=== PATIENT | female | born 1985 | race Caucasian/White ===

== ENCOUNTER → 2020-08-23 11:36 | Outpatient (BNVA) | payer OTHER, SELFPAY | PROVIDERS: PCP Internal Medicine; Visit Provider Surgery | DX: Z01.89 Encounter for other specified special examinations (principal) | CPT/HCPCS: 99212 ==

== ENCOUNTER → 2020-09-05 12:38 | Outpatient (BNVA) | payer OTHER, SELFPAY | PROVIDERS: PCP Internal Medicine; Referring Provider Internal Medicine; Visit Provider Physician Assistant | DX: E66.9 Obesity, unspecified (principal); Z68.27 Body mass index [BMI] 27.0-27.9, adult; K90.49 Malabsorption due to intolerance, not elsewhere classified; Z98.84 Bariatric surgery status; Z71.3 Dietary counseling and surveillance | CPT/HCPCS: 99214 ==

== ENCOUNTER 2020-09-13 08:09 | Outpatient (REF) | payer OTHER, SELFPAY ==
[2020-09-13 13:29] LABS: MANUAL DIFF FLAG NO
[2020-09-13 13:35] LABS: Basophils Percent Auto 0.5 % (0-2); Eosinophils Absolute Auto 0.1 X10*3/uL (0.0-0.4); Eosinophils Percent Auto 1.1 % (0-4); Hematocrit 39.4 % (37-47); Hemoglobin 12.7 g/dl (12.0-16.0); Imm Gran Abs Auto 0.01 X10*3/uL (0.00-0.03); Imm Gran Pct Auto 0.2 % (0.0-0.4); Lymphocytes Absolute Auto 3.1 X10*3/uL (1.2-4.9); Lymphocytes Percent Auto 49.6 % (20-40); Mean Corpuscular HGB Conc 32.2 g/dl (31.0-35.0); Mean Corpuscular Hemoglobin 28.6 pg (27.0-33.0); Mean Corpuscular Volume 88.7 fL (80-98); Mean Platelet Volume 10.3 fL (9.4-12.3); Monocytes Absolute Auto 0.3 X10*3/uL (0.1-1.2); Monocytes Percent Auto 5.5 % (2-11); Neutrophils Absolute Auto 2.7 X10*3/uL (2.0-8.3); Neutrophils Percent Auto 43.1 % (45-73); Platelet Count 303 X10*3/uL (160-400); Red Blood Count 4.44 X10*6/uL (4.20-5.50); Red Cell Distribution Width 13.6 % (11.0-16.0); White Blood Count 6.2 X10*3/uL (4.8-10.8)
[2020-09-13 14:16] LABS: Alanine Aminotransferase 9 U/L (0-31); Albumin Level 4.2 g/dL (3.5-5.0); Alkaline Phosphatase 83 U/L (39-117); Anion Gap 11 (12-20); Aspartate Amino Transferase 16 U/L (5-31); Bilirubin Total 0.4 mg/dL (0.0-1.0); Blood Urea Nitrogen 9 mg/dL (9-16); C Reactive Protein 0.21 mg/dL (< or = 0.50); Calcium 9.4 mg/dL (8.4-10.2); Carbon Dioxide 29 mmol/L (22-29); Chloride 106 mmol/L (96-108); Cholesterol 154 mg/dL; Estimated Glomerular Filt Rate > 60; Glucose Fasting 77 mg/dL (60-99); HDL Cholesterol 75 mg/dL; Iron 46 mcg/dL (30-160); LDL Cholesterol Calculated 70 mg/dl; Percent Iron Saturation 16 % (15-50); Potassium 4.5 mmol/l (3.3-5.1); Sodium 141 mmol/L (135-145); Total Iron Binding Capacity 290 mcg/dL (228-428); Total Protein 7.2 g/dL (6.5-8.0); Triglycerides 46 mg/dL; Unsaturated Iron Binding 244 ug/dL
[2020-09-13 14:29] LABS: Estimated Average Glucose 91 mg/dL; Hemoglobin A1c % 4.8 %
[2020-09-13 14:31] LABS: Folate 14.5 ng/mL (> or = 4.0); Vitamin B12 621 pg/mL (200-900)
[2020-09-13 14:33] LABS: Ferritin 32 ng/mL (10-122); TSH reflex Free T4 0.52 mIU/mL (0.32-4.0); Vitamin D 25-OH Total 32.8 ng/mL (>30)
[2020-09-14 19:27] LABS: Calcium (PTHI) 9.7 mg/dL (8.6-10.2); PTHI 51 pg/mL (14-64)
[2020-09-15 13:32] LABS: Insulin Level Total 3.6 uIU/mL
[2020-09-17 13:07] LABS: Vitamin B1 14 nmol/L (8-30)
[2020-09-17 17:46] LABS: Zinc 108 mcg/dL (60-130)
[2020-09-19 13:42] LABS: Vitamin A 32 mcg/dL (38-98)
== END 2020-09-13 08:10 | disposition home or self-care (01) ==
LOC: CF 08:09
PROVIDERS: Absent Provider Physician Assistant; PCP Internal Medicine; Visit Provider Dietitian, Registered
DX: E66.9 Obesity, unspecified (principal); K90.49 Malabsorption due to intolerance, not elsewhere classified
CPT/HCPCS: 36415; 80053; 80061; 82306; 82607; 82728; 82746; 83036; 83525; 83540; 83970; 84425; 84443; 84590; 84630; 85025; 86140

== ENCOUNTER → 2020-10-03 15:33 | Outpatient (BNVA) | payer OTHER, SELFPAY | PROVIDERS: PCP Internal Medicine; Visit Provider Nurse Practitioner Family | DX: Z76.89 Persons encountering health services in other specified circumstances (principal) ==

== ENCOUNTER → 2020-10-31 14:16 | Outpatient (BNVA) | payer OTHER, SELFPAY | PROVIDERS: PCP Internal Medicine; Visit Provider Physician Assistant | DX: Z76.89 Persons encountering health services in other specified circumstances (principal) ==

== ENCOUNTER → 2020-11-28 08:24 | Outpatient (BNVA) | payer OTHER, SELFPAY | PROVIDERS: PCP Internal Medicine; Visit Provider Physician Assistant | DX: Z76.89 Persons encountering health services in other specified circumstances (principal) ==

== ENCOUNTER 2020-12-05 16:06 | Outpatient (REF) | payer OTHER, SELFPAY ==
[2020-12-05 16:39] LABS: MANUAL DIFF FLAG NO
[2020-12-05 16:41] LABS: Basophils Percent Auto 0.3 % (0-2); Eosinophils Absolute Auto 0.1 X10*3/uL (0.0-0.4); Eosinophils Percent Auto 1.5 % (0-4); Hemoglobin 11.5 g/dl (12.0-16.0); Imm Gran Abs Auto 0.01 X10*3/uL (0.00-0.03); Imm Gran Pct Auto 0.2 % (0.0-0.4); Lymphocytes Absolute Auto 3.1 X10*3/uL (1.2-4.9); Lymphocytes Percent Auto 47.2 % (20-40); Mean Corpuscular HGB Conc 32.9 g/dl (31.0-35.0); Mean Corpuscular Volume 88.2 fL (80-98); Mean Platelet Volume 10.1 fL (9.4-12.3); Monocytes Absolute Auto 0.4 X10*3/uL (0.1-1.2); Monocytes Percent Auto 5.5 % (2-11); Neutrophils Percent Auto 45.3 % (45-73); Platelet Count 271 X10*3/uL (160-400); Red Blood Count 3.97 X10*6/uL (4.20-5.50); Red Cell Distribution Width 13.4 % (11.0-16.0); White Blood Count 6.6 X10*3/uL (4.8-10.8)
[2020-12-05 16:58] LABS: Estimated Average Glucose 91 mg/dL; Hemoglobin A1c % 4.8 %
[2020-12-05 17:17] LABS: Alanine Aminotransferase 11 U/L (0-31); Albumin Level 4.2 g/dL (3.5-5.0); Alkaline Phosphatase 77 U/L (39-117); Anion Gap 10 (12-20); Aspartate Amino Transferase 15 U/L (5-31); Bilirubin Total 0.2 mg/dL (0.0-1.0); Blood Urea Nitrogen 11 mg/dL (9-16); C Reactive Protein 0.21 mg/dL (< or = 0.50); Carbon Dioxide 29 mmol/L (22-29); Chloride 106 mmol/L (96-108); Cholesterol 173 mg/dL; Estimated Glomerular Filt Rate > 60; Glucose Fasting 78 mg/dL (60-99); HDL Cholesterol 72 mg/dL; Iron 43 mcg/dL (30-160); LDL Cholesterol Calculated 87 mg/dl; Percent Iron Saturation 13 % (15-50); Potassium 3.7 mmol/l (3.3-5.1); Sodium 141 mmol/L (135-145); Total Iron Binding Capacity 331 mcg/dL (228-428); Triglycerides 74 mg/dL; Unsaturated Iron Binding 288 ug/dL
[2020-12-05 17:40] LABS: Ferritin 34 ng/mL (10-122); TSH reflex Free T4 1.61 mIU/mL (0.32-4.0); Vitamin D 25-OH Total 25.5 ng/mL (>30)
[2020-12-05 17:53] LABS: Folate 13.1 ng/mL (> or = 4.0); Vitamin B12 521 pg/mL (200-900)
[2020-12-06 17:33] LABS: Insulin Level Total 2.6 uIU/mL
[2020-12-07 10:42] LABS: Calcium (PTHI) 9.3 mg/dL (8.6-10.2); PTHI 54 pg/mL (14-64)
[2020-12-08 00:53] LABS: Zinc 122 mcg/dL (60-130)
[2020-12-08 18:33] LABS: Vitamin B1 11 nmol/L (8-30)
[2020-12-10 03:13] LABS: Vitamin A 42 mcg/dL (38-98)
== END 2020-12-05 16:07 | disposition home or self-care (01) ==
LOC: HO.LAB 16:06
PROVIDERS: PCP Internal Medicine; Visit Provider Physician Assistant
DX: E66.01 Morbid (severe) obesity due to excess calories (principal); Z90.3 Acquired absence of stomach [part of]; K90.49 Malabsorption due to intolerance, not elsewhere classified; Z68.29 Body mass index [BMI] 29.0-29.9, adult
CPT/HCPCS: 36415; 80053; 80061; 82306; 82607; 82728; 82746; 83036; 83519; 83525; 83540; 83970; 84425; 84443; 84590; 84630; 85025; 86140

== ENCOUNTER → 2021-01-24 08:24 | Outpatient (BNVA) | payer OTHER, SELFPAY | PROVIDERS: PCP Internal Medicine; Visit Provider Dietitian, Registered ==

== ENCOUNTER 2021-06-07 22:51 | Emergency (ER) | payer OTHER, SELFPAY ==
[2021-06-07 22:52] VITALS: BP 110/62; PULSE 81; RESP 16; TEMP 36.9; O2SAT 98; BMI 28.7
--- NOTE | 2021-06-07 23:33 | ED.EXTPRO ---
HPI - Extremity Problem General Chief complaint: Extremity Injury, Upper Stated complaint: shoulder inj Time Seen by Provider: 06/07/21 23:12 Source: patient Mode of arrival: ambulatory Limitations: no limitations History of Present Illness HPI Narrative: 35 y/o female with history of gastric sleeve s/p 120 lbs weight loss, history of right shoulder injury 05/2020 who presents with acute on chronic right posterior shoulder pain. She has been working out and lifting weights to lose more weight. She states the last few days her shoulder has been more sore. She has full ROM. She reports pain with rowing motions. No specific injury. No popping or snapping sensation, no swelling or bruising. No weakness, numbness or tingling. She reports her shoulder pain worsens from time to time and gets better on its own. She has never seen an Orthopedist. MD Complaint: joint paint Onset (ago): day(s) Pain Consistency: intermittent Location: right and upper extremity Severity scale (1-10): 6 Quality: aching Radiation: none Relieving factors: rest Exacerbating factors: range of motion and palpation Associated symptoms: denies other symptoms Related Data Previous Rx's Medication Instructions Recorded cholecalciferol (vitamin D3) 50 50 mcg PO DAILY #30 cap 12/16/20 mcg (2,000 unit) capsule iron,carbonyl 65 mg-vitamin C 125 1 tab PO DAILY #30 tab 12/16/20 mg tablet,delayed release vitamin A 10,000 unit capsule 10,000 unit PO DAILY #30 cap 12/16/20 acetaminophen [Tylenol Arthritis 650 mg PO Q8H PRN #30 tab 06/07/21 Pain] cyclobenzaprine 10 mg PO TID PRN #8 tab 06/07/21 lidocaine [Lidoderm] 1 patch TOPICAL DAILY #15 ea 06/07/21 Allergies Allergy/AdvReac Type Severity Reaction Status Date / Time oseltamivir [From TAMIFLU] Allergy Unknown DROWSINESS/NAUSEA, Verified 06/07/21 22:58 rash, psychosis Review of Systems Review of Systems: Constitutional: No Fever, No Chills Gastrointestinal: No Nausea, No Vomiting Musculoskeletal: + joint pain, No Myalgias Skin: No Skin Lesions, No rash Neuro: No Weakness, No Numbness Heme/Lymph: No Bruising PMFSH Past Medical History Attestation statement: The following information was validated with the patient. Medical History Anemia Back pain GERD (gastroesophageal reflux disease) Intestinal malabsorption following gastrectomy Malabsorption due to intolerance, not elsewhere classified Morbid obesity Overweight (BMI 25.0-29.9) Surgical History History of colonoscopy Hx of cholecystectomy S/P laparoscopic sleeve gastrectomy Family History Family History Father No problems noted. Mother Hypertension Sister No problems noted. Sister Hypoglycemia Brother No problems noted. Brother No problems noted. Son No problems noted. Son No problems noted. Social History Social History Advance Directives: No Advance Directives Information Provided: No Physical Exam Vital Signs: Vital Signs: Last Vital Signs Temp 98.5 F 06/07/21 22:52 Pulse 81 06/07/21 22:52 Resp 16 06/07/21 22:52 BP 110/62 06/07/21 22:52 Pulse Ox 98 06/07/21 22:52 Body Mass Index 28.7 Appearance: Alert. Oriented X3. No acute distress. HEENT: normal inspection CVS: Normal heart rate and rhythm. Pulses normal. Respiratory: No respiratory distress. Skin: Skin warm and dry. Normal skin color. Normal skin turgor. No rashes. Extremities: normal inspection of right shoulder, tenderness posteriorly along superior ridge of scapula, normal ROM, slight discomfort with abduction. NV intact distally. normal palpation of anterior shoulder and lateral shoulder, nontender AC joint. no clavicular tenderness Neuro: Oriented X 3. No motor deficit. No sensory deficit. Course Course Course Narrative: 35 y/o female presenting with acute on chronic right shoulder pain, s/p injury 1 year ago. Records reviewed, XRs were negative at the time. She never followed up with Ortho for insurance reasons. Her exam is benign with only some mild suprascapular tenderness. Possible tendonitis with exacerbation of old untreated injury. Will give IM toradol, lidoderm patch and refer to Ortho for further workup and management. Patient agrees with plan. Discharge Plan Discharge Clinical Impression: Right shoulder pain Qualifiers: Chronicity: chronic Qualified Code(s): M25.511 - Pain in right shoulder Patient Disposition: Home, Self-Care Instructions: Shoulder Pain (ED) Additional Instructions: Recommend rest, icing several times per day. Recommend against any weight lifting for 1 week. You should follow up with Orthopedics for further evaluation. Prescriptions: New cyclobenzaprine 10 mg tablet 10 mg PO TID PRN (Reason: muscle spasm) Qty: 8 RF: 0 acetaminophen [Tylenol Arthritis Pain] 650 mg tablet extended release 650 mg PO Q8H PRN (Reason: pain) Qty: 30 RF: 0 lidocaine [Lidoderm] 5 % adhesive patch,medicated 1 patch topical DAILY Qty: 15 RF: 0 No Action vitamin A 10,000 unit capsule 10,000 unit PO DAILY Qty: 30 RF: 0 cholecalciferol (vitamin D3) 50 mcg (2,000 unit) capsule 50 mcg PO DAILY Qty: 30 RF: 5 Vitron-C 65 mg iron- 125 mg tablet,delayed release (DR/EC) 1 tab PO DAILY Qty: 30 RF: 5 Referrals: Gage Cota MD [Physician] - 2 days (acute on chronic right shoulder pain s/p injury 1 year ago, ongoing pain. never had ortho eval)
[2021-06-07] MEDS: Lidocaine 4 % Patch ADH..PATCH 1 PATCH TRANSDERMA (23:56)
[2021-06-08] MEDS: Ketorolac Tromethamine 15 MG/ML VIAL 30 MG IM (00:02)
[2021-06-08 00:08] VITALS: BP 118/72; PULSE 77; RESP 16; TEMP 36.7; O2SAT 99
== END 2021-06-08 00:09 | disposition home or self-care (01) ==
PROVIDERS: Emergency Provider Emergency Medicine; PCP Internal Medicine
DX: M25.511 Pain in right shoulder (principal); Z98.84 Bariatric surgery status
CPT/HCPCS: 96372; 99283; 99284; J1885

== ENCOUNTER 2021-06-14 07:52 | Outpatient (REF) | payer OTHER, SELFPAY ==
--- NOTE | ~2021-06-14 | XR_ITS ---
EXAMINATION: XR SHOULDER, RIGHT CLINICAL INFORMATION: Right shoulder pain COMPARISON: June 06, 2020 TECHNIQUE: 3 views of the right shoulder. FINDINGS: The bones and soft tissues are normal. No fracture. Glenohumeral and acromioclavicular alignment is anatomic with normal joint space. No abnormal soft tissue calcifications. There is some spurring of the distal right clavicle. XR/XR shoulder RT min 2V IMPRESSION: No significant abnormality of the right shoulder identified.
== END 2021-06-14 07:53 | disposition home or self-care (01) ==
LOC: HO.HOSX 07:52
PROVIDERS: Visit Provider Orthopaedic Surgery
DX: M25.511 Pain in right shoulder (principal); S46.811A Strain of other muscles, fascia and tendons at shoulder and upper arm level, right arm, initial encounter
CPT/HCPCS: 73030; 99202

== ENCOUNTER 2021-12-07 16:12 | Outpatient (REF) | payer OTHER, SELFPAY ==
[2021-12-07 16:32] LABS: MANUAL DIFF FLAG NO
[2021-12-07 16:55] LABS: Basophils Percent Auto 0.4 % (0-2); Eosinophils Absolute Auto 0.1 X10*3/uL (0.0-0.4); Eosinophils Percent Auto 1.8 % (0-4); Hemoglobin 13.2 g/dl (12.0-16.0); Imm Gran Abs Auto 0.01 X10*3/uL (0.00-0.03); Imm Gran Pct Auto 0.2 % (0.0-0.4); Lymphocytes Absolute Auto 2.8 X10*3/uL (1.2-4.9); Lymphocytes Percent Auto 49.6 % (20-40); Mean Corpuscular Hemoglobin 29.3 pg (27.0-33.0); Mean Corpuscular Volume 88.9 fL (80.0-98.0); Mean Platelet Volume 9.8 fL (9.4-12.3); Monocytes Absolute Auto 0.3 X10*3/uL (0.1-1.2); Monocytes Percent Auto 5.3 % (2-11); Neutrophils Absolute Auto 2.4 x10*3/uL (2.0-8.3); Neutrophils Percent Auto 42.7 % (45-73); Platelet Count 268 X10*3/uL (160-400); Red Cell Distribution Width 12.9 % (11.0-16.0); White Blood Count 5.6 X10*3/uL (4.8-10.8)
[2021-12-07 17:17] LABS: Alanine Aminotransferase 20 U/L (0-31); Albumin Level 4.2 g/dL (3.5-5.0); Alkaline Phosphatase 67 U/L (39-117); Anion Gap 10 (12-20); Aspartate Amino Transferase 19 U/L (5-31); Bilirubin Total 0.5 mg/dL (0.0-1.0); Blood Urea Nitrogen 7 mg/dL (9-16); Calcium 9.6 mg/dL (8.4-10.2); Carbon Dioxide 29 mmol/L (22-29); Chloride 106 mmol/L (96-108); Cholesterol 190 mg/dL; Estimated Glomerular Filt Rate > 60; Glucose Fasting 79 mg/dL (60-99); HDL Cholesterol 78 mg/dL; LDL Cholesterol Calculated 96 mg/dl; Potassium 4.3 mmol/L (3.3-5.1); Sodium 141 mmol/L (135-145); Total Protein 7.4 g/dL (6.5-8.0); Triglycerides 82 mg/dL
[2021-12-07 17:37] LABS: Thyroid Stimulating Hormone 0.85 uIU/mL (0.32-4.0)
[2021-12-07 17:51] LABS: Folate 8.3 ng/mL (> or = 4.0); Vitamin B12 370 pg/mL (200-900)
[2021-12-11 16:17] LABS: Vitamin D 25-OH, D2 <4 ng/mL; Vitamin D 25-OH, D3 20 ng/mL; Vitamin D 25-OH, Total 20 ng/mL (30-100)
[2021-12-13 10:02] LABS: Vitamin A 46 mcg/dL (38-98)
== END 2021-12-07 16:13 | disposition home or self-care (01) ==
LOC: HO.LAB 16:12
PROVIDERS: PCP Internal Medicine; Visit Provider Internal Medicine
DX: Z00.00 Encounter for general adult medical examination without abnormal findings (principal); D64.9 Anemia, unspecified; K90.49 Malabsorption due to intolerance, not elsewhere classified; E78.5 Hyperlipidemia, unspecified; E55.9 Vitamin D deficiency, unspecified; E66.3 Overweight
CPT/HCPCS: 36415; 80053; 80061; 82306; 82607; 82746; 84443; 84590; 85025

== ENCOUNTER 2021-12-13 13:53 | Outpatient (REF) | payer OTHER, SELFPAY ==
--- NOTE | ~2021-12-13 | MM_ITS ---
EXAMINATION: MM DIAGNOSTIC DIGITAL BREAST TOMOSYNTHESIS, LEFT US DIAGNOSTIC ULTRASOUND BREAST, LEFT CLINICAL INFORMATION: 36-year-old with waxing and waning palpable fullness and pain lower outer left breast. No symptoms today. No known family history breast cancer. The lifetime risk of breast cancer based on the Tyrer-Cuzick Model is 8%. COMPARISON: Mammography: Outside mammography 09/15/2021 ([facility]). TECHNIQUE: Digital breast tomosynthesis is performed in both the craniocaudal and mediolateral oblique views along with computer-aided detection (CAD). Synthesized 2D images are generated from the tomosynthesis. Ultrasound left breast is targeted to the lower outer quadrant. Grayscale imaging and color Doppler are performed without and with harmonics. FINDINGS: There are scattered areas of fibroglandular density (ACR BI-RADS breast composition Category b). Breast tissue composition borders on heterogeneously dense. Parenchymal pattern is similar to outside exam. There is no interval mass or architectural abnormality. There is a dermal lesion again noted posterior inferior left breast at the inframammary fold corresponding to a mole on clinical exam. There are no abnormal calcifications. The axilla and skin contours are unremarkable. There is no skin thickening or coarsening of the Gera's ligaments. Ultrasound demonstrates no cystic or solid mass or architectural abnormality. There is no skin thickening or edema tracking in soft tissue planes. No hyperemia on real-time color Doppler. Results and management options are discussed with the patient at time of visit. MM/MM diagnostic mammo unilat LT IMPRESSION: No mammographic evidence of malignancy or inflammatory changes. Unremarkable targeted left breast ultrasound. ASSESSMENT LEFT BREAST: BI-RADS 1: Negative COMMENT - There is a recent BI-RADS 3 assessment for right breast ([facility]). RECOMMENDATION: 1. Patient should be managed based on the clinical impression. If clinically indicated, further evaluation may be considered with surgical consult. Decision to proceed with biopsy should be based on clinical grounds and degree of clinical concern. 2. Recent outside mammography from [facility] 09/15/2021 notes probable benign grouped calcifications right breast for which six-month follow-up mammography is recommended. This patient's information was entered into a reminder system with a target due date for their next mammogram.
== END 2021-12-13 13:54 | disposition home or self-care (01) ==
LOC: HO.MAMMO 13:53
PROVIDERS: Visit Provider Internal Medicine
DX: N63.25 Unspecified lump in the left breast, overlapping quadrants (principal)
CPT/HCPCS: 76642; 77065

== ENCOUNTER 2022-01-20 18:52 | Emergency (ER) | payer OTHER, SELFPAY ==
--- NOTE | ~2022-01-20 | XR_ITS ---
EXAMINATION: XR ANKLE, LEFT CLINICAL INFORMATION: Injury with ankle pain COMPARISON: None TECHNIQUE: AP, lateral, and mortise views of the left ankle. FINDINGS: The bones and soft tissues are normal. No fracture. Alignment is anatomic. Joint spaces are maintained. No joint effusion. XR/XR ankle LT 2V IMPRESSION: Normal left ankle.
[2022-01-20 19:09] VITALS: BP 129/67; PULSE 80; RESP 16; TEMP 37.1; O2SAT 97; BMI 29.2
--- NOTE | 2022-01-20 19:40 | ED.LOWEXIN ---
HPI - Extremity Injury (Lower) General Chief Complaint: Extremity Injury, Lower Stated Complaint: foot pain Time Seen by Provider: 01/20/22 19:21 Source: patient Mode of arrival: ambulatory Limitations: no limitations History of Present Illness HPI Narrative: 36-year-old female here with reports of left ankle pain. Patient tells me she has had some discomfort over the left ankle for the last few days. Today she was stepping down off of a ladder when she felt worsening pain in her left posterior ankle. Patient denies any pain in her foot or her calf. She denies any associated numbness, tingling, weakness of the extremity. Related Data Previous Rx's Medication Instructions Recorded cholecalciferol (vitamin D3) 25 25 mcg PO DAILY 90 Days #90 cap 12/11/21 mcg (1,000 unit) capsule Allergies Allergy/AdvReac Type Severity Reaction Status Date / Time oseltamivir [From TAMIFLU] Allergy Intermediate DROWSINESS/NAUSEA, Verified 11/29/21 08:05 rash, psychosis Review of Systems Review of Systems: Yes all other systems are reviewed and are negative Constitutional: Constitutional: Reports no additional constitutional complaints, Denies body ache(s), Denies chills, Denies fever(s), Denies headache(s) and Denies weakness Eyes: Eyes: Reports no additional eye complaints and Denies change in vision ENT: Reports system reviewed and no additional complaints, except as documented, Denies dizziness, Denies headache(s), Denies nasal congestion, Denies nasal discharge and Denies neck pain Cardiovascular: Cardiovascular: Reports no additional cardiovascular complaints, Denies chest pain, Denies leg edema and Denies dyspnea Respiratory: Respiratory: Reports no additional respiratory complaints, Denies cough and Denies dyspnea Gastrointestinal: Gastrointestinal: Reports no additional gastrointestinal complaints, Denies abdominal pain, Denies diarrhea, Denies nausea and Denies vomiting Genitourinary: Genitourinary: Reports no additional female genitourinary complaints and Denies urinary incontinence Musculoskeletal: Musculoskeletal: Reports no additional musculoskeletal complaints, Denies back pain, Reports arthralgias, Denies joint swelling, Denies neck pain, Denies numbness and Denies tingling Integumentary/Breasts: Skin/Breast: Reports system reviewed and no additional complaints, except as docu and Denies rash Neurologic: Reports system reviewed and no additional complaints, except as documented, Denies Abnormal speech present, Denies dizziness, Denies headache(s), Denies numbness, Denies tingling and Denies weakness PMFSH Past Medical History Attestation statement: The following information was validated with the patient. Source: old records reviewed and nursing notes reviewed Medical History Anemia Back pain Breast lump on left side at 3 o'clock position GERD (gastroesophageal reflux disease) Hypovitaminosis D Intestinal malabsorption following gastrectomy Malabsorption due to intolerance, not elsewhere classified Morbid obesity Overweight (BMI 25.0-29.9) Physical exam Surgical History History of colonoscopy Hx of cholecystectomy S/P laparoscopic sleeve gastrectomy Family History Family History Father No problems noted. Mother Hypertension Sister No problems noted. Sister Hypoglycemia Brother No problems noted. Brother No problems noted. Son No problems noted. Son No problems noted. Social History Social History Housing: House Alcohol intake: never Patient Tobacco Use Status: Former Tobacco user Tobacco use type: Cigarette e-Cigarette/Vaping Use: Never Used Second Hand Smoke Exposure: No Advance Directives: No Advance Directives Information Provided: No Patient : No service: No Current occupational status: employed Current occupational exposures/hazards: No Physical Exam Vital Signs: Vital Signs: Last Vital Signs Temp 98.7 F 01/20/22 19:09 Pulse 80 01/20/22 19:09 Resp 16 01/20/22 19:09 BP 129/67 01/20/22 19:09 Pulse Ox 97 01/20/22 19:09 BMI result Body Mass Index 29.2 Const: General: cooperative, healthy appearing, comfortable and no acute distress Orientation/consciousness: patient oriented x3 Limitations: no limitations HENMT: Head: Yes normal to inspection Ears: hearing grossly normal bilaterally General nose exam: Normal external nose present Face and sinus: Yes normal facial exam Mouth: Normal oral and palatal mucosa present Throat: Yes posterior oropharynx normal Eyes: General: appearance normal, both eyes and all related structures Pupils: Equal, round and reactive pupils present Neck: Neck: Yes normal visual inspection Chest: Chest palpation & inspection: normal inspection of the chest Resp: Effort & Inspection: normal respiratory effort Auscultation: clear to auscultation bilaterally Cardio: Rate: regular rate Rhythm: regular rhythm Peripheral pulses: Peripheral pulses 2+ throughout GI: Inspection: Yes normal to inspection Palpation (GI): Soft to palpation and nontender Auscultation: normal bowel sounds Back/Spine/Pelvis: Thoracic/Lumbar Spine: thoracic and lumbar spine normal to inspection Skin: General skin exam: no rashes or lesions noted Neuro: General: patient oriented x3, no focal motor deficits and normal sensation to monofilament Cranial nerves: Yes Equal, round and reactive pupils present Cognition (Neuro): normal cognition Speech: No Abnormal speech present Gait exam (Neuro): Normal gait present Motor exam (neuro): 5/5 motor strength present throughout Extrem: Other: There is tenderness over the left posterior ankle and lateral ankle with slight swelling. There is full range of motion. Negative Vides test. No calf swelling or pain on exam. General: Yes normal to inspection Course Course Course Narrative: 36-year-old female here with reports of left ankle pain for the last few days and tagged denies by stepping off a ladder just prior to arrival. Will check x-rays 2100-x-ray shows no bony abnormality. Likely ankle sprain. Less likely Achilles tear with negative Vides sign and no tenderness on palpation over the posterior Achilles tendon or calf. Patient placed in air splint and crutches for home. Reviewed rice. Reviewed worrisome signs and symptoms of when to return to the emergency department. Comfortable discharge home. MDM - Extremity Injury (Lower) MDM Narrative Medical decision making narrative: sprain, strain, Medical Records Attestation: I reviewed the patient's medical records. Lab Data Attestation: I reviewed the patient's lab results. Imaging Data ankle x-ray: Attestation: I personally reviewed and interpreted this imaging study as follows: Radiologist's impression: [address] [address] XRay Report Signed Patient: Yulia Singer MR#: [id number] : 1985 Acct:[id number] Age/Sex: 36 / F ADM Date: 01/20/22 Loc: HO.ED Attending Dr: Ordering Physician: Narcisa Marshall NP Date of Service: 01/20/22 Procedure(s): XR ankle LT 2V Accession Number(s): [id number] cc: Narcisa Marshall NP~ EXAMINATION: XR ANKLE, LEFT CLINICAL INFORMATION: Injury with ankle pain? COMPARISON: None? TECHNIQUE: AP, lateral, and mortise views of the left ankle. FINDINGS: The bones and soft tissues are normal. No fracture. Alignment is anatomic. Joint spaces are maintained. No joint effusion.? XR/XR ankle LT 2V IMPRESSION: Normal left ankle. Procedures Procedure Narrative Procedure Narrative: Air splint, crutches Discharge Plan Discharge Clinical Impression: Ankle sprain and strain Patient Disposition: Home, Self-Care Instructions: Ankle Sprain (DC) Additional Instructions: Ice, rest, elevation Use the crutches with nonweightbearing for several days until your able to experience no pain with weight-bearing Alternate Motrin and Tylenol as needed Prescriptions: No Action cholecalciferol (vitamin D3) 25 mcg (1,000 unit) capsule 25 mcg PO DAILY 90 Days Qty: 90 2RF Referrals: Cydney Juárez MD [Primary Care Provider] - 5 days (For persistent symptoms)
== END 2022-01-20 21:19 | disposition home or self-care (01) ==
PROVIDERS: Emergency Provider Emergency Medicine Emergency Medical Services; PCP Internal Medicine
DX: S93.402A Sprain of unspecified ligament of left ankle, initial encounter (principal); S96.912A Strain of unspecified muscle and tendon at ankle and foot level, left foot, initial encounter; X50.1XXA Overexertion from prolonged static or awkward postures, initial encounter; Y93.89 Activity, other specified; Y92.019 Unspecified place in single-family (private) house as the place of occurrence of the external cause; Y99.9 Unspecified external cause status
CPT/HCPCS: 73600; 99283

== ENCOUNTER 2022-03-06 14:40 | Outpatient (REF) | payer OTHER, SELFPAY ==
[2022-03-06 17:14] LABS: Vitamin D 25-OH Total 23.5 ng/mL (>30)
[2022-03-06 17:29] LABS: Folate 14.4 ng/mL (> or = 4.0); Vitamin B12 366 pg/mL (200-900)
[2022-03-07 14:11] LABS: Calcium (PTHI) 9.5 mg/dL (8.6-10.2); PTHI 51 pg/mL (16-77)
[2022-03-09 07:01] LABS: Zinc 92 mcg/dL (60-130)
[2022-03-11 00:51] LABS: Vitamin A 34 mcg/dL (38-98)
[2022-03-13 11:51] LABS: Vitamin B1 13 nmol/L (8-30)
== END 2022-03-06 14:41 | disposition home or self-care (01) ==
LOC: HO.LAB 14:40
PROVIDERS: PCP Internal Medicine; Referring Provider Internal Medicine; Visit Provider Physician Assistant
DX: E66.3 Overweight (principal); L98.7 Excessive and redundant skin and subcutaneous tissue; Z98.84 Bariatric surgery status
CPT/HCPCS: 36415; 82306; 82607; 82746; 83970; 84425; 84443; 84590; 84630; 99212

== ENCOUNTER → 2022-04-17 15:00 | Outpatient (BNVA) | payer OTHER, SELFPAY | PROVIDERS: PCP Internal Medicine; Visit Provider Physician Assistant | DX: Z13.89 Encounter for screening for other disorder (principal) ==

== ENCOUNTER 2022-05-15 14:30 | Outpatient (REF) | payer OTHER, SELFPAY ==
--- NOTE | ~2022-05-15 | MM_ITS ---
EXAMINATION: MM DIAGNOSTIC DIGITAL BREAST TOMOSYNTHESIS, RIGHT CLINICAL INFORMATION: 36-year-old for follow-up of right breast calcifications initially noted on outside mammography 09/15/2021. The lifetime risk of breast cancer based on the Tyrer-Cuzick Model is 11%. COMPARISON: Outside bilateral mammography 09/15/2021 ([facility]). Left mammography and left breast ultrasound 12/13/2021 ([facility]). TECHNIQUE: Digital breast tomosynthesis is performed in both the craniocaudal and mediolateral oblique views along with computer-aided detection (CAD). Synthesized 2D images are generated from the tomosynthesis. Additional magnification views right breast are obtained in the CC x2 and ML x2 projections. FINDINGS: The breasts are heterogeneously dense, which may obscure small masses (ACR BI-RADS breast composition Category c). The parenchymal pattern is similar to prior study. There is no interval mass or architectural abnormality. Again, there is dermal lesion overlying the posterior inferior breast, marked with dermal marker. There are grouped benign coarse calcifications posterior 6:00 position. Calcifications for follow-up mid lower inner breast and central lower breast are similar in number and distribution to the outside mammography. The calcifications are rounded and vary in size. Milk of calcium described on outside study is not a predominate finding, only a small minority of the foci. There are no regional calcifications on the contralateral left. Results are discussed with the patient at time of visit. Management options for the calcifications are discussed with the patient including stereotactic sampling as well as continued surveillance. Patient prefers tissue sampling. Results and recommendation called to certified medical coder (Mckenna) for Dr. Samy Foster on 05/15/2022. MM/MM tomosynthesis diagnostic RT IMPRESSION: Although the calcifications for follow-up right breast are unchanged in number, the calcifications vary in size and there are a few show layering milk of calcium. ASSESSMENT: BI-RADS 4: Suspicious (subcategory 4A: Low suspicion for malignancy) RECOMMENDATION: Stereotactic sampling calcifications right breast mid lower inner quadrant. This patient's information was entered into a reminder system with a target due date for their next mammogram.
== END 2022-05-15 14:31 | disposition home or self-care (01) ==
LOC: HO.MAMMO 14:30
PROVIDERS: Visit Provider Internal Medicine
DX: R92.1 Mammographic calcification found on diagnostic imaging of breast (principal)
CPT/HCPCS: 77061; 77065

== ENCOUNTER → 2022-05-18 08:31 | Outpatient (BNVA) | payer OTHER, SELFPAY | PROVIDERS: PCP Internal Medicine; Referring Provider Internal Medicine; Visit Provider Surgery | DX: R92.0 Mammographic microcalcification found on diagnostic imaging of breast (principal) | CPT/HCPCS: 99202 ==

== ENCOUNTER 2022-05-22 08:07 | Outpatient (REF) | payer OTHER, SELFPAY ==
--- NOTE | ~2022-05-22 | MM_ITS ---
EXAMINATION: STEREOTACTIC TOMOSYNTHESIS-GUIDED VACUUM-ASSISTED BREAST BIOPSY, RIGHT SPECIMEN RADIOGRAPH, RIGHT POST PROCEDURE DIGITAL MAMMOGRAM, RIGHT CLINICAL INFORMATION: Regional asymmetric right calcifications for tissue sampling. Age 36. TC score 11%. COMPARISON: 05/15/2022; outside mammography 09/15/2021 ([facility]). TECHNIQUE/PROCEDURE: Informed consent was obtained from the patient after discussion of the benefits, risks, and alternatives to biopsy today. Patient appeared to understand. Gave opportunity for questions. Patient signed consent form. BIOPSY TABLE: Jim[employer] Affirm Prone Biopsy System. LESION: Regional calcifications mid lower inner right breast. LOCAL ANESTHESIA: 4 mL 1% lidocaine; 10 mL 1% lidocaine with epinephrine. DERMATOTOMY: Single skin vidhya dermatotomy performed. NEEDLE: Asokaiva 9-gauge vacuum assisted core biopsy device. APPROACH: Caudal cranial. TARGETING: Combination of digital breast tomosynthesis and stereotactic digital mammography used for targeting. CORES: 6. CLIP: ICU MetrixurMark T-shaped marker. SPECIMEN RADIOGRAPH: Specimen radiograph is taken in separate room using digital mammography. The index calcifications are in the excised cores. There are at least 15 calcifications in the cores. POST PROCEDURE UNILATERAL DIGITAL MAMMOGRAM: The post biopsy mammogram is performed in separate room using separate digital mammography equipment from the biopsy procedure. CC and LM views are obtained. The breasts are heterogeneously dense, which may obscure small masses (breast composition category: c). The clip marker is in position. No gross hematoma. The patient tolerated the procedure well. No immediate complications. Home instructions reviewed with the patient. Final pathology results are pending. MM/MM stereotactic biopsy RT IMPRESSION: 1. Digital tomosynthesis-guided core biopsy right breast with clip placement. 2. Specimen radiograph taken and post procedure mammogram. There is satisfactory positioning of the biopsy clip. 3. Final pathology results pending. An addendum report will be issued.
[2022-05-22] MEDS: Lidocaine HCl 1 % 20 ML VIAL 9 ML SUBCUT (09:36)
[2022-05-22] MEDS: Sodium Bicarbonate 8.4% 50 MEQ/50 ML VIAL SUBCUT (09:38)
== END 2022-05-22 08:08 | disposition home or self-care (01) ==
LOC: HO.MAMMO 08:07
PROVIDERS: Visit Provider Surgery
DX: R92.1 Mammographic calcification found on diagnostic imaging of breast (principal)
CPT/HCPCS: 19081; 88305; A4648

== ENCOUNTER → 2022-05-25 09:07 | Outpatient (BNVA) | payer OTHER, SELFPAY | PROVIDERS: PCP Internal Medicine; Referring Provider Internal Medicine; Visit Provider Surgery | DX: R92.8 Other abnormal and inconclusive findings on diagnostic imaging of breast (principal); Z98.890 Other specified postprocedural states | CPT/HCPCS: 99212 ==

== ENCOUNTER 2022-06-01 07:23 | Outpatient (REF) | payer OTHER, SELFPAY ==
--- NOTE | ~2022-06-01 | XR_ITS ---
EXAMINATION: XR SHOULDER, RIGHT CLINICAL INFORMATION: Right shoulder pain COMPARISON: 06/06/2021 TECHNIQUE: Three views of the right shoulder. FINDINGS: Minimal acromioclavicular osteoarthritis with small subchondral cyst of the distal clavicle. Dorsal spurring of the distal clavicle, unchanged. Glenohumeral joint appears normal. XR/XR shoulder RT min 2V IMPRESSION: Minimal acromioclavicular osteoarthritis.
== END 2022-06-01 07:24 | disposition home or self-care (01) ==
LOC: HO.HOSX 07:23
PROVIDERS: Visit Provider Physician Assistant
DX: E66.3 Overweight (principal); M75.101 Unspecified rotator cuff tear or rupture of right shoulder, not specified as traumatic; E65 Localized adiposity; L98.7 Excessive and redundant skin and subcutaneous tissue; Z98.84 Bariatric surgery status; Z71.3 Dietary counseling and surveillance
CPT/HCPCS: 73030; 99202; 99212; J1040

== ENCOUNTER 2022-07-12 20:38 | Emergency (ER) | payer OTHER, SELFPAY ==
--- NOTE | 2022-07-12 | ECG_ITS ---
Test Reason : dizziness Blood Pressure : / mmHG Vent. Rate : 075 BPM Atrial Rate : 075 BPM P-R Int : 162 ms QRS Dur : 084 ms QT Int : 384 ms P-R-T Axes : 019 038 026 degrees QTc Int : 428 ms Normal sinus rhythm Normal ECG When compared with ECG of 03-SEP-2019 11:08, No significant change was found Referred By: Generic ED Physician Electronically Signed By:KELLI BURNS
[2022-07-12 20:47] VITALS: BP 104/78; PULSE 92; RESP 13; TEMP 37.1; O2SAT 99; BMI 30.2
[2022-07-12 21:07] LABS: MANUAL DIFF FLAG NO
[2022-07-12 21:08] LABS: Basophils Percent Auto 0.4 % (0-2); Eosinophils Absolute Auto 0.3 X10*3/uL (0.0-0.4); Eosinophils Percent Auto 3.6 % (0-4); Hematocrit 37.1 % (37.0-47.0); Hemoglobin 12.3 g/dl (12.0-16.0); Imm Gran Abs Auto 0.02 X10*3/uL (0.00-0.03); Imm Gran Pct Auto 0.3 % (0.0-0.4); Lymphocytes Absolute Auto 3.5 X10*3/uL (1.2-4.9); Lymphocytes Percent Auto 45.3 % (20-40); Mean Corpuscular HGB Conc 33.2 g/dl (31.0-35.0); Mean Corpuscular Hemoglobin 29.9 pg (27.0-33.0); Mean Corpuscular Volume 90.3 fL (80.0-98.0); Mean Platelet Volume 9.4 fL (9.4-12.3); Monocytes Absolute Auto 0.5 X10*3/uL (0.1-1.2); Monocytes Percent Auto 6.5 % (2-11); Neutrophils Absolute Auto 3.4 x10*3/uL (2.0-8.3); Neutrophils Percent Auto 43.9 % (45-73); Platelet Count 268 X10*3/uL (160-400); Red Blood Count 4.11 X10*6/uL (4.20-5.50); Red Cell Distribution Width 13.4 % (11.0-16.0); White Blood Count 7.7 X10*3/uL (4.8-10.8)
[2022-07-12 21:26] LABS: Alanine Aminotransferase 14 U/L (0-31); Alkaline Phosphatase 71 U/L (39-117); Anion Gap 13 (12-20); Aspartate Amino Transferase 17 U/L (5-31); Bilirubin Total 0.3 mg/dL (0.0-1.0); Blood Urea Nitrogen 9 mg/dL (9-16); Calcium 8.7 mg/dL (8.4-10.2); Carbon Dioxide 27 mmol/L (22-29); Chloride 105 mmol/L (96-108); Creatinine Clr Calc Pharmacy 93.1; Estimated Glomerular Filt Rate > 60; Glucose Random 102 mg/dL (60-115); Potassium 3.4 mmol/L (3.3-5.1); Sodium 142 mmol/L (135-145); Total Protein 6.8 g/dL (6.5-8.0)
[2022-07-12 21:30] LABS: Troponin-I High Sensitivity < 3.5 ng/L (<3.5-17.0)
--- NOTE | 2022-07-12 23:56 | ED.DIZZY ---
HPI - Dizziness General Chief Complaint: Dizziness Stated Complaint: dizziness reddness Time Seen by Provider: 07/12/22 23:55 Source: patient Mode of arrival: ambulatory Limitations: no limitations History of Present Illness HPI Narrative: 37 yo female came in for evaluation of dizziness. patient was at work bending down felt dizzy when she stood up and changed her position that was improved after drinking water, then happened again with changing position , patient otherwise declined headache, no blurry vision, no nausea vomiting, weak no numbness. When patient feel dizzy veins on her temporal area pop up. no recent sickness, no fever, chills. Similar symptoms have been once in the past, currently patient has no symptoms. Related Data Home Medications Medication Instructions Recorded Confirmed diclofenac sodium 75 mg 75 mg PO BID 03/06/22 05/25/22 tablet,delayed release melatonin 10 mg tablet 10 mg PO BEDTIME PRN 03/06/22 05/25/22 multivitamin 1 tab PO DAILY 03/06/22 05/25/22 Previous Rx's Medication Instructions Recorded cholecalciferol (vitamin D3) 50 50 mcg PO DAILY #30 caps 03/08/22 mcg (2,000 unit) capsule vitamin A palmitate 10,000 unit 10,000 unit PO DAILY 2 weeks #14 03/12/22 tablet tabs calcium citrate 315 mg-vitamin D3 1 tab PO BID #60 tabs 03/14/22 5 mcg (200 unit) tablet (Calcium Citrate + D) clotrimazole 1 % topical ointment 1 appl topical BID #56.7 grams 04/17/22 Allergies Allergy/AdvReac Type Severity Reaction Status Date / Time oseltamivir [From TAMIFLU] Allergy Intermediate DROWSINESS/NAUSEA, Verified 06/01/22 15:34 rash, psychosis Review of Systems Review of Systems: All other systems are reviewed and are negative Constitutional: Reports as per HPI and Reports no additional constitutional complaints Eyes: Reports as per HPI and Reports no additional eye complaints Reports system reviewed and no additional complaints, except as documented Cardiovascular: Reports as per HPI and Reports no additional cardiovascular complaints Respiratory: Reports as per HPI and Reports no additional respiratory complaints Gastrointestinal: Reports as per HPI and Reports no additional gastrointestinal complaints Genitourinary: Reports no additional female genitourinary complaints Musculoskeletal: Reports no additional musculoskeletal complaints Skin/Breast: Reports system reviewed and no additional complaints, except as docu Psychiatric: Reports no additional psychiatric complaints Endocrine: Reports no additional endocrine complaints Hematologic/Lymphatic: Reports no additional hematologic/lymphatic complaints Allergic/Immunologic: Reports no additional allergic/immunologic complaints Reports system reviewed and no additional complaints, except as documented and Reports Abnormal speech present COUNT INCLUDES THE [facility] Past Medical History Medical History Anemia Back pain Breast lump on left side at 3 o'clock position GERD (gastroesophageal reflux disease) Hypovitaminosis D Intestinal malabsorption following gastrectomy Malabsorption due to intolerance, not elsewhere classified Morbid obesity Overweight (BMI 25.0-29.9) Physical exam Surgical History History of colonoscopy History of surgical procedure on mouth Hx of cholecystectomy S/P laparoscopic sleeve gastrectomy Family History Family History Father No problems noted. Mother Hypertension Sister No problems noted. Sister Hypoglycemia Brother No problems noted. Brother No problems noted. Son No problems noted. Son No problems noted. Paternal Aunt Breast cancer Colon cancer Paternal Grandfather No problems noted. Social History Social History Housing: House Alcohol intake: never Patient Tobacco Use Status: Former Tobacco user Tobacco use type: Cigarette e-Cigarette/Vaping Use: Never Used Second Hand Smoke Exposure: No Advance Directives: No Advance Directives Information Provided: No service: No Current occupational status: employed Current occupational exposures/hazards: No Cognitive needs: No Hearing needs: No Physical Exam Vital Signs: Vital Signs: Last Vital Signs Temp 98.3 F 07/13/22 00:08 Pulse 52 07/13/22 00:08 Resp 16 07/13/22 00:08 BP 111/62 07/13/22 00:08 Pulse Ox 98 07/13/22 00:08 O2 Del Method 07/13/22 00:08 BMI result Body Mass Index 30.2 vital signs have been reviewed as appeared to be correct. Blood pressure normal. Heart rate normal. Respiration rate normal. Temperature normal. Oxygen saturation normal. Appearance: Alert. Oriented X3. No acute distress. Head: Normal external exam. Normocephalic. Atraumatic. No Cotton signs noted. No raccoon eyes noted Eyes: PERRLA. EOMI. Conjunctiva and sclera normal. Eyelids normal. ENT: TM's Normal. Pharynx normal. Uvula midline. Moist mucous membranes. No trismus noted. No drooling noted. No muffled voice noted. Neck: Normal inspection. Neck supple. FROM. No adenopathy. Thyroid Normal. No meningeal signs. No neck mass noted. CVS: Normal heart rate and rhythm. Heart sound normal. No murmurs noted. Pulses normal throughout. Respiratory: No respiratory distress. Painless inspiration. Breath sounds normal. No wheezes/rales/rhonchi noted. Chest nontender. No accessory muscle usage noted or decreased air movement noted. Abdomen: Soft and nontender. Bowel sounds normal in all 4 quadrants. No distention noted. No organomegaly noted. No visible injury noted. Back: No CVA tenderness. Full range of motion noted. Skin: Skin warm and dry. Normal skin color. Normal skin turgor. No rashes/lesions/lacerations noted. Extremities: No lower extremity edema. Extremities exhibit normal range of motion. Extremities nontender. Neuro: Oriented X 3. Cranial nerve exam: II-XII are grossly intact No motor deficit. No sensory deficit. Reflexes normal. No [id number] dysmetria, able to ambulate unsteady gait. NIH Stroke Scale Level of Consciousness: Alert Level of Consciousness Questions: Answers both questions correctly Level of Consciousness Commands: Performs both tasks correctly Best Gaze: Normal Visual: No visual loss Facial Palsy: Normal Motor Arm (Right): No drift Motor Arm (Left): No drift Motor Leg (Right): No drift Motor Leg (Left): No drift Limb Ataxia: Absent Sensory: Normal Best Language: No aphasia Dysarthia: Normal Extinction and Inattention: No abnormality Score: 0 Course Course Course Narrative: 37-year-old female status post sleeve gastrectomy, had positional dizziness and vertigo, patient's symptoms improved with p.o. hydration. Patient feels better. unremarkable labs and vital signs. [facility] - Dizziness Medical Records Attestation: I reviewed the patient's medical records. Lab Data Attestation: I reviewed the patient's lab results. Result diagrams: 07/12/22 21:02 07/12/22 21:02 Labs: Lab Results 08/25/22 08/25/22 08/25/22 Range/Units 21:02 21:02 21:02 WBC 7.7 (4.8-10.8) X10*3/uL RBC 4.11 L (4.20-5.50) X10*6/uL Hgb 12.3 (12.0-16.0) g/dl Hct 37.1 (37.0-47.0) % MCV 90.3 (80.0-98.0) fL MCH 29.9 (27.0-33.0) pg MCHC 33.2 (31.0-35.0) g/dl RDW 13.4 (11.0-16.0) % Plt Count 268 (160-400) X10*3/uL MPV 9.4 (9.4-12.3) fL Immature Gran % (Auto) 0.3 (0.0-0.4) % Neut % (Auto) 43.9 L (45-73) % Lymph % (Auto) 45.3 H (20-40) % [place] % (Auto) 6.5 (2-11) % Eos % (Auto) 3.6 (0-4) % Baso % (Auto) 0.4 (0-2) % Lymph # (Auto) 3.5 (1.2-4.9) X10*3/uL [place] # (Auto) 0.5 (0.1-1.2) X10*3/uL Eos # (Auto) 0.3 (0.0-0.4) X10*3/uL Baso # (Auto) 0.0 (0.0-0.2) X10*3/uL Abs Immat Gran (auto) 0.02 (0.00-0.03) X10*3/uL Absolute Neuts (auto) 3.4 (2.0-8.3) x10*3/uL Absolute Nucleated RBC 0.000 (0.0-0.012) X10*3/uL Nucleated RBC % (auto) 0.0 (0.0-0.2) /100WBC Sodium 142 (135-145) mmol/L Potassium 3.4 D (3.3-5.1) mmol/L Chloride 105 (96-108) mmol/L Carbon Dioxide 27 (22-29) mmol/L Anion Gap 13 (12-20) BUN 9 (9-16) mg/dL Creatinine 0.71 (0.5-1.4) mg/dL Estim Creat Clear Calc 93.1 Estimated GFR > 60 Random Glucose 102 (60-115) mg/dL Calcium 8.7 D (8.4-10.2) mg/dL Total Bilirubin 0.3 (0.0-1.0) mg/dL AST 17 (5-31) U/L ALT 14 (0-31) U/L Alkaline Phosphatase 71 (39-117) U/L Troponin I High Sens < 3.5 (<3.5-17.0) ng/L Total Protein 6.8 (6.5-8.0) g/dL Albumin 4.0 (3.5-5.0) g/dL Urine Color Urine Appearance Urine pH (5.0-8.0) Ur Specific [place] (1.005-1.025) Urine Protein (Neg-Trace) mg/dL Urine Glucose (UA) (Negative) mg/dL Urine Ketones (Negative) mg/dL Urine Blood (Negative) Urine Nitrite (Negative) Ur Leukocyte Esterase (Negative) Urine Test (NEGATIVE) Urine Opiates Screen (Not Detect) Urine Fentanyl Screen (Not Detect) Ur Barbiturates Screen (Not Detect) Ur Phencyclidine Scrn (Not Detect) Ur Amphetamines Screen (Not Detect) U Benzodiazepines Scrn (Not Detect) Urine Cocaine Screen (Not Detect) U Marijuana (THC) Screen (Not Detect) 07/13/22 07/13/22 07/13/22 Range/Units 00:03 00:03 00:03 WBC (4.8-10.8) X10*3/uL RBC (4.20-5.50) X10*6/uL Hgb (12.0-16.0) g/dl Hct (37.0-47.0) % MCV (80.0-98.0) fL MCH (27.0-33.0) pg MCHC (31.0-35.0) g/dl RDW (11.0-16.0) % Plt Count (160-400) X10*3/uL MPV (9.4-12.3) fL Immature Gran % (Auto) (0.0-0.4) % Neut % (Auto) (45-73) % Lymph % (Auto) (20-40) % [place] % (Auto) (2-11) % Eos % (Auto) (0-4) % Baso % (Auto) (0-2) % Lymph # (Auto) (1.2-4.9) X10*3/uL [place] # (Auto) (0.1-1.2) X10*3/uL Eos # (Auto) (0.0-0.4) X10*3/uL Baso # (Auto) (0.0-0.2) X10*3/uL Abs Immat Gran (auto) (0.00-0.03) X10*3/uL Absolute Neuts (auto) (2.0-8.3) x10*3/uL Absolute Nucleated RBC (0.0-0.012) X10*3/uL Nucleated RBC % (auto) (0.0-0.2) /100WBC Sodium (135-145) mmol/L Potassium (3.3-5.1) mmol/L Chloride (96-108) mmol/L Carbon Dioxide (22-29) mmol/L Anion Gap (12-20) BUN (9-16) mg/dL Creatinine (0.5-1.4) mg/dL Estim Creat Clear Calc Estimated GFR Random Glucose (60-115) mg/dL Calcium (8.4-10.2) mg/dL Total Bilirubin (0.0-1.0) mg/dL AST (5-31) U/L ALT (0-31) U/L Alkaline Phosphatase (39-117) U/L Troponin I High Sens (<3.5-17.0) ng/L Total Protein (6.5-8.0) g/dL Albumin (3.5-5.0) g/dL Urine Color Yellow Urine Appearance Clear Urine pH 5.5 (5.0-8.0) Ur Specific [place] 1.025 (1.005-1.025) Urine Protein Negative (Neg-Trace) mg/dL Urine Glucose (UA) Negative (Negative) mg/dL Urine Ketones Trace (Negative) mg/dL Urine Blood Negative (Negative) Urine Nitrite Negative (Negative) Ur Leukocyte Esterase Negative (Negative) Urine Test NEGATIVE (NEGATIVE) Urine Opiates Screen Not Detected (Not Detect) Urine Fentanyl Screen Not Detected (Not Detect) Ur Barbiturates Screen Not Detected (Not Detect) Ur Phencyclidine Scrn Not Detected (Not Detect) Ur Amphetamines Screen Not Detected (Not Detect) U Benzodiazepines Scrn Not Detected (Not Detect) Urine Cocaine Screen Not Detected (Not Detect) U Marijuana (THC) Screen Not Detected (Not Detect) Discharge Plan Discharge Clinical Impression: Dizziness Patient Disposition: Home, Self-Care Instructions: Dizziness (ED) Prescriptions: No Action cholecalciferol (vitamin D3) 50 mcg (2,000 unit) capsule 50 mcg PO DAILY Qty: 30 11RF vitamin A palmitate 10,000 unit tablet 10,000 unit PO DAILY 14 Days Qty: 14 0RF calcium citrate-vitamin D3 [Calcium Citrate + D] 315 mg-5 mcg (200 unit) tablet 1 tab PO BID Qty: 60 11RF multivitamin Tablet 1 tab PO DAILY melatonin 10 mg tablet 10 mg PO BEDTIME PRN diclofenac sodium 75 mg tablet,delayed release (DR/EC) 75 mg PO BID clotrimazole 1 % ointment 1 appl topical BID Qty: 56.7 3RF Referrals: Cydney Juárez MD [Primary Care Provider] -
[2022-07-13 00:08] VITALS: BP 111/62; PULSE 52; RESP 16; TEMP 36.8; O2SAT 98
[2022-07-13 00:15] LABS: Appearance Urine Clear; Color Urine Yellow; Glucose Urine UA Negative (Negative); Leukocyte Esterase Urine Negative (Negative); Nitrite Urine Negative (Negative); PH 5.5 (5.0-8.0); Specific Gravity - Urine 1.025 (1.005-1.025); Urine Blood Negative (Negative); Urine Ketones Trace mg/dL (Negative); Urine Protein Negative (Neg-Trace)
[2022-07-13 00:16] LABS: UPreg QC Valid YES; Urine Pregnancy NEGATIVE (NEGATIVE)
[2022-07-13 00:37] LABS: Amphetamine Screen Urine Not Detected (Not Detect); Barbiturates, Urine Not Detected (Not Detect); Benzodiazepines Screen Urine Not Detected (Not Detect); Cannabinoid Screen Urine Not Detected (Not Detect); Cocaine Screen Urine Not Detected (Not Detect); Fentanyl, urine Not Detected (Not Detect); Opiate Screen Urine Not Detected (Not Detect); Phencyclidine Screen Urine Not Detected (Not Detect)
[2022-07-13] MEDS: Ibuprofen 400 MG TABLET PO (01:08)
== END 2022-07-13 01:10 | disposition home or self-care (01) ==
PROVIDERS: Emergency Provider Emergency Medicine; PCP Internal Medicine
DX: R42 Dizziness and giddiness (principal); Z98.84 Bariatric surgery status; Z87.891 Personal history of nicotine dependence; Z79.899 Other long term (current) drug therapy
CPT/HCPCS: 36415; 80053; 80307; 81003; 81025; 84484; 85025; 93005; 99283; 99285

== ENCOUNTER → 2022-11-16 10:39 | Outpatient (BNVA) | payer OTHER, SELFPAY | PROVIDERS: PCP Internal Medicine; Visit Provider Physician Assistant Surgical | DX: E66.3 Overweight (principal); L98.7 Excessive and redundant skin and subcutaneous tissue; Z98.84 Bariatric surgery status; Z68.29 Body mass index [BMI] 29.0-29.9, adult | CPT/HCPCS: 99212 ==

== ENCOUNTER 2022-11-20 10:55 | Outpatient (REF) | payer OTHER, SELFPAY ==
--- NOTE | ~2022-11-20 | MM_ITS ---
EXAMINATION: MM DIAGNOSTIC DIGITAL BREAST TOMOSYNTHESIS, RIGHT CLINICAL INFORMATION: Benign right stereotactic biopsy for calcifications 05/22/2022 (breast parenchyma with dense stromal fibrosis, mild usual ductal hyperplasia and cystic apocrine metaplasia associated with birefringent crystals of calcium oxalate; negative for atypia or malignancy). Follow-up to 6 continue surveillance remaining calcifications not sampled. The lifetime risk of breast cancer based on the Tyrer-Cuzick Model is 11%. COMPARISON: Mammography: 05/22/2022, 05/15/2022, outside mammography 09/15/2021 ([facility]). TECHNIQUE: Digital breast tomosynthesis is performed in both the craniocaudal and mediolateral oblique views along with computer-aided detection (CAD). Synthesized 2D images are generated from the tomosynthesis. Magnification right CC and magnification right LM views are obtained. FINDINGS: The breasts are heterogeneously dense, which may obscure small masses (ACR BI-RADS breast composition Category c). Parenchymal pattern is similar to prior studies and there is no significant mass or architectural abnormality. Dermal lesion overlies the central inframammary fold. The axilla is unremarkable. Calcifications for follow-up are similar to prior diagnostic exams. There is biopsy clip marker corresponding to the recent benign stereotactic biopsy. Right breast calcifications will be reassessed again at time of annual bilateral mammography, due in 6 months. Results are provided to the patient at time of visit by the technologist. MM/MM tomosynthesis diagnostic RT IMPRESSION: -No mammographic evidence of malignancy. -Remaining right breast calcifications for follow-up are stable. ASSESSMENT: BI-RADS 3: Probably Benign RECOMMENDATION: Diagnostic mammography at time of annual bilateral exam, due in 6 months. This patient's information was entered into a reminder system with a target due date for their next mammogram.
== END 2022-11-20 10:56 | disposition home or self-care (01) ==
LOC: HO.MAMMO 10:55
PROVIDERS: Visit Provider Surgery
DX: R92.8 Other abnormal and inconclusive findings on diagnostic imaging of breast (principal)
CPT/HCPCS: 77061; 77065

== ENCOUNTER 2022-12-31 14:10 | Outpatient (REF) | payer OTHER, SELFPAY ==
[2022-12-31 15:06] LABS: Influenza A PCR NEGATIVE (Negative); Influenza B PCR NEGATIVE (Negative); Resp Syncy Virus RNA Qual PCR NEGATIVE (Negative); SARS COV2 PCR INHOUSE NEGATIVE (Negative)
== END 2022-12-31 14:11 | disposition home or self-care (01) ==
LOC: HO.LNP 14:10
PROVIDERS: Visit Provider Physician Assistant
DX: Z20.822 Contact with and (suspected) exposure to COVID-19 (principal); B34.9 Viral infection, unspecified
CPT/HCPCS: 0241U

== ENCOUNTER 2023-02-07 10:56 | Outpatient (REF) | payer OTHER, SELFPAY ==
[2023-02-07 11:07] LABS: MANUAL DIFF FLAG NO
[2023-02-07 12:24] LABS: Basophils Percent Auto 0.2 % (0-2); Eosinophils Absolute Auto 0.1 X10*3/uL (0.0-0.4); Eosinophils Percent Auto 1.4 % (0-4); Hematocrit 37.5 % (37.0-47.0); Hemoglobin 12.5 g/dl (12.0-16.0); Imm Gran Abs Auto 0.01 X10*3/uL (0.00-0.03); Imm Gran Pct Auto 0.2 % (0.0-0.4); Lymphocytes Percent Auto 31.7 % (20-40); Mean Corpuscular HGB Conc 33.3 g/dl (31.0-35.0); Mean Corpuscular Hemoglobin 30.6 pg (27.0-33.0); Mean Corpuscular Volume 91.7 fL (80.0-98.0); Mean Platelet Volume 10.5 fL (9.4-12.3); Monocytes Absolute Auto 0.5 X10*3/uL (0.1-1.2); Monocytes Percent Auto 7.2 % (2-11); Neutrophils Absolute Auto 3.8 x10*3/uL (2.0-8.3); Neutrophils Percent Auto 59.3 % (45-73); Platelet Count 254 X10*3/uL (160-400); Red Blood Count 4.09 X10*6/uL (4.20-5.50); White Blood Count 6.4 X10*3/uL (4.8-10.8)
[2023-02-07 13:15] LABS: Alanine Aminotransferase 15 U/L (0-31); Albumin Level 4.1 g/dL (3.5-5.0); Alkaline Phosphatase 56 U/L (39-117); Anion Gap 11 (12-20); Aspartate Amino Transferase 18 U/L (5-31); Bilirubin Total 0.6 mg/dL (0.0-1.0); Blood Urea Nitrogen 11 mg/dL (9-16); Calcium 8.9 mg/dL (8.4-10.2); Carbon Dioxide 26 mmol/L (22-29); Chloride 109 mmol/L (96-108); Cholesterol 166 mg/dL; Estimated Glomerular Filt Rate > 60; Glucose Fasting 70 mg/dL (60-99); HDL Cholesterol 82 mg/dL; LDL Cholesterol Calculated 76 mg/dl; Potassium 4.3 mmol/L (3.3-5.1); Sodium 142 mmol/L (135-145); Total Protein 6.5 g/dL (6.5-8.0); Triglycerides 40 mg/dL
[2023-02-07 13:31] LABS: Folate 17.2 ng/mL (> or = 4.0); TSH reflex Free T4 0.58 uIU/mL (0.32-4.0); Vitamin B12 662 pg/mL (200-900); Vitamin D 25-OH Total 23.4 ng/mL (>30)
== END 2023-02-07 10:57 | disposition home or self-care (01) ==
LOC: HO.LAB 10:56
PROVIDERS: PCP Internal Medicine; Visit Provider Nurse Practitioner Family
DX: Z00.00 Encounter for general adult medical examination without abnormal findings (principal)
CPT/HCPCS: 36415; 80053; 80061; 82306; 82607; 82746; 84443; 85025

== ENCOUNTER → 2023-04-02 14:24 | Outpatient (BNVA) | payer OTHER, SELFPAY | PROVIDERS: PCP Internal Medicine; Referring Provider Internal Medicine; Visit Provider Physician Assistant Surgical | DX: E66.9 Obesity, unspecified (principal); L98.7 Excessive and redundant skin and subcutaneous tissue; Z98.84 Bariatric surgery status; Z68.30 Body mass index [BMI] 30.0-30.9, adult | CPT/HCPCS: 99212 ==

== ENCOUNTER 2023-04-03 16:29 | Outpatient (REF) | payer OTHER, SELFPAY ==
[2023-04-03 16:45] LABS: MANUAL DIFF FLAG NO
[2023-04-03 17:21] LABS: Basophils Percent Auto 0.3 % (0-2); Eosinophils Absolute Auto 0.3 X10*3/uL (0.0-0.4); Eosinophils Percent Auto 5.2 % (0-4); Hematocrit 41.8 % (37.0-47.0); Hemoglobin 13.9 g/dl (12.0-16.0); Imm Gran Abs Auto 0.01 X10*3/uL (0.00-0.03); Imm Gran Pct Auto 0.2 % (0.0-0.4); Lymphocytes Absolute Auto 2.4 X10*3/uL (1.2-4.9); Lymphocytes Percent Auto 41.5 % (20-40); Mean Corpuscular HGB Conc 33.3 g/dl (31.0-35.0); Mean Corpuscular Hemoglobin 29.4 pg (27.0-33.0); Mean Corpuscular Volume 88.6 fL (80.0-98.0); Mean Platelet Volume 9.9 fL (9.4-12.3); Monocytes Absolute Auto 0.4 X10*3/uL (0.1-1.2); Monocytes Percent Auto 6.7 % (2-11); Neutrophils Absolute Auto 2.7 x10*3/uL (2.0-8.3); Neutrophils Percent Auto 46.1 % (45-73); Platelet Count 311 X10*3/uL (160-400); Red Blood Count 4.72 X10*6/uL (4.20-5.50); Red Cell Distribution Width 13.1 % (11.0-16.0); White Blood Count 5.8 X10*3/uL (4.8-10.8)
[2023-04-03 17:29] LABS: Estimated Average Glucose 91 mg/dL; Hemoglobin A1c % 4.8 %
[2023-04-03 18:01] LABS: Alanine Aminotransferase 11 U/L (0-31); Albumin Level 4.5 g/dL (3.5-5.0); Alkaline Phosphatase 64 U/L (39-117); Anion Gap 10 (12-20); Aspartate Amino Transferase 16 U/L (5-31); Bilirubin Total 0.6 mg/dL (0.0-1.0); Blood Urea Nitrogen 7 mg/dL (9-16); C Reactive Protein 0.13 mg/dL (< or = 0.50); Calcium 9.7 mg/dL (8.4-10.2); Carbon Dioxide 29 mmol/L (22-29); Chloride 108 mmol/L (96-108); Cholesterol 190 mg/dL; Estimated Glomerular Filt Rate > 60; Glucose Random 78 mg/dL (60-115); HDL Cholesterol 92 mg/dL; Iron 109 mcg/dL (30-160); LDL Cholesterol Calculated 90 mg/dl; Percent Iron Saturation 43 % (15-50); Potassium 4.6 mmol/L (3.3-5.1); Sodium 142 mmol/L (135-145); Total Iron Binding Capacity 251 mcg/dL (228-428); Total Protein 7.3 g/dL (6.5-8.0); Triglycerides 42 mg/dL; Unsaturated Iron Binding 142 ug/dL
[2023-04-03 18:31] LABS: Ferritin 80 ng/mL (10-122); Insulin 4 uU/mL (2-29); TSH reflex Free T4 0.55 uIU/mL (0.32-4.0); Vitamin B12 959 pg/mL (200-900); Vitamin D 25-OH Total 39.9 ng/mL (>30)
[2023-04-05 16:33] LABS: Calcium (PTHI) 9.8 mg/dL (8.6-10.2); PTHI 48 pg/mL (16-77)
[2023-04-09 06:28] LABS: Zinc 132 mcg/dL (60-130)
[2023-04-10 14:59] LABS: Vitamin B1 12 nmol/L (8-30)
[2023-04-11 16:59] LABS: Vitamin A 35 mcg/dL (38-98)
== END 2023-04-03 16:30 | disposition home or self-care (01) ==
LOC: HO.LAB 16:29
PROVIDERS: PCP Internal Medicine; Visit Provider Physician Assistant Surgical
DX: Z98.84 Bariatric surgery status (principal)
CPT/HCPCS: 36415; 80053; 80061; 82306; 82607; 82728; 82746; 83036; 83525; 83540; 83970; 84425; 84443; 84590; 84630; 85025; 86140

== ENCOUNTER → 2023-07-17 11:00 | Outpatient (BNV) | payer OTHER, SELFPAY | PROVIDERS: PCP Internal Medicine; Visit Provider Radiology Diagnostic Radiology | DX: R92.8 Other abnormal and inconclusive findings on diagnostic imaging of breast (principal); N63.25 Unspecified lump in the left breast, overlapping quadrants | CPT/HCPCS: 76642; 77062; 77066 ==

== ENCOUNTER 2023-07-17 11:19 | Outpatient (REF) | payer OTHER, SELFPAY ==
--- NOTE | ~2023-07-17 | US_ITS ---
EXAMINATION: MM DIAGNOSTIC DIGITAL BREAST TOMOSYNTHESIS, BILATERAL US BREAST LIMITED, LEFT MAMMOGRAPHY: CLINICAL INFORMATION: 38-year-old female for 6 month follow-up right breast calcifications after benign stereotactic biopsy 1 year prior, to establish one-year stability. Patient also due for bilateral screening. COMPARISON: Mammography: 11/20/2022, 05/22/2022, 05/15/2022, 12/13/2021, 09/15/2021, stereotactic biopsy right breast 05/22/2022. TECHNIQUE: Digital breast tomosynthesis is performed in both the craniocaudal and mediolateral oblique views along with computer-aided detection (CAD). Synthesized 2D images are generated from the tomosynthesis. In addition, 2-D right magnification CC and ML views were performed, as well as 3-D left CC spot compression view, as well as 3-D cc spot compression views left breast rolled medial and rolled lateral. FINDINGS: The breasts are heterogeneously dense, which may obscure small masses (ACR BI-RADS breast composition Category c). There is a post benign biopsy clip in the right breast lower inner quadrant, anterior one third, from prior benign biopsy. There are scattered surrounding loosely grouped calcifications, which are predominantly punctate and round, unchanged in size, shape, and morphology when compared with 1 year prior. These are benign. No further follow-up recommended. Within the 1:00 to 12:00 axis of the left breast, posterior one third, behind the parenchymal cone, there is a focal asymmetry which persists after spot compression CC view, as well as rolled medial and rolled lateral CC spot compression views. This has no ultrasonographic correlate as detailed below. This is indeterminate, although has interspersed internal fat and is probably benign, possibly relating to a focus of fat necrosis. Six-month follow-up left mammography recommended to include standard and 3-D spot compression views. There are inferior skin lesions involving both breasts. ULTRASOUND: CLINICAL INFORMATION: Evaluate left breast focal asymmetry approximately 1:00 to 12:00 axis right breast posterior one third. COMPARISON: None TECHNIQUE: Targeted sonographic evaluation left breast was performed using a high frequency linear transducer. Selected archived documentation. FINDINGS: LEFT BREAST: There is a mixture of fatty and fibroglandular tissue. No suspicious mass is seen. There is no pathologic acoustic shadowing. There is no sonographic correlate to the focal asymmetry seen in the posterior left breast approximately 1-12 o'clock axis. US/US breast LT limited mamm only IMPRESSION: 1. Stable benign calcifications right breast status post stereotactic biopsy 11/22/2021. No further follow-up required. 2. Left breast focal asymmetric density 1:00 to 12:00 axis, posterior one third, without sonographic correlate, most likely an island of normal breast tissue. Six-month interval follow-up left mammography recommended as above to ensure stability. OVERALL ASSESSMENT: Mammography: BI-RADS 3 - Probably benign finding(s) - 6 month follow-up suggested Ultrasound: BI-RADS 3 - Probably benign finding(s) - 6 month follow-up suggested RECOMMENDATION: 6 Month F/U Results were provided to the patient at time of visit by the technologist. This patient's information was entered into a reminder system with a target due date for their next mammogram.
== END 2023-07-17 11:20 | disposition home or self-care (01) ==
LOC: HO.MAMMO 11:19
PROVIDERS: PCP Internal Medicine; Visit Provider Internal Medicine
DX: R92.1 Mammographic calcification found on diagnostic imaging of breast (principal)
CPT/HCPCS: 76642; 77062; 77066

== ENCOUNTER 2024-01-27 18:36 | Inpatient (IN) | payer MEDICAID, OTHER, SELFPAY ==
[2024-01-27 18:51] VITALS: BP 140/100; PULSE 110; O2SAT 98
[2024-01-27 18:54] VITALS: BP 123/84; PULSE 110; RESP 16; TEMP 37.6; O2SAT 98
[2024-01-27 19:21] VITALS: BP 133/93; PULSE 112; RESP 16; TEMP 36.8; O2SAT 98
--- NOTE | 2024-01-27 20:04 | ED.GENADULT ---
HPI - General Adult General Chief complaint: Psychiatric Symptoms Stated complaint: insomia Time Seen by Provider: 01/27/24 19:48 History of Present Illness HPI narrative: The patient is a 38-year-old female was brought to the hospital by ambulance. The ambulance had been called by her . He had called the ambulance because of bizarre behavior. According to the patient's the patient was hospitalized 1 year ago in the [facility] system for similar behavior. Apparently at that time the patient had been working he had an [employer] center and had behaving bizarrely including taking offer close in public. Has been says that the patient was hospitalized psychiatrically at [facility] in [place] for about a week and was discharged with prescriptions for medications. The patient's says the patient never took the medications and never followed up psychiatrically. Nevertheless the patient was apparently doing quite well until 2 or 3 days ago. 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 However over the last few days the patient has been exhibiting bizarre behavior which an included locking herself in a bathroom and throwing her dentures in the trash and simply speaking bizarrely. She has a apparently not slept for at least 2 or 3 days according to the . The patient says that she has not slept in a week. The patient denies any suicidality or homicidality. She denies any fever, sweats, chills. The patient herself has no complaints. The patient denies using any street drugs. The patient's does not think she has been using any street drugs. Related Data Home Medications Medication Instructions Recorded Confirmed multivitamin 1 tab PO DAILY 03/06/22 04/02/23 Previous Rx's Medication Instructions Recorded cholecalciferol (vitamin D3) 25 25 mcg PO DAILY #90 tabs 02/08/23 mcg (1,000 unit) tablet fluticasone propionate 50 1 spray intranasal DAILY 30 days 03/13/23 mcg/actuation nasal #100 mL spray,suspension (Flonase Allergy Relief) cetirizine 10 mg tablet (Zyrtec) 10 mg PO DAILY #30 tabs 04/05/23 vitamin A palmitate 3,000 mcg 10,000 unit PO DAILY #90 caps 04/24/23 (10,000 unit) capsule Allergies Allergy/AdvReac Type Severity Reaction Status Date / Time oseltamivir [From TAMIFLU] Allergy Intermediate DROWSINESS/NAUSEA, Verified 04/02/23 14:42 rash, psychosis Review of Systems Review of Systems: Yes all other systems are reviewed and are negative [facility] Past Medical History Medical History Anemia Back pain Breast lump on left side at 3 o'clock position GERD (gastroesophageal reflux disease) Hypovitaminosis D Intestinal malabsorption following gastrectomy Malabsorption due to intolerance, not elsewhere classified Morbid obesity Overweight (BMI 25.0-29.9) Physical exam Surgical History History of colonoscopy History of surgical procedure on mouth Hx of cholecystectomy S/P laparoscopic sleeve gastrectomy Family History Family History Father No problems noted. Mother Hypertension Sister No problems noted. Sister Hypoglycemia Brother No problems noted. Brother No problems noted. Son No problems noted. Son No problems noted. Paternal Aunt Breast cancer Colon cancer Paternal Grandfather No problems noted. Social History Social History Housing: House Alcohol intake: never Patient Tobacco Use Status: Former Tobacco user Tobacco use type: Cigarette e-Cigarette/Vaping Use: Never Used Second Hand Smoke Exposure: No Advance Directives: No Advance Directives Information Provided: No service: No Current occupational status: employed Current occupational exposures/hazards: No Cognitive needs: No Hearing needs: No Physical Exam ED Vital Signs: Vital Signs - 24 hr 01/27/24 18:54 01/27/24 19:21 Temperature 99.6 F 98.3 F Pulse Rate 110 H 112 H Respiratory Rate 16 16 Blood Pressure 123/84 133/93 H Pulse Oximetry 98 98 Oxygen Delivery Method Room Air Room Air BMI result Body Mass Index 30.0 Const Other: The patient was awake and alert. She seemed to be moving around her room in a strange manner but she did not seem in any distress and she was fairly cooperative. HENMT Other: Symmetrical, mucous membranes moist Eyes Other: Pupils are round equal, conjunctivae are clear, extraocular movements intact Neck Other: No JVD, the neck is supple Resp Effort & Inspection: normal respiratory effort Auscultation: clear to auscultation bilaterally Cardio Other: The patient is mildly tachycardic. She has a regular rate and rhythm with no murmur. Rate: regular rate Rhythm: regular rhythm GI Other: Abdomen is soft and nontender Skin Other: Skin is dry and unremarkable Neuro Other: The patient is awake and alert and cooperative. She seemed to move around the room in a whimsical manner. However her cranial nerves are intact, she moves her extremities symmetrically with normal strength. She has intact coordination. She has a steady gait. No focal neurological deficits Extrem Other: No peripheral edema, no calf swelling or tenderness Psych Other: The patient has a very abstracted affect and was moving around the room in a whimsical manner. Apparently she had been disrobing herself inappropriate with the nurses prior to my evaluation Medications Administered Discontinued Medications Generic Name Dose Route Start Last Admin Trade Name Freq PRN Reason Stop Dose Admin Lorazepam 2 mg 01/27/24 20:10 01/27/24 20:24 Lorazepam 1 Mg Tablet PO 01/27/24 20:11 2 mg ONCE ONE Administration Medical Decision Making Medical Decision Making [facility] Narrative: The patient is a 38-year-old woman who comes to the emergency room by ambulance after called the ambulance because of bizarre behavior. 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 Apparently the patient was behaving strangely at work as well as at home. She has been having no sleep for at least 2 or 3 days. According to her her behavior over the last couple of days similar to behavior that occurred a year ago when she was hospitalized psychiatrically at [facility] in [place]. The 's description of her behavior certainly suggests a manic type episode. The patient has not been on any psychiatric medications recently. This seems to be a recurrence of a psychiatric crisis similar to an event a year ago managed at [facility]. I think the patient will need to be psychiatrically hospitalized. I do not have a high suspicion for any acute medical process. The patient is medically clear for evaluation by the care team. The patient will be placed in physician observation as I believe she clearly requires inpatient psychiatric hospitalization. Lab Data 01/27/24 20:02 01/27/24 20:02 Labs: Lab Results 01/27/24 Range/Units 20:02 WBC 7.5 (4.8-10.8) X10*3/uL RBC 4.55 (4.20-5.50) X10*6/uL Hgb 13.9 (12.0-16.0) g/dl Hct 38.9 (37.0-47.0) % MCV 85.5 (80.0-98.0) fL MCH 30.5 (27.0-33.0) pg MCHC 35.7 H (31.0-35.0) g/dl RDW 12.9 (11.0-16.0) % Plt Count 247 (160-400) X10*3/uL MPV 9.5 (9.4-12.3) fL Immature Gran % (Auto) 0.3 (0.0-0.4) % Neut % (Auto) 61.7 (45-73) % Lymph % (Auto) 30.3 (20-40) % [place] % (Auto) 7.2 (2-11) % Eos % (Auto) 0.4 (0-4) % Baso % (Auto) 0.1 (0-2) % Lymph # (Auto) 2.3 (1.2-4.9) X10*3/uL [place] # (Auto) 0.5 (0.1-1.2) X10*3/uL Eos # (Auto) 0.0 (0.0-0.4) X10*3/uL Baso # (Auto) 0.0 (0.0-0.2) X10*3/uL Abs Immat Gran (auto) 0.02 (0.00-0.03) X10*3/uL Absolute Neuts (auto) 4.7 (2.0-8.3) x10*3/uL Absolute Nucleated RBC 0.000 (0.0-0.012) X10*3/uL Nucleated RBC % (auto) 0.0 (0.0-0.2) /100WBC Sodium 140 (135-145) mmol/L Potassium 3.1 L (3.3-5.1) mmol/L Chloride 106 (96-108) mmol/L Carbon Dioxide 25 (22-29) mmol/L Anion Gap 12 (12-20) BUN 6 L (9-16) mg/dL Creatinine 0.80 (0.5-1.4) mg/dL Estim Creat Clear Calc 91.7 Estimated GFR > 60 Random Glucose 88 (60-115) mg/dL Calcium 9.8 (8.4-10.2) mg/dL Total Bilirubin 0.6 (0.0-1.0) mg/dL AST 21 (5-31) U/L ALT 15 (0-31) U/L Alkaline Phosphatase 58 (39-117) U/L Total Protein 7.9 (6.5-8.0) g/dL Albumin 4.4 (3.5-5.0) g/dL TSH 1.44 (0.32-4.0) uIU/mL Urine Color Yellow Urine Appearance Clear Urine pH 5.5 (5.0-9.0) Ur Specific [place] <= 1.005 (1.005-1.025) Urine Protein Negative (Neg-Trace) mg/dL Urine Glucose (UA) Negative (Negative) mg/dL Urine Ketones Trace (Negative) mg/dL Urine Blood Negative (Negative) Urine Nitrite Negative (Negative) Ur Leukocyte Esterase Small (1+) H (Negative) Urine RBC 0-2 (0-2) /HPF Urine WBC 11-20 H (0-5) /HPF Ur Squamous Epith Cells 0-2 (0-2) /HPF Urine Bacteria None Seen (None Seen) Hyaline Casts 0-2 (0-2) /LPF Salicylates < 5.0 L (15-30) mg/dL Urine Opiates Screen Not Detected (Not Detect) Urine Fentanyl Screen Not Detected (Not Detect) Acetaminophen < 3 (<30) mcg/mL Ur Barbiturates Screen Not Detected (Not Detect) Ur Phencyclidine Scrn Not Detected (Not Detect) Ur Amphetamines Screen Not Detected (Not Detect) U Benzodiazepines Scrn Not Detected (Not Detect) Urine Cocaine Screen Not Detected (Not Detect) U Marijuana (THC) Screen Not Detected (Not Detect) Discharge Plan Discharge Clinical Impression: Psychosis Patient Disposition: Still a Patient Prescriptions: No Action cholecalciferol (vitamin D3) 25 mcg (1,000 unit) tablet 25 mcg PO DAILY Qty: 90 0RF cetirizine [Zyrtec] 10 mg tablet 10 mg PO DAILY Qty: 30 0RF vitamin A palmitate 3,000 mcg (10,000 unit) capsule 10,000 unit PO DAILY Qty: 90 3RF fluticasone propionate [Flonase Allergy Relief] 50 mcg/actuation spray,suspension 1 spray intranasal DAILY 30 Days Qty: 100 0RF Rx Instructions: administer into each nostril multivitamin Tablet 1 tab PO DAILY Interventions: Eagle-Suicide Risk Severity Scale Last Done: 01/27/24 20:17
--- NOTE | 2024-01-27 20:04 | PC.NURSE ---
patient brought back from waiting room presents with bizarre bx, disrobing stand on toilet apprently one year ago sim presentation. chd bedsearch.
[2024-01-27 20:08] LABS: MANUAL DIFF FLAG NO
[2024-01-27 20:10] LABS: Basophils Percent Auto 0.1 % (0-2); Eosinophils Percent Auto 0.4 % (0-4); Hematocrit 38.9 % (37.0-47.0); Hemoglobin 13.9 g/dl (12.0-16.0); Imm Gran Abs Auto 0.02 X10*3/uL (0.00-0.03); Imm Gran Pct Auto 0.3 % (0.0-0.4); Lymphocytes Absolute Auto 2.3 X10*3/uL (1.2-4.9); Lymphocytes Percent Auto 30.3 % (20-40); Mean Corpuscular HGB Conc 35.7 g/dl (31.0-35.0); Mean Corpuscular Hemoglobin 30.5 pg (27.0-33.0); Mean Corpuscular Volume 85.5 fL (80.0-98.0); Mean Platelet Volume 9.5 fL (9.4-12.3); Monocytes Absolute Auto 0.5 X10*3/uL (0.1-1.2); Monocytes Percent Auto 7.2 % (2-11); Neutrophils Absolute Auto 4.7 x10*3/uL (2.0-8.3); Neutrophils Percent Auto 61.7 % (45-73); Platelet Count 247 X10*3/uL (160-400); Red Blood Count 4.55 X10*6/uL (4.20-5.50); Red Cell Distribution Width 12.9 % (11.0-16.0); White Blood Count 7.5 X10*3/uL (4.8-10.8)
[2024-01-27 20:15] LABS: Appearance Urine Clear; Color Urine Yellow; Glucose Urine UA Negative (Negative); Leukocyte Esterase Urine Small (1+) (Negative); Nitrite Urine Negative (Negative); PH 5.5 (5.0-9.0); Specific Gravity - Urine <= 1.005 (1.005-1.025); UMIC TRIGGER UACC YES; Urine Blood Negative (Negative); Urine Ketones Trace mg/dL (Negative); Urine Protein Negative (Neg-Trace)
[2024-01-27 20:20] LABS: Bacteria Urine None Seen (None Seen); Hyaline Casts Urine 0-2 /LPF (0-2); RBC Urine 0-2 /HPF (0-2); Squamous Epithelial Cell Urine 0-2 /HPF (0-2); UACC Culture Trigger YES
[2024-01-27 20:22] LABS: Amphetamine Screen Urine Not Detected (Not Detect); Barbiturates, Urine Not Detected (Not Detect); Benzodiazepines Screen Urine Not Detected (Not Detect); Cannabinoid Screen Urine Not Detected (Not Detect); Cocaine Screen Urine Not Detected (Not Detect); Fentanyl, urine Not Detected (Not Detect); Opiate Screen Urine Not Detected (Not Detect); Phencyclidine Screen Urine Not Detected (Not Detect)
[2024-01-27 20:23] LABS: Acetaminophen LAB < 3 mcg/mL (<30); Salicylate < 5.0 mg/dL (15-30)
[2024-01-27] MEDS: LORazepam 1 MG TABLET 2 MG PO (20:24)
[2024-01-27 20:30] LABS: Alanine Aminotransferase 15 U/L (0-31); Albumin Level 4.4 g/dL (3.5-5.0); Alkaline Phosphatase 58 U/L (39-117); Anion Gap 12 (12-20); Aspartate Amino Transferase 21 U/L (5-31); Bilirubin Total 0.6 mg/dL (0.0-1.0); Blood Urea Nitrogen 6 mg/dL (9-16); Calcium 9.8 mg/dL (8.4-10.2); Carbon Dioxide 25 mmol/L (22-29); Chloride 106 mmol/L (96-108); Creatinine Clr Calc Pharmacy 91.7; Estimated Glomerular Filt Rate > 60; Glucose Random 88 mg/dL (60-115); Potassium 3.1 mmol/L (3.3-5.1); Sodium 140 mmol/L (135-145); Total Protein 7.9 g/dL (6.5-8.0)
[2024-01-27 20:48] LABS: Thyroid Stimulating Hormone 1.44 uIU/mL (0.32-4.0)
[2024-01-28] MEDS: hydrOXYzine HCL 50 MG TABLET PO (02:51)
--- NOTE | 2024-01-28 06:04 | PC.NURSE ---
potential paitent voided in cmty area a small amount in a chair. patient had been disrobing ealry in admit and squatting unusually on furniture, toilet etc.
[2024-01-28 08:37] LABS: COVID-19 Test Negative (Negative); IDNOW Serial# 152EDE1D
[2024-01-28] MEDS: Potassium Chloride ER 20 MEQ TAB.ER.PRT PO ×2 (11:14→23:02)
[2024-01-28 12:06] VITALS: BP 104/71; PULSE 100; TEMP 36.4; O2SAT 99
[2024-01-28 14:15] VITALS: BP 106/65; PULSE 81; RESP 18; TEMP 36.6; O2SAT 100; BMI 29.2
--- NOTE | 2024-01-28 15:53 | PC.ADMIT ---
Yulia was admitted to M3 on a CV from [facility] ED pod at 13:50 on 01/28/24 for the treatment of jennifer. Sharps check was completed by staff. She is alert and oriented x4. She was assessed by [facility] after her family expressed concern about her bizarre behavior and possible jennifer. Per crisis, admission She was cooperative with admission process. She denies suicidal and homicidal thoughts and intent. She denies auditory and visual hallucinations. She did not state any specific goals for treatment. She denies ETOH and substance use and utox was negative, BAL was not completed. She reports decreased appetite and states sleep has been up and down . She denies any medical problems. She was placed on 15 minute checks for safety.
[2024-01-28 20:00] VITALS: BP 119/65; PULSE 91; RESP 16; TEMP 36.3; O2SAT 100
[2024-01-28] MEDS: traZODone HCL 50 MG TABLET PO (23:07)
[2024-01-29 08:42] VITALS: BP 109/66; PULSE 80; RESP 18; TEMP 36.2; O2SAT 99
[2024-01-29] MEDS: Potassium Chloride ER 20 MEQ TAB.ER.PRT PO ×2 (09:10→20:49)
--- NOTE | 2024-01-29 09:19 | HO.PSYADMNOT ---
HPI Date of Service: 01/29/24 Chief Complaint: jennifer Sources of Information: patient interviewed, chart reviewed and crisis/core team assessment reviewed HPI Subjective Notes: Armstrong Warning and Conditional Voluntary Narrative: Patient is a 38 year old female with hx of Bipolar d/o and PTSD who was brought into [facility] ER d/t lack of sleep for the past 3 days d/t increased jennifer symptoms. Per crisis report, pt presented to [facility] secondary to her family concerned pt may be on the verge of manic episode. Pt reported not sleeping for the past 3 days. She has been newly disorganized in her thought process. Pt's reported that the last time pt experienced a manic episode, pt was agitated, physically aggressive and endorsed vague SI. Pt's reports she has experienced sporadic manic episodes when she is stressed; he did not that pt has been working long hours lately. During admission assessment, pt presents calm and cooperative, organized. Pt soft spoken and observed coloring throughout assessment. Pt stated, I feel okay. My called crisis and told them I wasn't sleeping so they brought me to the hospital. I feel like I have a lot of energy. I don't know why I'm not tired. I only sleep 2 hours a day . pt denies SI/HI/VH/AH. She denies any substance use; UTOX negative. Pt reports she not having any outpatient psychiatric providers or taking psychiatric medications. Pt is a poor historian and can not recall her last hospitalizations or hx of psychiatric medications. Pt reported she is open to taking a mood stabilizer or anything to help me sleep ;risks/benefits reviewed. pt signed 3 day notice and stated, I feel fine. I really don't think I need to be here . 3 day up on Saturday. Past Psychiatric History: IPLOC: Wing 2022 [facility] 2021 pt does not past medication trials. currently does not have outpatient psychiatric providers. Medical Evaluation Reviewed: Yes [facility] Medical History Anemia Back pain Breast lump on left side at 3 o'clock position GERD (gastroesophageal reflux disease) Hypovitaminosis D Intestinal malabsorption following gastrectomy Malabsorption due to intolerance, not elsewhere classified Morbid obesity Overweight (BMI 25.0-29.9) Physical exam Surgical History History of colonoscopy History of surgical procedure on mouth Hx of cholecystectomy S/P laparoscopic sleeve gastrectomy Family History: unknown Social History: lives with and 20 y/o son. 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 Substance History: denies Trauma History: yes Diagnostics Vital Signs (24Hr): Vital Signs - 24 hr 01/28/24 12:06 01/28/24 14:15 01/28/24 20:00 Temperature 97.6 F 97.8 F 97.4 F Pulse Rate 100 81 91 Respiratory Rate 18 16 Blood Pressure 104/71 106/65 119/65 Pulse Oximetry 99 100 100 Oxygen Delivery Method Room Air Room Air Room Air 01/29/24 08:42 Temperature 97.2 F Pulse Rate 80 Respiratory Rate 18 Blood Pressure 109/66 Pulse Oximetry 99 Oxygen Delivery Method Room Air BMI result Body Mass Index 29.2 Labs 01/27/24 20:02 01/27/24 20:02 Labs: Laboratory Results - last 48 hr 01/27/24 01/28/24 20:02 08:11 WBC 7.5 RBC 4.55 Hgb 13.9 Hct 38.9 MCV 85.5 MCH 30.5 MCHC 35.7 H RDW 12.9 Plt Count 247 MPV 9.5 Immature Gran % (Auto) 0.3 Neut % (Auto) 61.7 Lymph % (Auto) 30.3 [place] % (Auto) 7.2 Eos % (Auto) 0.4 Baso % (Auto) 0.1 Lymph # (Auto) 2.3 [place] # (Auto) 0.5 Eos # (Auto) 0.0 Baso # (Auto) 0.0 Abs Immat Gran (auto) 0.02 Absolute Neuts (auto) 4.7 Absolute Nucleated RBC 0.000 Nucleated RBC % (auto) 0.0 Sodium 140 Potassium 3.1 L Chloride 106 Carbon Dioxide 25 Anion Gap 12 BUN 6 L Creatinine 0.80 Estim Creat Clear Calc 91.7 Estimated GFR > 60 Random Glucose 88 Calcium 9.8 Total Bilirubin 0.6 AST 21 ALT 15 Alkaline Phosphatase 58 Total Protein 7.9 Albumin 4.4 TSH 1.44 Urine Color Yellow Urine Appearance Clear Urine pH 5.5 Ur Specific [place] <= 1.005 Urine Protein Negative Urine Glucose (UA) Negative Urine Ketones Trace Urine Blood Negative Urine Nitrite Negative Ur Leukocyte Esterase Small (1+) H Urine RBC 0-2 Urine WBC 11-20 H Ur Squamous Epith Cells 0-2 Urine Bacteria None Seen Hyaline Casts 0-2 Salicylates < 5.0 L Urine Opiates Screen Not Detected Urine Fentanyl Screen Not Detected Acetaminophen < 3 Ur Barbiturates Screen Not Detected Ur Phencyclidine Scrn Not Detected Ur Amphetamines Screen Not Detected U Benzodiazepines Scrn Not Detected Urine Cocaine Screen Not Detected U Marijuana (THC) Screen Not Detected COVID-19 (JOSE) Negative COVID-19 Clin Com See Note Meds/Allergies Meds Home Medications Medication Instructions Recorded Confirmed Type No Known Home Meds 01/28/24 01/28/24 History Allergies Allergies Allergy/AdvReac Type Severity Reaction Status Date / Time oseltamivir [From TAMIFLU] Allergy Intermediate DROWSINESS/NAUSEA, Verified 04/02/23 14:42 rash, psychosis Mental Status Exam Mental Status Exam Narrative: Pt is alert and oriented; behavior is cooperative, friendly and calm; dressed in casual attire; mood is described as good ; eye contact appropriate; Speech is normal rate, volume and prosody and not pressured; thought process is organized; Thought content is on discharge; otherwise pertinent to relevant topics and without any delusional content, paranoid ideations or grandiosity; denies SI/HI/VH/AH. Assessment & Plan Assessment & Plan (1) Bipolar 1 disorder: Status: Acute Code(s): F31.9 - Bipolar disorder, unspecified (2) PTSD (post-traumatic stress disorder): Status: Acute Code(s): F43.10 - Post-traumatic stress disorder, unspecified Plan Patient is a 38 year old female with hx of Bipolar d/o and PTSD who was brought into [facility] ER d/t lack of sleep for the past 3 days d/t increased jennifer symptoms. Plan: CV pt signed 3 day 15 minute safety checks obtain collateral referral to outpatient therapist and prescriber discharge planning Start: [place] 150mg PO BID Seroquel 50mg PO bedtime Patient educated on: diagnosis, medication risk/benefits and therapeutic strategies Informed Consent: understands Reason for continued inpatient stay Substantial Risk for: med/psych decompensation Statement Statement: I have reviewed the history and physical and performed a pertinent examination on my patient. No changes have occurred unless specified. If the History and Physical was not performed prior to admission, the Hospitalist's service will be consulted for completing the admission physical. Time Spent With Patient Time: Total time managing care of this patient today _60___ minutes.
--- NOTE | 2024-01-29 09:51 | MHC.CLN ---
NUTRITION CONSULT FOR REPORTED DECREASED APPETITE. REVIEW OF EMR SHOWS PATIENT WITH GASTRIC SLEEVE PROCEDURE 09/04/20. LOWEST WEIGHT POST SURGERY 65.317 KG 11/28/20. SHOWS WEIGHT GAIN TREND X 3 YEARS, +14%, 20#. IF POOR PO, RECOMMEND ENSURE MAX PROTEIN BID. PROVIDES 300 KCALS, 60 G PROTEIN.
[2024-01-29 12:13] LABS: Cholesterol 157 mg/dL (<200); HDL Cholesterol 76 mg/dL (>40); LDL Cholesterol Calculated 71 mg/dL (<100); Triglycerides 54 mg/dL (<150)
[2024-01-29 12:28] LABS: Free T4 (Free Thyroxine) 1.13 ng/dL (0.71-1.85)
[2024-01-29] MEDS: Lithium Carbonate 300 MG TABLET 150 MG PO ×2 (12:51→20:49)
[2024-01-29 14:58] LABS: Estimated Average Glucose 91 mg/dL; Hemoglobin A1c % 4.8 % (<6.0)
[2024-01-29 15:09] LABS: Folate 14.2 ng/mL (> or = 4.0); Vitamin B12 1038 pg/mL (200-900)
[2024-01-29 20:05] VITALS: BP 118/62; PULSE 89; RESP 16; TEMP 36.4; O2SAT 96
[2024-01-29] MEDS: traZODone HCL 50 MG TABLET PO (20:49)
[2024-01-29] MEDS: QUEtiapine Fumarate 50 MG TABLET PO (20:50)
[2024-01-30 07:25] VITALS: BP 88/53; PULSE 74; RESP 14; TEMP 36.4; O2SAT 97
[2024-01-30 08:53] VITALS: BP 104/69; PULSE 97; RESP 18; O2SAT 97
[2024-01-30] MEDS: Lithium Carbonate 300 MG TABLET 150 MG PO ×2 (08:57→21:56)
[2024-01-30] MEDS: Potassium Chloride ER 20 MEQ TAB.ER.PRT PO ×2 (08:58→21:56)
--- NOTE | 2024-01-30 09:11 | P.PNPSI_ITS ---
Subjective Subjective Date of Service: 01/30/24 Reason For Visit: jennifer Subjective Notes: 3 Day Interim History: Reviewed with Dr. Rowley. Patient reports feeling good today; pt stated, I didn't have any side effects from the medications. I usually don't like taking medications but I'm willing to take them to not come back to the hospital . Pt reports she slept well last night. Medication Compliance: Yes Side effects from medications: No Attending Groups: Yes Review of Systems Constitutional: Reports as per HPI Eyes: Reports as per HPI Reports as per HPI Cardiovascular: Reports as per HPI Respiratory: Reports as per HPI Gastrointestinal: Reports as per HPI Musculoskeletal: Reports as per HPI Skin/Breast: Reports as per HPI Reports as per HPI Psychiatric: Reports as per HPI Endocrine: Reports as per HPI Hematologic/Lymphatic: Reports as per HPI Allergic/Immunologic: Reports as per HPI Mental Status Exam Mental Status Exam Narrative: Pt is alert and oriented; behavior is cooperative, friendly and calm; dressed in casual attire; mood is described as good ; eye contact appropriate; Speech is normal rate, volume and prosody and not pressured; thought process is organized; Thought content is on discharge; otherwise pertinent to relevant topics and without any delusional content, paranoid ideations or grandiosity; denies SI/HI/VH/AH. Diagnostics Vital Signs (24Hr): Vital Signs - 24 hr 01/29/24 20:05 01/30/24 07:25 01/30/24 08:53 Temperature 97.6 F 97.6 F Pulse Rate 89 74 97 Respiratory Rate 16 14 18 Blood Pressure 118/62 88/53 L 104/69 Pulse Oximetry 96 97 97 Oxygen Delivery Method Room Air Room Air Room Air BMI result Body Mass Index 29.2 Labs 01/27/24 20:02 01/27/24 20:02 Labs: Laboratory Results - last 48 hr 01/29/24 11:43 Estimat Average Glucose 91 Hemoglobin A1c % 4.8 Triglycerides 54 Cholesterol 157 LDL Cholesterol, Calc 71 HDL Cholesterol 76 Vitamin B12 1038 H Folate 14.2 Free T4 1.13 Medications Medications Current Medications Acetaminophen (Acetaminophen 325 Mg Tablet) 650 mg PO Q6H PRN PRN Reason: Headache/Pain Mild Scale (1-3) Al Hydroxide/Mg Hydroxide (Magnesium Hydrox/Alum Hydrox 30 Ml Oral.Susp) 30 ml PO Q6H PRN PRN Reason: Heartburn/Nausea Hydroxyzine HCl (Hydroxyzine Hcl 25 Mg Tablet) 25 mg PO Q6H PRN PRN Reason: Anxiety Guthrie Carbonate (Guthrie Carbonate 300 Mg Tablet) 150 mg PO BID [facility] Last Admin: 01/30/24 08:57 Dose: 150 mg Magnesium Hydroxide (Milk Of Magnesia 30 Ml Oral.Susp) 30 ml PO DAILY PRN PRN Reason: Constipation Nicotine Polacrilex (Nicotine Polacrilex 2 Mg Gum) 4 mg BUCCAL Q2H PRN PRN Reason: Nicotine Cravings Potassium Chloride (Potassium Chloride Er 20 Meq Tab.Er.Prt) 20 meq PO BID [facility] Last Admin: 01/30/24 08:58 Dose: 20 meq Quetiapine Fumarate (Quetiapine Fumarate 50 Mg Tablet) 50 mg PO BEDTIME [facility] Last Admin: 01/29/24 20:50 Dose: 50 mg Trazodone HCl (Trazodone Hcl 50 Mg Tablet) 50 mg PO BEDTIME MRX1 PRN PRN Reason: Insomnia Last Admin: 01/29/24 20:49 Dose: 50 mg Allergies Allergies Allergy/AdvReac Type Severity Reaction Status Date / Time oseltamivir [From TAMIFLU] Allergy Intermediate DROWSINESS/NAUSEA, Verified 04/02/23 14:42 rash, psychosis Assessment & Plan Assessment & Plan (1) Bipolar 1 disorder: Status: Acute Code(s): F31.9 - Bipolar disorder, unspecified (2) PTSD (post-traumatic stress disorder): Status: Acute Code(s): F43.10 - Post-traumatic stress disorder, unspecified Plan Patient is a 38 year old female with hx of Bipolar d/o and PTSD who was brought into [facility] [place] d/t lack of sleep for the past 3 days d/t increased jennifer symptoms. Plan: CV pt signed 3 day 15 minute safety checks obtain collateral referral to outpatient therapist and prescriber discharge planning Start: Guthrie 150mg PO BID Seroquel 50mg PO bedtime 01/29: Patient reports feeling good today; pt stated, I didn't have any side effects from the medications. I usually don't like taking medications but I'm willing to take them to not come back to the hospital . Pt reports she slept well last night. Continue current tx plan. Patient educated on: diagnosis, medication risk/benefits and therapeutic strategies Informed Consent: understands Reason for continued inpatient stay Substantial Risk for: med/psych decompensation Time Spent With Patient Time: Total time managing care of this patient today _20___ minutes.
[2024-01-30 12:53] VITALS: BMI 29.6
[2024-01-30 19:40] VITALS: BP 107/67; PULSE 82; RESP 18; TEMP 36.7; O2SAT 100
[2024-01-30] MEDS: traZODone HCL 50 MG TABLET PO (21:57)
[2024-01-30] MEDS: QUEtiapine Fumarate 50 MG TABLET PO (21:57)
[2024-01-31 07:53] VITALS: BP 109/62; PULSE 76; RESP 18; TEMP 36.3; O2SAT 98
[2024-01-31] MEDS: Lithium Carbonate 300 MG TABLET 150 MG PO (08:21)
[2024-01-31] MEDS: Potassium Chloride ER 20 MEQ TAB.ER.PRT PO ×2 (08:21→21:19)
--- NOTE | 2024-01-31 09:19 | P.PNPSI_ITS ---
Subjective Subjective Date of Service: 01/31/24 Reason For Visit: jennifer Subjective Notes: 3 Day Interim History: Reviewed with Dr. Rowley. active on unit, social with peers. Patient reports feeling good today; pt stated, I'm just waiting to go. I don't know if I'll keep taking the medication when I leave. I don't like taking meds . Pt reports sleeping at night. denies SI/HI/VH/AH. Medication Compliance: Yes Side effects from medications: No Attending Groups: Yes Review of Systems Constitutional: Reports as per HPI Eyes: Reports as per HPI Reports as per HPI Cardiovascular: Reports as per HPI Respiratory: Reports as per HPI Gastrointestinal: Reports as per HPI Musculoskeletal: Reports as per HPI Skin/Breast: Reports as per HPI Reports as per HPI Psychiatric: Reports as per HPI Endocrine: Reports as per HPI Hematologic/Lymphatic: Reports as per HPI Allergic/Immunologic: Reports as per HPI Mental Status Exam Mental Status Exam Narrative: Pt is alert and oriented; behavior is cooperative, friendly and calm; dressed in casual attire; mood is described as good ; eye contact appropriate; Speech is normal rate, volume and prosody and not pressured; thought process is organized; Thought content is on discharge; otherwise pertinent to relevant topics and without any delusional content, paranoid ideations or grandiosity; denies SI/HI/VH/AH. Diagnostics Vital Signs (24Hr): Vital Signs - 24 hr 01/30/24 19:40 01/31/24 07:53 Temperature 98.1 F 97.3 F Pulse Rate 82 76 Respiratory Rate 18 18 Blood Pressure 107/67 109/62 Pulse Oximetry 100 98 Oxygen Delivery Method Room Air Room Air BMI result Body Mass Index 29.6 Labs 01/27/24 20:02 01/27/24 20:02 Labs: Laboratory Results - last 48 hr 01/29/24 11:43 Estimat Average Glucose 91 Hemoglobin A1c % 4.8 Triglycerides 54 Cholesterol 157 LDL Cholesterol, Calc 71 HDL Cholesterol 76 Vitamin B12 1038 H Folate 14.2 Free T4 1.13 Medications Medications Current Medications Acetaminophen (Acetaminophen 325 Mg Tablet) 650 mg PO Q6H PRN PRN Reason: Headache/Pain Mild Scale (1-3) Al Hydroxide/Mg Hydroxide (Magnesium Hydrox/Alum Hydrox 30 Ml Oral.Susp) 30 ml PO Q6H PRN PRN Reason: Heartburn/Nausea Hydroxyzine HCl (Hydroxyzine Hcl 25 Mg Tablet) 25 mg PO Q6H PRN PRN Reason: Anxiety [place] Carbonate ([place] Carbonate 300 Mg Tablet) 150 mg PO BID [facility] Last Admin: 01/31/24 08:21 Dose: 150 mg Magnesium Hydroxide (Milk Of Magnesia 30 Ml Oral.Susp) 30 ml PO DAILY PRN PRN Reason: Constipation Nicotine Polacrilex (Nicotine Polacrilex 2 Mg Gum) 4 mg BUCCAL Q2H PRN PRN Reason: Nicotine Cravings Potassium Chloride (Potassium Chloride Er 20 Meq Tab.Er.Prt) 20 meq PO BID [facility] Last Admin: 01/31/24 08:21 Dose: 20 meq Quetiapine Fumarate (Quetiapine Fumarate 50 Mg Tablet) 50 mg PO BEDTIME [facility] Last Admin: 01/30/24 21:57 Dose: 50 mg Trazodone HCl (Trazodone Hcl 50 Mg Tablet) 50 mg PO BEDTIME MRX1 PRN PRN Reason: Insomnia Last Admin: 01/30/24 21:57 Dose: 50 mg Allergies Allergies Allergy/AdvReac Type Severity Reaction Status Date / Time oseltamivir [From TAMIFLU] Allergy Intermediate DROWSINESS/NAUSEA, Verified 04/02/23 14:42 rash, psychosis Assessment & Plan Assessment & Plan (1) Bipolar 1 disorder: Status: Acute Code(s): F31.9 - Bipolar disorder, unspecified (2) PTSD (post-traumatic stress disorder): Status: Acute Code(s): F43.10 - Post-traumatic stress disorder, unspecified Plan Patient is a 38 year old female with hx of Bipolar d/o and PTSD who [place] [facility] [place]/t lack of sleep for the past 3 days d/t increased jennifer symptoms. Plan: CV pt signed 3 day 15 minute safety checks obtain collateral referral to outpatient therapist and prescriber discharge planning Start: [place] 150mg PO BID Seroquel 50mg PO bedtime 01/29: Patient reports feeling good today; pt stated, I didn't have any side effects from the medications. I usually don't like taking medications but I'm willing to take them to not come back to the hospital . Pt reports she slept well last night. Continue current tx plan. 01/30: active on unit, social with peers. Patient reports feeling good today; pt stated, I'm just waiting to go. I don't know if I'll keep taking the medication when I leave. I don't like taking meds . Pt reports sleeping at night. denies SI/HI/VH/AH. labs to be drawn today. Patient educated on: diagnosis, medication risk/benefits and therapeutic strategies Informed Consent: understands Reason for continued inpatient stay Substantial Risk for: med/psych decompensation Time Spent With Patient Time: Total time managing care of this patient today _20___ minutes.
[2024-01-31 09:54] LABS: COVID-19 Test Negative (Negative); IDNOW Serial# 9DB6401D
[2024-01-31 15:42] LABS: MANUAL DIFF FLAG NO
[2024-01-31 15:46] LABS: Basophils Percent Auto 0.3 % (0-2); Eosinophils Absolute Auto 0.2 X10*3/uL (0.0-0.4); Eosinophils Percent Auto 2.7 % (0-4); Hematocrit 39.9 % (37.0-47.0); Hemoglobin 13.8 g/dl (12.0-16.0); Imm Gran Abs Auto 0.01 X10*3/uL (0.00-0.03); Imm Gran Pct Auto 0.1 % (0.0-0.4); Lymphocytes Absolute Auto 2.4 X10*3/uL (1.2-4.9); Lymphocytes Percent Auto 34.1 % (20-40); Mean Corpuscular HGB Conc 34.6 g/dl (31.0-35.0); Mean Corpuscular Hemoglobin 30.5 pg (27.0-33.0); Mean Corpuscular Volume 88.3 fL (80.0-98.0); Monocytes Absolute Auto 0.9 X10*3/uL (0.1-1.2); Neutrophils Absolute Auto 3.6 x10*3/uL (2.0-8.3); Neutrophils Percent Auto 50.8 % (45-73); Platelet Count 266 X10*3/uL (160-400); Red Blood Count 4.52 X10*6/uL (4.20-5.50); Red Cell Distribution Width 13.3 % (11.0-16.0); White Blood Count 7.1 X10*3/uL (4.8-10.8)
[2024-01-31 15:50] LABS: Lithium 0.13 mmol/L (0.60-1.20)
[2024-01-31 16:02] LABS: Anion Gap 12 (12-20); Blood Urea Nitrogen 10 mg/dL (9-16); Calcium 9.9 mg/dL (8.4-10.2); Carbon Dioxide 26 mmol/L (22-29); Chloride 109 mmol/L (96-108); Creatinine Clr Calc Pharmacy 94.7; Estimated Glomerular Filt Rate > 60; Glucose Random 86 mg/dL (60-115); Sodium 143 mmol/L (135-145)
[2024-01-31 16:18] LABS: TSH reflex Free T4 0.28 uIU/mL (0.32-4.0)
[2024-01-31 17:04] LABS: Free T4 (Free Thyroxine) 1.11 ng/dL (0.71-1.85)
[2024-01-31 19:50] VITALS: BP 114/81; PULSE 82; RESP 16; TEMP 36.7; O2SAT 98
[2024-01-31] MEDS: traZODone HCL 50 MG TABLET PO (21:19)
[2024-01-31] MEDS: QUEtiapine Fumarate 50 MG TABLET PO (21:19)
[2024-02-01 06:00] VITALS: BP 122/57; PULSE 86; RESP 16; TEMP 36.3; O2SAT 99
[2024-02-01] MEDS: Potassium Chloride ER 20 MEQ TAB.ER.PRT PO (08:33)
--- NOTE | 2024-02-01 11:49 | HO.PSYCHPN ---
Subjective Subjective Date of Service: 02/01/24 Reason For Visit: jennifer Subjective Notes: Conditional Voluntary Interim History: Pt reports sleeping better. She reports family were concern about her waking up early as she was setting up her alarm to pray. She reports this is new for her as she did not pray as much. She reports she continues to pray at times. She reports she does not note a change in her behavior but does report that family were concern about her. She also reports she feels like exercising here on unit. Pt reports hearing voice of God which she describes hearing strong, bossy voice. She reports people are interfering with God's plan. She reports she does not think she needs medications and most likely may not continue taking them. Education provided re: her dx of Bipolar Disorder. Mental Status Exam Mental Status Exam Narrative: Appearance: wearing casual clothing, fair hygiene, in NAD Behavior: cooperative Psychomotor: no agitation or retardation noted Speech: clear, hyperverbal, not pressured TP: some flight of ideas TC: religiously preoccupied Mood: okay Affect: congruent SI: denies HI: none VH/AH: hears voice of God Delusions: religiously preoccupied Insight/judgment: poor x 2 Memory/cog: alert, oriented x 3. Diagnostics Vital Signs (24Hr): Vital Signs - 24 hr 01/31/24 19:50 02/01/24 06:00 Temperature 98.0 F 97.4 F Pulse Rate 82 86 Respiratory Rate 16 16 Blood Pressure 114/81 122/57 L Pulse Oximetry 98 99 Oxygen Delivery Method Room Air Room Air BMI result Body Mass Index 29.6 Labs 01/31/24 15:27 01/31/24 15:27 Labs: Laboratory Results - last 48 hr 01/31/24 01/31/24 08:58 15:27 WBC 7.1 RBC 4.52 Hgb 13.8 Hct 39.9 MCV 88.3 MCH 30.5 MCHC 34.6 RDW 13.3 Plt Count 266 MPV 10.0 Immature Gran % (Auto) 0.1 Neut % (Auto) 50.8 Lymph % (Auto) 34.1 [place] % (Auto) 12.0 H Eos % (Auto) 2.7 Baso % (Auto) 0.3 Lymph # (Auto) 2.4 [place] # (Auto) 0.9 Eos # (Auto) 0.2 Baso # (Auto) 0.0 Abs Immat Gran (auto) 0.01 Absolute Neuts (auto) 3.6 Absolute Nucleated RBC 0.000 Nucleated RBC % (auto) 0.0 Sodium 143 Potassium 4.0 D Chloride 109 H Carbon Dioxide 26 Anion Gap 12 BUN 10 Creatinine 0.77 Estim Creat Clear Calc 94.7 Estimated GFR > 60 Random Glucose 86 Calcium 9.9 TSH 0.28 L Free T4 1.11 [place] 0.13 L COVID-19 (JOSE) Negative COVID-19 Clin Com See Note Medications Medications Current Medications Acetaminophen (Acetaminophen 325 Mg Tablet) 650 mg PO Q6H PRN PRN Reason: Headache/Pain Mild Scale (1-3) Al Hydroxide/Mg Hydroxide (Magnesium Hydrox/Alum Hydrox 30 Ml Oral.Susp) 30 ml PO Q6H PRN PRN Reason: Heartburn/Nausea Hydroxyzine HCl (Hydroxyzine Hcl 25 Mg Tablet) 25 mg PO Q6H PRN PRN Reason: Anxiety Magnesium Hydroxide (Milk Of Magnesia 30 Ml Oral.Susp) 30 ml PO DAILY PRN PRN Reason: Constipation Nicotine Polacrilex (Nicotine Polacrilex 2 Mg Gum) 4 mg BUCCAL Q2H PRN PRN Reason: Nicotine Cravings Potassium Chloride (Potassium Chloride Er 20 Meq Tab.Er.Prt) 20 meq PO BID [facility] Last Admin: 02/01/24 08:33 Dose: 20 meq Quetiapine Fumarate (Quetiapine Fumarate 50 Mg Tablet) 50 mg PO BEDTIME [facility] Last Admin: 01/31/24 21:19 Dose: 50 mg Trazodone HCl (Trazodone Hcl 50 Mg Tablet) 50 mg PO BEDTIME MRX1 PRN PRN Reason: Insomnia Last Admin: 01/31/24 21:19 Dose: 50 mg Allergies Allergies Allergy/AdvReac Type Severity Reaction Status Date / Time oseltamivir [From TAMIFLU] Allergy Intermediate DROWSINESS/NAUSEA, Verified 04/02/23 14:42 rash, psychosis Assessment & Plan Assessment & Plan (1) Bipolar 1 disorder: Status: Acute Code(s): F31.9 - Bipolar disorder, unspecified (2) PTSD (post-traumatic stress disorder): Status: Acute Code(s): F43.10 - Post-traumatic stress disorder, unspecified Plan Patient is a 38 year old female with hx of Bipolar d/o and PTSD who was [place] [facility] [place]t lack of sleep for the past 3 days d/t increased jennifer symptoms. Plan: 01/31 increase lithium 300mg po BID. d/c potassium, increase seroquel 100mg po qhs. Reason for continued inpatient stay Substantial Risk for: inability to function Time Spent With Patient Time: Total time managing care of this patient today ____ minutes.
--- NOTE | 2024-02-01 17:36 | PC.NURSE ---
Pt reported a burning sensation on the back of her neck. Pt has small rash on back of neck, refused medications offered but accepted ice in a cloth.
[2024-02-01 18:00] VITALS: BP 120/81; PULSE 82; RESP 16; TEMP 36.8; O2SAT 99
[2024-02-01] MEDS: Magnesium Hydrox/Alum Hydrox 30 ML ORAL.SUSP PO (19:15)
[2024-02-01] MEDS: Lithium Carbonate 300 MG CAPSULE PO (21:18)
[2024-02-01] MEDS: QUEtiapine Fumarate 100 MG TABLET PO (21:18)
[2024-02-02 09:48] VITALS: BP 120/76; PULSE 98; RESP 18; TEMP 36.1; O2SAT 98
[2024-02-02] MEDS: Lithium Carbonate 300 MG CAPSULE PO ×2 (09:51→20:42)
[2024-02-02 19:50] VITALS: BP 126/83; PULSE 99; RESP 18; TEMP 36.4; O2SAT 98
--- NOTE | 2024-02-02 20:08 | HO.PSYCHPN ---
Subjective Subjective Date of Service: 02/02/24 Reason For Visit: jennifer Subjective Notes: Conditional Voluntary Interim History: Pt reports sleeping better. Pt observed talking to herself in her room. She continues to present religiously preoccupied. No behavioral concerns. Pt reports hearing voice of God which she describes hearing strong, bossy voice. She reports people are interfering with God's plan. She reports she does not think she needs medications and most likely may not continue taking them. Education provided re: her dx of Bipolar Disorder. Review of Systems Review of Systems Yes all other systems are reviewed and are negative Constitutional: Reports as per HPI Eyes: Reports as per HPI Reports as per HPI Cardiovascular: Reports as per HPI Respiratory: Reports as per HPI Gastrointestinal: Reports as per HPI Musculoskeletal: Reports as per HPI Skin/Breast: Reports as per HPI Reports as per HPI Psychiatric: Reports as per HPI Endocrine: Reports as per HPI Hematologic/Lymphatic: Reports as per HPI Allergic/Immunologic: Reports as per HPI Mental Status Exam Mental Status Exam Narrative: Appearance: wearing casual clothing, fair hygiene, in NAD Behavior: cooperative Psychomotor: no agitation or retardation noted Speech: clear, hyperverbal, not pressured TP: some flight of ideas TC: religiously preoccupied Mood: okay Affect: congruent SI: denies HI: none VH/AH: hears voice of God Delusions: religiously preoccupied Insight/judgment: poor x 2 Memory/cog: alert, oriented x 3. Diagnostics Vital Signs (24Hr): Vital Signs - 24 hr 02/02/24 09:48 02/02/24 19:50 Temperature 97.0 F 97.6 F Pulse Rate 98 99 Respiratory Rate 18 18 Blood Pressure 120/76 126/83 Pulse Oximetry 98 98 Oxygen Delivery Method Room Air Room Air BMI result Body Mass Index 29.6 Labs 01/31/24 15:27 01/31/24 15:27 Medications Medications Current Medications Acetaminophen (Acetaminophen 325 Mg Tablet) 650 mg PO Q6H PRN PRN Reason: Headache/Pain Mild Scale (1-3) Al Hydroxide/Mg Hydroxide (Magnesium Hydrox/Alum Hydrox 30 Ml Oral.Susp) 30 ml PO Q6H PRN PRN Reason: Heartburn/Nausea Last Admin: 02/01/24 19:15 Dose: 30 ml Hydroxyzine HCl (Hydroxyzine Hcl 25 Mg Tablet) 25 mg PO Q6H PRN PRN Reason: Anxiety [place] Carbonate ([place] Carbonate 300 Mg Capsule) 300 mg PO BID [facility] Last Admin: 02/02/24 09:51 Dose: 300 mg Magnesium Hydroxide (Milk Of Magnesia 30 Ml Oral.Susp) 30 ml PO DAILY PRN PRN Reason: Constipation Nicotine Polacrilex (Nicotine Polacrilex 2 Mg Gum) 4 mg BUCCAL Q2H PRN PRN Reason: Nicotine Cravings Quetiapine Fumarate (Quetiapine Fumarate 100 Mg Tablet) 100 mg PO BEDTIME [facility] Last Admin: 02/01/24 21:18 Dose: 100 mg Trazodone HCl (Trazodone Hcl 50 Mg Tablet) 50 mg PO BEDTIME MRX1 PRN PRN Reason: Insomnia Last Admin: 01/31/24 21:19 Dose: 50 mg Allergies Allergies Allergy/AdvReac Type Severity Reaction Status Date / Time oseltamivir [From TAMIFLU] Allergy Intermediate DROWSINESS/NAUSEA, Verified 04/02/23 14:42 rash, psychosis Assessment & Plan Assessment & Plan (1) Bipolar 1 disorder: Status: Acute Code(s): F31.9 - Bipolar disorder, unspecified (2) PTSD (post-traumatic stress disorder): Status: Acute Code(s): F43.10 - Post-traumatic stress disorder, unspecified Plan Patient is a 38 year old female with hx of Bipolar d/o and PTSD who was brought into [facility] [place] [place] d/t lack of sleep for the past 3 days d/t increased jennifer symptoms. Plan: 01/31 increase lithium 300mg po BID. d/c potassium, increase seroquel 100mg po qhs. 02/01 continue tx. recheck potassium Reason for continued inpatient stay Substantial Risk for: inability to function Time Spent With Patient Time: Total time managing care of this patient today ____ minutes.
[2024-02-02] MEDS: QUEtiapine Fumarate 100 MG TABLET PO (20:42)
[2024-02-02] MEDS: traZODone HCL 50 MG TABLET PO (20:42)
[2024-02-03 07:10] VITALS: BP 104/67; PULSE 94; RESP 16; TEMP 36.2; O2SAT 99
[2024-02-03] MEDS: Lithium Carbonate 300 MG CAPSULE PO (08:09)
[2024-02-03 09:00] LABS: Potassium 3.9 mmol/L (3.3-5.1)
--- NOTE | 2024-02-03 10:33 | P.DS_ITS ---
DS: Providers Provider Date of Service: 02/03/24 Date of admission: 01/28/24 11:57 Date of discharge: 02/03/24 Primary care physician: Unknown Physician Admitting clinician: Laurel Page Attending physician on admission: Tyrell Rowley Attending physician on discharge: Tyrell Rowley Discharging clinician: Laurel Page DS: Diagnosis Discharge Diagnosis (1) Bipolar 1 disorder: Status: Acute (2) PTSD (post-traumatic stress disorder): Status: Acute DS: Medications Discharge Medications Home Medications: Previous Rx's Medication Instructions Recorded lithium carbonate 300 mg capsule 300 mg PO BID 30 days #60 caps 02/03/24 quetiapine 100 mg tablet 100 mg PO BEDTIME 30 days #30 tabs 02/03/24 Mental Status Exam Mental Status Exam Narrative: Pt is alert and oriented; behavior is cooperative and calm; dressed in casual attire; mood is described as good ; eye contact appropriate; Speech is normal rate, volume and prosody and not pressured; thought process is organized; Thought content is on discharge; denies SI/HI/VH/AH. Data Data Completed and Pending Completed studies during hospitalization [Text1]: 01/27/24 01/28/24 01/29/24 20:02 08:11 11:43 WBC 7.5 RBC 4.55 Hgb 13.9 Hct 38.9 MCV 85.5 MCH 30.5 MCHC 35.7 H RDW 12.9 Plt Count 247 MPV 9.5 Immature Gran % (Auto) 0.3 Neut % (Auto) 61.7 Lymph % (Auto) 30.3 [place] % (Auto) 7.2 Eos % (Auto) 0.4 Baso % (Auto) 0.1 Lymph # (Auto) 2.3 [place] # (Auto) 0.5 Eos # (Auto) 0.0 Baso # (Auto) 0.0 Abs Immat Gran (auto) 0.02 Absolute Neuts (auto) 4.7 Absolute Nucleated RBC 0.000 Nucleated RBC % (auto) 0.0 Sodium 140 Potassium 3.1 L Chloride 106 Carbon Dioxide 25 Anion Gap 12 BUN 6 L Creatinine 0.80 Estim Creat Clear Calc 91.7 Estimated GFR > 60 Random Glucose 88 Estimat Average Glucose 91 Hemoglobin A1c % 4.8 Calcium 9.8 Total Bilirubin 0.6 AST 21 ALT 15 Alkaline Phosphatase 58 Total Protein 7.9 Albumin 4.4 Triglycerides 54 Cholesterol 157 LDL Cholesterol, Calc 71 HDL Cholesterol 76 Vitamin B12 1038 H Folate 14.2 TSH 1.44 Free T4 1.13 Urine Color Yellow Urine Appearance Clear Urine pH 5.5 Ur Specific [place] <= 1.005 Urine Protein Negative Urine Glucose (UA) Negative Urine Ketones Trace Urine Blood Negative Urine Nitrite Negative Ur Leukocyte Esterase Small (1+) H Urine RBC 0-2 Urine WBC 11-20 H Ur Squamous Epith Cells 0-2 Urine Bacteria None Seen Hyaline Casts 0-2 Salicylates < 5.0 L Urine Opiates Screen Not Detected Urine Fentanyl Screen Not Detected Acetaminophen < 3 Ur Barbiturates Screen Not Detected Ur Phencyclidine Scrn Not Detected Ur Amphetamines Screen Not Detected U Benzodiazepines Scrn Not Detected [place] Urine Cocaine Screen Not Detected U Marijuana (THC) Screen Not Detected COVID-19 (JOSE) Negative COVID-19 Clin Com See Note 01/31/24 01/31/24 02/03/24 08:58 15:27 08:21 WBC 7.1 RBC 4.52 Hgb 13.8 Hct 39.9 MCV 88.3 MCH 30.5 MCHC 34.6 RDW 13.3 Plt Count 266 MPV 10.0 Immature Gran % (Auto) 0.1 Neut % (Auto) 50.8 Lymph % (Auto) 34.1 [place] % (Auto) 12.0 H Eos % (Auto) 2.7 Baso % (Auto) 0.3 Lymph # (Auto) 2.4 [place] # (Auto) 0.9 Eos # (Auto) 0.2 Baso # (Auto) 0.0 Abs Immat Gran (auto) 0.01 Absolute Neuts (auto) 3.6 Absolute Nucleated RBC 0.000 Nucleated RBC % (auto) 0.0 Sodium 143 Potassium 4.0 D 3.9 Chloride 109 H Carbon Dioxide 26 Anion Gap 12 BUN 10 Creatinine 0.77 Estim Creat Clear Calc 94.7 Estimated GFR > 60 Random Glucose 86 Estimat Average Glucose Hemoglobin A1c % Calcium 9.9 Total Bilirubin AST ALT Alkaline Phosphatase Total Protein Albumin Triglycerides Cholesterol LDL Cholesterol, Calc HDL Cholesterol Vitamin B12 Folate TSH 0.28 L Free T4 1.11 Urine Color Urine Appearance Urine pH Ur Specific [place] Urine Protein Urine Glucose (UA) Urine Ketones Urine Blood Urine Nitrite Ur Leukocyte Esterase Urine RBC Urine WBC Ur Squamous Epith Cells Urine Bacteria Hyaline Casts Salicylates Urine Opiates Screen Urine Fentanyl Screen Acetaminophen Ur Barbiturates Screen Ur Phencyclidine Scrn Ur Amphetamines Screen U Benzodiazepines Scrn [place] 0.13 L Urine Cocaine Screen U Marijuana (THC) Screen COVID-19 (JOSE) Negative COVID-19 Clin Com See Note 01/27/24 20:20 Urine clean catch Urine Culture - Final Lactobacillus species DS: Summary Hospital Course Hospital Course: Patient is a 38 year old female with hx of Bipolar d/o and PTSD who was brought into [facility] [place] d/t lack of sleep for the past 3 days d/t increased jennifer symptoms. Per crisis report, pt presented to [facility] secondary to her family concerned pt may be on the verge of manic episode. Pt reported not sleeping for the past 3 days. She has been newly disorganized in her thought process. Pt's reported that the last time pt experienced a manic episode, pt was agitated, physically aggressive and endorsed vague SI. Pt's reports she has experienced sporadic manic episodes when she is stressed; he did not that pt has been working long hours lately. During admission assessment, pt presents calm and cooperative, organized. Pt soft spoken and observed coloring throughout assessment. Pt stated, I feel okay. My called crisis and told them I wasn't sleeping so they brought me to the hospital. I feel like I have a lot of energy. I don't know why I'm not tired. I only sleep 2 hours a day . pt denies SI/HI/VH/AH. She denies any substance use; UTOX negative. Pt reports she not having any outpatient psych iatric providers or taking psychiatric medications. Pt is a poor historian and can not recall her last hospitalizations or hx of psychiatric medications. Pt reported she is open to taking a mood stabilizer or anything to help me sleep ;risks/benefits reviewed. pt signed 3 day notice and stated, I feel fine. I really don't think I need to be here . 3 day up on Saturday. During hospital course, CV pt signed 3 day 15 minute safety checks obtain collateral referral to outpatient therapist and prescriber discharge planning Start: [place] 150mg PO BID Seroquel 50mg PO bedtime Patient reports feeling good today; pt stated, I didn't have any side effects from the medications. I usually don't like taking medications but I'm willing to take them to not come back to the hospital . Pt reports she slept well last night. Continue current tx plan. active on unit, social with peers. Patient reports feeling good today; pt stated, I'm just waiting to go. I don't know if I'll keep taking the medication when I leave. I don't like taking meds . Pt reports sleeping at night. denies SI/HI/VH/AH. labs to be drawn today. increase lithium 300mg po BID. d/c potassium, increase seroquel 100mg po qhs. 3 day is up today; pt states she does not want to stay on the unit and would like to be discharged. Pt reports feeling good today; pt stated, I'm not depressed. I'm feeling good. I'm sleeping. I just want to go home. I'll take the medications at home . When asked about hearing God's voice and defecating in the shower. pt stated, I went to the bathroom in the shower because there is no toilet in there. At home, I just get out, go to the bathroom then go back into the shower . Pt reports she never told anyone that I hear God's voice . pt denies SI/HI/VH/AH. Pt reports she will follow up with outpatient providers. Pt educated regarding importance of medication compliance; ambulatory labs entered for pt to return on 02/06/24 to check lithium level, BUN, creatinine and electrolytes. Pt aware; RN to educate pt's who is picking pt up. Time spent discussing smoking cessation with patient: 3 to 10 minutes Status at Discharge Cognitive/behavioral status at discharge: Patient was interviewed prior to discharge and found to be fully oriented and without any SI or HI. Patient has insight and demonstrates good judgment in terms of wanting to pursue treatment. Patient has a safety plan that includes presenting to the closest ER or calling 911 if feeling unsafe. Functional status at discharge: independent ambulation Overall status at discharge: patient is back to baseline Time Spent with Patient Time attestation: Total time managing care of this patient today _30___ minutes. Time spent: Less than 30 minutes Discharge Plan Discharge Anticipated Discharge Date/Time: 02/03/24 10:45 Patient Disposition: Home, Self-Care Discharge Diagnosis: Bipolar d/o, PTSD Referrals: Therapy & Psychiatry [Other] - 1 Week (*Please present to the clinic listed above as a walk in on Tuesdays or from 10am to 12pm in order to obtain outpatient mental health treatment* ) [facility] [Provider Group] - 1 Week (No PCP, [facility] has been assigned as PCP. Please contact them for appointment or go to walk in hours Saturday through Saturday 830am - 4pm) Discharge Medications: New quetiapine 100 mg Tablet 100 mg PO BEDTIME 30 Days Qty: 30 0RF lithium carbonate 300 mg Capsule 300 mg PO BID 30 Days Qty: 60 0RF Discharge Orders: Discharge Order (Routine); Ordered 02/03/24 Ordered By: Laurel Page Diet: Regular diet Activity on Discharge: As tolerated Stand Alone Forms: Patient Portal Discharge page, Community Support Other Ambulatory Orders: Blood Urea Nitrogen (Routine) Timeframe: [id number] Facility: [facility] - Location: Laboratory Ordered By: Laurel Page Creatinine (Routine) Timeframe: [id number] Facility: [facility] - Location: Laboratory Ordered By: Laurel Page [place] (Routine) Timeframe: [id number] Facility: [facility] - Location: Laboratory Ordered By: Laurel Page Electrolytes (Routine) Timeframe: [id number] Facility: [facility] - Location: Laboratory Ordered By: Laurel Page Care Plan Goals: Maintain mood and safe behaviors Take medications as prescribed Practice coping skills Continue with outpatient providers and reach out to them as needed Health Concerns: Mood stability and behaviors Monitor lithium level Plan of Treatment: Follow up with your PCP, psychiatric provider and other outpatient providers regarding above concerns Take medications as prescribed Assessment: Patient was interviewed prior to discharge and found to be fully oriented and without any SI or HI. Patient has insight and demonstrates good judgment in terms of wanting to pursue treatment. Patient has a safety plan that includes presenting to the closest ER or calling 911 if feeling unsafe. Discharge Date/Time: 02/03/24 11:10
== END 2024-02-03 11:10 | disposition home or self-care (01) | DRG 753 ==
LOC: HO.ED 01-28 07:59 → HO.PADLT16 01-28 13:10
PROVIDERS: Emergency Medicine; Social Worker; Admitting Provider Psychiatry & Neurology Psychiatry; Emergency Provider Emergency Medicine Emergency Medical Services; Responsible Provider Registered Nurse; Visit Provider Psychiatry & Neurology Psychiatry
DX: F31.9 Bipolar disorder, unspecified (principal); F43.10 Post-traumatic stress disorder, unspecified; Z20.822 Contact with and (suspected) exposure to COVID-19; Z87.891 Personal history of nicotine dependence; Z98.84 Bariatric surgery status; Z79.899 Other long term (current) drug therapy
CPT/HCPCS: 36415; 80048; 80053; 80061; 80143; 80178; 80179; 80307; 81001; 82607; 82746; 83036; 84132; 84439; 84443; 85025; 87086; 87635; 99285

== ENCOUNTER → 2024-01-28 11:57 | Outpatient (BNV) | payer MEDICAID, OTHER, SELFPAY | PROVIDERS: Admitting Provider Psychiatry & Neurology Psychiatry; Emergency Provider Emergency Medicine Emergency Medical Services; Responsible Provider Registered Nurse; Visit Provider Registered Nurse | DX: F31.13 Bipolar disorder, current episode manic without psychotic features, severe (principal); F43.11 Post-traumatic stress disorder, acute | CPT/HCPCS: 99231; 99232; 99233 ==

== ENCOUNTER 2024-02-05 13:31 | Outpatient (REF) | payer OTHER, SELFPAY ==
[2024-02-05 14:38] LABS: Lithium 0.44 mmol/L (0.60-1.20)
[2024-02-05 14:40] LABS: Anion Gap 10 (12-20); Blood Urea Nitrogen 12 mg/dL (9-16); Carbon Dioxide 28 mmol/L (22-29); Chloride 108 mmol/L (96-108); Estimated Glomerular Filt Rate > 60; Potassium 3.8 mmol/L (3.3-5.1); Sodium 142 mmol/L (135-145)
== END 2024-02-05 13:32 | disposition home or self-care (01) ==
LOC: HO.LAB 13:31
PROVIDERS: PCP Internal Medicine; Visit Provider Registered Nurse
DX: F31.9 Bipolar disorder, unspecified (principal); Z79.899 Other long term (current) drug therapy
CPT/HCPCS: 36415; 80051; 80178; 82565; 84520

== ENCOUNTER 2024-02-11 16:29 | Outpatient (AMB) | payer OTHER, SELFPAY ==
[2024-02-11 16:53] VITALS: BP 110/72; BMI 31.6
--- NOTE | 2024-02-11 16:53 | MHC.PC.OV ---
Vital Signs 02/11/24 16:53 Height 5 ft 1 in Weight 167 lb BMI 31.6 BP 110/72 Blood Pressure Location Lt brachial Position Sitting Intake Visit Reasons: Annual exam Intake Note: Patient here for an annual physical exam Casual Shoe Inspector Required: No Accompanied by: Spouse Allergies oseltamivir [From TAMIFLU] Allergy (Intermediate, Verified 02/11/24 17:12) DROWSINESS/NAUSEA, rash, psychosis Medication List - Last Reconciled 02/11/24 by Cydney Foster MD lithium carbonate 300 mg PO BID 30 days quetiapine 100 mg PO BEDTIME 30 days Tobacco use date assessed: 02/11/24 Dental Screening Dental Screen Date: 02/11/24 Did you have a dental visit in the last 12 months?: Yes Did you have a dental problem in the last 6 months where you did not have access to dental care?: No Was dental information given to patient?: Patient has dentist HPI HPI Comments History of Present Illness Details This is a 38-year-old female with bipolar disorder that comes accompanied by for her physical exam. She recently had psychosis and was hospitalized and started on lithium. She was discharged 02/03/2024. Mammogram of today. Denies any chest pain or shortness of breath. FORMERLY [facility], [facility] Medical History (Updated 02/11/24 @ 17:30 by Cydney Foster MD) Hypovitaminosis D Breast lump on left side at 3 o'clock position Physical exam Overweight (BMI 25.0-29.9) Intestinal malabsorption following gastrectomy Malabsorption due to intolerance, not elsewhere classified Anemia Back pain GERD (gastroesophageal reflux disease) Morbid obesity Surgical History History of surgical procedure on mouth History of colonoscopy Hx of cholecystectomy S/P laparoscopic sleeve gastrectomy Family History Father No problems noted. Mother Hypertension Sister No problems noted. Sister Hypoglycemia Brother No problems noted. Brother No problems noted. Son No problems noted. Son No problems noted. Paternal Aunt Breast cancer Colon cancer Paternal Grandfather No problems noted. Social History Household Members: Spouse and Children Household Members Other:: , youngest son, 2 dogs Housing: Apartment Do you presently have visiting nurse or other home services: No Alcohol intake: never Patient Tobacco Use Status: Former Tobacco user Tobacco use type: Cigarette e-Cigarette/Vaping Use: Never Used Second Hand Smoke Exposure: No service: No Current occupational status: employed Current occupational exposures/hazards: No Sexual orientation: Straight/Heterosexual Cognitive needs: No Hearing needs: No Vision needs: No Female Reproductive History Menstrual Age of Menarche: 7 Questionnaire PHQ-9 Over the last 2 weeks, how often have you been bothered by any of the following problems? 1. Little interest or pleasure in doing things: not at all 2. Feeling down, depressed, or hopeless: not at all 3. Trouble falling or staying asleep, or sleeping too much: not at all 4. Feeling tired or having little energy: not at all 5. Poor appetite or overeating: not at all 6. Feeling bad about yourself - or that you are a failure or have let yourself or your family down: not at all 7. Trouble concentrating on things, such as reading the newspaper or watching television: not at all 8. Moving or speaking so slowly that other people could have noticed. Or the opposite - being so fidgety or restless that you have been moving around a lot more than usual: not at all 9. Thoughts that you would be better off or of hurting yourself in some way: not at all Total score: 0 Depression Screening Interpretation: Negative Depression Screening Done: Yes 46239 - PHQ-9 Billing: Yes Source: Developed by Drs. Rogelio Villatoro, Cassidy Serrano, Guido Doss and colleagues, with an educational bob from [employer]. Thrive Questionnaire Date Thrive assessed: 01/29/24 I am a: Patient What is your living situation today?: I have a steady place to live Within the past 12 months, did the food you bought not last and you didn't have the money to get more?: Never true Within the past 12 months, did you worry whether your food would run out before you got money to buy more?: Never true Do you have trouble paying for medicines?: No Do you have trouble getting transportation to medical appointments?: No Do you have trouble paying your heating and electricity bill?: No Do you have trouble taking care of your child, family member or friend?: No Do you have trouble with day-to-day activities such as bathing, preparing meals, shopping, managing finances, etc.?: No Are you currently unemployed and looking for a job?: No Are you interested in more education?: No Please select the resources that you would like help with: None Currently or been in a relationship where the following occur: no concerns reported THRIVE Score: 0 AUDIT C Alcohol Use Questionnaire (AUDIT-C) 1. How often do you have a drink containing alcohol?: Never Total Score: 0 Score Reviewed/Action Taken: No LUIZ-7 AMB Questionnaire LUIZ-7 Date LUIZ - 7 assessed: 02/11/24 Feeling nervous, anxious, or on edge: 0 = Not at all Not being able to stop or control worryin = Not at all Worrying too much about different things: 0 = Not at all Trouble relaxin = Not at all Being so restless that it is hard to sit still: 0 = Not at all Becoming easily annoyed or irritable: 0 = Not at all Feeling afraid as if something awful might happen: 0 = Not at all Total LUIZ-7 score (0-4 normal; 5-9 mild; 10-14 moderate; 15-21 severe): 0 Source: Developed by Drs. Rogelio Villatoro, Cassidy Serrano, Guido Doss and colleagues, with an educational bob from [employer]. LUIZ-7 Assessment Billing LUIZ-7 Assessment Tool: LUIZ-7 Assessment 21382 Review of Systems Const All systems reviewed & are unremarkable except as noted in HPI and below Eyes Reports no additional complaints, Denies change in vision and Denies other visual disturbances Card Denies chest pain at rest, Denies chest pain with activity, Denies edema, Denies irregular heart rhythm, Denies claudication, Denies dyspnea, Denies dyspnea on exertion, Denies orthopnea, Denies paroxysmal nocturnal dyspnea and Denies slow heart rate Resp Denies cough, Denies dyspnea and Denies dyspnea on exertion Physical exam (Primary Care) Vital Signs: Last Vital Signs BP 110/72 02/11/24 16:53 BMI result Body Mass Index 31.6 Tobacco/Smoking Status: Tobacco use Status Tobacco use date assessed 02/11/24 02/11/24 17:04 Patient Tobacco Use Status Former Tobacco user 02/11/24 16:53 Tobacco use type Cigarette 02/11/24 16:53 e-Cigarette/Vaping Use Never Used 02/11/24 16:53 PHQ-9: PHQ-9 Score PHQ-9: Total score 0 02/11/24 17:18 Depression Screening Interpretation: Negative Thrive Assessment: Date of Thrive Assessment Date Thrive assessed 01/29/24 02/11/24 16:53 Currently or been in a relationship where the following occur: no concerns reported Const Orientation/consciousness: patient oriented x3 HENMT Head: Yes normal to inspection, Yes normocephalic and Yes atraumatic Ears: external ears normal Eyes General: appearance normal, both eyes and all related structures Eyelids: Yes eyelids normal Conjunctivae: conjunctivae normal Neck Neck: Yes normal visual inspection and Yes supple Resp Effort & Inspection: normal respiratory effort Auscultation: clear to auscultation bilaterally Cardio Jugular venous distension: no JVD Rate: regular rate Rhythm: regular rhythm Heart sounds: S1 normal heart sound present and S2 normal heart sound present GI Inspection: Yes normal to inspection Palpation (GI): Soft to palpation and nontender Auscultation: normal bowel sounds Skin General skin exam: no rashes or lesions noted Neuro General: patient oriented x3 and no focal motor deficits Extrem General: Yes full ROM Psych Appearance: grossly normal Assessment and Plan Assessment & Plan (1) Physical exam: Code(s): Z00.00 - Encounter for general adult medical examination without abnormal findings Plan: Repeat in a year. (2) Bipolar 1 disorder: Code(s): F31.9 - Bipolar disorder, unspecified Plan: Start lithium. Orders: Orders Thyroid Stimulating Hormone 2 Months R79.89 - Other specified abnormal findings of blood chemistry [place] 2 Months F31.9 - Bipolar disorder, unspecified Coding Level of Care Code Est Pt Prev Care 40-64y(25790) Diagnoses Physical exam Z00.00 Bipolar 1 disorder F31.9 Additional Codes LUIZ-7 Assessment Billing - LUIZ-7 Assessment Tool: LUIZ-7 Assessment 22844 ([id number]) Time Spent (min) 32
== END 2024-02-11 17:55 | disposition home or self-care (01) ==
PROVIDERS: Visit Provider Internal Medicine
DX: Z00.00 Encounter for general adult medical examination without abnormal findings (principal); F31.9 Bipolar disorder, unspecified
CPT/HCPCS: 99396

== ENCOUNTER 2024-02-12 10:57 | Outpatient (REF) | payer OTHER, SELFPAY ==
--- NOTE | ~2024-02-12 | US_ITS ---
EXAMINATION: MM DIAGNOSTIC DIGITAL BREAST TOMOSYNTHESIS, LEFT US BREAST LIMITED, LEFT MAMMOGRAPHY: CLINICAL INFORMATION: 38-year-old female for 6 month follow-up left breast focal asymmetry, approximately 1:00, posterior one third. COMPARISON: Mammography: 07/17/2023, 11/20/2022, 12/15/2021, 12/13/2021, 09/15/2021. TECHNIQUE: Digital left breast tomosynthesis is performed in the following views: Full-field 3-D digital left CC, MLO, and MLO views, as well as 3-D spot compression left CC and MLO views. This was followed by targeted left breast ultrasound. FINDINGS: The breasts are heterogeneously dense, which may obscure small masses (ACR BI-RADS breast composition Category c). Within the 12:00 axis of the left breast, posterior one third, behind the parenchymal cone, there is a similar focal asymmetry which persists on spot compression views and noncompression views, and has a similar appearance to previously. This is again indeterminate although may represent a focus of fat necrosis. Six-month interval follow-up left breast diagnostic mammogram recommended, when the patient is due for bilateral screening. No new suspicious findings in the left breast. ULTRASOUND: CLINICAL INFORMATION: Evaluate focal asymmetry, 12:00 axis left breast, posterior one third. Previous ultrasound no correlate. COMPARISON: 07/17/2023 TECHNIQUE: Targeted sonographic evaluation was performed using a high frequency linear transducer. Attention was given to the 10:00 to 2:00 axis of the left breast. Selected archived documentation. FINDINGS: LEFT BREAST: There is dense fibroglandular tissue present. Within the 12:00 axis, there is a hyperechoic focus with a shape white similar to the abnormality seen on mammography, and may represent the sonographic manifestation of the focal asymmetry. This may represent fat necrosis or an unusual island of dense tissue. It has a benign appearance on ultrasound. No additional abnormality identified. US/US breast LT limited mamm only IMPRESSION: No findings suspicious for malignancy in the left breast. Examination unchanged. No interval change in the focal asymmetry 12:00 axis posterior one third, for which six-month interval targeted right diagnostic mammography is recommended to ensure stability when the patient is due for bilateral screening. Possible correlate on ultrasound as discussed above, which appears benign. OVERALL ASSESSMENT: Mammography: BI-RADS 3 - Probably benign finding(s) - 6 month follow-up suggested Ultrasound: BI-RADS 3 - Probably benign finding(s) - 6 month follow-up suggested RECOMMENDATION: 6 Month F/U This patient's information was entered into a reminder system with a target due date for their next mammogram.
== END 2024-02-12 10:58 | disposition home or self-care (01) ==
LOC: HO.MAMMO 10:57
PROVIDERS: PCP Internal Medicine; Visit Provider Internal Medicine
DX: R92.2 Inconclusive mammogram (principal)
CPT/HCPCS: 76642; 77061; 77065

== ENCOUNTER → 2024-02-12 11:30 | Outpatient (BNV) | payer OTHER, SELFPAY | PROVIDERS: PCP Internal Medicine; Visit Provider Radiology Diagnostic Radiology | DX: R92.322 Mammographic fibroglandular density, left breast (principal); R92.2 Inconclusive mammogram | CPT/HCPCS: 76642; 77061; 77065 ==

== ENCOUNTER 2024-06-13 07:56 | Inpatient (IN) | payer MEDICAID, SELFPAY ==
[2024-06-13 08:01] VITALS: BP 120/80; BP 122/71; PULSE 67; PULSE 78; RESP 18; TEMP 36.7; O2SAT 97; O2SAT 98; BMI 31.4
--- NOTE | 2024-06-13 08:28 | PC.NURSE ---
Pt BIBA from home for being non compliant with her meds, ?pt takes lithium. Pt lives at home with and youngest son. Family called PD because pt is known to be aggressive/violent. Upon arrival pt unsure as to why EMS was called, pt states she only takes vitamins at home and did not take them today. Pt walking around room, taking bracelet/gown off. Tech to bedside for safety of pt, pt changes into POD clothes, belongings locked up in [facility] port closet. Labs to be obtained, awaiting CARE team evaluation at this time. Denies cp/n/v/d/sob, call sharpe within reach.
[2024-06-13 08:37] LABS: MANUAL DIFF FLAG NO
[2024-06-13 08:38] LABS: Basophils Percent Auto 0.3 % (0-2); Eosinophils Absolute Auto 0.5 X10*3/uL (0.0-0.4); Eosinophils Percent Auto 7.8 % (0-4); Imm Gran Abs Auto 0.01 X10*3/uL (0.00-0.03); Imm Gran Pct Auto 0.2 % (0.0-0.4); Lymphocytes Absolute Auto 1.7 X10*3/uL (1.2-4.9); Lymphocytes Percent Auto 28.5 % (20-40); Mean Corpuscular Hemoglobin 30.6 pg (27.0-33.0); Mean Corpuscular Volume 87.5 fL (80.0-98.0); Mean Platelet Volume 9.7 fL (9.4-12.3); Monocytes Absolute Auto 0.5 X10*3/uL (0.1-1.2); Monocytes Percent Auto 8.7 % (2-11); Neutrophils Absolute Auto 3.2 x10*3/uL (2.0-8.3); Neutrophils Percent Auto 54.5 % (45-73); Platelet Count 252 X10*3/uL (160-400); Red Blood Count 4.57 X10*6/uL (4.20-5.50); Red Cell Distribution Width 13.3 % (11.0-16.0); White Blood Count 5.9 X10*3/uL (4.8-10.8)
[2024-06-13 08:55] LABS: Acetaminophen LAB < 3 mcg/mL (<30); Salicylate < 5.0 mg/dL (15-30)
--- NOTE | 2024-06-13 09:10 | ED.PSYCH ---
HPI - Psych General Chief Complaint: Behavioral Concerns Stated Complaint: non med compliant Time Seen by Provider: 06/13/24 08:07 Source: patient, EMS and old records reviewed Mode of arrival: EMS Limitations: other (not really forthcoming) History of Present Illness ED Provider: ESTIVEN GREER Narrative: 38 yo female with PMH of bipolar here with c/o not taking medications family called 911 as she has hx of being violent she comes in and says everything is fine and she is okay she doesn't need medications. She has removed clothes in full view of others, she is going in and out of the bathroom pacing. She denies SI/HI but really not much other history. complaint: other Onset (ago): day(s) Duration: getting worse History of same: Yes Relieving factors: none Exacerbating factors: other Context: not taking psychiatric medications Associated psychiatric symptoms: none Associated symptoms: other (restlessness) Treatments prior to arrival: none Related Data Previous Rx's ?Medication ?Instructions ?Recorded lithium carbonate 300 mg capsule 300 mg PO BID 30 days #60 caps 02/03/24 quetiapine 100 mg tablet 100 mg PO BEDTIME 30 days #30 tabs 02/03/24 Allergies Allergy/AdvReac Type Severity Reaction Status Date / Time oseltamivir [From TAMIFLU] Allergy Intermediate DROWSINESS/NAUSEA, Verified 06/13/24 08:03 rash, psychosis Review of Systems Review of Systems: ROS unable to be obtained due to patient not forthcoming [facility] Past Medical History Attestation statement: The following information was validated with the patient. Source: old records reviewed Medical History Psychosis Hypovitaminosis D Breast lump on left side at 3 o'clock position Physical exam Overweight (BMI 25.0-29.9) Intestinal malabsorption following gastrectomy Malabsorption due to intolerance, not elsewhere classified Anemia Back pain GERD (gastroesophageal reflux disease) Morbid obesity Surgical History History of surgical procedure on mouth History of colonoscopy Hx of cholecystectomy S/P laparoscopic sleeve gastrectomy Family History Family History Father No problems noted. Mother Hypertension Sister No problems noted. Sister Hypoglycemia Brother No problems noted. Brother No problems noted. Son No problems noted. Son No problems noted. Paternal Aunt Breast cancer Colon cancer Paternal Grandfather No problems noted. Social History Social History Household Members: Spouse and Children Household Members Other:: , youngest son, 2 dogs Housing: Apartment Do you presently have visiting nurse or other home services: No Alcohol intake: never Patient Tobacco Use Status: Former Tobacco user Tobacco use type: Cigarette e-Cigarette/Vaping Use: Never Used Second Hand Smoke Exposure: No Advance Directives: No Advance Directives Information Provided: Yes Do you have a plan to hurt others: No Plan service: No Current occupational status: employed Current occupational exposures/hazards: No Sexual orientation: Straight/Heterosexual Cognitive needs: No Hearing needs: No Vision needs: No Physical Exam Vital Signs: Vital Signs: Last Vital Signs Temp 98.0 F 06/13/24 08:01 Pulse 78 06/13/24 08:01 Resp 18 06/13/24 08:01 BP 122/71 06/13/24 08:01 Pulse Ox 98 06/13/24 08:01 O2 Del Method Room Air 06/13/24 08:01 BMI result Body Mass Index 31.4 Appearance: Alert. Oriented X3. No acute distress. I am fine, removing clothes, states she doesn't need medications. going in and out of bathroom, pacing Eyes: Pupils equal, round and reactive to light. ENT: Pharynx normal. Neck: Normal inspection. Neck supple. CVS: Normal heart rate and rhythm. Pulses normal. Respiratory: No respiratory distress. Breath sounds normal. Abdomen: Soft and nontender. Skin: Skin warm and dry. Normal skin color. Normal skin turgor. Extremities: No lower extremity edema. No calf ttp Neuro: Oriented X 3. No motor deficit. No sensory deficit. CN2-12 intact Course Course Course Narrative: cannot redirect, removing clothes, won't leave bathroom rubbing lotion everywhere refusing oral medications, escalating at this time IM medications ordered, will not redirect by me or RNs 910am Medical Decision Making Medical Decision Making MDM Narrative: 38 yo female with PMH of bipolar disorder here with c/o not taking medications she is acting erratic removing clothes she states she is fine at this time will offer oral medications, labs, CARE team consult Differential Diagnosis Differential Diagnoses: The differential diagnosis associated with the presentation includes non compliance, bipolar Admission/Observation Consideration of admission/observation: Escalation of care including admission/observation considered physician observation started at 9am pending CARE team consult Consult Healthcare Provider Management of the patient was discussed with: Behavioral Health Provider Lab Data [facility] Lab Attestation statement: I reviewed the patient's lab results. 06/13/24 08:31 06/13/24 08:31 Labs: Lab Results 06/13/24 Range/Units 08:31 WBC 5.9 (4.8-10.8) X10*3/uL RBC 4.57 (4.20-5.50) X10*6/uL Hgb 14.0 (12.0-16.0) g/dl Hct 40.0 (37.0-47.0) % MCV 87.5 (80.0-98.0) fL MCH 30.6 (27.0-33.0) pg MCHC 35.0 (31.0-35.0) g/dl RDW 13.3 (11.0-16.0) % Plt Count 252 (160-400) X10*3/uL MPV 9.7 (9.4-12.3) fL Immature Gran % (Auto) 0.2 (0.0-0.4) % Neut % (Auto) 54.5 (45-73) % Lymph % (Auto) 28.5 (20-40) % [place] % (Auto) 8.7 (2-11) % Eos % (Auto) 7.8 H (0-4) % Baso % (Auto) 0.3 (0-2) % Lymph # (Auto) 1.7 (1.2-4.9) X10*3/uL [place] # (Auto) 0.5 (0.1-1.2) X10*3/uL Eos # (Auto) 0.5 H (0.0-0.4) X10*3/uL Baso # (Auto) 0.0 (0.0-0.2) X10*3/uL Abs Immat Gran (auto) 0.01 (0.00-0.03) X10*3/uL Absolute Neuts (auto) 3.2 (2.0-8.3) x10*3/uL Absolute Nucleated RBC 0.000 (0.0-0.012) X10*3/uL Nucleated RBC % (auto) 0.0 (0.0-0.2) /100WBC Salicylates < 5.0 L (15-30) mg/dL Acetaminophen < 3 (<30) mcg/mL Independent Historian Clinical information obtained from an independent historian. History obtained from or confirmed by: EMS External Record Review External record reviewed: Inpatient record Discharge Plan Discharge Clinical Impression: Bipolar 1 disorder Patient Disposition: Still a Patient Prescriptions: No Action quetiapine 100 mg Tablet 100 mg PO BEDTIME 30 Days Qty: 30 0RF lithium carbonate 300 mg Capsule 300 mg PO BID 30 Days Qty: 60 0RF Print Language: Ug[place]an
[2024-06-13] MEDS: OLANZapine 10 MG VIAL IM (09:15)
[2024-06-13] MEDS: LORazepam 2 MG/ML VIAL IM (09:15)
[2024-06-13 09:18] LABS: Alanine Aminotransferase 13 U/L (0-31); Albumin Level 4.6 g/dL (3.5-5.0); Alkaline Phosphatase 63 U/L (39-117); Anion Gap 14 (12-20); Aspartate Amino Transferase 17 U/L (5-31); Bilirubin Direct 0.2 mg/dL (0.0-0.5); Bilirubin Total 0.5 mg/dL (0.0-1.0); Blood Urea Nitrogen 10 mg/dL (9-16); Calcium 10.2 mg/dL (8.4-10.2); Carbon Dioxide 26 mmol/L (22-29); Chloride 109 mmol/L (96-108); Creatinine Clr Calc Pharmacy 81.8; Estimated Glomerular Filt Rate > 60; Ethanol < 10 mg/dL; Glucose Random 94 mg/dL (60-115); Magnesium 2.1 mg/dL (1.6-2.6); Potassium 4.6 mmol/L (3.3-5.1); Sodium 144 mmol/L (135-145); Total Protein 7.8 g/dL (6.5-8.0)
[2024-06-13 09:21] LABS: Lithium < 0.10 mmol/L (0.60-1.20)
[2024-06-13 09:25] LABS: TSH reflex Free T4 0.91 uIU/mL (0.32-4.0)
--- NOTE | 2024-06-13 10:01 | PC.NURSE ---
Late entry: Yulia was brought over to the pod by GODFREY Alberto. Patient was wearing regular hospital robe. This RN brought patient to bathroom to ticket dispenser changer into pod-appropriate gown. patient attempting to enter other patient's rooms and attempted to enter a bathroom that was occupied. this RN needed to physically guide patient to the open bathroom. Patient appears to be preoccupied, does not appear to follow directions appropriately. This RN attempted to have patient put pants on, pt got pants jail on and proceeded to attempt to rip the pants. patient verbally re-directed to put different pair of pants on. Patient turned around, stepped into shower, grabbed bottle of baby soap and proceeded to dump soap in floor and laird and rub herself in it. This RN inquired if patient needed a shower to which she replied no she didn't. However, patient then began jumping up and down in the soap puddle. This RN attempted to have patient stop but patient continued. Patient then got up on the chair in the bathroom and started jumping up and down. patient unable to maintain her own safety. Re-direction attempted but unsuccessful. Due to risk for patient to accidentally harm herself and inability to follow commands, this RN contacted Dr. Case who verbally ordered 2mg Ativan IM and 10mg Zyprexa IM. Patient required multiple redirections to get to 5, security ultimately assisted patient to the room and chair. Patient willingly took IM injections without issue from this RN and MARIAA Lujan. Patient got into bed, disrobed, and laid under the blankets. patient appears to be in no apparent distress at this time, falling asleep and occasionally waking up. Patient refusing vital signs at this time. Respirations are even and unlabored
[2024-06-13 10:35] LABS: HCG Quantitative < 2 mIU/mL
[2024-06-13 11:18] VITALS: RESP 16
[2024-06-13 15:42] VITALS: RESP 14
--- NOTE | 2024-06-13 17:37 | PC.NURSE ---
Patient awake at this time, ambulating around BH pod with steady gait, offering no complaints. eating lunch. Appears to be able to follow directions much better than this am. Still appears confused regarding location and situation
[2024-06-13 17:45] LABS: Appearance Urine Clear; Color Urine Dark Yellow; Glucose Urine UA Negative (Negative); Leukocyte Esterase Urine Negative (Negative); Nitrite Urine Negative (Negative); Specific Gravity - Urine >= 1.030 (1.005-1.025); Urine Blood Negative (Negative); Urine Ketones 15 mg/dL (Negative); Urine Protein Trace mg/dL (Neg-Trace)
[2024-06-13 17:54] LABS: Amphetamine Screen Urine Not Detected (Not Detect); Barbiturates, Urine Not Detected (Not Detect); Benzodiazepines Screen Urine Not Detected (Not Detect); Buprenorphine Scr Not Detected (Not Detect); Cannabinoid Screen Urine Not Detected (Not Detect); Cocaine Screen Urine Not Detected (Not Detect); Fentanyl, urine Not Detected (Not Detect); Methadone Screen, Urine Not Detected (Not Detect); Opiate Screen Urine Not Detected (Not Detect); Oxycodone Screen Urine Not Detected (Not Detect); Phencyclidine Screen Urine Not Detected (Not Detect)
[2024-06-13 19:44] VITALS: BP 105/59; PULSE 68; RESP 16; TEMP 36.9; O2SAT 100
[2024-06-13] MEDS: LORazepam 1 MG TABLET 2 MG PO (20:17)
[2024-06-13] MEDS: Lithium Carbonate 300 MG CAPSULE PO (20:17)
[2024-06-13] MEDS: QUEtiapine Fumarate 100 MG TABLET PO (20:17)
--- NOTE | 2024-06-14 06:17 | PC.NURSE ---
Patient slept through the night, no distress observed/reported, patient was assessed by care team, disposition is pending at this time, patient will be reevaluated, meds resumed/patient compliant, no behavior and safety concerns, will continue to monitor.
[2024-06-14 06:42] VITALS: BP 101/57; PULSE 76; RESP 15; TEMP 36.9; O2SAT 96
--- NOTE | 2024-06-14 09:21 | PC.NURSE ---
Patient is calm and cooperative this am, offering no complaints to this RN, showering at this time. Continue plan of care for CARE team follow up
[2024-06-14] MEDS: Lithium Carbonate 300 MG CAPSULE PO (09:23)
[2024-06-14 18:50] VITALS: BP 135/71; PULSE 81; RESP 16; TEMP 36.6; O2SAT 100
--- NOTE | 2024-06-14 20:34 | PC.NURSE ---
pt stating she wants to leave, this nurse attempted to give patient her evening meds and patient refused. will notify provider.
--- NOTE | 2024-06-14 21:00 | PC.NURSE ---
pt wanting to go home requesting to speak to provider, pt refused pm medications.
--- NOTE | 2024-06-14 21:25 | PC.NURSE ---
this rn assumed care of pt, pt in common area using patient phone, no acute distress noted, respirations even and unlabored.
[2024-06-15 00:19] VITALS: BP 100/72; PULSE 77; TEMP 36.4; O2SAT 98
--- NOTE | 2024-06-15 05:38 | PC.NURSE ---
pt in common area at this time using pt phone, no acute distress noted.
--- NOTE | 2024-06-15 06:10 | PC.NURSE ---
pt in shower at this time, no acute distress noted.
--- NOTE | 2024-06-15 06:50 | PC.NURSE ---
Assumed car of patient at 0645. Patient is observed resting in the common area. No distress observed and breathing is even and unlabored.
[2024-06-15 15:32] VITALS: BP 106/72; PULSE 76; RESP 20; TEMP 36.8; O2SAT 96
--- NOTE | 2024-06-15 17:56 | PC.ADMIT ---
Yulia was admitted to [facility] at 1532 from?[facility] [place] [place] CV for treatment of Bi-polar- med noncompliance. The precipitant of admission includes increased aggression w/ family in home- BIBA after family called 911. Pt. upset about admission- was told by CARE team, in this RN's presence, that they would have been comfortable to discharge pt. home, but had already set her up for admission upstairs and could no longer change that. She is alert, oriented to person, place and time. She is understandably upset, but cooperative with admission process. Patient reports her mood is Angry, but not with you guys(floor staff) . Affect is anxious & guarded. She denies hallucinations. Thought process is organized and ability to focus is adequate. Appetite and sleep are adequate per pt. Patient reports no use of illicit substances or ETOH or abuse of prescribed medications.Tox screen is negative. She denies any other PMH. Denies other physical complaint. Denies ideation, plan or intent to harm self or others. Patient is placed on 15 minute checks for safety.?
[2024-06-15 20:00] VITALS: BP 136/72; PULSE 71; RESP 16; TEMP 36.3; O2SAT 97
[2024-06-16] MEDS: Acetaminophen 325 MG TABLET 650 MG PO (00:08)
[2024-06-16 08:00] VITALS: BP 114/77; PULSE 75; RESP 16; TEMP 36.1; O2SAT 98
[2024-06-16 09:12] LABS: Cholesterol 161 mg/dL (<200); HDL Cholesterol 83 mg/dL (>40); LDL Cholesterol Calculated 68 mg/dL (<100); Triglycerides 53 mg/dL (<150)
[2024-06-16 09:14] LABS: Estimated Average Glucose 94 mg/dL; Hemoglobin A1c % 4.9 % (<6.0)
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
[2024-06-16 20:00] VITALS: BP 115/79; PULSE 77; RESP 16; TEMP 36.6; O2SAT 97
[2024-06-16] MEDS: Lidocaine 4 % Patch ADH..PATCH 1 PATCH TRANSDERMA (22:53)
[2024-06-17 08:00] VITALS: BP 106/75; PULSE 70; RESP 16; TEMP 36.4; O2SAT 99
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
[2024-06-17] MEDS: Lidocaine 4 % Patch ADH..PATCH 1 PATCH TRANSDERMA (09:24)
--- NOTE | 2024-06-17 14:02 | PC.NURSE ---
Pt retracted 3 day notice on 06/17.
[2024-06-17 20:00] VITALS: BP 119/72; PULSE 78; RESP 18; TEMP 36.6; O2SAT 99
[2024-06-17] MEDS: lamoTRIgine 25 MG TABLET PO (21:24)
--- NOTE | 2024-06-17 22:51 | PC.NURSE ---
Pt submitted a Three Day Notice on Saturday06/17/2024 up on Saturday06/22/2024.
[2024-06-18 07:49] VITALS: BP 126/77; PULSE 60; RESP 16; TEMP 36.6; O2SAT 100
[2024-06-18 08:00] VITALS: BP 126/77; PULSE 60; RESP 16; TEMP 36.6; O2SAT 100
[2024-06-18 11:44] VITALS: BMI 31.0
[2024-06-18 20:00] VITALS: BP 111/72; PULSE 73; TEMP 36.7
[2024-06-18] MEDS: lamoTRIgine 25 MG TABLET PO (21:03)
[2024-06-18] MEDS: Lidocaine 4 % Patch ADH..PATCH 1 PATCH TRANSDERMA (21:10)
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
== END 2024-06-19 10:10 | disposition home or self-care (01) | DRG 753 ==
LOC: HO.ED 06-15 08:18 → HO.PM5 06-15 13:51
PROVIDERS: Admitting Provider Psychiatry & Neurology Psychiatry; Emergency Provider Emergency Medicine; Visit Provider Psychiatry & Neurology Psychiatry
DX: F31.9 Bipolar disorder, unspecified (principal); F43.10 Post-traumatic stress disorder, unspecified; Z91.148 Patient's other noncompliance with medication regimen for other reason; Z87.891 Personal history of nicotine dependence; Z79.899 Other long term (current) drug therapy
CPT/HCPCS: 36415; 80048; 80061; 80076; 80143; 80178; 80179; 80307; 81003; 83036; 83735; 84443; 84702; 85025; 99285; J2060; J2359; S9485

== ENCOUNTER → 2024-06-15 12:36 | Outpatient (BNV) | payer MEDICAID, OTHER, SELFPAY | PROVIDERS: Admitting Provider Psychiatry & Neurology Psychiatry; Emergency Provider Emergency Medicine; Visit Provider Psychiatry & Neurology Psychiatry | DX: F31.13 Bipolar disorder, current episode manic without psychotic features, severe (principal); F43.11 Post-traumatic stress disorder, acute | CPT/HCPCS: 90792; 99232; 99239 ==

== ENCOUNTER 2024-06-25 17:11 | Outpatient (AMB) | payer OTHER, SELFPAY ==
[2024-06-25 17:13] VITALS: BP 110/80; BMI 31.6
--- NOTE | 2024-06-25 17:13 | A.OFFPC_ITS ---
Vital Signs 06/25/24 17:13 Height 5 ft 1 in Weight 167 lb BMI 31.6 BP 110/80 Blood Pressure Location Lt brachial Position Sitting Intake Visit Reasons: discharge follow up Print Room Worker Required: No Accompanied by: Self / Same As Patient Allergies oseltamivir [From TAMIFLU] Allergy (Intermediate, Verified 06/25/24 17:30) DROWSINESS/NAUSEA, rash, psychosis lithium Adverse Reaction (Intermediate, Verified 06/25/24 17:36) weight gain Medication List - Last Reconciled 06/25/24 by Cydney oFster MD lamotrigine take one tab daily for 12 days; then take 1 tab BID for 14 days; the n vegetable picker script for 100mg lamotrigine (Lamictal) 100 mg PO DAILY 30 days quetiapine 100 mg PO BEDTIME PRN 30 days Tobacco use date assessed: 02/11/24 Dental Screening Dental Screen Date: 02/11/24 HPI HPI Comments History of Present Illness Details This is a 39 year old female with bipolar disorder that was recently discharge from psychiatry. Doing well. She is compliant with her medications. She denies any jennifer. [facility] Medical History Psychosis Hypovitaminosis D Breast lump on left side at 3 o'clock position Physical exam Overweight (BMI 25.0-29.9) Intestinal malabsorption following gastrectomy Malabsorption due to intolerance, not elsewhere classified Anemia Back pain GERD (gastroesophageal reflux disease) Morbid obesity Surgical History (Updated 06/27/24 @ 00:00 by Background Daemon) History of surgical procedure on mouth History of colonoscopy Hx of cholecystectomy S/P laparoscopic sleeve gastrectomy Family History Father No problems noted. Mother Hypertension Sister No problems noted. Sister Hypoglycemia Brother No problems noted. Brother No problems noted. Son No problems noted. Son No problems noted. Paternal Aunt Breast cancer Colon cancer Paternal Grandfather No problems noted. Social History Household Members: Spouse and Family Household Members Other:: , youngest son, 2 dogs Housing: House Do you presently have visiting nurse or other home services: No Unable to assess alcohol history related to: Refusing to respond Alcohol intake: never Patient Tobacco Use Status: Former Tobacco user Tobacco use type: Cigarette e-Cigarette/Vaping Use: Never Used Second Hand Smoke Exposure: No service: No Current occupational status: employed Current occupational exposures/hazards: No Sexual orientation: Straight/Heterosexual Cognitive needs: No Hearing needs: No Vision needs: No Female Reproductive History Menstrual Age of Menarche: 7 Questionnaire Thrive Questionnaire Date Thrive assessed: 01/29/24 LUIZ-7 AMB Questionnaire LUIZ-7 Date LUIZ - 7 assessed: 02/11/24 Source: Developed by Drs. Rogelio Villatoro, Cassidy Serrano, Guido Doss and colleagues, with an educational bob from [employer]. Review of Systems Const All systems reviewed & are unremarkable except as noted in HPI and below Card Denies chest pain at rest, Denies chest pain with activity, Denies edema, Denies irregular heart rhythm, Denies claudication, Denies dyspnea, Denies dyspnea on exertion, Denies orthopnea, Denies paroxysmal nocturnal dyspnea and Denies slow heart rate Resp Denies cough, Denies dyspnea and Denies dyspnea on exertion GI Denies abdominal pain, Denies change in bowel habits, Denies excessive flatus, Denies nausea and Denies vomiting Denies urinary incontinence, Denies urinary hesitancy and Denies urinary urgency Musc Denies abnormal gait, Denies atrophy, Denies deformity and Denies limited range of motion Skin/Breast Denies bleeding lesions, Denies changing lesions and Denies rash Neuro Denies abnormal gait, Denies behavioral changes and Denies lack of coordination Psych Denies behavioral changes Physical exam (Primary Care) Vital Signs: Last Vital Signs BP 110/80 06/25/24 17:13 BMI result Body Mass Index 31.6 Tobacco/Smoking Status: Tobacco use Status Tobacco use date assessed 02/11/24 06/25/24 17:18 Patient Tobacco Use Status Former Tobacco user 06/25/24 17:18 Tobacco use type Cigarette 06/25/24 17:18 e-Cigarette/Vaping Use Never Used 06/25/24 17:18 Thrive Assessment: Date of Thrive Assessment Date Thrive assessed 01/29/24 06/25/24 17:18 Resp Effort & Inspection: normal respiratory effort Auscultation: clear to auscultation bilaterally Cardio Jugular venous distension: no JVD Rate: regular rate Rhythm: regular rhythm Heart sounds: S1 normal heart sound present and S2 normal heart sound present Extrem General: Yes full ROM Assessment and Plan Assessment & Plan (1) Bipolar 1 disorder: Code(s): F31.9 - Bipolar disorder, unspecified Plan: Continue Lamictal. Coding Level of Care Code Est Pt Level 3 (31952) Complex EM visit Add On G2211 Diagnoses Bipolar 1 disorder F31.9 Time Spent (min) 19
== END 2024-06-25 17:38 | disposition home or self-care (01) ==
LOC: HO.HMGH 17:11
PROVIDERS: PCP Internal Medicine; Visit Provider Internal Medicine
DX: F31.9 Bipolar disorder, unspecified (principal)
CPT/HCPCS: 99213; G2211

== ENCOUNTER 2024-06-30 12:59 | Outpatient (AMB) | payer OTHER, SELFPAY ==
--- NOTE | 2024-06-30 13:12 | A.OFFPSYCH_ITS ---
Intake Intake Visit Reasons: bridge appt Special Agent In Charge Required: No Allergies oseltamivir [From TAMIFLU] Allergy (Intermediate, Verified 06/25/24 17:30) DROWSINESS/NAUSEA, rash, psychosis lithium Adverse Reaction (Intermediate, Verified 06/25/24 17:36) weight gain Medication List - Last Reconciled 06/30/24 by Serena Cesar APRN lamotrigine take one tab daily for 12 days; then take 1 tab BID for 14 days; then cigar packer and picker script for 100mg lamotrigine (Lamictal) 100 mg PO DAILY 30 days quetiapine 100 mg PO BEDTIME PRN 30 days HPI- Psychiatric Chief Complaint: bridge appt HPI Narrative: pt is 39 yo mother discharged from after being inpatient due to mood changes which she describes as being triggered by a memory of trauma she suffered as a teen; she says she had a memory and went into a state of quiet, being mute, and being in slow motion which worried her family. she says for example she showered for 3 hours and did not realize 3 hours had passed. She does not think she has Bipolar disorder as she hd read up on it and did not identify with the symptoms; she says she had meningitis as a child and possibly had Amebic meniigitis that usually people dont survive; she syas her fther is working on getting her medical records from [facility] and will send to her soon. she is functioning well at home; she has only taken the seroquel once at home and it made her very tired. she is taking the lamictal every day but thinks it may have caused weight gain; she syas she does not like pills and its hard fro her to take but she is taking every day. No SI or Hi. She is friendly and chatty and high energy but she says she has always beenlike this. she is not grandiose or impulsive; Past Psychiatric History: IPLOC: Honor M3; diagnosed with Bipolar; started on seroquel and lithium Otherwise, no prior hx of medication trials. 1 depressive episode 19 years ago ; no episodes since [place] 2022 [facility] 2021 currently does not have outpatient psychiatric prescriber. Was in therapy before lost insurance Subjective Subjective Subjective Medication Compliance: Yes Side effects from medications: No Review of Systems Medical Review of Systems: unchanged Mental Status Exam Mental Status Exam Patient Appearance: Well Grooomed and Appropriate Patient Orientation: Person, Place, Time and Situation Level of Consciousness: Awake and Appropriate Patient Behavior: Appropriate and Talkative Mood Description: Happy and Anxious Affect Description: Happy and Anxious Patient Cognition Impaired: No Ability to Follow Directions: Good Speech Pattern: Clear Memory Description: Intact Hallucinations: None Delusions: Not Present Thought Process: Intact Thought Content: positive for Intact Judgement: Fair Assessment and Plan Assessment & Plan (1) PTSD (post-traumatic stress disorder): Status: Acute Code(s): F43.10 - Post-traumatic stress disorder, unspecified (2) Bipolar 1 disorder: Status: Acute Code(s): F31.9 - Bipolar disorder, unspecified Plan continue lamictal 100mg daily continue seroquel 100mg take 1/2 to 1 at bedtime to sleep as needed return in 3 weeks Counseling and coordination of Care Medication management counseling: Effectiveness, Side effects, Dosing range, Duration, Drug interaction and Adherence Diagnosis and Prognosis Counseling: Accuracy of diagnosis, Prognosis over time, Impact of diagnosis on life functions, Impact of family relationship, Problematic behaviors secondary to diagnosis and Adequacy of current intervent ions Details: I spent 45 minutes reviewing the record, seeing the patient and documenting in the medical record. Counseling provided to the patient/caregiver as outlined below. Addressed patient/caregiver concerns regarding current medication regime including effective adherence. Addressed patient/caregiver concerns regarding diagnosis and prognosis including accuracy of diagnosis, prognosis over time, impact of diagnosis. Addressed patient/caregiver concerns regarding impact of recent stressors. [facility] Medical History Psychosis Hypovitaminosis D Breast lump on left side at 3 o'clock position Physical exam Overweight (BMI 25.0-29.9) Intestinal malabsorption following gastrectomy Malabsorption due to intolerance, not elsewhere classified Anemia Back pain GERD (gastroesophageal reflux disease) Morbid obesity Surgical History History of surgical procedure on mouth History of colonoscopy Hx of cholecystectomy S/P laparoscopic sleeve gastrectomy Family History Father No problems noted. Mother Hypertension Sister No problems noted. Sister Hypoglycemia Brother No problems noted. Brother No problems noted. Son No problems noted. Son No problems noted. Paternal Aunt Breast cancer Colon cancer Paternal Grandfather No problems noted. Social History Household Members: Spouse and Family Household Members Other:: , youngest son, 2 dogs Housing: House Do you presently have visiting nurse or other home services: No Unable to assess alcohol history related to: Refusing to respond Alcohol intake: never Patient Tobacco Use Status: Former Tobacco user Tobacco use type: Cigarette e-Cigarette/Vaping Use: Never Used Second Hand Smoke Exposure: No service: No Current occupational status: employed Current occupational exposures/hazards: No Sexual orientation: Straight/Heterosexual Cognitive needs: No Hearing needs: No Vision needs: No Social History: lives with and 20 y/o son. 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 Substance History: none Trauma History: yes, multiple childhood/adolescent traumatic events Coding Level of Care Code Est Pt Level 5 (62547) Diagnoses PTSD (post-traumatic stress disorder) F43.10 Bipolar 1 disorder F31.9
== END 2024-06-30 13:58 | disposition home or self-care (01) ==
LOC: HO.HOP 12:59
PROVIDERS: PCP Internal Medicine; Visit Provider Clinical Nurse Specialist Psychiatric/Mental Health
DX: F31.74 Bipolar disorder, in full remission, most recent episode manic (principal); F43.11 Post-traumatic stress disorder, acute
CPT/HCPCS: 99215

== ENCOUNTER → 2024-06-30 12:59 | Outpatient (BNVA) | payer OTHER, SELFPAY | PROVIDERS: PCP Internal Medicine; Visit Provider Clinical Nurse Specialist Psychiatric/Mental Health | DX: F43.10 Post-traumatic stress disorder, unspecified (principal); F31.9 Bipolar disorder, unspecified | CPT/HCPCS: 99212 ==

== ENCOUNTER 2024-07-21 12:00 | Outpatient (AMB) | payer OTHER, SELFPAY ==
--- NOTE | 2024-07-21 12:15 | MHC.OFFVISPS ---
Intake Intake Visit Reasons: f/u bridge patient Supervisor Refractory Products Required: No Allergies oseltamivir [From TAMIFLU] Allergy (Intermediate, Verified 06/25/24 17:30) DROWSINESS/NAUSEA, rash, psychosis lithium Adverse Reaction (Intermediate, Verified 06/25/24 17:36) weight gain Medication List - Last Reconciled 07/21/24 by Serena Cesar APRN lamotrigine (Lamictal) 150 mg PO DAILY quetiapine 100 mg PO BEDTIME PRN 30 days HPI- Psychiatric Chief Complaint: f/u bridge patient HPI Narrative: pt mood stable; taking lamictal daily at bedtime because can't remember to take in am. she wonder if its giving her GI uppset but ahse has also changed her diet recently; she is not taking the seroqule; she reports waking 2 times a night but goes back to sleep quickly; she tells me her told her she talks too much but she did not display pressured speech in office to day. No SI no Hi. pt says she has no outpatient therapist; she says she went to [facility] but they could not help her. she was without insurance for a short period but has it now Past Psychiatric History: IPLOC: Nicky M3; diagnosed with Bipolar; started on seroquel and lithium Otherwise, no prior hx of medication trials. 1 depressive episode 19 years ago ; no episodes since [place] 2022 [facility] 2021 currently does not have outpatient psychiatric prescriber. Was in therapy before lost insurance Subjective Subjective Subjective Medication Compliance: Yes Side effects from medications: No Review of Systems Medical Review of Systems: unchanged Mental Status Exam Mental Status Exam Patient Appearance: Appropriate Level of Consciousness: Appropriate Patient Behavior: Appropriate Mood Description: Anxious Affect Description: Anxious Patient Cognition Impaired: No Ability to Follow Directions: Fair Speech Pattern: Excessive and Pressured (slight) Hallucinations: None Delusions: Not Present Thought Process: Distracted Thought Content: positive for Flight of Ideas and positive for Loose Associations Judgement: Fair Assessment and Plan Assessment & Plan (1) PTSD (post-traumatic stress disorder): Status: Acute Code(s): F43.10 - Post-traumatic stress disorder, unspecified (2) Bipolar 1 disorder: Status: Acute Code(s): F31.9 - Bipolar disorder, unspecified Plan increase lamictal on 08/17 Medications: New lamotrigine (Lamictal) start August 17 2024 150 mg PO DAILY 30 tabs 1RF Discontinued lamotrigine Discontinued Reason: Doctor's Order take one tab daily for 12 days; then take 1 tab BID for 14 days; then machine operator picker script for 100mg 40 tabs 0RF lamotrigine (Lamictal) start 07/16/24 Discontinued Reason: Doctor's Order 100 mg PO DAILY 30 days 30 tabs 0RF Counseling and coordination of Care Pt. Self Management counseling: Behavior activation, Cognitive restructuring and General coping skills Medication management counseling: Effectiveness, Side effects, Dosing range, Duration, Drug interaction and Adherence Diagnosis and Prognosis Counseling: Accuracy of diagnosis, Prognosis over time, Impact of diagnosis on life functions, Impact of family relationship, Problematic behaviors secondary to diagnosis and Adequacy of current interventions Details: I spent 30 minutes reviewing the record, seeing the patient and documenting in the medical record. Counseling provided to the patient/caregiver as outlined below. Addressed patient/caregiver concerns regarding current medication regime including effective adherence. Addressed patient/caregiver concerns regarding diagnosis and prognosis including accuracy of diagnosis, prognosis over time, impact of diagnosis. Addressed patient/caregiver concerns regarding impact of recent stressors. [facility] Medical History Psychosis Hypovitaminosis D Breast lump on left side at 3 o'clock position Physical exam Overweight (BMI 25.0-29.9) Intestinal malabsorption following gastrectomy Malabsorption due to intolerance, not elsewhere classified Anemia Back pain GERD (gastroesophageal reflux disease) Morbid obesity Surgical History History of surgical procedure on mouth History of colonoscopy Hx of cholecystectomy S/P laparoscopic sleeve gastrectomy Family History Father No problems noted. Mother Hypertension Sister No problems noted. Sister Hypoglycemia Brother No problems noted. Brother No problems noted. Son No problems noted. Son No problems noted. Paternal Aunt Breast cancer Colon cancer Paternal Grandfather No problems noted. Social History Household Members: Spouse and Family Household Members Other:: , youngest son, 2 dogs Housing: House Do you presently have visiting nurse or other home services: No Unable to assess alcohol history related to: Refusing to respond Alcohol intake: never Patient Tobacco Use Status: Former Tobacco user Tobacco use type: Cigarette e-Cigarette/Vaping Use: Never Used Second Hand Smoke Exposure: No service: No Current occupational status: employed Current occupational exposures/hazards: No Sexual orientation: Straight/Heterosexual Cognitive needs: No Hearing needs: No Vision needs: No Social History: lives with and 20 y/o son. 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 Substance History: none Trauma History: yes, multiple childhood/adolescent traumatic events Coding Level of Care Code Est Pt Level 4 (16050) Diagnoses PTSD (post-traumatic stress disorder) F43.10 Bipolar 1 disorder F31.9
== END 2024-07-21 12:43 | disposition home or self-care (01) ==
LOC: HO.HOP 12:00
PROVIDERS: PCP Internal Medicine; Visit Provider Clinical Nurse Specialist Psychiatric/Mental Health
DX: F43.10 Post-traumatic stress disorder, unspecified (principal); F31.9 Bipolar disorder, unspecified
CPT/HCPCS: 99214

== ENCOUNTER → 2024-07-21 12:00 | Outpatient (BNVA) | payer OTHER, SELFPAY | PROVIDERS: PCP Internal Medicine; Visit Provider Clinical Nurse Specialist Psychiatric/Mental Health | DX: F43.10 Post-traumatic stress disorder, unspecified (principal); F31.9 Bipolar disorder, unspecified | CPT/HCPCS: 99212 ==

== ENCOUNTER 2024-08-06 10:44 | Outpatient (AMB) | payer OTHER, SELFPAY ==
--- NOTE | 2024-08-06 11:10 | A.OFFPC_ITS ---
Vital Signs 08/06/24 11:11 Height 5 ft 1 in Weight 170 lb BMI 32.1 BP 118/76 Blood Pressure Location Lt brachial Position Sitting Intake Visit Reasons: side effect to medication Claims Investigator Required: No Accompanied by: Self / Same As Patient Allergies oseltamivir [From TAMIFLU] Allergy (Intermediate, Verified 08/06/24 11:30) DROWSINESS/NAUSEA, rash, psychosis lithium Adverse Reaction (Intermediate, Verified 08/06/24 11:30) weight gain Medication List - Last Reconciled 08/06/24 by Cydney Foster MD lamotrigine (Lamictal) 150 mg PO DAILY quetiapine 100 mg PO BEDTIME PRN 30 days Tobacco use date assessed: 02/11/24 Dental Screening Dental Screen Date: 08/06/24 Did you have a dental visit in the last 12 months?: No Did you have a dental problem in the last 6 months where you did not have access to dental care?: No Was dental information given to patient?: Patient has dentist HPI HPI Comments History of Present Illness Details This is a 39-year-old female with bipolar disorder that complains of persistent headaches that are pressure like in quality diffuse throughout the head that has been happening more frequently. This happened in her last manic episode which she required hospitalization. She is not compliant with Lamictal or Seroquel. I will refer her to psych outpatient services. [facility] Medical History (Updated 08/06/24 @ 11:33 by Cydney Foster MD) Psychosis Hypovitaminosis D Breast lump on left side at 3 o'clock position Physical exam Overweight (BMI 25.0-29.9) Intestinal malabsorption following gastrectomy Malabsorption due to intolerance, not elsewhere classified Anemia Back pain GERD (gastroesophageal reflux disease) Morbid obesity Surgical History History of surgical procedure on mouth History of colonoscopy Hx of cholecystectomy S/P laparoscopic sleeve gastrectomy Family History Father No problems noted. Mother Hypertension Sister No problems noted. Sister Hypoglycemia Brother No problems noted. Brother No problems noted. Son No problems noted. Son No problems noted. Paternal Aunt Breast cancer Colon cancer Paternal Grandfather No problems noted. Social History Household Members: Spouse and Family Household Members Other:: , youngest son, 2 dogs Housing: House Do you presently have visiting nurse or other home services: No Unable to assess alcohol history related to: Refusing to respond Alcohol intake: never Patient Tobacco Use Status: Former Tobacco user Tobacco use type: Cigarette e-Cigarette/Vaping Use: Never Used Second Hand Smoke Exposure: No service: No Current occupational status: employed Current occupational exposures/hazards: No Sexual orientation: Straight/Heterosexual Cognitive needs: No Hearing needs: No Vision needs: No Female Reproductive History Menstrual Age of Menarche: 7 Questionnaire Thrive Questionnaire Date Thrive assessed: 01/29/24 Are you currently unemployed and looking for a job?: No LUIZ-7 AMB Questionnaire LUIZ-7 Date LUIZ - 7 assessed: 02/11/24 Source: Developed by Drs. Rogelio Villatoro, Cassidy Serrano, Guido Doss and colleagues, with an educational bob from [email or web address]. Review of Systems Const All systems reviewed & are unremarkable except as noted in HPI and below Reports headache(s) ENT Reports headache(s) Card Denies chest pain at rest, Denies chest pain with activity, Denies edema, Denies irregular heart rhythm, Denies claudication, Denies dyspnea, Denies dyspnea on exertion, Denies orthopnea, Denies paroxysmal nocturnal dyspnea and Denies slow heart rate Resp Denies cough, Denies dyspnea and Denies dyspnea on exertion GI Denies abdominal pain, Denies change in bowel habits, Denies excessive flatus, Denies nausea and Denies vomiting Denies urinary incontinence, Denies urinary hesitancy and Denies urinary urgency Musc Denies abnormal gait, Denies atrophy, Denies deformity and Denies limited range of motion Skin/Breast Denies bleeding lesions, Denies changing lesions and Denies rash Neuro Denies abnormal gait, Reports headache(s) and Denies lack of coordination Physical exam (Primary Care) Vital Signs: Last Vital Signs BP 118/76 08/06/24 11:11 BMI result Body Mass Index 32.1 BMI Assessment/Plan discussion: High BMI High, discussed plan: lifestyle, weight reduction, dietary and physical activity Tobacco/Smoking Status: Tobacco use Status Tobacco use date assessed 02/11/24 08/06/24 11:14 Patient Tobacco Use Status Former Tobacco user 08/06/24 11:14 Tobacco use type Cigarette 08/06/24 11:14 e-Cigarette/Vaping Use Never Used 08/06/24 11:14 Thrive Assessment: Date of Thrive Assessment Date Thrive assessed 01/29/24 08/06/24 11:14 Cardio Jugular venous distension: no JVD Rate: regular rate Rhythm: regular rhythm Heart sounds: S1 normal heart sound present and S2 normal heart sound present Extrem General: Yes full ROM Assessment and Plan Assessment & Plan (1) Persistent headaches: Code(s): R51.9 - Headache, unspecified Plan: Start sumatriptan as needed. MRI of the brain ordered. (2) Bipolar 1 disorder: Code(s): F31.9 - Bipolar disorder, unspecified Plan: Be compliant with Lamictal and Seroquel. Referred to psych outpatient services. Orders: Orders MR head/brain wo con Today R51.9 - Headache, unspecified Referrals Psychiatry Outpatient Consultation Service F31.9 - Bipolar disorder, unspecified Medications: New sumatriptan succinate do not exceed 8 doses per 24 hrs 25 mg PO Q2-4H 30 days PRN 9 tabs 0RF migraine headache Coding Level of Care Code Est Pt Level 3 (92156) Complex EM visit Add On G2211 Diagnoses Persistent headaches R51.9 Bipolar 1 disorder F31.9 Time Spent (min) 19
[2024-08-06 11:11] VITALS: BP 118/76; BMI 32.1
== END 2024-08-06 11:37 | disposition home or self-care (01) ==
PROVIDERS: PCP Internal Medicine; Visit Provider Internal Medicine
DX: R51.9 Headache, unspecified (principal); F31.9 Bipolar disorder, unspecified

== ENCOUNTER → 2024-08-06 10:44 | Outpatient (BNVA) | payer OTHER, SELFPAY | PROVIDERS: PCP Internal Medicine; Visit Provider Internal Medicine | DX: R51.9 Headache, unspecified (principal); F31.9 Bipolar disorder, unspecified | CPT/HCPCS: 99212 ==

== ENCOUNTER 2024-08-20 09:29 | Outpatient (REF) | payer OTHER, SELFPAY ==
--- NOTE | ~2024-08-20 | MM_ITS ---
EXAMINATION: MM DIAGNOSTIC DIGITAL BREAST TOMOSYNTHESIS, left diagnostic right annual screening. CLINICAL INFORMATION: Follow-up focal asymmetry in the left breast and area of probable island of normal breast tissue on ultrasound in the left breast. COMPARISON: Mammography: Comparison is made with relevant prior examinations. TECHNIQUE: Digital breast tomosynthesis is performed in both the craniocaudal and mediolateral oblique views along with computer-aided detection (CAD). Synthesized 2D images are generated from the tomosynthesis. FINDINGS: There are scattered areas of fibroglandular density (ACR BI-RADS breast composition Category b). The previously seen asymmetry in the superior left breast posterior depth on MLO view is not significantly changed from prior dating back for 1 year. There are no abnormal calcifications, or other abnormalities. Targeted color Doppler ultrasound in the left breast scanning at 11:00 2 cm from nipple demonstrates an incidental new probable adjacent minimally complicated cysts measuring 7 x 8 x 4 mm. There is no internal vascular flow. There is a thin intervening septation without vascular flow. MM/MM tomosynthesis diagnostic BI IMPRESSION: 1. Asymmetry in the superior left breast on MLO view without definite sonographic correlate stable for one year. Recommend a follow-up diagnostic left breast mammogram in one year to telemetry to the stability with the patient will be due for bilateral annual mammography. 2. New incidental probable adjacent minimally complicated cyst at 11:00 in the left breast on ultrasound. Recommend 6 month follow-up ultrasound for further evaluation of stability. 3. Patient describes bilateral large read growing moles which itch below both breasts. Recommend clinical consultation with either dermatology or breast surgical consultation for further evaluation and management. ASSESSMENT: BI-RADS BI-RADS 3 - Probably benign finding(s) - 6 month follow-up suggested RECOMMENDATION: 6 Month F/U Results were provided to the patient at time of visit by the technologist. This patient's information was entered into a reminder system with a target due date for their next mammogram. Electronically signed by: Angela Hewitt DO 08/20/2024 11:43 AM EDT
== END 2024-08-20 09:30 | disposition home or self-care (01) ==
LOC: HO.MAMMO 09:29
PROVIDERS: PCP Internal Medicine; Visit Provider Internal Medicine
DX: R92.2 Inconclusive mammogram (principal)
CPT/HCPCS: 76642; 77062; 77066

== ENCOUNTER → 2024-08-20 11:00 | Outpatient (BNV) | payer OTHER, SELFPAY | PROVIDERS: PCP Internal Medicine; Visit Provider Internal Medicine | DX: R92.8 Other abnormal and inconclusive findings on diagnostic imaging of breast (principal) | CPT/HCPCS: 76642; 77062; 77066 ==

== ENCOUNTER 2024-08-24 12:05 | Outpatient (AMB) | payer OTHER, SELFPAY ==
--- NOTE | 2024-08-24 12:38 | MHC.OFFVISPS ---
Intake Intake Visit Reasons: f/u consultation Allergies oseltamivir [From TAMIFLU] Allergy (Intermediate, Verified 08/06/24 11:30) DROWSINESS/NAUSEA, rash, psychosis lithium Adverse Reaction (Intermediate, Verified 08/06/24 11:30) weight gain Medication List - Last Reconciled 08/24/24 by Serena Cesar APRN lamotrigine (Lamictal) 150 mg PO DAILY quetiapine 100 mg PO BEDTIME PRN 30 days sumatriptan succinate 25 mg PO Q2-4H PRN 30 days HPI- Psychiatric Chief Complaint: f/u consultation HPI Narrative: Pt report smoodsubdued; she feels tired; she sleeps usually only 5 hours due to long work day and then Denominational. sheis medication comliant; she takes the lamictal 150mg every day without side effects; no rash; she takes the seroqule a few times a week so she can sleep longer. Her PHQ9= 3 and her GAD7 = 0. she says she has not heard from [facility]. she is not sure she wants therapy at this point because she is feeling better and is very busy with work. she feels she has enough support from family and Denominational. She denies manic symptoms, no grandiosity, no pressured speech. no racing thoughts . No SI or Hi. Past Psychiatric History: IPLOC: [place] M3; diagnosed with Bipolar; started on seroquel and lithium Otherwise, no prior hx of medication trials. 1 depressive episode 19 years ago ; no episodes since [place] 2022 [facility] 2021 currently does not have outpatient psychiatric prescriber. Was in therapy before lost insurance Subjective Subjective Subjective Medication Compliance: Yes Side effects from medications: No Review of Systems Medical Review of Systems: unchanged Mental Status Exam Mental Status Exam Patient Appearance: Well Grooomed Patient Orientation: Person, Place, Time and Situation Level of Consciousness: Awake and Appropriate Patient Behavior: Appropriate Mood Description: Calm Affect Description: Calm Patient Cognition Impaired: No Ability to Follow Directions: Good Speech Pattern: Clear Memory Description: Intact Hallucinations: None Delusions: Not Present Thought Process: Intact and Goal Oriented Thought Content: positive for Intact and positive for Goal Oriented Judgement: Good Assessment and Plan Assessment & Plan (1) Bipolar 1 disorder: Status: Acute Code(s): F31.9 - Bipolar disorder, unspecified (2) PTSD (post-traumatic stress disorder): Status: Acute Code(s): F43.10 - Post-traumatic stress disorder, unspecified Plan continue lamictal 150mg daily continue seroquel 100 mg at bedtime prn sleep Medications: Refilled lamotrigine (Lamictal) start August 17 2024 150 mg PO DAILY 90 tabs 1RF quetiapine 100 mg PO BEDTIME PRN 30 tabs 2RF insomnia 30 days Counseling and coordination of Care Pt. Self Management counseling: Maintenance-social rhythm, Mod caffeine/ETOH intake, Sleep hygiene and Behavior activation Medication management counseling: Effectiveness, Side effects, Dosing range, Duration, Drug interaction and Adherence Diagnosis and Prognosis Counseling: Accuracy of diagnosis, Prognosis over time, Impact of diagnosis on life functions, Impact of family relationship, Problematic behaviors secondary to diagnosis and Adequacy of current interventions Details: I spent 30 minutes reviewing the record, seeing the patient and documenting in the medical record. Counseling provided to the patient/caregiver as outlined below. Addressed patient/caregiver concerns regarding current medication regime including effective adherence. Addressed patient/caregiver concerns regarding diagnosis and prognosis including accuracy of diagnosis, prognosis over time, impact of diagnosis. Addressed patient/caregiver concerns regarding impact of recent stressors. [facility] Medical History Psychosis Hypovitaminosis D Breast lump on left side at 3 o'clock position Physical exam Overweight (BMI 25.0-29.9) Intestinal malabsorption following gastrectomy Malabsorption due to intolerance, not elsewhere classified Anemia Back pain GERD (gastroesophageal reflux disease) Morbid obesity Surgical History History of surgical procedure on mouth History of colonoscopy Hx of cholecystectomy S/P laparoscopic sleeve gastrectomy Family History Father No problems noted. Mother Hypertension Sister No problems noted. Sister Hypoglycemia Brother No problems noted. Brother No problems noted. Son No problems noted. Son No problems noted. Paternal Aunt Breast cancer Colon cancer Paternal Grandfather No problems noted. Social History Household Members: Spouse and Family Household Members Other:: , youngest son, 2 dogs Housing: House Do you presently have visiting nurse or other home services: No Unable to assess alcohol history related to: Refusing to respond Alcohol intake: never Patient Tobacco Use Status: Former Tobacco user Tobacco use type: Cigarette e-Cigarette/Vaping Use: Never Used Second Hand Smoke Exposure: No service: No Current occupational status: employed Current occupational exposures/hazards: No Sexual orientation: Straight/Heterosexual Cognitive needs: No Hearing needs: No Vision needs: No Social History: lives with and 20 y/o son. 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 Substance History: none Trauma History: yes, multiple childhood/adolescent traumatic events Coding Level of Care Code Est Pt Level 4 (62735) Diagnoses Bipolar 1 disorder F31.9 PTSD (post-traumatic stress disorder) F43.10
== END 2024-08-24 13:08 | disposition home or self-care (01) ==
LOC: HO.HOP 12:05
PROVIDERS: PCP Internal Medicine; Visit Provider Clinical Nurse Specialist Psychiatric/Mental Health
DX: F31.9 Bipolar disorder, unspecified (principal); F43.10 Post-traumatic stress disorder, unspecified
CPT/HCPCS: 99214

== ENCOUNTER → 2024-08-24 12:05 | Outpatient (BNVA) | payer OTHER, SELFPAY | PROVIDERS: PCP Internal Medicine; Visit Provider Clinical Nurse Specialist Psychiatric/Mental Health | DX: F31.9 Bipolar disorder, unspecified (principal); F43.10 Post-traumatic stress disorder, unspecified | CPT/HCPCS: 99212 ==

== ENCOUNTER → 2024-08-25 19:40 | Outpatient (BNV) | payer OTHER, SELFPAY | PROVIDERS: PCP Internal Medicine; Visit Provider Radiology Diagnostic Radiology | DX: R51.9 Headache, unspecified (principal) | CPT/HCPCS: 70551 ==

== ENCOUNTER 2024-08-25 19:41 | Outpatient (REF) | payer OTHER, SELFPAY ==
--- NOTE | ~2024-08-25 | MR_ITS ---
EXAMINATION: MR BRAIN WITHOUT CONTRAST CLINICAL INFORMATION: Headaches, unspecified. Right-sided pressure radiating to right side of face and down neck since 2017, getting worse. No history of injury. COMPARISON: None available. TECHNIQUE: MRI of the brain was obtained using routine sequences without contrast. Examination was performed on a 1.5 Bree Siemens unit. FINDINGS: There is no diffusion restriction. There is no intracranial hemorrhage, acute infarction, mass effect, or edema. Ventricles, sulci, and cisterns are normal in size and configuration for patient age. No shift of midline. No abnormal hemosiderin deposition is identified. There are a few rare punctate and minimally confluent foci of white matter T2 hyperintensity in the periventricular, subcortical, and hemispheric deep white matter, nonspecific, but most likely sequela of minimal small vessel ischemia. Midline structures appear normally formed. Partial empty sella. Posterior fossa structures appear normal. Cerebellar tonsils are appropriately located. Major flow voids are preserved within the skull base. The globes and orbital contents demonstrate no abnormalities. Moderate circumferential mucosal thickening associated small volume fluid and probably secretions in the right maxillary sinus. Remainder of the paranasal sinuses are normal in signal. Nasal septum is midline without spur. The mastoids and tympanic cavities are normally aerated. Extracranial soft tissues demonstrate no abnormalities. No suspicious bone marrow changes are evident. Atlantoaxial joint is normal. MR/MR head/brain wo con IMPRESSION: 1. No intracranial hemorrhage, acute infarction, mass effect, or edema. 2. Right maxillary sinus disease. Electronically signed by: Yuan Damon MD 10/01/2024 12:51 PM [facility]
== END 2024-08-25 19:42 | disposition home or self-care (01) ==
LOC: HO.MRI 19:41
PROVIDERS: PCP Internal Medicine; Visit Provider Internal Medicine
DX: R51.9 Headache, unspecified (principal)
CPT/HCPCS: 70551

== ENCOUNTER 2024-09-11 13:26 | Outpatient (AMB) | payer OTHER, SELFPAY ==
--- NOTE | 2024-09-11 13:51 | AM.OFFWIN_ITS ---
Intake Vital Signs 09/11/24 13:53 Height 5 ft 1 in Weight 173 lb BMI 32.7 BP 122/86 Blood Pressure Location Rt brachial Position Sitting Pulse 75 Pulse Source Pulse Oximeter Pulse Oximetry (%) 98 Oxygen Delivery Method Room Air Intake Visit Reasons: EP Neck/shoulder pain Intake Note: Patient here for right shoulder and neck pain, she states she is unable to turn head which all started yesterday. Patient Tobacco Use Status: Former Tobacco user Allergies oseltamivir [From TAMIFLU] Allergy (Intermediate, Verified 09/11/24 13:55) DROWSINESS/NAUSEA, rash, psychosis lithium Adverse Reaction (Intermediate, Verified 09/11/24 13:55) weight gain Do you need a note to return to daycare/school/sports/work: No HPI HPI Comments History of Present Illness Details Patient is a 39-year-old female complaining of neck pain since 03:00 today. She denies any use of new pillows or matches, she denies any different movements are new exercises. She has not taken any medication to try to make herself feel better. She denies any fevers. She states if she puts her chin to her chest and actually feels better. Moving her head to the left makes it worse. [facility] Medical History Psychosis Hypovitaminosis D Breast lump on left side at 3 o'clock position Physical exam Overweight (BMI 25.0-29.9) Intestinal malabsorption following gastrectomy Malabsorption due to intolerance, not elsewhere classified Anemia Back pain GERD (gastroesophageal reflux disease) Morbid obesity Surgical History History of surgical procedure on mouth History of colonoscopy Hx of cholecystectomy S/P laparoscopic sleeve gastrectomy Family History Father No problems noted. Mother Hypertension Sister No problems noted. Sister Hypoglycemia Brother No problems noted. Brother No problems noted. Son No problems noted. Son No problems noted. Paternal Aunt Breast cancer Colon cancer Paternal Grandfather No problems noted. Social History Household Members: Spouse and Family Household Members Other:: , youngest son, 2 dogs Housing: House Do you presently have visiting nurse or other home services: No Unable to assess alcohol history related to: Refusing to respond Alcohol intake: never Patient Tobacco Use Status: Former Tobacco user Tobacco use type: Cigarette e-Cigarette/Vaping Use: Never Used Second Hand Smoke Exposure: No service: No Current occupational status: employed Current occupational exposures/hazards: No Sexual orientation: Straight/Heterosexual Cognitive needs: No Hearing needs: No Vision needs: No Female Reproductive History Menstrual Age of Menarche: 7 Review of Systems Const All systems reviewed & are unremarkable except as noted in HPI and below Physical Exam Vital Signs: Last Vital Signs Pulse 75 09/11/24 13:53 BP 122/86 09/11/24 13:53 Pulse Ox 98 09/11/24 13:53 Oxygen Delivery Method Room Air 09/11/24 13:53 BMI result Body Mass Index 32.7 Const General: cooperative, healthy appearing, comfortable, no acute distress and well developed Orientation/consciousness: patient oriented x3 Limitations: no limitations HEENT Head: Yes normal to inspection Ears: hearing grossly normal bilaterally General nose exam: Normal external nose present Face and sinus: Yes normal facial exam Eyes General: appearance normal, both eyes and all related structures Neck Neck: Yes normal visual inspection and Yes full ROM Resp Effort & Inspection: normal respiratory effort and able to speak in complete sentences Back/Spine/Pelvis Cervical Spine: cervical muscular tenderness (right side), pain with cervical ROM (turning left), cervical spasm (right sided) and No Cervical spine tenderness Thoracic/Lumbar Spine: thoracic and lumbar spine normal to inspection, No thoracic spinal tenderness and No lumbar spinal tenderness Skin General skin exam: no rashes or lesions noted Neuro General: patient oriented x3 Extrem General: Yes normal to inspection Assessment & Plan Assessment & Plan (1) Neck pain on right side: Code(s): M54.2 - Cervicalgia Plan: Recommended she use Aleve ATC for the next 4-5 days and a muscle relaxer around the clock for the next 24 hours and then just use it at nighttime. Counseled patient on not drinking alcohol or driving a motor vehicle while she is taking the cyclobenzaprine. Also recommended [id number] supplemental medications such as Salonpas patches and Voltaren gel or Biofreeze. Plan see above Medications: New cyclobenzaprine 5 mg PO Q8H PRN 15 tabs 0RF Muscle Spasm Coding Level of Care Code Est Pt Level 3 (23350) Diagnoses Neck pain on right side M54.2
[2024-09-11 13:53] VITALS: BP 122/86; PULSE 75; O2SAT 98; BMI 32.7
== END 2024-09-11 14:18 | disposition home or self-care (01) ==
PROVIDERS: PCP Internal Medicine; Visit Provider Physician Assistant
DX: M54.2 Cervicalgia (principal)

== ENCOUNTER → 2024-09-11 13:26 | Outpatient (BNVA) | payer OTHER, SELFPAY | PROVIDERS: PCP Internal Medicine; Visit Provider Physician Assistant | DX: M54.2 Cervicalgia (principal) | CPT/HCPCS: 99212 ==

== ENCOUNTER 2024-09-19 12:55 | Emergency (ER) | payer OTHER, SELFPAY ==
[2024-09-19 12:58] VITALS: BP 144/70; PULSE 70; O2SAT 98
[2024-09-19 13:05] VITALS: BP 112/86; PULSE 73; RESP 16; TEMP 37.4; O2SAT 94; BMI 31.0
--- NOTE | 2024-09-19 13:29 | ECG_ITS ---
Test Reason : AMS Blood Pressure : / mmHG Vent. Rate : 069 BPM Atrial Rate : 069 BPM P-R Int : 120 ms QRS Dur : 080 ms QT Int : 412 ms P-R-T Axes : 046 031 036 degrees QTc Int : 441 ms Normal sinus rhythm Normal ECG When compared with ECG of 12-JUL-2022 20:55, No significant change was found Referred By: Ghislaine Calderon Electronically Signed By:AVELINO KIM
--- NOTE | 2024-09-19 14:12 | PC.NURSE ---
Patient alert and oriented denies pain or discomfort. Upon arrival dressed in leggings with tights over leggings. offers no complaints , states her said she was acting weird. Reports was here i the past o the 5th floor. Anle to provide exact dates of all previous hospital stays. Restless in bed pulling off hospital bracelet. Makes poor eye contact. Denies SI/HI. Patient with hyperfixaion on her purse, her creit cards, and cleaning her personal belongings. Very difficult to change into hospital attire. Goig through every credit card, insisting that staff cut up cards. Cleaning out wallet and re-organizing objects i wallet compulsively. Calm and cooperative but remains hyperfixated on objects in wallet
[2024-09-19 15:16] LABS: MANUAL DIFF FLAG NO
[2024-09-19 15:19] LABS: Basophils Percent Auto 0.3 % (0-2); Eosinophils Absolute Auto 0.1 X10*3/uL (0.0-0.4); Eosinophils Percent Auto 1.1 % (0-4); Hematocrit 38.3 % (37.0-47.0); Hemoglobin 13.5 g/dl (12.0-16.0); Imm Gran Abs Auto 0.01 X10*3/uL (0.00-0.03); Imm Gran Pct Auto 0.2 % (0.0-0.4); Lymphocytes Absolute Auto 1.8 X10*3/uL (1.2-4.9); Lymphocytes Percent Auto 29.2 % (20-40); Mean Corpuscular HGB Conc 35.2 g/dl (31.0-35.0); Mean Corpuscular Hemoglobin 30.8 pg (27.0-33.0); Mean Corpuscular Volume 87.4 fL (80.0-98.0); Mean Platelet Volume 9.1 fL (9.4-12.3); Monocytes Absolute Auto 0.4 X10*3/uL (0.1-1.2); Monocytes Percent Auto 6.9 % (2-11); Neutrophils Absolute Auto 3.9 x10*3/uL (2.0-8.3); Neutrophils Percent Auto 62.3 % (45-73); Platelet Count 242 X10*3/uL (160-400); Red Blood Count 4.38 X10*6/uL (4.20-5.50); Red Cell Distribution Width 12.5 % (11.0-16.0); White Blood Count 6.2 X10*3/uL (4.8-10.8)
[2024-09-19 15:42] LABS: Ethanol < 10 mg/dL
[2024-09-19 15:45] LABS: Alanine Aminotransferase 13 U/L (0-31); Albumin Level 4.4 g/dL (3.5-5.0); Alkaline Phosphatase 63 U/L (39-117); Anion Gap 15 (12-20); Aspartate Amino Transferase 22 U/L (5-31); Bilirubin Direct 0.1 mg/dL (0.0-0.5); Bilirubin Total 0.5 mg/dL (0.0-1.0); Blood Urea Nitrogen 7 mg/dL (9-16); Carbon Dioxide 22 mmol/L (22-29); Chloride 108 mmol/L (96-108); Creatinine Clr Calc Pharmacy 94.7; Estimated Glomerular Filt Rate > 60; Glucose Random 78 mg/dL (60-115); Lipase 38 U/L (8-78); Magnesium 2.1 mg/dL (1.6-2.6); Potassium 3.5 mmol/L (3.3-5.1); Sodium 141 mmol/L (135-145); Total Protein 7.3 g/dL (6.5-8.0)
[2024-09-19 15:55] LABS: HCG Quantitative < 2 mIU/mL
[2024-09-19 16:04] LABS: Influenza A PCR NEGATIVE (Negative); Influenza B PCR NEGATIVE (Negative); Resp Syncy Virus RNA Qual PCR NEGATIVE (Negative); SARS COV2 PCR INHOUSE NEGATIVE (Negative)
--- NOTE | 2024-09-19 16:30 | ED_ITS ---
HPI - Psych General Chief Complaint: Psychiatric Symptoms Stated Complaint: STS ALTERED FOR DAYS,HALLUCINATIONSS Time Seen by Provider: 09/19/24 16:15 Source: patient Limitations: no limitations History of Present Illness ED Provider: Dora Rojas PA-C HPI Narrative: 39-year-old female with bipolar and PTSD, presents given need for care consult. Her apparently called EMS to the home because she was exhibiting ?odd behavior, the last time she did this she needed inpatient admission?. Patient states she willingly went with EMS so that her we will be happy?. She denies SI or HI. She denies that she was having erratic behavior. Related Data Previous Rx's ?Medication ?Instructions ?Recorded quetiapine 100 mg tablet 100 mg PO BEDTIME PRN insomnia 30 08/24/24 days #30 tabs lamotrigine 150 mg tablet 150 mg PO DAILY #90 tabs 09/03/24 (Lamictal) Allergies Allergy/AdvReac Type Severity Reaction Status Date / Time oseltamivir [From TAMIFLU] Allergy Intermediate DROWSINESS/NAUSEA, Verified 09/19/24 13:13 rash, psychosis lithium AdvReac Intermediate weight gain Verified 09/19/24 13:13 Review of Systems 2 Review of Systems: Yes all other systems are reviewed and are negative Constitutional: Constitutional: Denies fatigue and Denies fever(s) Cardiovascular: Cardiovascular: Denies chest pain and Denies dyspnea Respiratory: Respiratory: Denies cough and Denies dyspnea Gastrointestinal: Gastrointestinal: Denies nausea and Denies vomiting Neurologic: Denies behavioral changes Psychiatric: Psychiatric: Denies anxiety, Denies behavioral changes, Denies depression, Denies homicidal ideation and Denies suicidal ideation Endocrine: Endocrine: Denies fatigue PMFSH Past Medical History Attestation statement: The following information was validated with the patient. Medical History Psychosis Hypovitaminosis D Breast lump on left side at 3 o'clock position Physical exam Overweight (BMI 25.0-29.9) Intestinal malabsorption following gastrectomy Malabsorption due to intolerance, not elsewhere classified Anemia Back pain GERD (gastroesophageal reflux disease) Morbid obesity Surgical History History of surgical procedure on mouth History of colonoscopy Hx of cholecystectomy S/P laparoscopic sleeve gastrectomy Family History Family History Father No problems noted. Mother Hypertension Sister No problems noted. Sister Hypoglycemia Brother No problems noted. Brother No problems noted. Son No problems noted. Son No problems noted. Paternal Aunt Breast cancer Colon cancer Paternal Grandfather No problems noted. Social History Social History Household Members: Spouse and Family Household Members Other:: , youngest son, 2 dogs Housing: House Do you presently have visiting nurse or other home services: No Unable to assess alcohol history related to: Refusing to respond Alcohol intake: former Patient Tobacco Use Status: Former Tobacco user Tobacco use type: Cigarette Smoked in Last 30 Days: No e-Cigarette/Vaping Use: Never Used Second Hand Smoke Exposure: No Use of substances other than those prescribed or required for medical reasons: No Advance Directives: No Do you have a plan to hurt others: No Plan service: No Current occupational status: employed Current occupational exposures/hazards: No Sexual orientation: Straight/Heterosexual Cognitive needs: No Hearing needs: No Vision needs: No Physical Exam 2 Vital Signs: Vital Signs: Last Vital Signs Temp 98.5 F 09/19/24 21:30 Pulse 77 09/19/24 21:30 Resp 15 09/19/24 21:30 BP 113/59 L 09/19/24 21:30 Pulse Ox 98 09/19/24 21:30 O2 Del Method Room Air 09/19/24 21:22 BMI result Body Mass Index 31.0 Const: Other: Alert, well in appearance Orientation/consciousness: patient oriented x3 Resp: Other: Nonlabored respirations Cardio: Other: Normal peripheral perfusion Skin: Other: Warm dry no rash Neuro: General: patient oriented x3, no focal motor deficits and CN's II-XI intact bilaterally Psych: Other: Calm and cooperative, Medical Decision Making Medical Decision Making MDM Narrative: 39-year-old female with bipolar and PTSD, presents given need for care consult. Her apparently called EMS to the home because she was exhibiting ?odd behavior, the last time she did this she needed inpatient admission?. Patient states she willingly went with EMS so that her we will be happy?. She denies SI or HI. She denies that she was having erratic behavior. Problem: Psychiatric illness History: Per patient I have considered the following differential diagnoses: Decompensated psychiatric illness, SI, HI, drug/alcohol intoxication Plan: The patient is not manic, her behavior is appropriate here in the emergency department. I spoke with our care team, they are unable to reach the . I find this to be quite odd. He made a statement verbalizing concerned that he felt the patient's behaviors at home were inappropriate and that she required crisis evaluation. Furthermore, I think care team also tried to reach out to 1 of her sons, the son's comment was ?I am not getting involved in this you need to talk to my father?. Screening labs were already obtained a completed from triage. I am discharging the patient. The care team developed a safety plan, they are also providing with the additional outpatient resources for her if she chooses to implement therapy. Right now she sees a psychiatrist on a regular basis who prescribes her medications. Labs: No leukocytosis, not anemic electrolyte abnormality, ethanol negative, not Lab Data 09/19/24 15:11 09/19/24 15:11 Labs: Lab Results 09/19/24 Range/Units 15:11 WBC 6.2 (4.8-10.8) X10*3/uL RBC 4.38 (4.20-5.50) X10*6/uL Hgb 13.5 (12.0-16.0) g/dl Hct 38.3 (37.0-47.0) % MCV 87.4 (80.0-98.0) fL MCH 30.8 (27.0-33.0) pg MCHC 35.2 H (31.0-35.0) g/dl RDW 12.5 (11.0-16.0) % Plt Count 242 (160-400) X10*3/uL MPV 9.1 L (9.4-12.3) fL Immature Gran % (Auto) 0.2 (0.0-0.4) % Neut % (Auto) 62.3 (45-73) % Lymph % (Auto) 29.2 (20-40) % [place] % (Auto) 6.9 (2-11) % Eos % (Auto) 1.1 (0-4) % Baso % (Auto) 0.3 (0-2) % Lymph # (Auto) 1.8 (1.2-4.9) X10*3/uL [place] # (Auto) 0.4 (0.1-1.2) X10*3/uL Eos # (Auto) 0.1 (0.0-0.4) X10*3/uL Baso # (Auto) 0.0 (0.0-0.2) X10*3/uL Abs Immat Gran (auto) 0.01 (0.00-0.03) X10*3/uL Absolute Neuts (auto) 3.9 (2.0-8.3) x10*3/uL Absolute Nucleated RBC 0.000 (0.0-0.012) X10*3/uL Nucleated RBC % (auto) 0.0 (0.0-0.2) /100WBC Sodium 141 (135-145) mmol/L Potassium 3.5 D (3.3-5.1) mmol/L Chloride 108 (96-108) mmol/L Carbon Dioxide 22 (22-29) mmol/L Anion Gap 15 (12-20) BUN 7 L (9-16) mg/dL Creatinine 0.78 (0.5-1.4) mg/dL Estim Creat Clear Calc 94.7 Estimated GFR > 60 Random Glucose 78 (60-115) mg/dL Calcium 9.0 D (8.4-10.2) mg/dL Magnesium 2.1 (1.6-2.6) mg/dL Total Bilirubin 0.5 (0.0-1.0) mg/dL Direct Bilirubin 0.1 (0.0-0.5) mg/dL AST 22 (5-31) U/L ALT 13 (0-31) U/L Alkaline Phosphatase 63 (39-117) U/L Total Protein 7.3 (6.5-8.0) g/dL Albumin 4.4 (3.5-5.0) g/dL Lipase 38 (8-78) U/L Beta HCG, Quant < 2 mIU/mL Ethyl Alcohol < 10 mg/dL Influenza Type A (PCR) NEGATIVE (Negative) Influenza Type B (PCR) NEGATIVE (Negative) RSV RNA Qual (PCR) NEGATIVE (Negative) SARS-CoV-2 RNA (RT-PCR) NEGATIVE (Negative) Discharge Plan Discharge Clinical Impression: Bipolar 1 disorder Patient Disposition: Home, Self-Care Instructions: Bipolar Disorder (ED) Additional Instructions: You were seen by our care team, a safety plan was set in place. You were given outpatient resources for CHD if you so choose to seek therapy. Continue to follow up with your psychiatrist and take your prescribed medications. Prescriptions: No Action lamotrigine [Lamictal] 150 mg tablet 150 mg PO DAILY Qty: 90 2RF quetiapine 100 mg tablet 100 mg PO BEDTIME PRN (Reason: insomnia) 30 Days Qty: 30 2RF Interventions: [place]-Suicide Risk Severity Scale Last Done: 09/19/24 14:17 ED Discharge Assessment Last Done: 09/19/24 21:30 Discharge Date/Time: 09/19/24 21:26 Print Language: Trin[place]
--- NOTE | 2024-09-19 17:01 | PC.NURSE ---
Report given to NATALIA POD RN
--- NOTE | 2024-09-19 17:10 | PC.NURSE ---
Assumed care of patient at 1700, patient appears to be in no apparent distress at this time, offers no complaints to this RN, requesting food/drink. Continue plan of care for CARE team vj
[2024-09-19 17:44] VITALS: RESP 16
[2024-09-19 21:22] VITALS: BP 113/59; PULSE 77; RESP 15; TEMP 36.9; O2SAT 98
[2024-09-19 21:30] VITALS: BP 113/59; PULSE 77; RESP 15; TEMP 36.9; O2SAT 98
== END 2024-09-19 21:26 | disposition home or self-care (01) ==
PROVIDERS: Physician Assistant Medical; Emergency Provider Emergency Medicine; PCP Internal Medicine
DX: F31.9 Bipolar disorder, unspecified (principal); F43.10 Post-traumatic stress disorder, unspecified; Z03.818 Encounter for observation for suspected exposure to other biological agents ruled out; Z87.891 Personal history of nicotine dependence
CPT/HCPCS: 0241U; 36415; 80048; 80076; 80307; 83690; 83735; 84702; 85025; 93005; 99285; S9485

== ENCOUNTER → 2024-09-19 13:29 | Outpatient (BNV) | payer OTHER, SELFPAY | PROVIDERS: Emergency Provider Emergency Medicine; PCP Internal Medicine; Visit Provider Internal Medicine | DX: R41.82 Altered mental status, unspecified (principal) | CPT/HCPCS: 93010 ==

== ENCOUNTER 2024-10-05 13:06 | Outpatient (AMB) | payer OTHER, SELFPAY ==
--- NOTE | 2024-10-05 13:14 | A.OFFPSYCH_ITS ---
Intake Intake Visit Reasons: f/u consultation Pharmacy Sales Assistant Required: No Allergies oseltamivir [From TAMIFLU] Allergy (Intermediate, Verified 09/19/24 13:13) DROWSINESS/NAUSEA, rash, psychosis lithium Adverse Reaction (Intermediate, Verified 09/19/24 13:13) weight gain Medication List - Last Reconciled 10/05/24 by Serena Cesar APRN lamotrigine (Lamictal) 150 mg PO DAILY quetiapine 100 mg PO BEDTIME PRN 30 days HPI- Psychiatric Chief Complaint: f/u consultation HPI Narrative: pt reports recent episode of jennifer and anxiety; she describes increase activity, driving excessively fast, not sleeping, cleaning excessively, throwing things out at her house- things she recently bought and needs; tying string and other cloth into knots over and over again at home for hours. she is tearful when she tells me about this. she also describes probable OCD tendencies where things have to be in order and she notices small errors or changes in her environment and she feels compelled to fix them. This causes other people to be upset with her and she thinks can also trigger a manic episode when she knows that someone is being dishonest with her. Her called 911 and she was een in ED 09/19 for evaluation of jennifer. She was assessed to be not manic. and released from ED. She says dayna and family are upset with her and dont know how to help her; she works 5-6 days a week long sdays and also goes to [employer] till 9pm at least 4 days a week. Past Psychiatric History: IPLOC: [place] M3; diagnosed with Bipolar; started on seroquel and lithium Otherwise, no prior hx of medication trials. 1 depressive episode 19 years ago ; no episodes since [place] 2022 [facility] 2021 currently does not have outpatient psychiatric prescriber. Was in therapy before lost insurance Subjective Subjective Subjective Medication Compliance: Yes Side effects from medications: No Review of Systems Medical Review of Systems: unchanged Mental Status Exam Mental Status Exam Patient Appearance: Well Grooomed and Appropriate Patient Orientation: Person, Place, Time and Situation Level of Consciousness: Awake and Alert Patient Behavior: Appropriate Mood Description: Anxious and Sad Affect Description: Anxious and Sad Patient Cognition Impaired: No Ability to Follow Directions: Good Speech Pattern: Clear Memory Description: Intact Hallucinations: None Delusions: Not Present Thought Process: Intact Thought Content: positive for Intact Judgement: Fair Assessment and Plan Assessment & Plan (1) PTSD (post-traumatic stress disorder): Status: Acute Code(s): F43.10 - Post-traumatic stress disorder, unspecified (2) Bipolar I disorder with mixed features: Status: Acute Code(s): F31.9 - Bipolar disorder, unspecified Plan add vraylar 1.5mg daily continue with lamictal and seroquel Medications: New cariprazine (Vraylar) 1.5 mg PO DAILY 30 caps 1RF Counseling and coordination of Care Pt. Self Management counseling: Maintenance-social rhythm, Mod caffeine/ETOH intake, General coping skills and Problem solving Medication management counseling: Effectiveness, Side effects, Dosing range, Duration, Drug interaction and Adherence Diagnosis and Prognosis Counseling: Accuracy of diagnosis, Prognosis over time, Impact of diagnosis on life functions, Problematic behaviors secondary to diagnosis and Adequacy of current interventions Details: I spent 40 minutes reviewing the record, seeing the patient and documenting in the medical record. Counseling provided to the patient/caregiver as outlined below. Addressed patient/caregiver concerns regarding current medication regime including effective adherence. Addressed patient/caregiver concerns regarding diagnosis and prognosis including accuracy of diagnosis, prognosis over time, impact of diagnosis. Addressed patient/caregiver concerns regarding impact of recent stressors. [facility] Medical History Psychosis Hypovitaminosis D Breast lump on left side at 3 o'clock position Physical exam Overweight (BMI 25.0-29.9) Intestinal malabsorption following gastrectomy Malabsorption due to intolerance, not elsewhere classified Anemia Back pain GERD (gastroesophageal reflux disease) Morbid obesity Surgical History History of surgical procedure on mouth History of colonoscopy Hx of cholecystectomy S/P laparoscopic sleeve gastrectomy Family History Father No problems noted. Mother Hypertension Sister No problems noted. Sister Hypoglycemia Brother No problems noted. Brother No problems noted. Son No problems noted. Son No problems noted. Paternal Aunt Breast cancer Colon cancer Paternal Grandfather No problems noted. Social History Household Members: Spouse and Family Household Members Other:: , youngest son, 2 dogs Housing: House Do you presently have visiting nurse or other home services: No Unable to assess alcohol history related to: Refusing to respond Alcohol intake: former Patient Tobacco Use Status: Former Tobacco user Tobacco use type: Cigarette e-Cigarette/Vaping Use: Never Used Second Hand Smoke Exposure: No service: No Current occupational status: employed Current occupational exposures/hazards: No Sexual orientation: Straight/Heterosexual Cognitive needs: No Hearing needs: No Vision needs: No Social History: lives with and 20 y/o son. 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 Substance History: none Trauma History: yes, multiple childhood/adolescent traumatic events Coding Level of Care Code Est Pt Level 4 (87808) Diagnoses PTSD (post-traumatic stress disorder) F43.10 Bipolar I disorder with mixed features F31.9
== END 2024-10-05 13:56 | disposition home or self-care (01) ==
LOC: HO.HOP 13:06
PROVIDERS: PCP Internal Medicine; Visit Provider Clinical Nurse Specialist Psychiatric/Mental Health
DX: F43.10 Post-traumatic stress disorder, unspecified (principal); F31.9 Bipolar disorder, unspecified
CPT/HCPCS: 99214

== ENCOUNTER → 2024-10-05 13:06 | Outpatient (BNVA) | payer OTHER, SELFPAY | PROVIDERS: PCP Internal Medicine; Visit Provider Clinical Nurse Specialist Psychiatric/Mental Health | DX: F43.10 Post-traumatic stress disorder, unspecified (principal); F31.9 Bipolar disorder, unspecified | CPT/HCPCS: 99212 ==

== ENCOUNTER → 2024-10-19 13:03 | Outpatient (BNVA) | payer OTHER, SELFPAY | PROVIDERS: PCP Internal Medicine; Visit Provider Clinical Nurse Specialist Psychiatric/Mental Health ==

== ENCOUNTER 2024-11-13 12:46 | Outpatient (AMB) | payer OTHER, SELFPAY ==
--- NOTE | 2024-11-13 13:02 | A.OFFPSYCH_ITS ---
Intake Intake Visit Reasons: f/u consultation Allergies oseltamivir [From TAMIFLU] Allergy (Intermediate, Verified 09/19/24 13:13) DROWSINESS/NAUSEA, rash, psychosis lithium Adverse Reaction (Intermediate, Verified 09/19/24 13:13) weight gain HPI- Psychiatric Chief Complaint: f/u consultation HPI Narrative: pt reports improved mood; no episodes of jennifer since last visit; she was not able to start vraylar as insurance did not approve; pt upset about 303 weight gain; she is tring hard to lose weight but feels the meds may be contributing to weight gain. she is taking the lamictal consistently but not the seroquel. she is not sleeping well and it often awake until 1 am or later and has to get up by 6 am for work. No other medical changes. no etoh or drugs. PHQ9= 3 and GAD7= 0 Past Psychiatric History: IPLOC: [place] M3; diagnosed with Bipolar; started on seroquel and lithium Otherwise, no prior hx of medication trials. 1 depressive episode 19 years ago ; no episodes since [place] 2022 [facility] 2021 currently does not have outpatient psychiatric prescriber. Was in therapy before lost insurance Subjective Subjective Subjective Medication Compliance: Yes Side effects from medications: No Mental Status Exam Mental Status Exam Patient Appearance: Well Grooomed and Appropriate Patient Orientation: Person, Place, Time and Situation Level of Consciousness: Awake, Appropriate and Alert Patient Behavior: Appropriate and Cooperative Mood Description: Calm Affect Description: Calm Patient Cognition Impaired: No Ability to Follow Directions: Good Speech Pattern: Clear Memory Description: Intact Hallucinations: None Delusions: Not Present Thought Process: Intact Thought Content: positive for Intact Judgement: Good Assessment and Plan Assessment & Plan (1) Bipolar I disorder with mixed features: Status: Acute Code(s): F31.9 - Bipolar disorder, unspecified (2) PTSD (post-traumatic stress disorder): Status: Acute Code(s): F43.10 - Post-traumatic stress disorder, unspecified Plan continue lamictal 150mg daily start trazodone 50 mg at bedtime and may repeat times 1 if still awake in one hour start vraylar as soon as approved by insurance Medications: New trazodone 50 mg orally Take 1 tablet at bedtime may repeat in one hour if still awake PRN; 60 tabs 0RF sleep Discontinued quetiapine Discontinued Reason: Doctor's Order 100 mg PO BEDTIME 30 days PRN 30 tabs 2RF insomnia Counseling and coordination of Care Pt. Self Management counseling: Maintenance-social rhythm, Mod caffeine/ETOH intake, Nutrition education and improvement, Sleep hygiene, General coping skills and Problem solving Medication management counseling: Effectiveness, Side effects, Dosing range, Duration, Drug interaction and Adherence Diagnosis and Prognosis Counseling: Accuracy of diagnosis, Prognosis over time, Impact of diagnosis on life functions, Impact of family relationship, Problematic behaviors secondary to diagnosis and Adequacy of current interventions Details: I spent 35 minutes reviewing the record, seeing the patient and documenting in the medical record. Counseling provided to the patient/caregiver as outlined below. Addressed patient/caregiver concerns regarding current medication regime including effective adherence. Addressed patient/caregiver concerns regarding diagnosis and prognosis including accuracy of diagnosis, prognosis over time, impact of diagnosis. Addressed patient/caregiver concerns regarding impact of recent stressors. [facility] Medical History Psychosis Hypovitaminosis D Breast lump on left side at 3 o'clock position Physical exam Overweight (BMI 25.0-29.9) Intestinal malabsorption following gastrectomy Malabsorption due to intolerance, not elsewhere classified Anemia Back pain GERD (gastroesophageal reflux disease) Morbid obesity Surgical History History of surgical procedure on mouth History of colonoscopy Hx of cholecystectomy S/P laparoscopic sleeve gastrectomy Family History Father No problems noted. Mother Hypertension Sister No problems noted. Sister Hypoglycemia Brother No problems noted. Brother No problems noted. Son No problems noted. Son No problems noted. Paternal Aunt Breast cancer Colon cancer Paternal Grandfather No problems noted. Social History Household Members: Spouse and Family Household Members Other:: , youngest son, 2 dogs Housing: House Do you presently have visiting nurse or other home services: No Unable to assess alcohol history related to: Refusing to respond Alcohol intake: former Patient Tobacco Use Status: Former Tobacco user Tobacco use type: Cigarette e-Cigarette/Vaping Use: Never Used Second Hand Smoke Exposure: No service: No Current occupational status: employed Current occupational exposures/hazards: No Sexual orientation: Straight/Heterosexual Cognitive needs: No Hearing needs: No Vision needs: No Social History: lives with and 20 y/o son. 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 Substance History: none Trauma History: yes, multiple childhood/adolescent traumatic events Coding Level of Care Code Est Pt Level 4 (54651) Diagnoses Bipolar I disorder with mixed features F31.9 PTSD (post-traumatic stress disorder) F43.10
== END 2024-11-13 14:14 | disposition home or self-care (01) ==
LOC: HO.HOP 12:46
PROVIDERS: PCP Internal Medicine; Visit Provider Clinical Nurse Specialist Psychiatric/Mental Health
DX: F31.9 Bipolar disorder, unspecified (principal); F43.10 Post-traumatic stress disorder, unspecified
CPT/HCPCS: 99214

== ENCOUNTER → 2024-11-13 12:46 | Outpatient (BNVA) | payer OTHER, SELFPAY | PROVIDERS: PCP Internal Medicine; Visit Provider Clinical Nurse Specialist Psychiatric/Mental Health | DX: F31.9 Bipolar disorder, unspecified (principal); F43.10 Post-traumatic stress disorder, unspecified; Z71.89 Other specified counseling | CPT/HCPCS: 99212 ==

== ENCOUNTER 2024-12-08 18:54 | Observation (INO) | payer OTHER, SELFPAY ==
--- NOTE | ~2024-12-08 | CT_ITS ---
CLINICAL HISTORY: Right arm and right leg numbness R O stroke CT head without contrast Comparison: MR/SR - MR HEAD/BRAIN WO CON - 08/25/24 19:59 EDT Findings: No intra-axial mass, midline shift, hydrocephalus, or acute hemorrhage. No significant atrophy-like change or white matter disease. There is no sinus or mastoid fluid. The orbits are within normal limits. There is no acute fracture. IMPRESSION: 1. No acute intracranial findings. This document has been electronically signed by: Rufus Townsend MD on 12/08/2024 20:26:00
--- NOTE | ~2024-12-08 | XR_ITS ---
CLINICAL HISTORY: sob, chest pressure 2 view chest x-ray Comparison: Chest x-ray from 12/26/2019 Findings: Low lung volumes with mild bibasilar atelectasis. No lobar consolidation. No pneumothorax or pleural effusion. Imaged mediastinum appears unchanged. Mild degenerative changes include right AC joint. IMPRESSION: No consolidation and no significant change compared to 12/26/2019. This document has been electronically signed by: Dong Sinha MD on 12/08/2024 19:31:39
--- NOTE | ~2024-12-08 | CT_ITS ---
CLINICAL HISTORY: Right arm and leg numbness R O stroke CT angiography head and neck with contrast. 3D Postprocessing. Comparison: CT/SR - CT HEAD FOR STROKE - 12/08/24 20:06 EST Findings: Aortic arch and cervical great vessels are patent. Intracranial arteries are patent. No aneurysm, dissection, or occlusion. No abnormal intracranial enhancement. The visualized thyroid gland is unremarkable. No cervical mass or fluid collection. Lung apices clear. No acute fracture. IMPRESSION: Patent head and neck CTA. This document has been electronically signed by: Rufus Townsend MD on 12/08/2024 21:09:18
--- NOTE | ~2024-12-08 | MR_ITS ---
EXAMINATION: MR BRAIN WITHOUT CONTRAST CLINICAL INFORMATION: Right-sided weakness, CVA. COMPARISON: CTA brain 12/07/2024 at 8:00 PM. TECHNIQUE: MRI of the brain was obtained using routine sequences without contrast. FINDINGS: There is no restricted diffusion seen to suspect any acute ischemic changes. There is focal T2 FLAIR signal abnormality in the subcortical white matter of right frontal lobe axial slice 17/8. No additional white matter lesions seen. There is no magnetic susceptibility artifact to suspect acute or chronic hemorrhagic products or calcification. The browning to white matter differentiation is maintained normal. The lateral ventricles are symmetrical in size and configuration without enlargement. Normal flow-void signal seen in major cerebral vasculature. There is T2 signal changes in right maxillary sinus. MR/MR head/brain wo con IMPRESSION: No acute infarct or bleed seen. Chronic right maxillary sinus inflammatory changes Electronically signed by: Nahum Roa MD 12/09/2024 12:04 PM [facility]
--- NOTE | 2024-12-08 18:56 | ECG_ITS ---
Test Reason : cp Blood Pressure : */* mmHG Vent. Rate : 53 BPM Atrial Rate : 53 BPM P-R Int : 132 ms QRS Dur : 82 ms QT Int : 430 ms P-R-T Axes : 46 13 23 degrees QTcB Int : 403 ms Sinus bradycardia Otherwise normal ECG When compared with ECG of 19-Sep-2024 14:58, No significant change was found Referred By: Ina Bauman Electronically Signed By: JUSTIN LUONG MD
--- NOTE | 2024-12-08 19:08 | ED_ITS ---
HPI - SOB/Dyspnea General Chief Complaint: Dyspnea Stated Complaint: sob Source: patient Mode of arrival: ambulatory Limitations: no limitations History of Present Illness ED Provider: Dr. Carlos Oliva HPI Narrative: 39-year-old female with a history of bipolar disorder, PTSD, obesity with hx gastric sleeve complicated by intestinal malabsorption who presents to the ER for evaluation of SOB , chest tightness that started acutely when she walked out into the [employer] parking lot at 6:15 this evening. Patient states that when she got out of the store she developed left-sided chest pain that she describes as a pressure-like sensation. She states that this pain was moderate to severe in intensity but at the time my evaluation the chest pain almost completely resolved but still present. She then developed shortness of breath and states she was having a hard time catching her breath. She then developed right sided upper and lower extremity numbness, tingling and heaviness. She also had some numbness to the right side of her face and right lip with no difficulty with speaking or using her tongue. She states that the heaviness in her right upper and lower extremities resolved but reports tingling going on the right side her face, right arm and right leg. She states her shortness of breath is resolved. Vital signs were unremarkable. The patient's neurologic exam was significant for diminished light touch and noxious stimuli to the right side of her face, right upper and right lower extremities. Patient was NIH stroke scale was only 1. Differential diagnosis: ?Includes but is not limited to stroke, TIA, hyperventilation syndrome, anxiety attack paresthesias, myocardial infarction, myocardial ischemia, costochondritis, pulmonary embolism, anemia, electrolyte abnormalities Course: 20:55 My independent interpretation patient's laboratory evaluation is as follows: CBC was normal. D-dimer was less than 150. AST and ALT were elevated 62 and 45, troponin was below detectable limits. CT scan of the head stroke protocol revealed no acute findings. CT angiogram of the head and neck is pending. Related Data Previous Rx's ?Medication ?Instructions ?Recorded cetirizine 10 mg tablet (All Day 10 mg PO DAILY PRN allergy 10/16/24 Allergy (cetirizine)) symptoms 30 days #30 tabs cariprazine 1.5 mg capsule 1.5 mg PO DAILY #30 caps 11/13/24 (Vraylar) lamotrigine 150 mg tablet 150 mg PO DAILY #90 tabs 11/13/24 (Lamictal) trazodone 50 mg tablet 50 mg PO .COMPLEX PRN sleep #60 11/13/24 tabs Allergies Allergy/AdvReac Type Severity Reaction Status Date / Time oseltamivir [From TAMIFLU] Allergy Intermediate DROWSINESS/NAUSEA, Verified 12/08/24 19:34 rash, psychosis lithium AdvReac Intermediate weight gain Verified 12/08/24 19:34 Review of Systems 2 Review of Systems: Yes all other systems are reviewed and are negative [facility] Past Medical History Medical History Psychosis Hypovitaminosis D Breast lump on left side at 3 o'clock position Physical exam Overweight (BMI 25.0-29.9) Intestinal malabsorption following gastrectomy Malabsorption due to intolerance, not elsewhere classified Anemia Back pain GERD (gastroesophageal reflux disease) Morbid obesity Surgical History History of surgical procedure on mouth History of colonoscopy Hx of cholecystectomy S/P laparoscopic sleeve gastrectomy Family History Family History Father No problems noted. Mother Hypertension Sister No problems noted. Sister Hypoglycemia Brother No problems noted. Brother No problems noted. Son No problems noted. Son No problems noted. Paternal Aunt Breast cancer Colon cancer Paternal Grandfather No problems noted. Social History Social History Household Members: Spouse and Family Household Members Other:: , youngest son, 2 dogs Housing: House Do you presently have visiting nurse or other home services: No Unable to assess alcohol history related to: Refusing to respond Alcohol intake: former Patient Tobacco Use Status: Former Tobacco user Tobacco use type: Cigarette e-Cigarette/Vaping Use: Never Used Second Hand Smoke Exposure: No Advance Directives: No Advance Directives Information Provided: No Do you have a plan to hurt others: No Plan service: No Current occupational status: employed Current occupational exposures/hazards: No Sexual orientation: Straight/Heterosexual Cognitive needs: No Hearing needs: No Vision needs: No Physical Exam 2 Vital Signs: Vital Signs: Last Vital Signs Temp 98.1 F 12/08/24 20:33 Pulse 54 12/08/24 20:33 Resp 20 12/08/24 20:33 BP 141/82 H 12/08/24 20:33 Pulse Ox 99 12/08/24 20:33 O2 Del Method Room Air 12/08/24 20:33 BMI result Body Mass Index 32.1 Vital signs revealed an elevated blood pressure of 141/82 otherwise unremarkable Exam: General: Awake, alert in no distress Head: Normocephalic, atraumatic EENT: PERRL, Lids normal, sclera normal, conjunctiva normal, nose normal , ears normal, throat without erythema or exudates Neck: Supple, no adenopathy Lung: breath sounds symmetric, no wheezing, rales or rhonchi Chest: symmetric movement, nontender Heart: regular rate and rhythm, normal S1, S2 no murmurs or rubs Abdomen: soft, non-tender, nondistended, normal bowel sounds Back: no vertebral tenderness, no CVAT Extremities: no deformities, moves all extremities symmetrically Neuro: General: Awake, alert, oriented, normal speech Cranial nerves: cranial nerves intact Strength: 5/5 symmetric, no drift moves all extremities symmetrically Sensory: Patient has diminished light touch and noxious stimuli to the right side of her face, right upper and lower extremities Psych: Pleasant, cooperative NIH Stroke Scale Internal: Initial- Upon Arrival Level of Consciousness: Alert Level of Consciousness Questions: Answers both questions correctly Level of Consciousness Commands: Performs both tasks correctly Best Gaze: Normal Visual: No visual loss Facial Palsy: Normal Motor Arm (Right): No drift Motor Arm (Left): No drift Motor Leg (Right): No drift Motor Leg (Left): No drift Limb Ataxia: Absent Sensory: Mild to moderate sensory loss Best Language: No aphasia Dysarthia: Normal Extinction and Inattention: No abnormality Score: 1 Course Course Course Narrative: This is a Rapid Medical Examination (RME) performed by Roni Bauman PA-C in triage. Full HPI, ROS, assessment and treatment plan per primary provider in the Main ED. 39 yo female with history of bipolar disorder, PTSD, obesity with hx gastric sleeve complicated by intestinal malabsorption who presents to the ER for evaluation of SOB and chest tightness that started acutely when she was at [employer] at 6:15 this evening. she was breathing heavy and having a hard time catching her breath and then developed right sided numbness, tingling and heaviness in her RUE/RLE and right side of her head. RUE/RLE symptoms resolved but reports tingling going on the right side of her head. breathing feels better. Plan: Medications Administered Discontinued Medications Generic Name Dose Route Start Last Admin Trade Name Kyler PRN Reason Stop Dose Admin Iohexol 100 ml 12/08/24 20:11 12/08/24 20:11 Iohexol 350 Mg/Ml 100 Ml Infus..Btl IV 12/08/24 20:12 70 ml ONCE ONE Administration Lorazepam 1 mg 12/08/24 20:01 12/08/24 20:05 Lorazepam 2 Mg/Ml Vial IVPUSH 12/08/24 20:02 1 mg STAT STA Administration Medical Decision Making Medical Decision Making [facility] Narrative: 39-year-old female with a history of bipolar disorder, PTSD, obesity with hx gastric sleeve complicated by intestinal malabsorption who presents to the ER for evaluation of SOB , chest tightness right face/ arm/leg numbness and heaviness that started acutely when she walked out into the [employer] parking lot at 6:15 this evening. Patient's chest pain has been constant since onset but he was now improved but he was still present the time of evaluation. Patient's right-sided heaviness has resolved but she still has a tingling/numb in sensation of the right side of her face, arm and leg. Vital signs were unremarkable. Your examination did reveal diminished light touch and noxious stimuli sensation to the right face arm and leg with no weakness Differential diagnosis: ?Includes but is not limited to stroke, TIA, hyperventilation syndrome, anxiety attack paresthesias, myocardial infarction, myocardial ischemia, costochondritis, pulmonary embolism, anemia, electrolyte abnormalities Course: 20:55 Patient was given Ativan 1 mg IV just prior to going to CT scan. At this time, the patient's symptoms have completely resolved. My independent interpretation patient's laboratory evaluation is as follows: CBC was normal. D-dimer was less than 150. AST and ALT were elevated 62 and 45, troponin was below detectable limits. CT scan of the head stroke protocol revealed no acute findings. CT angiogram of the head and neck is pending. 21:12 I did discuss the patient's presentation with our covering neurologist, Dr. Kenji. Given the patient's low NIH stroke scale in the fact that the patient's symptoms have completely resolved, the patient was not a TNK candidate. Dr. Phillip felt that the right-sided symptoms would be unusual for hyperventilation syndrome unless the patient had a migraine syndrome. He recommended the patient be admitted to the hospitalist service for further evaluation and workup for possible stroke. The patient was given aspirin 324 mg orally. Patient's presentation was discussed over tiger text with the covering hospitalist, Dr. Mcdaniels and the patient will be admitted for further evaluation Admission/Observation Consideration of admission/observation: Escalation of care including admission/observation considered (Yes) Consult Healthcare Provider Management of the patient was discussed with: Hospitalist (Dr. Mcdaniels) and Pharmacy Tech Customer Service (Dr. Phillip) Lab Data MDM Lab Attestation statement: I reviewed the patient's lab results. 12/08/24 19:54 12/08/24 19:54 Labs: Lab Results 12/08/24 12/08/24 12/08/24 Range/Units 19:47 19:53 19:54 WBC 6.8 (4.8-10.8) X10*3/uL RBC 4.74 (4.20-5.50) X10*6/uL Hgb 14.5 (12.0-16.0) g/dl Hct 41.4 (37.0-47.0) % MCV 87.3 (80.0-98.0) fL MCH 30.6 (27.0-33.0) pg MCHC 35.0 (31.0-35.0) g/dl RDW 13.3 (11.0-16.0) % Plt Count 310 D (160-400) X10*3/uL MPV 9.5 (9.4-12.3) fL Immature Gran % (Auto) 0.1 (0.0-0.4) % Neut % (Auto) 54.6 (45-73) % Lymph % (Auto) 37.3 (20-40) % Sutton % (Auto) 6.5 (2-11) % Eos % (Auto) 1.2 (0-4) % Baso % (Auto) 0.3 (0-2) % Lymph # (Auto) 2.5 (1.2-4.9) X10*3/uL Sutton # (Auto) 0.4 (0.1-1.2) X10*3/uL Eos # (Auto) 0.1 (0.0-0.4) X10*3/uL Baso # (Auto) 0.0 (0.0-0.2) X10*3/uL Abs Immat Gran (auto) 0.01 (0.00-0.03) X10*3/uL Absolute Neuts (auto) 3.7 (2.0-8.3) x10*3/uL Absolute Nucleated RBC 0.000 (0.0-0.012) X10*3/uL Nucleated RBC % (auto) 0.0 (0.0-0.2) /100WBC Hold Purple Top SEE NOTE Whole Blood PT 12.0 (11.1-13.5) sec Whole Blood INR 1.0 (0.9-1.1) D-Dimer High Sensitivty < 150 NG/ML Sodium 141 (135-145) mmol/L Potassium 3.4 (3.3-5.1) mmol/L Chloride 107 (96-108) mmol/L Carbon Dioxide 24 (22-29) mmol/L Anion Gap 13 (12-20) BUN 5 L (9-16) mg/dL Creatinine 0.74 (0.5-1.4) mg/dL Estim Creat Clear Calc 94.0 Estimated GFR > 60 POC Glucose 88 (60-115) mg/dL Random Glucose 84 (60-115) mg/dL Lactic Acid 1.2 (0.5-2.0) mmol/L Calcium 9.7 D (8.4-10.2) mg/dL Magnesium 2.0 (1.6-2.6) mg/dL Total Bilirubin 0.4 (0.0-1.0) mg/dL Direct Bilirubin 0.2 (0.0-0.5) mg/dL AST 62 H (5-31) U/L ALT 45 H (0-31) U/L Alkaline Phosphatase 68 (39-117) U/L Troponin I High Sens < 2.7 (<3.5-17.0) ng/L Total Protein 8.7 H (6.5-8.0) g/dL Albumin 4.9 (3.5-5.0) g/dL Hold Yellow Top See Note Independent Interpretation I performed an independent interpretation of an: EKG Interpretation: My independent interpretation patient's 12 EKG done at 19:04 hours is as follows: Sinus bradycardia with a rate of 53, normal OR interval, QRS duration QTC interval, no ST segment elevation, no ST segment depression, inverted T- waves in V1 and V3, no PACs, no PVCs. Compared to EKG dated 09/19/2024 for the sinus bradycardia is new, the inverted T-waves V1 and V2 are new. Radiology Impression Discussion of test interpretation with radiology: I discussed test interpretation with the radiologist and I have reviewed the radiologist's reading. Radiologist Impression: CT head without contrast Comparison: MR/SR - MR HEAD/BRAIN WO CON - 08/25/24 19:59 EDT Findings: No intra-axial mass, midline shift, hydrocephalus, or acute hemorrhage. No significant atrophy-like change or white matter disease. There is no sinus or mastoid fluid. The orbits are within normal limits. There is no acute fracture. IMPRESSION: 1. No acute intracranial findings. This document has been electronically signed by: Rufus Townsend MD on 12/08/2024 20:26:00 CT angiography head and neck with contrast. 3D Postprocessing. Comparison: CT/SR - CT HEAD FOR STROKE - 12/08/24 20:06 EST Findings: Aortic arch and cervical great vessels are patent. Intracranial arteries are patent. No aneurysm, dissection, or occlusion. No abnormal intracranial enhancement. The visualized thyroid gland is unremarkable. No cervical mass or fluid collection. Lung apices clear. No acute fracture. IMPRESSION: Patent head and neck CTA. This document has been electronically signed by: Rufus Townsend MD on 12/08/2024 21:09:18 Independent Historian Clinical information obtained from an independent historian. History obtained from or confirmed by: Spouse External Record Review External record reviewed: Inpatient record Critical Care Time Critical Care Time Critical Care Time: Yes Total Critical Care Time: 45 Attestation: Critical Care: The patient was critically ill with a high probability of imminent or life threatening deterioration. I spent greater than 30 minutes of discontinuous time evaluating the patient,delivering critical care at the bedside, discussing and evaluating pertinent data with consultants. Critical care time does not include time spent performing separately billable procedures or teaching. Total time spent performing critical care was 45 minutes. Discharge Plan Discharge Patient Disposition: Admitted As Inpatient Prescriptions: No Action cetirizine [All Day Allergy (cetirizine)] 10 mg tablet 10 mg PO DAILY PRN (Reason: allergy symptoms) 30 Days Qty: 30 1RF trazodone 50 mg tablet 50 mg PO .COMPLEX PRN (Reason: sleep) Qty: 60 0RF Rx Instructions: 50 mg orally Take 1 tablet at bedtime may repeat in one hour if still awake PRN; Vraylar 1.5 mg capsule 1.5 mg PO DAILY Qty: 30 1RF lamotrigine [Lamictal] 150 mg tablet 150 mg PO DAILY Qty: 90 2RF Print Language: Greenlandic
[2024-12-08 19:31] VITALS: BP 167/86; PULSE 69; RESP 18; TEMP 36.7; O2SAT 100; BMI 32.1
--- NOTE | 2024-12-08 19:59 | PC.NURSE ---
20g IV access established in Right AC. Labs drawn and sent for analysis. at bedside evaluating patient for stroke alert.
[2024-12-08 20:00] LABS: Glucose, Whole Blood 88 mg/dL (60-115)
[2024-12-08 20:01] LABS: MANUAL DIFF FLAG NO
[2024-12-08 20:03] LABS: Basophils Percent Auto 0.3 % (0-2); Eosinophils Absolute Auto 0.1 X10*3/uL (0.0-0.4); Eosinophils Percent Auto 1.2 % (0-4); Hematocrit 41.4 % (37.0-47.0); Hemoglobin 14.5 g/dl (12.0-16.0); Imm Gran Abs Auto 0.01 X10*3/uL (0.00-0.03); Imm Gran Pct Auto 0.1 % (0.0-0.4); Lymphocytes Absolute Auto 2.5 X10*3/uL (1.2-4.9); Lymphocytes Percent Auto 37.3 % (20-40); Mean Corpuscular Hemoglobin 30.6 pg (27.0-33.0); Mean Corpuscular Volume 87.3 fL (80.0-98.0); Mean Platelet Volume 9.5 fL (9.4-12.3); Monocytes Absolute Auto 0.4 X10*3/uL (0.1-1.2); Monocytes Percent Auto 6.5 % (2-11); Neutrophils Absolute Auto 3.7 x10*3/uL (2.0-8.3); Neutrophils Percent Auto 54.6 % (45-73); Platelet Count 310 X10*3/uL (160-400); Red Blood Count 4.74 X10*6/uL (4.20-5.50); Red Cell Distribution Width 13.3 % (11.0-16.0); White Blood Count 6.8 X10*3/uL (4.8-10.8)
[2024-12-08] MEDS: LORazepam 2 MG/ML VIAL 1 MG IVPUSH (20:05)
[2024-12-08 20:10] LABS: D Dimer High Sensitivity < 150 NG/ML
[2024-12-08] MEDS: iohexoL 350 MG/ML 100 ML INFUS..BTL IV (20:11)
[2024-12-08 20:16] LABS: Alanine Aminotransferase 45 U/L (0-31); Albumin Level 4.9 g/dL (3.5-5.0); Alkaline Phosphatase 68 U/L (39-117); Anion Gap 13 (12-20); Aspartate Amino Transferase 62 U/L (5-31); Bilirubin Direct 0.2 mg/dL (0.0-0.5); Bilirubin Total 0.4 mg/dL (0.0-1.0); Blood Urea Nitrogen 5 mg/dL (9-16); Calcium 9.7 mg/dL (8.4-10.2); Carbon Dioxide 24 mmol/L (22-29); Chloride 107 mmol/L (96-108); Estimated Glomerular Filt Rate > 60; Glucose Random 84 mg/dL (60-115); Potassium 3.4 mmol/L (3.3-5.1); Sodium 141 mmol/L (135-145); Total Protein 8.7 g/dL (6.5-8.0)
[2024-12-08 20:23] LABS: Lactic Acid 1.2 mmol/L (0.5-2.0); Troponin-I High Sensitivity < 2.7 ng/L (<3.5-17.0)
--- NOTE | 2024-12-08 20:27 | PC.NURSE ---
Patient returned from CT scan. Changed over into hospital attire. garage door service technician applied. Vital signs updated/documented.
--- OUTSIDE RECORDS SUMMARY | 2024-12-08 20:27 | XMS_ITS | Encounter Summary ---
Author Organization [employer] Address [address] [place] [address] [address] [place] [address] Care Team Providers Care Pile Driving Technician Name Role Phone Unavailable Primary Care Provider Unavailabl e Encounter Details Date Type Department Care Team (Latest Contact Info) Description 07/27/2019 Abstract [facility] CONVERSIONS Dental, Provider, DDS Social History Tobacco Use Types Packs/Day Years Used Date Smoking Tobacco: Never Assessed Comments Unknown Sex and Gender Information Value Date Recorded Sex Assigned at Female 09/17/2022 10:17 AM EDT Legal Sex Female 10:17 AM EDT Gender Identity Female 09/17/2022 10:17 AM EDT Sexual Orientation Straight 09/17/2022 10 :17 AM EDT documented as of this encounter Plan of Treatment Upcoming Encounters Date Type Department Care Team (Late st Contact Info) Description 03/09/2025 11:00 AM EDT Office Visit [facility] [address] [place], [place] [phone] Augustina Carpenter [address] [place], [place] [phone] documented as of this encounter Visit Diagnoses Not on filedocumented in this encounter
--- OUTSIDE RECORDS SUMMARY | 2024-12-08 20:27 | XMS_ITS | Encounter Summary ---
Author Organization [employer] Address [address] [place] [address] [address] [place] [address] Care Team Providers Care Certified Green Building Engineer Name Role Phone Unavailable Primary Care Provider Unavailabl e Encounter Details Date Type Department Care Team (Latest Contact Info) Description 12/07/[address] [facility] CONVERSION[facility] Dental, Provider, DDS Social History [...] Description 03/09/2025 11:00 AM EDT Office Visit [facility] [address] [place], [place] [phone] Augustina Carpenter [address] [place], [place] [phone] documented as of this encounter Visit Diagnoses Not on filedocumented in this encounter
--- OUTSIDE RECORDS SUMMARY | 2024-12-08 20:27 | XMS_ITS | Encounter Summary ---
Author Organization [employer] Address [address] [place] [address] [address] [place] [address] Care Team Providers Care Local Announcer Name Role Phone Unavailable Primary Care Provider Unavailabl e Encounter Details Date Type Department Care Team (Latest Contact Info) Description 08/25/2019 Abstract [facility] CONVERSIONS Dental, Provider, DDS Social History [...] Description 03/09/2025 11:00 AM EDT Office Visit [facility] [address] [place] [address] Augustina Carpenter [address] [place], [place] [phone] documented as of this encounter Visit Diagnoses Not on filedocumented in this encounter
[2024-12-08 20:33] VITALS: BP 141/82; PULSE 54; RESP 20; TEMP 36.7; O2SAT 99
--- NOTE | 2024-12-08 21:57 | P.HPHOSP_ITS ---
History of Present Illness Date of Service: 12/08/24 Attending physician on admission: Lamont Mcdaniels Chief Complaint: R sided weakness, SOB, chest tightness Patient is a 39-year-old female with a past medical history significant for bipolar 1, PTSD, obesity, s/p gastric sleeve with intestinal malabsorption, who presented to the ED today with shortness of breath and chest tightness beginning at 18:15. She reported left-sided chest pain which was moderate to severe and described as a pressure which has improved. She reports that the pain was better when she tilts her head backwards. She also complained of right-sided face, arm and leg numbness and heaviness. She reports this has happened to her in the past. She also reports a headache earlier today prior to going to the store where the events happened. She described as a tension headache which improved with hydration. She has no additional symptoms including cough, runny nose, congestion, fever, chills, nausea or vomiting. Review of Systems 2 Constitutional: Constitutional: Denies body ache(s), Denies chills, Denies fatigue, Denies fever(s) and Reports headache(s) Eyes: Eyes: Denies change in vision and Denies photophobia ENT: Reports headache(s), Denies nasal congestion, Denies nasal discharge and Denies sore throat Cardiovascular: Cardiovascular: Reports chest pain, Denies lightheadedness and Reports dyspnea Respiratory: Respiratory: Denies chest congestion, Denies cough, Reports dyspnea and Denies wheezing Gastrointestinal: Gastrointestinal: Denies constipation, Denies diarrhea, Denies nausea and Denies vomiting Genitourinary: Genitourinary: Denies difficulty voiding, Denies dysuria and Denies urinary urgency Musculoskeletal: Musculoskeletal: Reports as per HPI Integumentary/Breasts: Skin/Breast: Denies rash Neurologic: Denies confusion, Reports headache(s) and Denies seizure-like activity Psychiatric: Psychiatric: Denies confusion Endocrine: Endocrine: Denies fatigue Hematologic/Lymphatic: Hematologic/Lymphatic: Denies easy bleeding and Denies easy bruising Allergic/Immunologic: Allergic/Immunologic: Denies wheezing [facility] Medical History Psychosis Hypovitaminosis D Breast lump on left side at 3 o'clock position Physical exam Overweight (BMI 25.0-29.9) Intestinal malabsorption following gastrectomy Malabsorption due to intolerance, not elsewhere classified Anemia Back pain GERD (gastroesophageal reflux disease) Morbid obesity Functional capacity: independent ambulation Family History Father No problems noted. Mother Hypertension Sister No problems noted. Sister Hypoglycemia Brother No problems noted. Brother No problems noted. Son No problems noted. Son No problems noted. Paternal Aunt Breast cancer Colon cancer Paternal Grandfather No problems noted. Surgical History History of surgical procedure on mouth History of colonoscopy Hx of cholecystectomy S/P laparoscopic sleeve gastrectomy Social History Household Members: Spouse and Family Household Members Other:: , youngest son, 2 dogs Housing: House Do you presently have visiting nurse or other home services: No Unable to assess alcohol history related to: Refusing to respond Alcohol intake: former Patient Tobacco Use Status: Former Tobacco user Tobacco use type: Cigarette e-Cigarette/Vaping Use: Never Used Second Hand Smoke Exposure: No Advance Directives: No Advance Directives Information Provided: No Do you have a plan to hurt others: No Plan service: No Current occupational status: employed Current occupational exposures/hazards: No Sexual orientation: Straight/Heterosexual Cognitive needs: No Hearing needs: No Vision needs: No Narrative: No smoking, alcohol or drug use Meds Allergies Allergy/AdvReac Type Severity Reaction Status Date / Time oseltamivir [From TAMIFLU] Allergy Intermediate DROWSINESS/NAUSEA, Verified 12/08/24 19:34 rash, psychosis lithium AdvReac Intermediate weight gain Verified 12/08/24 19:34 Active Medications: Current Medications Acetaminophen (Acetaminophen 325 Mg Tablet) 650 mg PO Q6H PRN PRN Reason: Pain, Mild 1-3,fever,headache Aspirin (Aspirin 81 Mg Tab.Chew) 81 mg PO DAILY BETO Calcium Carbonate (Calcium Carbonate 750 Mg Tab.Chew) 750 mg PO Q4H PRN PRN Reason: Heartburn Enoxaparin Sodium (Enoxaparin Sodium 40 Mg/0.4 Ml Syringe) 40 mg SUBCUT Q24H BETO Magnesium Hydroxide (Milk Of Magnesia 30 Ml Oral.Susp) 30 ml PO DAILY PRN PRN Reason: Constipation Melatonin (Melatonin 3 Mg Tablet) 6 mg PO BEDTIME PRN PRN Reason: Insomnia Ondansetron HCl (Ondansetron Hcl 4 Mg/2 Ml Vial) 4 mg IVPUSH Q8H PRN PRN Reason: Nausea and Vomiting Sodium Chloride (0.9 % Sodium Chloride Flush 3 Ml Syringe) 3 ml IVFLUSH QSHIFT [facility] Home Medications ?Medication ?Instructions ?Recorded ?Confirmed ?Last Taken ?Type Celebrate One 18 ( Multivitamin 1 cap PO DAILY 12/08/24 12/08/24 12/07/24 History With Iron) trazodone 50 mg tablet 50 mg PO DAILY MRX1 PRN Sleep 12/08/24 12/08/24 12/07/24 History Physical Exam 2 Vital Signs and Narrative: Vital Signs: Last Vital Signs Temp 98.1 F 12/08/24 20:33 Pulse 54 12/08/24 20:33 Resp 20 12/08/24 20:33 BP 141/82 H 12/08/24 20:33 Pulse Ox 99 12/08/24 20:33 O2 Del Method Room Air 12/08/24 20:33 BMI result Body Mass Index 32.1 General: AOx3, no acute distress Resp: CTA bilaterally CVS: S1, S2, RRR GI: +BS, NT, no distention Skin: Warm, dry Neuro: Cranial nerves II-XII grossly intact bilaterally. Motor grossly intact bilaterally. strength 5/5 bilateral upper and lower extremities. normal sensation throughout. normal gait. Extremities: No LE edema Psych: Appropriate affect Const: General: No confusion Orientation/consciousness: No confusion Eyes: Direct Ophthalmoscopy: No photophobia Neuro: General: No confusion Results Labs 12/08/24 19:54 12/08/24 19:54 Labs: Laboratory Results - last 24 hr 12/08/24 12/08/24 12/08/24 19:47 19:53 19:54 MCV 87.3 MCH 30.6 MCHC 35.0 RDW 13.3 Plt Count 310 D MPV 9.5 Immature Gran % (Auto) 0.1 Neut % (Auto) 54.6 Lymph % (Auto) 37.3 Hooker % (Auto) 6.5 Eos % (Auto) 1.2 Baso % (Auto) 0.3 Lymph # (Auto) 2.5 Hooker # (Auto) 0.4 Eos # (Auto) 0.1 Baso # (Auto) 0.0 Abs Immat Gran (auto) 0.01 Absolute Neuts (auto) 3.7 Absolute Nucleated RBC 0.000 Nucleated RBC % (auto) 0.0 Hold Purple Top SEE NOTE Whole Blood PT 12.0 Whole Blood INR 1.0 D-Dimer High Sensitivty < 150 Anion Gap 13 Estim Creat Clear Calc 94.0 Estimated GFR > 60 POC Glucose 88 Random Glucose 84 Lactic Acid 1.2 Calcium 9.7 D Magnesium 2.0 Total Bilirubin 0.4 Direct Bilirubin 0.2 AST 62 H ALT 45 H Alkaline Phosphatase 68 Troponin I High Sens < 2.7 Total Protein 8.7 H Albumin 4.9 Hold Yellow Top See Note Assessment and Plan (1) Numbness on right side: Status: Acute (2) Weakness of right side of body: Status: Acute (3) Chest pain: Status: Acute (4) Elevated LFTs: Status: Acute (5) Obesity (BMI 30.0-34.9): Status: Acute Plan Patient is a 39-year-old female with a past medical history significant for bipolar 1, PTSD, obesity, s/p gastric sleeve with intestinal malabsorption, who presented to the ED today with shortness of breath and chest tightness beginning at 18:15. Workup thus far in ED has been reassuring, cardiac workup negative, responsive to Ativan. CT head as well as CTA head and neck both negative. Weakness and numbness has subsided. Numbness and weakness right side, TIA vs CVA vs complex migraine, sx resolved - CT head and CTA head/neck negative - no sign of acute infection, CBC normal - EKG with sinus florentino - trops negative - d-dimer negative - admit for obs - neuro consult - MRI tomorrow chest pain, resolved - cardiac w/u negative including EKG and trops - responsive to ativan - consider non-cardiac causes elevated LFTs, mild - may be secondary to bipolar meds - no abd pain - f/u outpt bipolar 1 - continue home meds obesity - BMI 32.1 - s/p gastrtic sleeve - followed by weight management full code VTE prophy: lovenox Patient with acute numbness and weakness right side, workup thus far negative, admit for observation and further neurologic workup. Quality Stroke Does the patient have a stroke diagnosis?: No VTE Prior VTE?: No VTE Risk Level:: Medical - moderate - high VTE Device Contraindication: Treatment Not Indicated VTE Drug Contraindication: N/A - Med Ordered
--- NOTE | 2024-12-08 22:09 | PHA.MEDREC ---
Addendum entered by Jonatan Garcia RPh 12/08/24 22:14: Med rec was reviewed by [facility]. Original Note: Pharmacy Consult ? Medication Reconciliation Pharmacy has completed the medication reconciliation. spoke to patient to confirm med list. Patient states she is not taking Vraylar 1.5 mg (haven't started yet), and Quetiapine 100 mg. Patient states she last took her medication 12/07/24.
[2024-12-08 23:17] LABS: Influenza A PCR NEGATIVE (Negative); Influenza B PCR NEGATIVE (Negative); Resp Syncy Virus RNA Qual PCR NEGATIVE (Negative); SARS COV2 PCR INHOUSE NEGATIVE (Negative)
[2024-12-08] MEDS: Aspirin 81 MG TAB.CHEW 324 MG PO (23:28)
[2024-12-08] MEDS: Enoxaparin Sodium 40 MG/0.4 ML SYRINGE SUBCUT (23:28)
[2024-12-08] MEDS: 0.9 % Sodium Chloride Flush 3 ML SYRINGE IVFLUSH (23:29)
[2024-12-09] VITALS: BP 96/56; PULSE 65; RESP 19; TEMP 36.4; O2SAT 99
--- NOTE | 2024-12-09 | ECG_ITS ---
Test Reason : CHEST PAIN Blood Pressure : */* mmHG Vent. Rate : 74 BPM Atrial Rate : 74 BPM P-R Int : 160 ms QRS Dur : 80 ms QT Int : 386 ms P-R-T Axes : 31 26 25 degrees QTcB Int : 428 ms Normal sinus rhythm Normal ECG When compared with ECG of 08-Dec-2024 19:04, No significant change was found Referred By: Brooke Pittman Electronically Signed By: JUSTIN LUONG MD
[2024-12-09 04:00] VITALS: BP 96/55; PULSE 84; RESP 18; TEMP 36.3; O2SAT 98
--- NOTE | 2024-12-09 04:50 | PC.NURSE ---
Patient has been sleeping during the majority of this RN's shift. Vital signs stable. No needs at this time. Denies pain. Arousable to verbal stimuli. Care ongoing by this RN.
[2024-12-09 05:58] LABS: Hematocrit 38.7 % (37.0-47.0); Hemoglobin 13.2 g/dl (12.0-16.0); Mean Corpuscular HGB Conc 34.1 g/dl (31.0-35.0); Mean Corpuscular Hemoglobin 30.8 pg (27.0-33.0); Mean Corpuscular Volume 90.2 fL (80.0-98.0); Mean Platelet Volume 9.7 fL (9.4-12.3); Platelet Count 281 X10*3/uL (160-400); Red Blood Count 4.29 X10*6/uL (4.20-5.50); Red Cell Distribution Width 13.5 % (11.0-16.0); White Blood Count 5.5 X10*3/uL (4.8-10.8)
[2024-12-09 06:08] LABS: Anion Gap 12 (12-20); Blood Urea Nitrogen 6 mg/dL (9-16); Calcium 9.3 mg/dL (8.4-10.2); Carbon Dioxide 25 mmol/L (22-29); Chloride 109 mmol/L (96-108); Estimated Glomerular Filt Rate > 60; Glucose Random 86 mg/dL (60-115); Potassium 3.5 mmol/L (3.3-5.1); Sodium 142 mmol/L (135-145)
[2024-12-09 06:35] VITALS: BP 104/60; PULSE 74; RESP 20; TEMP 36.4; O2SAT 98
--- NOTE | 2024-12-09 08:16 | PC.NURSE ---
MRI screening form compeleted with Pt. Form faxed to MRI and placed in chart.
[2024-12-09] MEDS: 0.9 % Sodium Chloride Flush 3 ML SYRINGE IVFLUSH (09:44)
[2024-12-09] MEDS: lamoTRIgine 100 MG TABLET 150 MG PO (09:44)
[2024-12-09] MEDS: Aspirin 81 MG TAB.CHEW PO (09:44)
[2024-12-09 10:17] VITALS: BP 108/72; PULSE 71; RESP 20; O2SAT 99
[2024-12-09 11:44] VITALS: BP 116/82; PULSE 73; RESP 18; TEMP 36.6; O2SAT 93
--- NOTE | 2024-12-09 12:01 | MHC.CM.PN ---
CM met with Patient at bedside. Patient lives in an apartment with her and 20 year old Son and she required no services nor DME [employer]INE [employer]. Home/self care is the goal and CM has initiated and will follow for dc planning. PCP is Dr. Cydney Aaron and will transport to home.
--- NOTE | 2024-12-09 14:37 | PM.DS ---
DS: Providers Provider Date of Service: 12/09/24 Date of admission: 12/08/24 21:30 Date of discharge: 12/09/24 Primary care physician: Cydney Foster MD Consults: 12/08/24 21:55 Consult to Neurology Routine Consulting Provider: [facility] Reason for consultation: r sided weakness, ?TIA Has provider been notified: No DS: Diagnosis Discharge Diagnosis (1) Numbness on right side: Status: Acute (2) Weakness of right side of body: Status: Acute (3) Chest pain: Status: Acute (4) Elevated LFTs: Status: Acute (5) Obesity (BMI 30.0-34.9): Status: Acute DS: Summary Hospital Course Hospital Course: History and physical as per admitting provider. Patient is a 39-year-old female with a past medical history significant for bipolar 1, PTSD, obesity, s/p gastric sleeve with intestinal malabsorption, who presented to the ED today with shortness of breath and chest tightness beginning at 18:15. She reported left-sided chest pain which was moderate to severe and described as a pressure which has improved. She reports that the pain was better when she tilts her head backwards. She also complained of right-sided face, arm and leg numbness and heaviness. She reports this has happened to her in the past. She also reports a headache earlier today prior to going to the store where the events happened. She described as a tension headache which improved with hydration. She has no additional symptoms including cough, runny nose, congestion, fever, chills, nausea or vomiting. 39-year-old woman presenting to the ER with numbness and weakness of her right side and chest pain with a history of migraine. She had a head CT and CTA which were both normal without any acute abnormality. Troponin, D-dimer negative, EKG with sinus bradycardia no acute ischemic changes, chest pain responsive to lorazepam. Patient had MRI which was also normal. Symptoms likely secondary to complex migraine headache in which patient does report history of this. Plan is to discharge patient home with a days of anxiolytics and ibuprofen for migraines. Bipolar 1. Continue home medications Obesity. BMI 32.1. Discussed importance of weight management as this may be contributing to worsening of other comorbidities Mildly elevated LFTs. Likely secondary to bipolar medications Time Attestation Discharge Coordination Time (in mins): 38 Quality: Safe Use of Opioids Does Pt have an Active Cancer Diagnosis on the Problem List?: No Quality: Stroke Does the patient have a stroke diagnosis?: No Physical Exam Vital Signs: Vital Signs: Last Vital Signs Temp 97.9 F 12/09/24 11:44 Pulse 73 12/09/24 11:44 Resp 18 12/09/24 11:44 BP 116/82 12/09/24 11:44 Pulse Ox 93 12/09/24 11:44 O2 Del Method Room Air 12/09/24 11:44 BMI result Body Mass Index 32.1 DS: Data Data Completed and Pending Labs on day of discharge: Laboratory Results - last 24 hr 12/08/24 12/08/24 12/08/24 19:47 19:53 19:54 WBC 6.8 RBC 4.74 Hgb 14.5 Hct 41.4 MCV 87.3 MCH 30.6 MCHC 35.0 RDW 13.3 Plt Count 310 D MPV 9.5 Immature Gran % (Auto) 0.1 Neut % (Auto) 54.6 Lymph % (Auto) 37.3 Emanuel % (Auto) 6.5 Eos % (Auto) 1.2 Baso % (Auto) 0.3 Lymph # (Auto) 2.5 Emanuel # (Auto) 0.4 Eos # (Auto) 0.1 Baso # (Auto) 0.0 Abs Immat Gran (auto) 0.01 Absolute Neuts (auto) 3.7 Absolute Nucleated RBC 0.000 Nucleated RBC % (auto) 0.0 Hold Purple Top SEE NOTE Whole Blood PT 12.0 Whole Blood INR 1.0 D-Dimer High Sensitivty < 150 Sodium 141 Potassium 3.4 Chloride 107 Carbon Dioxide 24 Anion Gap 13 BUN 5 L Creatinine 0.74 Estim Creat Clear Calc 94.0 Estimated GFR > 60 POC Glucose 88 Random Glucose 84 Lactic Acid 1.2 Calcium 9.7 D Magnesium 2.0 Total Bilirubin 0.4 Direct Bilirubin 0.2 AST 62 H ALT 45 H Alkaline Phosphatase 68 Troponin I High Sens < 2.7 Total Protein 8.7 H Albumin 4.9 Hold Yellow Top See Note Influenza Type A (PCR) Influenza Type B (PCR) RSV RNA Qual (PCR) SARS-CoV-2 RNA (RT-PCR) 12/08/24 12/09/24 22:33 05:27 WBC 5.5 RBC 4.29 Hgb 13.2 Hct 38.7 MCV 90.2 MCH 30.8 MCHC 34.1 RDW 13.5 Plt Count 281 MPV 9.7 Immature Gran % (Auto) Neut % (Auto) Lymph % (Auto) Emanuel % (Auto) Eos % (Auto) Baso % (Auto) Lymph # (Auto) Emanuel # (Auto) Eos # (Auto) Baso # (Auto) Abs Immat Gran (auto) Absolute Neuts (auto) Absolute Nucleated RBC 0.000 Nucleated RBC % (auto) 0.0 Hold Purple Top Whole Blood PT Whole Blood INR D-Dimer High Sensitivty Sodium 142 Potassium 3.5 Chloride 109 H Carbon Dioxide 25 Anion Gap 12 BUN 6 L Creatinine 0.74 Estim Creat Clear Calc 94.0 Estimated GFR > 60 POC Glucose Random Glucose 86 Lactic Acid Calcium 9.3 Magnesium Total Bilirubin Direct Bilirubin AST ALT Alkaline Phosphatase Troponin I High Sens Total Protein Albumin Hold Yellow Top Influenza Type A (PCR) NEGATIVE Influenza Type B (PCR) NEGATIVE RSV RNA Qual (PCR) NEGATIVE SARS-CoV-2 RNA (RT-PCR) NEGATIVE Discharge Plan Discharge Anticipated Discharge Date/Time: 12/09/24 14:32 Patient Disposition: Home, Self-Care Discharge Diagnosis: Chest pain Migraine headache Referrals: Cydney Juárez MD [Primary Care Provider] - 1 Week Discharge Medications: New lorazepam 0.5 mg tablet 0.5 mg PO BID PRN (Reason: anxiety) Qty: 6 0RF ibuprofen 600 mg tablet 600 mg PO Q8H PRN (Reason: migraine headache) Qty: 12 0RF Continued cetirizine [All Day Allergy (cetirizine)] 10 mg tablet 10 mg PO DAILY PRN (Reason: allergy symptoms) 30 Days Qty: 30 1RF trazodone 50 mg tablet 50 mg PO DAILY MRX1 PRN (Reason: Sleep) Rx Instructions: TAKE 1 TABLET AT BEDTIME MAY REPEAT IN ONE HOUR IF STILL AWAKE NEEDED Celebrate One 18 ( Multivitamin With Iron) capsule 1 cap PO DAILY lamotrigine [Lamictal] 150 mg tablet 150 mg PO DAILY Qty: 90 2RF Discharge Orders: Discharge Order (Routine); Ordered 12/09/24 Ordered By: Brooke Pittman Diet: Advance to usual diet Activity on Discharge: As tolerated Stand Alone Forms: Patient Portal Discharge page Print Language: Malawian Care Plan Goals: Treat migraines headaches Health Concerns: Chest pain Migraine headache Plan of Treatment: Follow up with primary care provider as needed Take all medications as prescribed Assessment: See discharge summary
--- NOTE | 2024-12-09 14:48 | MHC.CM.PN ---
Patient has been medically cleared for dc to home today, self care.
[2024-12-09] MEDS: LORazepam 0.5 MG TABLET 0.25 MG PO (14:49)
[2024-12-09 15:15] VITALS: BP 123/84; PULSE 79; RESP 18; TEMP 36.3; O2SAT 95
== END 2024-12-09 16:45 | disposition home or self-care (01) ==
LOC: HO.ED 21:28 → HO.EDOVER 21:43 → HO.IMC 12-09 08:56
PROVIDERS: Physician Assistant; Admitting Provider Student in an Organized Health Care Education/Training Program; Emergency Provider Emergency Medicine Emergency Medical Services; PCP Internal Medicine; Visit Provider Nurse Practitioner Acute Care
DX: G43.909 Migraine, unspecified, not intractable, without status migrainosus (principal); R07.9 Chest pain, unspecified; R20.0 Anesthesia of skin; R53.1 Weakness; R06.02 Shortness of breath; R79.89 Other specified abnormal findings of blood chemistry; E66.9 Obesity, unspecified; K21.9 Gastro-esophageal reflux disease without esophagitis; F31.9 Bipolar disorder, unspecified; Z68.32 Body mass index [BMI] 32.0-32.9, adult; Z03.818 Encounter for observation for suspected exposure to other biological agents ruled out
CPT/HCPCS: 0241U; 36415; 70450; 70496; 70498; 70551; 71046; 80048; 80076; 82947; 83605; 83735; 84484; 85025; 85027; 85379; 85610; 93005; 96372; 96374; 99222; 99285; J1650; J2060; Q9967

== ENCOUNTER → 2024-12-08 18:56 | Outpatient (BNV) | payer OTHER, SELFPAY | PROVIDERS: Emergency Provider Emergency Medicine Emergency Medical Services; PCP Internal Medicine; Visit Provider Radiology Neuroradiology | DX: G81.91 Hemiplegia, unspecified affecting right dominant side (principal); R20.2 Paresthesia of skin; R07.9 Chest pain, unspecified; R06.02 Shortness of breath | CPT/HCPCS: 71046 ==

== ENCOUNTER → 2024-12-08 18:56 | Outpatient (BNV) | payer OTHER, SELFPAY | PROVIDERS: Admitting Provider Student in an Organized Health Care Education/Training Program; Emergency Provider Emergency Medicine Emergency Medical Services; PCP Internal Medicine; Visit Provider Internal Medicine Cardiovascular Disease | DX: R00.1 Bradycardia, unspecified (principal) | CPT/HCPCS: 93010 ==

== ENCOUNTER 2024-12-08 21:30 | Outpatient (BNV) | payer OTHER, SELFPAY | END 2024-12-09 14:30 | PROVIDERS: Admitting Provider Student in an Organized Health Care Education/Training Program; Emergency Provider Emergency Medicine Emergency Medical Services; PCP Internal Medicine; Visit Provider Internal Medicine Cardiovascular Disease | DX: R07.9 Chest pain, unspecified (principal) | CPT/HCPCS: 93010 ==

== ENCOUNTER 2024-12-08 21:30 | Outpatient (BNV) | payer OTHER, SELFPAY | END 2024-12-09 10:55 | PROVIDERS: Admitting Provider Student in an Organized Health Care Education/Training Program; Emergency Provider Emergency Medicine Emergency Medical Services; PCP Internal Medicine; Visit Provider Radiology Diagnostic Radiology | DX: R20.0 Anesthesia of skin (principal); R53.1 Weakness | CPT/HCPCS: 70551 ==

== ENCOUNTER → 2024-12-08 21:30 | Outpatient (BNV) | payer OTHER, SELFPAY | PROVIDERS: Admitting Provider Student in an Organized Health Care Education/Training Program; Emergency Provider Emergency Medicine Emergency Medical Services; PCP Internal Medicine; Visit Provider Physician Assistant | DX: R20.0 Anesthesia of skin (principal); R53.1 Weakness; R07.9 Chest pain, unspecified; R79.89 Other specified abnormal findings of blood chemistry; E66.9 Obesity, unspecified | CPT/HCPCS: 99239 ==

== ENCOUNTER → 2024-12-11 14:15 | Outpatient (BNVA) | payer OTHER, SELFPAY | PROVIDERS: PCP Internal Medicine; Visit Provider Nurse Practitioner Family | DX: R53.1 Weakness (principal); G43.909 Migraine, unspecified, not intractable, without status migrainosus; J30.2 Other seasonal allergic rhinitis ==

== ENCOUNTER 2025-01-25 14:56 | Emergency (ER) | payer OTHER, SELFPAY ==
[2025-01-25 15:04] VITALS: BP 110/92; PULSE 85; RESP 18; TEMP 36.6; O2SAT 98; BMI 30.2
[2025-01-25 15:33] LABS: MANUAL DIFF FLAG NO
[2025-01-25 15:34] LABS: Basophils Percent Auto 0.3 % (0-2); Eosinophils Absolute Auto 0.1 X10*3/uL (0.0-0.4); Eosinophils Percent Auto 0.8 % (0-4); Hematocrit 37.8 % (37.0-47.0); Hemoglobin 13.2 g/dl (12.0-16.0); Imm Gran Abs Auto 0.01 X10*3/uL (0.00-0.03); Imm Gran Pct Auto 0.1 % (0.0-0.4); Lymphocytes Percent Auto 26.4 % (20-40); Mean Corpuscular HGB Conc 34.9 g/dl (31.0-35.0); Mean Corpuscular Hemoglobin 30.7 pg (27.0-33.0); Mean Corpuscular Volume 87.9 fL (80.0-98.0); Mean Platelet Volume 9.3 fL (9.4-12.3); Monocytes Absolute Auto 0.5 X10*3/uL (0.1-1.2); Monocytes Percent Auto 6.6 % (2-11); Neutrophils Absolute Auto 5.1 x10*3/uL (2.0-8.3); Neutrophils Percent Auto 65.8 % (45-73); Platelet Count 270 X10*3/uL (160-400); Red Cell Distribution Width 13.2 % (11.0-16.0); White Blood Count 7.7 X10*3/uL (4.8-10.8)
[2025-01-25 16:03] LABS: Alanine Aminotransferase 15 U/L (0-31); Anion Gap 11 (12-20); Aspartate Amino Transferase 17 U/L (5-31); Bilirubin Total 0.3 mg/dL (0.0-1.0); Blood Urea Nitrogen 10 mg/dL (9-16); Calcium 9.6 mg/dL (8.4-10.2); Carbon Dioxide 26 mmol/L (22-29); Chloride 110 mmol/L (96-108); Creatinine Clr Calc Pharmacy 94.9; Estimated Glomerular Filt Rate > 60; Glucose Random 97 mg/dL (60-115); HCG Quantitative < 2 mIU/mL; Potassium 4.3 mmol/L (3.3-5.1); Sodium 143 mmol/L (135-145); Total Protein 7.3 g/dL (6.5-8.0)
[2025-01-25 16:12] LABS: Influenza A PCR NEGATIVE (Negative); Influenza B PCR NEGATIVE (Negative); Resp Syncy Virus RNA Qual PCR NEGATIVE (Negative); SARS COV2 PCR INHOUSE NEGATIVE (Negative)
--- NOTE | 2025-01-25 16:51 | ED.GENADULT ---
HPI - General Adult General Chief complaint: General Medical Stated complaint: head pressure veins popping out Time Seen by Provider: 01/25/25 21:48 Source: patient Limitations: no limitations History of Present Illness ED Provider: Dora Agee PA-C HPI narrative: 39-year-old female with a history of bipolar, PTSD, chronic pain, chronic headache who presents with head pressure for years. Related Data Home Medications ?Medication ?Instructions ?Recorded ?Confirmed Celebrate One 18 ( Multivitamin 1 cap PO DAILY 12/08/24 12/08/24 With Iron) Previous Rx's ?Medication ?Instructions ?Recorded lamotrigine 150 mg tablet 150 mg PO DAILY #90 tabs 11/13/24 (Lamictal) ibuprofen 600 mg tablet 600 mg PO Q8H PRN migraine 12/09/24 headache #12 tabs cetirizine 10 mg tablet (All Day 10 mg PO DAILY PRN allergy 12/11/24 Allergy (cetirizine)) symptoms #90 tabs sumatriptan succinate 50 mg tablet See Rx Instructions PO .COMPLEX 12/11/24 #20 tabs Allergies Allergy/AdvReac Type Severity Reaction Status Date / Time oseltamivir [From TAMIFLU] Allergy Intermediate DROWSINESS/NAUSEA, Verified 01/27/25 13:04 rash, psychosis lithium AdvReac Intermediate weight gain Verified 01/27/25 13:04 Review of Systems Review of Systems: Yes all other systems are reviewed and are negative Constitutional: Constitutional: Denies fatigue, Denies fever(s) and Reports headache(s) ENT: Reports headache(s) Cardiovascular: Cardiovascular: Denies chest pain and Denies dyspnea Respiratory: Respiratory: Denies dyspnea Gastrointestinal: Gastrointestinal: Denies abdominal pain, Denies nausea and Denies vomiting Neurologic: Reports headache(s) Endocrine: Endocrine: Denies fatigue PMFSH Past Medical History Attestation statement: The following information was validated with the patient. Medical History Psychosis Hypovitaminosis D Breast lump on left side at 3 o'clock position Physical exam Overweight (BMI 25.0-29.9) Intestinal malabsorption following gastrectomy Malabsorption due to intolerance, not elsewhere classified Anemia Back pain GERD (gastroesophageal reflux disease) Morbid obesity Surgical History History of surgical procedure on mouth History of colonoscopy Hx of cholecystectomy S/P laparoscopic sleeve gastrectomy Family History Family History Father No problems noted. Mother Hypertension Sister No problems noted. Sister Hypoglycemia Brother No problems noted. Brother No problems noted. Son No problems noted. Son No problems noted. Paternal Aunt Breast cancer Colon cancer Paternal Grandfather No problems noted. Social History Social History Household Members: Spouse and Family Household Members Other:: , youngest son, 2 dogs Housing: House Do you presently have visiting nurse or other home services: No Unable to assess alcohol history related to: Refusing to respond Alcohol intake: former Patient Tobacco Use Status: Former Tobacco user Tobacco use type: Cigarette e-Cigarette/Vaping Use: Never Used Second Hand Smoke Exposure: No service: No Current occupational status: employed Current occupational exposures/hazards: No Sexual orientation: Straight/Heterosexual Cognitive needs: No Hearing needs: No Vision needs: No Physical Exam ED Vital Signs: Vital Signs - 24 hr 01/25/25 15:04 01/25/25 21:56 Temperature 98 F 98.3 F Pulse Rate 85 66 Respiratory Rate 18 16 Blood Pressure 110/92 H 107/70 Pulse Oximetry 98 100 Oxygen Delivery Method Room Air Room Air BMI result Body Mass Index 30.2 Const Other: Alert Orientation/consciousness: patient oriented x3 Resp Effort & Inspection: normal respiratory effort Cardio Other: Normal peripheral perfusion Skin Other: Warm dry no rash Neuro General: patient oriented x3, gait normal, no focal motor deficits and CN's II-XI intact bilaterally Psych Other: Cooperative Course Course Course Narrative: This is a Rapid Medical Examination (RME) performed by Mariah Redding PA-C in triage. Full HPI, ROS, assessment and treatment plan per primary provider in the Main ED. 39 yo female hx bipolar disorder, PTSD, obesity hx gastric sleeve here for eval of head pressure on/off for years. has had extensive work ups in the past, including by psychiatry. no known cause for head pressure. had MRI brain 2 mo ago - unremarkable. no other symptoms Plan: labs Medical Decision Making Medical Decision Making MDM Narrative: 39-year-old female with a history of bipolar, PTSD, chronic pain, chronic headache who presents with head pressure for years. Problem: Psychiatric illness, chronic pain History: Per patient I have considered the following differential diagnoses: Chronic headache, conversion disorder, viral syndrome Plan: Screening labs including a viral panel were obtained from triage. In November, the patient had extensive workup including CT angiograms of her head and neck and an MRI of the brain everything was normal. I suspect her psychiatric illnesses are playing a role in her presentation tonight. I am not repeating imaging, there have been no change in her chronic symptoms. She can continue to follow up with her healthcare providers who are managing her chronic issues. I have independently reviewed the following tests: Labs: No leukocytosis, not anemic, no electrolyte abnormality, viral panel was negative Lab Data 01/25/25 15:29 01/25/25 15:29 Labs: Lab Results 01/25/25 Range/Units 15:29 WBC 7.7 (4.8-10.8) X10*3/uL RBC 4.30 (4.20-5.50) X10*6/uL Hgb 13.2 (12.0-16.0) g/dl Hct 37.8 (37.0-47.0) % MCV 87.9 (80.0-98.0) fL MCH 30.7 (27.0-33.0) pg MCHC 34.9 (31.0-35.0) g/dl RDW 13.2 (11.0-16.0) % Plt Count 270 (160-400) X10*3/uL MPV 9.3 L (9.4-12.3) fL Immature Gran % (Auto) 0.1 (0.0-0.4) % Neut % (Auto) 65.8 (45-73) % Lymph % (Auto) 26.4 (20-40) % Apache % (Auto) 6.6 (2-11) % Eos % (Auto) 0.8 (0-4) % Baso % (Auto) 0.3 (0-2) % Lymph # (Auto) 2.0 (1.2-4.9) X10*3/uL Apache # (Auto) 0.5 (0.1-1.2) X10*3/uL Eos # (Auto) 0.1 (0.0-0.4) X10*3/uL Baso # (Auto) 0.0 (0.0-0.2) X10*3/uL Abs Immat Gran (auto) 0.01 (0.00-0.03) X10*3/uL Absolute Neuts (auto) 5.1 (2.0-8.3) x10*3/uL Absolute Nucleated RBC 0.000 (0.0-0.012) X10*3/uL Nucleated RBC % (auto) 0.0 (0.0-0.2) /100WBC Sodium 143 (135-145) mmol/L Potassium 4.3 D (3.3-5.1) mmol/L Chloride 110 H (96-108) mmol/L Carbon Dioxide 26 (22-29) mmol/L Anion Gap 11 L (12-20) BUN 10 (9-16) mg/dL Creatinine 0.71 (0.5-1.4) mg/dL Estim Creat Clear Calc 94.9 Estimated GFR > 60 Random Glucose 97 (60-115) mg/dL Calcium 9.6 (8.4-10.2) mg/dL Magnesium 2.0 (1.6-2.6) mg/dL Total Bilirubin 0.3 (0.0-1.0) mg/dL AST 17 (5-31) U/L ALT 15 (0-31) U/L Alkaline Phosphatase 67 (39-117) U/L Total Protein 7.3 (6.5-8.0) g/dL Albumin 4.0 (3.5-5.0) g/dL Beta HCG, Quant < 2 mIU/mL Influenza Type A (PCR) NEGATIVE (Negative) Influenza Type B (PCR) NEGATIVE (Negative) RSV RNA Qual (PCR) NEGATIVE (Negative) SARS-CoV-2 RNA (RT-PCR) NEGATIVE (Negative) Discharge Plan Discharge Clinical Impression: Headache Patient Disposition: Home, Self-Care Instructions: General Headache (ED) Additional Instructions: All of your screening labs including a viral panel were negative, you have had extensive workup in regard to your headaches, and November you had a negative MRI of the brain, and negative angiograms of the brain. You need to keep your follow up with Neurology and your primary care. Prescriptions: No Action Celebrate One 18 ( Multivitamin With Iron) capsule 1 cap PO DAILY ibuprofen 600 mg tablet 600 mg PO Q8H PRN (Reason: migraine headache) Qty: 12 0RF lamotrigine [Lamictal] 150 mg tablet 150 mg PO DAILY Qty: 90 2RF sumatriptan succinate 50 mg tablet See Rx Instructions PO .COMPLEX Qty: 20 0RF Rx Instructions: take 1 tab at onset of headache; if no relief may repeat 1 tab after at least 2 hrs; max = 3 tabs/24 hr PO cetirizine [All Day Allergy (cetirizine)] 10 mg tablet 10 mg PO DAILY PRN (Reason: allergy symptoms) Qty: 90 0RF Stand Alone Forms: Work/School Release Interventions: ED Discharge Assessment Last Done: 01/25/25 23:58 Discharge Date/Time: 01/25/25 23:59 Print Language: Macanese
[2025-01-25 17:34] LABS: Alkaline Phosphatase 67 U/L (39-117)
[2025-01-25 21:56] VITALS: BP 107/70; PULSE 66; RESP 16; TEMP 36.8; O2SAT 100
[2025-01-25 23:57] VITALS: BP 119/80; PULSE 70; RESP 16; TEMP 36.9; O2SAT 98
[2025-01-25 23:58] VITALS: BP 119/80; PULSE 70; RESP 16; TEMP 36.9; O2SAT 98
== END 2025-01-25 23:59 | disposition home or self-care (01) ==
PROVIDERS: Physician Assistant Medical; Emergency Provider Emergency Medicine; PCP Internal Medicine
DX: R51.9 Headache, unspecified (principal); Z03.818 Encounter for observation for suspected exposure to other biological agents ruled out; Z98.84 Bariatric surgery status; Z79.899 Other long term (current) drug therapy
CPT/HCPCS: 0241U; 36415; 80053; 83735; 84702; 85025; 99283

== ENCOUNTER 2025-01-27 12:00 | Outpatient (AMB) | payer OTHER, SELFPAY ==
[2025-01-27 12:57] VITALS: BP 114/80; PULSE 66; O2SAT 97; BMI 30.6
--- NOTE | 2025-01-27 12:57 | AM.OFFWIN_ITS ---
Intake Vital Signs 01/27/25 12:57 Height 5 ft 1 in Weight 162 lb BMI 30.6 BP 114/80 Blood Pressure Location Rt brachial Position Sitting Pulse 66 Pulse Source Pulse Oximeter Pulse Oximetry (%) 97 Oxygen Delivery Method Room Air Intake Visit Reasons: EP RT shoulder pain (not wc) Intake Note: Patient here for right shoulder pain that has been present on and off for a while. Patient Tobacco Use Status: Former Tobacco user Allergies oseltamivir [From TAMIFLU] Allergy (Intermediate, Verified 01/27/25 13:04) DROWSINESS/NAUSEA, rash, psychosis lithium Adverse Reaction (Intermediate, Verified 01/27/25 13:04) weight gain Do you need a note to return to daycare/school/sports/work: No HPI HPI Comments History of Present Illness Details She presents to office with R shoulder pain Has hx of R shoulder pain in 2019; has had PT in the past and seen orthopedics She pushed her R shoulder to help her get out of bed this am She said pain better than last time 04/27 She said she has some movements but is unable to fully rotate R shoulder Concerned it is dislocated R hand dominant [facility] Medical History Psychosis Hypovitaminosis D Breast lump on left side at 3 o'clock position Physical exam Overweight (BMI 25.0-29.9) Intestinal malabsorption following gastrectomy Malabsorption due to intolerance, not elsewhere classified Anemia Back pain GERD (gastroesophageal reflux disease) Morbid obesity Surgical History History of surgical procedure on mouth History of colonoscopy Hx of cholecystectomy S/P laparoscopic sleeve gastrectomy Family History Father No problems noted. Mother Hypertension Sister No problems noted. Sister Hypoglycemia Brother No problems noted. Brother No problems noted. Son No problems noted. Son No problems noted. Paternal Aunt Breast cancer Colon cancer Paternal Grandfather No problems noted. Social History Household Members: Spouse and Family Household Members Other:: , youngest son, 2 dogs Housing: House Do you presently have visiting nurse or other home services: No Unable to assess alcohol history related to: Refusing to respond Alcohol intake: former Patient Tobacco Use Status: Former Tobacco user Tobacco use type: Cigarette e-Cigarette/Vaping Use: Never Used Second Hand Smoke Exposure: No service: No Current occupational status: employed Current occupational exposures/hazards: No Sexual orientation: Straight/Heterosexual Cognitive needs: No Hearing needs: No Vision needs: No Female Reproductive History Menstrual Age of Menarche: 7 Review of Systems Const Denies chills and Denies fever(s) ENT Denies neck pain Card Denies chest pain and Denies dyspnea Resp Denies cough and Denies dyspnea Musc Reports arthralgias (R shoulder), Denies neck pain, Denies numbness and Denies tingling Skin/Breast Denies erythema, Denies rash and Denies skin swelling Neuro Denies numbness and Denies tingling Physical Exam Vital Signs: Last Vital Signs Pulse 66 01/27/25 12:57 BP 114/80 01/27/25 12:57 Pulse Ox 97 01/27/25 12:57 Oxygen Delivery Method Room Air 01/27/25 12:57 BMI result Body Mass Index 30.6 General: Non-toxic, NAD. Speaking full sentences. Skin: Warm dry throughout Eye: EOMI Respiratory: No respiratory distress or stridor Cardiac: radial pulse intact 2+ bilaterally. MSK: R shoulder: No sternoclavicular ttp or clavicular ttp. + AC joint TTP. No ttp R subacromial space, bicipital tendon, lateral humeral head. Pt has abduction R shoulder to 90 degrees. She has full ROM R elbow without ttp. Pt unable to rotate R shoulder. L shoulder: No TTP of joint Neurology: Alert. No aphasia or facial droop. Gait without abnormality Psych: Good mood and affect Assessment & Plan Assessment & Plan (1) Right shoulder pain: Code(s): M25.511 - Pain in right shoulder Qualifiers: Chronicity: acute Qualified Code(s): M25.511 - Pain in right shoulder Plan: I viewed xray and no fx or dislocation Refer to orthopedics but not [facility] because she has seen them before and wants a second opinion We discussed ice x 24-48 hours then can switch to hear F/U with PCP Call with concerns Orders: Orders XR shoulder RT min 2V Today M25.511 - Pain in right shoulder Referrals Orthopedics Referral M25.511 - Pain in right shoulder Coding Level of Care Code Est Pt Level 3 (91150) Diagnoses Acute pain of right shoulder M25.511 Chronicity: acute
--- OUTSIDE RECORDS SUMMARY | 2025-01-27 14:03 | XMS_ITS | Encounter Summary ---
Author Organization [employer] Address [address] [place] [address] [address] [place] [address] Care Team Providers Care Webfed Offset Press Operator Name Role Phone Unavailable Primary Care Provider Unavailabl e Encounter Details Date Type Department Care Team (Latest Contact Info) Description 08/25/2019 Abstract [facility] CONVERSIONS Dental, Provider, DDS Social History [...] Care Team (Late st Contact Info) Description 03/16/2025 11:00 AM EDT Office Visit [facility] [address] [place], [place] [phone] Augustina Carpenter [address] [place], [place] [phone] documented as of this encounter Visit Diagnoses Not on filedocumented in this encounter
--- OUTSIDE RECORDS SUMMARY | 2025-01-27 14:03 | XMS_ITS | Data Portability ---
Author Organization [place] - [facility], [address] Address [address] [place] [address] Assessment No assessment recorded. Plan of Treatment Reminders Order Date Submit Date Provider Last Modified By Organization Details Last Modified Time Details Appointments None record ed. Lab None record ed. Referral None record ed. Procedures None record ed. Surgeries None record ed. Imaging None record ed. Medication Orders None record ed. Patient TargetsNo targets recorded. Patient InstructionsNo instructions recorded. Reason for Referral None Reported. Procedures Surgical History Date Name Laterality Status Provider Name and Address Organization Details Recorded Time 3 OC- Physical completed ANEESH Butler [facility] 04/23/2023 17:08:58 Imaging Results None recorded. Procedure Notes None recorded. Medical Equipment None Reported. Medications Name Sig Start Date Stop Date Status Note LastModified by Organization Details LastModified Time cetirizine 10 mg tablet TAKE 1 TABLET BY MOUTH EVERY DAY active Not Available Not Available No t Available meloxicam 15 mg tablet TAKE 1 TABLET BY MOUTH EVERY DAY active Not Available Not Available No t Available prednisone 20 mg tablet TAKE 2 TABLETS BY MOUTH EVERY DAY FOR 5 DAYS active Not Available Not Available No t Available fluticasone propionate 50 mcg/actuatio n nasal spray,suspen ny TAKE 1 SPRAY INTRANASALL Y IN EACH NOSTRIL ONCE A DAY active Not Available Not Available N ot Available clotrimazole 1 % topical cream APPLY TO SKIN AND TOENAILS DAILY FOR 12 WEEKS active Not Available Not Available No t Available amoxicillin 875 mg-potassium clavulanate 125 mg tablet TAKE 1 TABLET BY MOUTH EVERY 12 HOURS active Not Available Not Available No t Available calcium 315 mg (as citrate)-vit acosta D3 5 mcg (200 unit) tablet TAKE 1 TABLET BY MOUTH TWICE A DAY active Not Available Not Available No t Available cholecalcife rol (vitamin D3) 25 mcg (1,000 unit) tablet TAKE 1 TABLET BY MOUTH EVERY DAY active Not Available Not Available No t Available diclofenac 1 % topical gel APPLY 4 G TOPICALLY 2 TIMES DAILY. active Not Available Not Available No t Available cholecalcife rol (vitamin D3) 50 mcg (2,000 unit) capsule TAKE 1 CAPSULE BY MOUTH EVERY DAY active Not Available Not Available No t Available Vitals None Recorded Social History None recorded. Functional Status None recorded. Mental Status None recorded. Family History Nothing Reported. Medical History No medical history recorded. Gynecological HistoryNo gynecological history recorded. Obstetrics History GPAL:G 0 P 0 0 0 0 Past Encounters Encounter ID Performer Location Encounter Start Date Encounter Closed Date Diagnosis/Indication Diagnosis SNOMED-CT Code Diagnosis ICD10 Code Diagnosis Note [id number] [place] [address] [facility] [address] [place] [address] 04/23/2023 15:39:01 04/23/2023 17:49:20 History and physical examination, pre-employment [id number] Z02.1 Health Concerns Section Related Observation LastModified by Organization Detai ls LastModified Time None Recorded Concern Status LastModified by Organization Details LastModified Time None Recorded Advance Directives Directive None Recorded Payers Encounter Date Sequence Insurance Name Policy Number Policy Hinton Covered Member ID Hinton Member ID Guarantor Name 04/23/2023 [address] [facility] [facility] Yulia Banda OBGyn Episode No OBEpisode recorded.
--- OUTSIDE RECORDS SUMMARY | 2025-01-27 14:03 | XMS_ITS | Clinical Summary ---
Author Organization [employer] Address [address] [place] [address] [address] [place] [address] Care Team Providers Care On Air Host Name Role Phone Unavailable Primary Care Provider Unavailabl e Allergies No known active allergies Medications lithium 300 MG capsule Take 300 mg by mouth 2 times daily. 02/03/2024 Active QUEtiapine (SEROquel) 100 MG tablet TAKE 1 TABLET BY MOUTH BEDTIME NEEDED FOR INSOMNIA FOR 30 DAYS 08/24/2024 Active SUMAtriptan (Imitrex) 25 MG tablet TAKE 1 TABLET BY MOUTH EVERY 2-4 HOURS NEEDED FOR MIGRAINE, MAX 8 DOSES DAILY *FOR 30 DAYS* 08/06/2024 Active Social History Tobacco Use Types Packs/Day Years Used Date Smoking Tobacco: Never Smokeless Tobacco: Never Tobacco Cessation:Counseling Given: Not Answered Comments Unknown Sex and Gender Information Value Date Recorded Sex Assigned at Female 09/17/2022 10:17 AM EDT Legal Sex Female 10:17 AM EDT Gender Identity Female 09/17/2022 10:17 AM EDT Sexual Orientation Straight 09/17/2022 10 :17 AM EDT Last Filed Vital Signs Vital Sign Reading Time Taken Comments Blood Pressure 105/63 09/02/2024 11:02 AM EDT Pulse 74 09/02/2024 11:02 AM EDT Temperature - - Respiratory Rate - - Oxygen Saturation - - Inhaled Oxygen Concentration - - Weight - - Height - - Body Mass Index - - Plan of Treatment Upcoming Encounters Date Type Department Care Team (Late st Contact Info) Description 03/16/2025 11:00 AM EDT Office Visit [facility] [address] [place] [phone] Augustina Carpenter [address] [place] [phone] Health Maintenance Due Date Last Done Comments Dental X-Ray: Bitewings 1983 Dental X-Ray: Full Mouth 1983 Depression Screening 1983 HIV Screening 1983 Lipid Panel 1983 SDOH Screening 1983 Alcohol/Substance Use Screening 1995 Family Planning (PISQ) 1998 Hepatitis C Screening 2001 Hepatitis B Vaccines (1 of 3 - 19+ 3-dose series) 2002 Pap Smear 2004 Cervical Cancer Screening 2013 HPV/Cotest 2013 Pneumococcal Vaccine: Pediatrics (0 to 5 Years) and At-Risk Patients (6 to 49) Years) (2 of 2 - PCV) 03/30/2014 03/30/2013 Mammogram 2023 COVID-19 Vaccine ( - season) 2024 Influenza Vaccine (#1) 2024 9, 12/11/2017, 09/17/2015, Additional history exists Dental Oral Exam 03/04/2025 09/02/2024, 01/09/2023 Dental Prophylaxis 03/04/2025 09/02/2024, 1 , 01/09/2023 Tobacco Screening 09/02/2025 09/02/2024 DTaP/Tdap/Td Vaccines (2 - Td or Tdap) 02/05/2033 02/05/2023 Zoster Vaccines (1 of 2) 2033 RSV Patients and Patients Aged 60 years or older (1 - 1-dose 75+ series) 2058 HIB Vaccines Aged Out No longer eligi ble based on patient's age to complete this topic HPV Vaccines Aged Out No longer eligi ble based on patient's age to complete this topic Hepatitis A Vaccines Aged Out No long er eligible based on patient's age to complete this topic IPV Vaccines Aged Out No longer eligi ble based on patient's age to complete this topic Meningococcal Vaccine Aged Out No samanta sheridan eligible based on patient's age to complete this topic RSV under 20 months Aged Out No longe r eligible based on patient's age to complete this topic Rotavirus Vaccines Aged Out No longer eligible based on patient's age to complete this topic Procedures Procedure Name Priority Date/Time Associated Diagnosis Comments PROPHYLAXIS - ADULT Routine 09/02/2024 1 1:00 AM EDT PERIODIC ORAL EVALUATION - ESTABLISHED PATIENT Routine 09/02/2024 11:00 AM EDT from Last 3 Months or Most Recently Relevant to Health Maintenance Insurance [facility] MEDICAID STAND ADULT
--- OUTSIDE RECORDS SUMMARY | 2025-01-27 14:03 | XMS_ITS | Encounter Summary ---
Author Organization [employer] Address [address] [place] [address] [address] [place] [address] Care Team Providers Care Gse Mechanic Name Role Phone Unavailable Primary Care Provider Unavailabl e Encounter Details Date Type Department Care Team (Latest Contact Info) Description 07/27/2019 Abstract [facility] CONVERSIONS Dental, Provider, DDS Social History [...] Description 03/16/2025 11:00 AM EDT Office Visit [facility] [address] [place], [place] [phone] Augustina Carpenter [address] [place], [place] [phone] documented as of this encounter Visit Diagnoses Not on filedocumented in this encounter
--- OUTSIDE RECORDS SUMMARY | 2025-01-27 14:03 | XMS_ITS | Encounter Summary ---
Author Organization [employer] Address [address] [place] [address] [address] [place] [address] Care Team Providers Care Ssis Developer Name Role Phone Unavailable Primary Care Provider Unavailabl e Encounter Details Date Type Department Care Team (Latest Contact Info) Description 12/07/2020 Abstract [facility] CONVERSIONS Dental, Provider, DDS Social History [...] Description 03/16/2025 11:00 AM EDT Office Visit [facility] DENTAL [address] [place], [place] [phone] Augustina Carpenter [address] [place], [place] [phone] documented as of this encounter Visit Diagnoses Not on filedocumented in this encounter
== END 2025-01-27 13:51 | disposition home or self-care (01) ==
PROVIDERS: PCP Internal Medicine; Visit Provider Physician Assistant
DX: M25.511 Pain in right shoulder (principal)

== ENCOUNTER 2025-01-27 13:16 | Outpatient (REF) | payer OTHER, SELFPAY ==
--- NOTE | ~2025-01-27 | XR_ITS ---
EXAMINATION: XR SHOULDER, RIGHT CLINICAL INFORMATION: M25.511 - Pain in right shoulder COMPARISON: June 01, 2022. TECHNIQUE: AP external rotation, Grashey, scapular Y, and axillary views of the right shoulder. FINDINGS: There is a 5 mm gap at the acromioclavicular joint. No acute cortical disruption or malalignment. No lytic or blastic lesions. XR/XR shoulder RT min 2V IMPRESSION: Stable. Electronically signed by: Puneet Yip MD 01/27/2025 02:28 PM EDT
--- OUTSIDE RECORDS SUMMARY | 2025-01-27 15:32 | XMS_ITS | Encounter Summary ---
Author Organization [employer] Address [address] [place] [address] [address] [place] [address] Care Team Providers Care Aluminum Boats Assembler Name Role Phone Unavailable Primary Care Provider [...] Description 03/16/2025 11:00 AM EDT Office Visit [facility] D[facility] [address] [place], [place] [phone] Augustina Carpenter [address] [place], [place] [phone] documented as of this encounter Visit Diagnoses Not on filedocumented in this encounter
--- OUTSIDE RECORDS SUMMARY | 2025-01-27 15:32 | XMS_ITS | Encounter Summary ---
Author Organization [employer] Address [address] [place] [address] [address] [place] [address] Care Team Providers Care Surgical Scheduler Name Role Phone Unavailable Primary Care Provider Unavailabl e Encounter Details Date Type Department Care Team (Latest Contact Info) Description 08/25/2019 Abstract [facility] CONVERSIONS Dental, Provider, DDS Social History Tobacco [...] Description 03/16/2025 11:00 AM EDT Office Visit [facility] [address] [place], [place] [phone] Augustina Carpenter [address] [place], [place] [phone] documented as of this encounter Visit Diagnoses Not on filedocumented in this encounter
--- OUTSIDE RECORDS SUMMARY | 2025-01-27 15:32 | XMS_ITS | Clinical Summary ---
Author Organization [employer] Address [address] [place] [address] [address] [place] [address] Care Team Providers Care Grain Inspector Name Role Phone Unavailable Primary Care Provider [...] Description 03/16/2025 11:00 AM EDT Office Visit [facility] D[facility] [address] [place] [phone] Augustina Carpenter [address] [place] [phone] Health Maintenance Due Date Last Done Comments [...] Most Recently Relevant to Health Maintenance Insurance [facility] MEDICAID STAND ADULT
--- OUTSIDE RECORDS SUMMARY | 2025-01-27 15:32 | XMS_ITS | Encounter Summary ---
Author Organization [employer] Address [address] [place] [address] 7t [place] [address] Care Team Providers Care Advertiser Name Role Phone Unavailable Primary Care Provider Unavailabl e Encounter Details Date Type Department Care Team (Latest Contact Info) Description 07/27/2019 Abstract [facility] CONVERSIONS Dental, Provider, DDS Social History Tobacco [...] Description 03/16/2025 11:00 AM EDT Office Visit [facility] [address] [place], [place] [phone] Augustina Carpenter [address] [place], [place] [phone] documented as of this encounter Visit Diagnoses Not on filedocumented in this encounter
== END 2025-01-27 13:17 | disposition home or self-care (01) ==
LOC: HO.HMGCX 13:16
PROVIDERS: PCP Internal Medicine; Visit Provider Physician Assistant
DX: M25.511 Pain in right shoulder (principal)
CPT/HCPCS: 73030; 99212

== ENCOUNTER → 2025-01-27 13:27 | Outpatient (BNV) | payer OTHER, SELFPAY | PROVIDERS: PCP Internal Medicine; Visit Provider Radiology Diagnostic Radiology | DX: M25.511 Pain in right shoulder (principal) | CPT/HCPCS: 73030 ==

== ENCOUNTER 2025-02-16 06:51 | Outpatient (REF) | payer SELFPAY ==
--- OUTSIDE RECORDS SUMMARY | 2025-02-16 06:53 | XMS_ITS | Data Portability ---
Author Organization [place] - [facility], [address] Address [address] [place] [address] Assessment No assessment recorded. Plan of Treatment [...] Recorded Time 3 OC- Physical completed ANEESH RAMIREZ - [email or web address] [facility] 04/23/2023 17:08:58 Imaging Results None recorded. [...] SNOMED-CT Code Diagnosis ICD10 Code Diagnosis Note [id number] Haley Caceres MD [address] [facility] [address] [place] [address] 04/23/2023 15:39:01 04/23/2023 17:49:20 History and physical examination, pre-employment [id number] Z02.1 Health Concerns Section Related Observation LastModified [...]
[2025-02-16 07:50] LABS: Alanine Aminotransferase 20 U/L (0-31); Alkaline Phosphatase 66 U/L (39-117); Anion Gap 6 (12-20); Aspartate Amino Transferase 17 U/L (5-31); Bilirubin Total 0.3 mg/dL (0.0-1.0); Blood Urea Nitrogen 12 mg/dL (9-16); Calcium 9.3 mg/dL (8.4-10.2); Carbon Dioxide 29 mmol/L (22-29); Chloride 110 mmol/L (96-108); Cholesterol 180 mg/dL (<200); Estimated Glomerular Filt Rate > 60; Glucose Fasting 84 mg/dL (60-99); HDL Cholesterol 89 mg/dL (>40); LDL Cholesterol Calculated 81 mg/dL (<100); Potassium 4.3 mmol/L (3.3-5.1); Sodium 141 mmol/L (135-145); Total Protein 6.9 g/dL (6.5-8.0); Triglycerides 52 mg/dL (<150)
[2025-02-16 07:59] LABS: Lithium < 0.10 mmol/L (0.60-1.20)
[2025-02-16 08:09] LABS: Free T4 (Free Thyroxine) 0.89 ng/dL (0.71-1.85); Thyroid Stimulating Hormone 1.27 uIU/mL (0.32-4.0); Vitamin D 25-OH Total 30.6 ng/mL (>30)
== END 2025-02-16 06:52 | disposition home or self-care (01) ==
LOC: HO.LAB 06:51
PROVIDERS: PCP Internal Medicine; Visit Provider Internal Medicine
DX: Z00.00 Encounter for general adult medical examination without abnormal findings (principal); F31.9 Bipolar disorder, unspecified; R79.89 Other specified abnormal findings of blood chemistry; E55.9 Vitamin D deficiency, unspecified
CPT/HCPCS: 36415; 80053; 80061; 80178; 82306; 84439; 84443; 96127; 99396

== ENCOUNTER 2025-02-16 17:23 | Outpatient (AMB) | payer OTHER, SELFPAY ==
[2025-02-16 17:27] VITALS: BP 120/70; BMI 31.0
--- NOTE | 2025-02-16 17:27 | MHC.PC.OV ---
Vital Signs 02/16/25 17:27 Height 5 ft 1 in Weight 164 lb BMI 31.0 BP 120/70 Blood Pressure Location Lt brachial Position Sitting Intake Visit Reasons: annual exam Intake Note: Patient here for an annual physical exam Management Consulting Required: Yes Management Consulting Language: Test Grader Name: Cydney Foster MD Information Interpreted: non-clinical & clinical Accompanied by: Self / Same As Patient Allergies oseltamivir [From TAMIFLU] Allergy (Intermediate, Verified 02/16/25 17:36) DROWSINESS/NAUSEA, rash, psychosis lithium Adverse Reaction (Intermediate, Verified 02/16/25 17:36) weight gain Medication List - Last Reconciled 02/16/25 by Cydney Foster MD cetirizine (All Day Allergy (cetirizine)) 10 mg PO DAILY PRN magnesium oxide 400 mg PO DAILY sumatriptan succinate take 1 tab at onset of headache; if no relief may repeat 1 tab after at least 2 hrs; max = 3 tabs/24 hr PO Tobacco use date assessed: 12/11/24 Dental Screening Dental Screen Date: 12/11/24 HPI HPI Comments History of Present Illness Details The patient is a 39-year-old female presenting for her physical exam. She has history of bipolar disorder stable with medications. Colonoscopy done 2014. Mammogram done last year and will be repeated this month. Tdap vaccine up-to-date. [facility] Medical History Obesity (BMI 30.0-34.9) Psychosis Hypovitaminosis D Breast lump on left side at 3 o'clock position Physical exam Overweight (BMI 25.0-29.9) Intestinal malabsorption following gastrectomy Malabsorption due to intolerance, not elsewhere classified Anemia Back pain GERD (gastroesophageal reflux disease) Morbid obesity Surgical History History of surgical procedure on mouth History of colonoscopy Hx of cholecystectomy S/P laparoscopic sleeve gastrectomy Family History Father No problems noted. Mother Hypertension Sister No problems noted. Sister Hypoglycemia Brother No problems noted. Brother No problems noted. Son No problems noted. Son No problems noted. Paternal Aunt Breast cancer Colon cancer Paternal Grandfather No problems noted. Social History Household Members: Spouse and Family Household Members Other:: , youngest son, 2 dogs Housing: House Do you presently have visiting nurse or other home services: No Unable to assess alcohol history related to: Refusing to respond Alcohol intake: former Patient Tobacco Use Status: Former Tobacco user Tobacco use type: Cigarette e-Cigarette/Vaping Use: Never Used Second Hand Smoke Exposure: No service: No Current occupational status: employed Current occupational exposures/hazards: No Sexual orientation: Straight/Heterosexual Cognitive needs: No Hearing needs: No Vision needs: No Female Reproductive History Menstrual Age of Menarche: 7 Questionnaire PHQ-9 Over the last 2 weeks, how often have you been bothered by any of the following problems? 1. Little interest or pleasure in doing things: not at all 2. Feeling down, depressed, or hopeless: not at all 3. Trouble falling or staying asleep, or sleeping too much: not at all 4. Feeling tired or having little energy: not at all 5. Poor appetite or overeating: more than half the days 6. Feeling bad about yourself - or that you are a failure or have let yourself or your family down: not at all 7. Trouble concentrating on things, such as reading the newspaper or watching television: not at all 8. Moving or speaking so slowly that other people could have noticed. Or the opposite - being so fidgety or restless that you have been moving around a lot more than usual: not at all 9. Thoughts that you would be better off or of hurting yourself in some way: not at all Total score: 2 Depression Screening Interpretation: Positive Depression Screening Follow-up: Existing condition and Follow-up Visit Requested Depression Screening Done: Yes 50013 - PHQ-9 Billing: Yes Source: Developed by Drs. Rogelio Villatoro, Cassidy Serrano, Guido Doss and colleagues, with an educational bob from [employer] Thrive Questionnaire Date Thrive assessed: 12/11/24 I am a: Patient What is your living situation today?: I have a place to live, but I am worried about losing it in the future Within the past 12 months, did the food you bought not last and you didn't have the money to get more?: Sometimes True Within the past 12 months, did you worry whether your food would run out before you got money to buy more?: Sometimes True Do you have trouble paying for medicines?: Yes Do you have trouble getting transportation to medical appointments?: No Do you have trouble paying your heating and electricity bill?: No Do you have trouble taking care of your child, family member or friend?: No Do you have trouble with day-to-day activities such as bathing, preparing meals, shopping, managing finances, etc.?: No Are you currently unemployed and looking for a job?: No Are you interested in more education?: No Please select the resources that you would like help with: Housing/Chcf, Food and Paying for medicine Currently or been in a relationship where the following occur: No concerns reported THRIVE Score: 3 AUDIT C Alcohol Use Questionnaire (AUDIT-C) 1. How often do you have a drink containing alcohol?: Never Total Score: 0 Score Reviewed/Action Taken: No LUIZ-7 AMB Questionnaire LUIZ-7 Date LUIZ - 7 assessed: 12/11/24 Feeling nervous, anxious, or on edge: 0 = Not at all Not being able to stop or control worryin = Not at all Worrying too much about different things: 0 = Not at all Trouble relaxin = Not at all Being so restless that it is hard to sit still: 0 = Not at all Becoming easily annoyed or irritable: 0 = Not at all Feeling afraid as if something awful might happen: 0 = Not at all Total LUIZ-7 score (0-4 normal; 5-9 mild; 10-14 moderate; 15-21 severe): 0 Source: Developed by Drs. Rogelio Villatoro, Cassidy Serrano, Guido Doss and colleagues, with an educational bob from [employer] LUIZ-7 Assessment Billing LUIZ-7 Assessment Tool: LUIZ-7 Assessment 62016 Review of Systems Const All systems reviewed & are unremarkable except as noted in HPI and below Card Denies chest pain at rest, Denies chest pain with activity, Denies edema, Denies irregular heart rhythm, Denies claudication, Denies dyspnea, Denies dyspnea on exertion, Denies orthopnea, Denies paroxysmal nocturnal dyspnea and Denies slow heart rate Resp Denies cough, Denies dyspnea and Denies dyspnea on exertion GI Denies abdominal pain, Denies change in bowel habits, Denies excessive flatus, Denies nausea and Denies vomiting Denies urinary incontinence, Denies urinary hesitancy and Denies urinary urgency Neuro Denies behavioral changes and Denies lack of coordination Psych Denies behavioral changes Physical exam (Primary Care) Vital Signs: Last Vital Signs BP 120/70 02/16/25 17:27 BMI result Body Mass Index 31.0 Tobacco/Smoking Status: Tobacco use Status Tobacco use date assessed 12/11/24 02/16/25 17:33 Patient Tobacco Use Status Former Tobacco user 02/16/25 17:33 Tobacco use type Cigarette 02/16/25 17:33 e-Cigarette/Vaping Use Never Used 02/16/25 17:33 PHQ-9: PHQ-9 Score PHQ-9: Total score 2 02/16/25 17:34 Depression Screening Interpretation: Positive Depression Screening Follow-up: Existing condition and Follow-up Visit Requested Thrive Assessment: Date of Thrive Assessment Date Thrive assessed 12/11/24 02/16/25 17:33 Currently or been in a relationship where the following occur: No concerns reported HENMT Head: Yes normal to inspection, Yes normocephalic and Yes atraumatic Ears: external ears normal Eyes General: appearance normal, both eyes and all related structures Eyelids: Yes eyelids normal Conjunctivae: conjunctivae normal Neck Neck: Yes normal visual inspection and Yes supple Resp Effort & Inspection: normal respiratory effort Auscultation: clear to auscultation bilaterally Cardio Jugular venous distension: no JVD Rate: regular rate Rhythm: regular rhythm Heart sounds: S1 normal heart sound present and S2 normal heart sound present GI Inspection: Yes normal to inspection Palpation (GI): Soft to palpation and nontender Auscultation: normal bowel sounds Skin General skin exam: no rashes or lesions noted Neuro General: no focal motor deficits Extrem General: Yes full ROM Psych Appearance: grossly normal Coding Level of Care Code Est Pt Prev Care 40-64y(92171) Diagnoses Physical exam Z00.00 Bipolar I disorder with mixed features F31.9 Additional Codes PHQ-9 - 20285 - PHQ-9 Billing: Yes ([id number]) LUIZ-7 Assessment Billing - LUIZ-7 Assessment Tool: LUIZ-7 Assessment 70609 ([id number]) Time Spent (min) 30 Assessment & Plan Assessment & Plan (1) Physical exam: Code(s): Z00.00 - Encounter for general adult medical examination without abnormal findings Category: Medical (2) Bipolar I disorder with mixed features: Code(s): F31.9 - Bipolar disorder, unspecified Category: Medical Plan For the management of osteoarthritis post surgical intervention, the patient continues with supplementations such as cetirizine, magnesium, sumatriptan for migraines, and various vitamins. The necessity of controlling familial hypertension was noted. Concerns regarding the affordability of medications were addressed, suggesting modifications when possible. The patient was advised to maintain an appropriate health maintenance schedule and to report any changes in her health, especially regarding her history of surgeries. The scheduled mammogram serves as a preventive check, given the reports of a calcium deposit. The patient acknowledges the importance of regular screenings given her personal and familial medical history. Patient was informed and verbally consented to the use of an ambient scribe for clinic note documentation during this visit. Patient Instructions: - Attend the scheduled mammography on March 02 - Continue with prescribed supplements and medications as discussed - Monitor for any significant changes in health, particularly regarding surgical sites and any new symptoms - Maintain regular health screening appointments - Seek medical attention if there are significant changes in health or new symptoms develop
--- OUTSIDE RECORDS SUMMARY | 2025-02-16 19:05 | XMS_ITS | Encounter Summary ---
Author Organization [employer] Address [address] [facility] 7t [place] [address] Care Team Providers Care Casting Machine Adjuster Name Role Phone Unavailable Primary Care Provider Unavailabl e Encounter Details Date Type Department Care Team (Latest Contact Info) Description 08/25/2019 Abstract [facility] CONVERSIONS Dental, Provider, DDS Social History Tobacco Use Types Packs/Day Years Used Date Smoking Tobacco: Never Assessed Comments Unknown Sex and Gender Information Value Date Recorded Sex Assigned at Female 09/17/2022 10:17 AM EDT Legal Sex Female 10:17 AM EDT Gender Identity Female 09/17/2022 10:17 AM EDT Sexual Orientation Straight 09/17/2022 10 :17 AM EDT documented as of this encounter Plan of Treatment Not on file documented as of this encounter Visit Diagnoses Not on filedocumented in this encounter
--- OUTSIDE RECORDS SUMMARY | 2025-02-16 19:05 | XMS_ITS | Clinical Summary ---
Author Organization [employer] Address [address] [place] [address] [address]t [place] [address] Care Team Providers Care Driveway Attendant Name Role Phone Unavailable Primary Care Provider [...] Mass Index - - Plan of Treatment Health Maintenance Due Date Last Done Comments [...] PCV) 03/30/2014 03/30/2013 Mammogram 2023 COVID-19 Vaccine (1 - season) 2024 Influenza Vaccine (#1) 2024 [...] Most Recently Relevant to Health Maintenance Insurance [facility] STAND ADULT * Guarantor: Yulia Ross Account Type Relation to Patient Date of Phone Billing Address Personal/Family Self [facility] [place] [address]
--- OUTSIDE RECORDS SUMMARY | 2025-02-16 19:05 | XMS_ITS | Encounter Summary ---
Author Organization [employer] Address [address] [facility] 7t [place] [address] Care Team Providers Care Poising Inspector Name Role Phone Unavailable Primary Care Provider Unavailabl e Encounter Details Date Type Department Care Team (Latest Contact Info) Description 07/27/[address] [facility] CONVERSIONS Dental, Provider, DDS Social History [...]
--- OUTSIDE RECORDS SUMMARY | 2025-02-16 19:05 | XMS_ITS | Clinical Summary ---
Author Organization [facility] Address [address] [place] [address] Phone Care Team Providers Care Dry Wall Installations Mechanic Name Role Phone Юлия Daigle MD Primary Care Provider [phone] Surgical History Surgery Date Site/Laterality Comments CHOLECYSTECTOMY PROCEDURE: ND CHOLECYSTECTOMY BARIATRIC SURGERY N/A PROCEDURE: ND LAPS GSTRC RSTRICTIV PX LONGITUDINAL GASTRECTOMY MULTIPLE TOOTH EXTRACTIONS N/A PROCEDURE: HISTORICAL DENTAL EXTRACTION; COMMENT: all upper teeth d/t infection Family History Medical History Relation Name Comments Breast cancer Aunt Colon cancer Maternal Grandfather Cervical cancer Neg Hx Prostate cancer Neg Hx Uterine cancer Neg Hx Relation Name Status Comments Aunt Alive Maternal Grandfather Social History Tobacco Use Types Packs/Day Years Used Date Smoking Tobacco: Never Smokeless Tobacco: Never Alcohol Use Standard Drinks/Week Comments Never 0 (1 standard drink = 0.6 oz pur e alcohol) Comments Unknown Sex and Gender Information Value Date Recorded Sex Assigned at Not on file Legal Sex Female 8:53 AM EST Gender Identity Not on file Sexual Orientation Not on file Obstetrics History Last Filed Vital Signs Vital Sign Reading Time Taken Comments Blood Pressure 100/59 06/03/2023 3:23 PM EDT Pulse 82 06/03/2023 3:23 PM EDT Temperature - - Respiratory Rate - - Oxygen Saturation - - Inhaled Oxygen Concentration - - Weight 77.6 kg (171 lb) 06/03/2023 3:23 PM EDT Height 154.9 cm (5' 1 ) 06/03/2023 3:23 PM EDT Body Mass Index 32.31 06/03/2023 3:23 PM EDT Plan of Treatment Upcoming Encounters Date Type Department Care Team ([facility] st Contact Info) Description 03/12/2025 11:30 AM EDT Consult Orthopedic Surgery - [place] [address] [facility] [address] [place] [address] Mary Valencia MD [address] [facility] [address] [place] [address] Health Maintenance Due Date Last Done Comments Breast Cancer Screening 1983 DTaP,Tdap,and Td Vaccines (1 - Tdap) 2002 Hepatitis B Vaccines (1 of 3 - 19+ 3-dose series) 2002 Cervical Cancer Screening: P ap Smear 2004 Depression Screening 10/21/2022 HIV Screening 10/21/2022 Hepatitis C Screening 10/21/2022 Social Influencers of Health Screening 10/21/2022 COVID-19 Vaccine ( - 2023-2 5 season) 2024 Influenza Vaccine (#1) 2024 HIB Vaccines Aged Out No longer eligi [...] on patient's age to complete this topic MMR Vaccines Aged Out No longer eligi ble based on patient's age to complete this topic Meningococcal ACWY Vaccine Aged Out N o longer eligible based on patient's age to complete this topic Meningococcal B Vacine Aged Out No lo nger eligible based on patient's age to complete this topic Pneumococcal Vaccine: Pediat rics (0 to 5 Years) and At-Risk Patients (6 to 64 Years) Aged Out No longer eligible b ased on patient's age to complete this topic RSV Immunization Patients Un salvador 20 months Aged Out No longer eligible b ased on patient's age to complete this topic Varicella Vaccines Aged Out No longer eligible based on patient's age to complete this topic Insurance [facility] Care Teams Dry Wall Installations Mechanic Relationship Specialty Start Date End Date Юлия Daigle MD [address] [place] [address] [address] [facility] [place] [address] PCP - General 04/01/23
--- OUTSIDE RECORDS SUMMARY | 2025-02-16 19:05 | XMS_ITS | Encounter Summary ---
Author Organization [employer] Address [address] [facility] 7t [place] [address] Care Team Providers Care Leaf Conditioner Name Role Phone Unavailable Primary Care Provider Unavailabl e Encounter Details Date Type Department Care Team (Latest Contact Info) Description 12/07/2020 Abstract [facility] CONVERSIONS Dental, Provider, DDS Social History Tobacco [...]
== END 2025-02-16 17:50 | disposition home or self-care (01) ==
LOC: HO.HMCH 17:24
PROVIDERS: PCP Internal Medicine; Visit Provider Internal Medicine
DX: Z00.00 Encounter for general adult medical examination without abnormal findings (principal); F31.9 Bipolar disorder, unspecified

== ENCOUNTER 2025-03-02 09:32 | Outpatient (REF) | payer OTHER, SELFPAY ==
--- NOTE | ~2025-03-02 | US_ITS ---
EXAMINATION: US DIAGNOSTIC ULTRASOUND BREAST, LEFT CLINICAL INFORMATION: 6 month follow-up for simple to minimally complicated cyst in the left breast at 11:00 3 cm from the nipple.. COMPARISON: Comparison is made with relevant prior imaging. TECHNIQUE: Ultrasound of the breast is performed with real-time meneses scale imaging and color Doppler. FINDINGS: Targeted color Doppler ultrasound demonstrates interval decreased size of minimally complicated cyst at 11:00 recent meters from the nipple measuring 4 x 3 x 2 mm. Results are discussed with the patient at time of visit. US/US breast LT limited mamm only IMPRESSION: Interval decreased size of minimally complicated cyst at 11:00 3 cm from the nipple. Recommend 6 month follow-up the patient will be due for bilateral mammography and follow-up of left breast focal asymmetry on mammography to demonstrate stability or resolution. ASSESSMENT: BI-RADS 3: Probably Benign RECOMMENDATION: Diagnostic mammography in 6 months. This patient's information was entered into a reminder system with a target due date for their next mammogram. Electronically signed by: Angela Hewitt DO 03/02/2025 10:46 AM EDT
--- OUTSIDE RECORDS SUMMARY | 2025-03-02 10:43 | XMS_ITS | Encounter Summary ---
Author Organization [employer] Address [address] [place] [address] 7t [place] [address] Care Team Providers Care Cop Examiner Name Role Phone Unavailable Primary Care Provider Unavailabl e Encounter Details Date Type Department Care Team (Latest Contact Info) Description 07/27/[address] [facility] CONVERSIONS Dental, Provider, DDS Social History [...] Care Team (Late st Contact Info) Description 04/27/2025 1:00 PM EDT Office Visit [facility] [address] [place] [address] Augustina Carpenter [address] [place], [place] [phone] documented as of this encounter Visit Diagnoses Not on filedocumented in this encounter
--- OUTSIDE RECORDS SUMMARY | 2025-03-02 10:43 | XMS_ITS | Encounter Summary ---
Author Organization [employer] Address [address] [place] [address] [address]t [place] [address] Care Team Providers Care Manufacturing Operator Name Role Phone Unavailable Primary Care Provider Unavailabl e Encounter Details Date Type Department Care Team (Latest Contact Info) Description 12/07/2020 Abstract [facility] CONVERSIONS Dental, Provider, DDS Social History [...] Description 04/27/2025 1:00 PM EDT Office Visit [facility] DENTAL [address] [place] [address] Augustina Carpenter [address] [place], [place] [phone] documented as of this encounter Visit Diagnoses Not on filedocumented in this encounter
--- OUTSIDE RECORDS SUMMARY | 2025-03-02 10:43 | XMS_ITS | Clinical Summary ---
Author Organization [facility] Address [address] [place] [address] Phone Care Team Providers Care Nurse Tech Name Role Phone Юлия Daigle MD Primary Care Provider [phone] Surgical History Surgery Date Site/Laterality Comments CHOLECYSTECTOMY PROCEDURE: AL CHOLECYSTECTOMY BARIATRIC SURGERY N/A PROCEDURE: AL LAPS GSTRC RSTRICTIV PX LONGITUDINAL GASTRECTOMY MULTIPLE [...] Upcoming Encounters Date Type Department Care Team ([facility] st Contact Info) Description 03/12/2025 11:30 AM EDT Consult Orthopedic Surgery - [place] [address] [facility] [address] [place] [address] Mary Valencia MD [address] [facility] [address] [place] [address] Health Maintenance Due Date Last Done Comments Breast Cancer Screening 1983 DTaP,Tdap,and Td Vaccines (1 - Tdap) 2002 Hepatitis B Vaccines (1 of 3 - 19+ 3-dose series) 2002 Cervical Cancer Screening: P ap Smear 2004 Depression Screening 10/21/2022 HIV Screening 10/21/2022 Hepatitis C Screening 10/21/2022 Social Influencers of Health Screening 10/21/2022 COVID-19 Vaccine ( - 2023-2 5 season) 2024 Influenza Vaccine (Season Ended) 2025 HIB Vaccines Aged Out No longer eligi [...] age to complete this topic Meningococcal B Vaccine Aged Out No l onger eligible based on patient's age to complete [...] patient's age to complete this topic Insurance [facility] [employer] Care Teams Nurse Tech Relationship Specialty Start Date End Date Юлия Daigle MD [address] [place] [address] [address] [facility] [place] [id number] PCP - General 04/01/23
--- OUTSIDE RECORDS SUMMARY | 2025-03-02 10:43 | XMS_ITS | Data Portability ---
Author Organization [place] - [facility], [address] Address [address] [place] [address] Assessment No assessment recorded. Plan of Treatment [...] 3 OC- Physical completed ANEESH RAMIREZ - [facility] 04/23/2023 17:08:58 Imaging Results None recorded. [...] SNOMED-CT Code Diagnosis ICD10 Code Diagnosis Note [id number] Haley Caceres [place] [address] [facility] [address] [place] [address] 04/23/2023 15:39:01 04/23/2023 17:49:20 History and physical examination, pre-employment [id number] Z02.1 Health Concerns Section Related Observation LastModified [...]
--- OUTSIDE RECORDS SUMMARY | 2025-03-02 10:43 | XMS_ITS | Encounter Summary ---
Author Organization [employer] Address [address] [place] [address] 7t [place] [address] Care Team Providers Care Student Services Dean Name Role Phone Unavailable Primary Care Provider Unavailabl e Encounter Details Date Type Department Care Team (Latest Contact Info) Description 08/25/2019 Abstract [facility] CONVERSIONS Dental, Provider, DDS Social History [...] Description 04/27/2025 1:00 PM EDT Office Visit [facility] [address] [place] [address] Augustina Carpenter [address] [place], [place] [phone] documented as of this encounter Visit Diagnoses Not on filedocumented in this encounter
--- OUTSIDE RECORDS SUMMARY | 2025-03-02 10:43 | XMS_ITS | Clinical Summary ---
Author Organization [employer] Address [address] [place] [address] 7t [place] [address] Care Team Providers Care Artificial Flowers Supervisor Name Role Phone Unavailable Primary Care Provider [...] Description 04/27/2025 1:00 PM EDT Office Visit [facility] D[facility]AL [address] [place] [address] [address]ina Carpenter [address] [place] [phone] Health Maintenance Due Date Last Done Comments [...] Most Recently Relevant to Health Maintenance Insurance [facility] MEDICAID STAND ADULT DENTAL - [facility] PARTIAL (MEDICAID)
== END 2025-03-02 09:33 | disposition home or self-care (01) ==
LOC: HO.MAMMO 09:32
PROVIDERS: PCP Internal Medicine; Visit Provider Internal Medicine
DX: R92.2 Inconclusive mammogram (principal)
CPT/HCPCS: 76642

== ENCOUNTER → 2025-03-02 11:15 | Outpatient (BNV) | payer OTHER, SELFPAY | PROVIDERS: PCP Internal Medicine; Visit Provider Internal Medicine | DX: N63.25 Unspecified lump in the left breast, overlapping quadrants (principal) | CPT/HCPCS: 76642 ==

== ENCOUNTER 2025-03-11 10:02 | Outpatient (AMB) | payer OTHER, SELFPAY ==
--- NOTE | 2025-03-11 10:47 | MHC.OFFVISWM ---
VS Expanded 03/11/25 11:32 BP 112/68 Blood Pressure Location Rt brachial Blood Pressure Position Sitting Pulse 68 Pulse Source Pulse Oximeter Temp 97.7 F Temperature Source Temporal Artery Scan Pulse Oximetry 99 Oxygen Delivery Method Room Air Height 5 ft 1 in Weight 167 lb 12.8 oz BMI 31.7 Body Fat % 26.9 Body Fat Mass 45.2 Fat Free Mass 122.6 Visceral Fat Rating 5.0 Body Water % 52.2 Body Water Mass 87.6 Muscle Mass/Score 116.4 Basal Metabolic Rate/Score 1,636 Intake Visit Reasons: (OV) PO LSG 01/26/20 Allergies oseltamivir [From TAMIFLU] Allergy (Intermediate, Verified 03/11/25 11:04) DROWSINESS/NAUSEA, rash, psychosis lithium Adverse Reaction (Intermediate, Verified 03/11/25 11:04) weight gain Medication List - Last Reconciled 03/11/25 by ASHLEY Mulligan cetirizine (All Day Allergy (cetirizine)) 10 mg PO DAILY PRN magnesium oxide 400 mg PO DAILY sumatriptan succinate take 1 tab at onset of headache; if no relief may repeat 1 tab after at least 2 hrs; max = 3 tabs/24 hr PO HPI Comments Details: This?is a?39?yo female who is s/p LSG 01/26/2020. Presents for 5 year post op visit. Weight at last visit on 04/02/2023 was 161.8 pounds; weight today is 167.8 pounds, representing a 6 pound weight gain with a BMI today of 31.7.? No complaints of nausea, emesis, abdominal pain or reflux, or constipation. 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 Has been using clotrimazole cream on pannus and compression garments every day to prevent rashes. The extra skin bothers her at work when she is very active walking/moving often. She has had to purchase a compressive garment to help hold excess skin in place during movement, otherwise she is very uncomfortable with activites of daily living. Also has to wear compressive arm sleeves to prevent friction of skin rubbing at work. The skin fold causes a lot of itching and discomfort. Did the patient ever have any of these conditions and are they resolved or still being treated? GERD: resolved JUDY: resolved DM: never HTN: never Hyperlipidemia: never Post op complications: none Heartburn symptoms? none currently Score 0-5: 0=no symptoms, 1=noticeable but not bothersome (slight or occasional), 2=noticeable, bothersome but not daily, 3=bothersome and daily, 4=affects daily activities, 5=incapacitating, unable to do daily activities How bad is the heartburn: 0 Heartburn when lying down: 0 Heartburn when standing up: 0 Heartburn after meals: 0 Does heartburn change your diet: 0 Does heartburn wake you up from sleep: 0 Do you have difficulty swallowin Do you have pain with swallowin If you take medication for reflux, does this affect your daily life: 0 Total score: 0 [facility] Medical History Obesity (BMI 30.0-34.9) Psychosis Hypovitaminosis D Breast lump on left side at 3 o'clock position Physical exam Overweight (BMI 25.0-29.9) Intestinal malabsorption following gastrectomy Malabsorption due to intolerance, not elsewhere classified Anemia Back pain GERD (gastroesophageal reflux disease) Morbid obesity Surgical History History of surgical procedure on mouth History of colonoscopy Hx of cholecystectomy S/P laparoscopic sleeve gastrectomy Family History Father No problems noted. Mother Hypertension Sister No problems noted. Sister Hypoglycemia Brother No problems noted. Brother No problems noted. Son No problems noted. Son No problems noted. Paternal Aunt Breast cancer Colon cancer Paternal Grandfather No problems noted. Social History Household Members: Spouse and Family Household Members Other:: , youngest son, 2 dogs Housing: House Do you presently have visiting nurse or other home services: No Unable to assess alcohol history related to: Refusing to respond Alcohol intake: former Patient Tobacco Use Status: Former Tobacco user Tobacco use type: Cigarette e-Cigarette/Vaping Use: Never Used Second Hand Smoke Exposure: No service: No Current occupational status: employed Current occupational exposures/hazards: No Sexual orientation: Straight/Heterosexual Cognitive needs: No Hearing needs: No Vision needs: No Female Reproductive History Menstrual Age of Menarche: 7 Assessment & Plan Assessment & Plan (1) S/P laparoscopic sleeve gastrectomy: Code(s): Z98.84 - Bariatric surgery status Category: Surgical (2) Obesity: Code(s): E66.9 - Obesity, unspecified Category: Medical Plan Pt may not be getting adequate protein with just one shake and meal per day. Suggested one additional shake with 20g protein or can have a french yogurt or protein bar instead. She does not like many brands of protein bars. Goal of 158lbs prior to consideration of skin removal surgery. This would put her BMI under 30. She already has healthy body fat %, 26.9% with high muscle mass. Pt is interested in starting GLP1. Reviewed contraindications, discussed dosing. Discussed need for adequate protein intake while on GLP1s as well as frequent communication with our office. Pt will check in with me weekly and is aware that subsequent Rx will be dependent on frequent communication. Rx for Zepbound sent. Pt recently had lab work done, ordered remaining vitamin levels. Orders: Orders Vitamin D 25-OH Total Today Z98.84 - Bariatric surgery status Vitamin A Today Z98.84 - Bariatric surgery status Zinc Today Z98.84 - Bariatric surgery status Vitamin B1 Today Z98.84 - Bariatric surgery status Vitamin B12 and Folate Today Z98.84 - Bariatric surgery status Medications: New tirzepatide (weight loss) (Zepbound) for 4 weeks 2.5 mg (0.5 mL) subcut QWEEK 2 mL 0RF
--- OUTSIDE RECORDS SUMMARY | 2025-03-11 11:27 | XMS_ITS | Encounter Summary ---
Author Organization [employer] Address [address] [facility] [address] [place] [address] Care Team Providers Care Carbonizer Tester Name Role Phone Unavailable Primary Care Provider Unavailabl e Encounter Details Date Type Department Care Team (Latest Contact Info) Description 12/07/2020 Abstract [facility] CONVERSIONS Dental, Provider, DDS Social History [...]
--- OUTSIDE RECORDS SUMMARY | 2025-03-11 11:28 | XMS_ITS | Encounter Summary ---
Author Organization [email or web address] Address [address] [facility] [address] [place] [address] Care Team Providers Care Finishing Operator Name Role Phone Unavailable Primary Care Provider Unavailabl e Encounter Details Date Type Department Care Team (Latest Contact Info) Description 08/25/2019 Abstract [facility] CONVERSIONS Dental, Provider, DDS Social History Tobacco [...]
--- OUTSIDE RECORDS SUMMARY | 2025-03-11 11:28 | XMS_ITS | Encounter Summary ---
Author Organization [employer] Address [address] [facility] [address] [place] [address] Care Team Providers Care Weapons Mechanic Name Role Phone Unavailable Primary Care Provider Unavailabl e Encounter Details Date Type Department Care Team (Latest Contact Info) Description 07/27/2019 Abstract [facility] CONVERSIONS Dental, Provider, DDS Social History [...]
--- OUTSIDE RECORDS SUMMARY | 2025-03-11 11:28 | XMS_ITS | Clinical Summary ---
Author Organization [employer] Address [address] [place] [address] 7[address] [place] [address] Care Team Providers Care Pickle Processor Name Role Phone Unavailable Primary Care Provider [...] Health Maintenance Insurance [place] STAND ADULT DENTAL - [place] PARTIAL (MEDICAID) * Guarantor: Yulia Ross Account Type Relation to Patient Date of Phone Billing Address Personal/Family Self [place], [place]
--- OUTSIDE RECORDS SUMMARY | 2025-03-11 11:28 | XMS_ITS | Encounter Summary ---
Author Organization [facility] Address [address] [place] [address] Care Team Providers Care Upper Lining Cementer Name Role Phone Cydney Foster MD Primary Care Provider [phone] Reason for Referral * Consultation (Routine) - Pending Review Specialty Diagnoses / Procedures Referred By Contkodi interiano Referred To Contact Physical Therapy Diagnoses Subacromial bursitis of right shoulder joint Alessandra Le PA [address] [facility] [address] [place] [address] Phone: tel: fax: [facility] [address] [facility] [address] [place] [address] Phone: tel: fax: Referral ID Status Reason Start Date Expiration Date Visits Requested Visits Authorized [id number] Pending Review Specialty Services Required 03/10/2025 03/10/2026 1 1 Reason for Visit * Reason Comments Consult Intermittent pain th at comes with swelling and limited mobility * Consultation (Routine) - Authorized Specialty Diagnoses / Procedures Referred By Contact Referred To Contact Orthopaedics / Orthopaedic Surgery Diagnoses Pain in right shoulder Kira Lemons PA [address] [place] [address] Phone: tel: Orth[facility] Surgery - [place] [address] [facility] [address] [place] [address] Phone: tel: fax: Referral ID Status Reason Start Date Expiration Date Visits Requested Visits Authorized [id number] Authorized Specialty Services Required 01/29/2025 01/29/2026 1 1 Encounter Details Date Type Department Care Team ([facility] st Contact Info) Description 03/10/2025 10:00 AM EDT Consult Orthopedic Surgery - [place] [address] [facility] [address] [place] [address] Alessandra Le PA [address] [facility] [address] [place] [address] Subacromial bursitis of right shoulder joint (Primary Dx); Pain in right shoulder; Right rotator cuff tendinitis Social History Tobacco Use Types Packs/Day Years Used Date Smoking Tobacco: Never Smokeless Tobacco: Never Alcohol Use Standard Drinks/Week Comments Never 0 (1 standard drink = 0.6 oz pur e alcohol) Comments Unknown Sex and Gender Information Value Date Recorded Sex Assigned at Not on file Legal Sex Female 8:53 AM EST Gender Identity Not on file Sexual Orientation Not on file documented as of this encounter Last Filed Vital Signs Vital Sign Reading Time Taken Comments Blood Pressure - - Pulse - - Temperature - - Respiratory Rate - - Oxygen Saturation - - Inhaled Oxygen Concentration - - Weight 74.8 kg (165 lb) 03/10/2025 10:14 AM EDT Height 154.9 cm (5' 1 ) 03/10/2025 10:14 AM EDT Body Mass Index 31.18 03/10/2025 10:14 AM EDT documented in this encounter Progress Notes * ASHLEY Adams - 03/10/2025 10:00 AM EDT Date: March 09, 2025 Chief Complaint: Right shoulder pain Date of injury/duration of symptoms: Acute on chronic 1 to 2 months Last seen on 04/29/2023 by Radha Asencio APRN, note reviewed HPI: Yulia Ross is a [id number] 39 y.o. female presenting for right shoulder pain send acute on chronic for the last 1 to 2 months. Patient reports pain along her superior shoulder at the acromion. Reports pain which is worse with pulling motions and overhead motions as well as reaching behind back. At that time she reported good relief with physical therapy. She attributes the start of her shoulder pain after a fall in the summer 2019 during hiking she landed directly on that shoulder. She recently strained this shoulder once again when helping someone with their wheelchair. Patient is very active and works out 4-5 times a week and reports she has had trouble with overhead shoulder presses although she has been allowing time for the shoulder to rest more recently. Denies any need for Motrin or Tylenol. She reports a history of sounds like subacromial corticosteroid injection without any effect many years ago. She currently uses IcyHot as well as heat with some relief. She is interested in physical therapy at this time. She has had similar symptoms for a few years and was last evaluated by Radha Asencio in 2022. Atthat time she suspected to have subacromial bursitis as well as some physical exam findings for possible labral tear which she follows up with Dr. Valencia for ultrasound-guided glenohumeral injectionalthough ultimately was not given. No past medical history on file. Past Surgical History: Procedure Laterality Date BARIATRIC SURGERY N/A PROCEDURE: [place] LAPS GSTRC RSTRICTIV PX LONGITUDINAL GASTRECTOMY CHOLECYSTECTOMY PROCEDURE: [place] CHOLECYSTECTOMY MULTIPLE TOOTH EXTRACTIONS N/A PROCEDURE: HISTORICAL DENTAL EXTRACTION; COMMENT: all upper teeth d/t infection Family History Problem Relation Name Age of Onset Colon cancer Maternal Grandfather Breast cancer Aunt Cervical cancer Neg Hx Prostate cancer Neg Hx Uterine cancer Neg Hx Social History Socioeconomic History Marital status: Spouse name: Not on file Number of children: Not on file Years of education: Not on file Highest education level: Not on file Occupational History Not on file Tobacco Use Smoking status: Never Smokeless tobacco: Never Substance and Sexual Activity Alcohol use: Never Drug use: Never Sexual activity: Not on file Other Topics Concern Not on file Social History Narrative Not on file No current outpatient medications on file. Not on File Objective Right UE AROM FF/abduction/ER/IR: 170/170/60/midthoracic full strength with rotator cuff strength testing with resisted ER at 0 and 90 degrees of abduction Supraspinatus: painful but 5/5 strength with Leana's Test Subscapularis: full strength with Bear hug Impingement: Mild pain with Neer's Test pain with Hawkin's Test AC Joint: mild TTP on the AC joint pain with cross-body adduction Biceps: negative Speed's test negative Yergason's test Labrum negative O'briens Imaging/diagnostic studies: MR Shoulder RT WO - 04/04/23 - MRI of the right shoulder. February 19, 2023 at 1745 hours Clinical History: Chronic right shoulder pain and swelling after fall in 04/2020. Technique: Multiplanar multiecho sequences through the right shoulder were obtained without intravenous contrast. Axial: T2FS Sagittal: T1, T2, T2FS Coronal:T2, T2FS Correlated with the prior x-ray study dated February 07, 2023. Findings: There is no fracture or osteonecrosis. The teres minor, infraspinatus and supraspinatus tendons are intact. The subscapularis tendon is maintained. The long head of the biceps is in anatomic location. There is no muscle atrophy. Mild acromioclavicular arthrosis. Labral evaluation is limited, but grossly intact. There is no joint effusion There is a small fluid in the subacromial and subcoracoid bursa. Impression: Small fluid in the subacromial and subcoracoid bursa. Mild acromioclavicular arthrosis. Medical Decision Making (base on 2 out of 3 elements): Problems Addressed: Low- 1 stable chronic illness Tests Ordered and/or Reviewed: Low-Review of external notes: Note from 04/29/2023 reviewed and Low-Review of external tests: MRI results reviewed Risk Level: Low risk Assessment: Yulia Ross presents with acute on chronic right shoulder pain for the last 1 to 2 months assisting with some subacromial bursitis as well as pain along her AC joint. She has normal range of motion and strength of her rotator cuff on exam although strength testing does provoke some pain. Does also have some pain with impingement testing. I discussed the etiology and treatment of shoulder bursitis. I discussed how the rotator cuff inserts on the greater tuberosity. I showed how there is a space between the rotator cuff and acromion. If the space is effectively narrowed either from bursitis or an acromion hook or both, there can be impingement, causing pain. I explained the the treatment for bursitis and rotator cuff tendinitis consists of subacromial corticosteroid injections as well as trial of physical therapy. Patient reports he has had good relief with physical therapy upstairs in the past and would like to try once more. She is not interested in corticosteroid injectionsat this time as they have been ineffective in the past. Her symptoms continue not improving further evaluate with a repeat MRI. She is understanding of her diagnosis and treatment options. Reviewed follow-up after physical therapy in 3 months or sooner for any new or worsening symptoms. Plan: Right shoulder subacromial bursitis, rotator cuff tendinitis Trial physical therapy Continue NSAIDs, Tylenol, IcyHot, heat as needed Follow-up in 3 months or sooner for new or worsening symptoms Alessandra Le PA-C documented in this encounter Plan of Treatment Upcoming Encounters Date Type Department Care Team (Late st Contact Info) Description 03/30/2025 5:30 PM EDT Evaluation [facility] [place] [address] [place] [phone] Radha Garcia PT 06/09/2025 10:00 AM EDT Office Visit Orthopedic Surgery - [place] [address] [place] [phone] Alessandra Le PA [address] [place] [address] Scheduled Referrals Name Type Priority Associated Diagnoses Order Schedule Ambulatory referral to Physical Therapy and Athletic Training Outpatient Referral Routine Subacromial bursitis of right shoulder joint 1 Occurrences starting 03/10/2025 until 03/10/2026 documented as of this encounter Visit Diagnoses Diagnosis Subacromial bursitis of right shoulder joint- Primary Pain in right shoulder Right rotator cuff tendinitis documented in this encounter Historical Medications * This list may reflect changes made after this encounter. magnesium oxide (MAG-OX) 400 mg magnesium tablet Take 1 tablet (400 mg total) by mouth 1 (one) time each day. multivit with calcium,iron,min (MULTIPLE VITAMIN, WOMENS ORAL) Take by mouth. cetirizine (ZyrTEC) 10 mg tablet TAKE 1 TABLET BY MOUTH DAILY NEEDED FOR ALLERGY SYMPTOMS 02/15/2025 added in this encounter Orders Outpatient Referral Count Last Ordered Date Fir st Ordered Date AMB REFERRAL TO ORTHOPEDIC 1 03/10/2025 documented in this encounter Care Teams Upper Lining Cementer Relationship Specialty Start Date End Date Cydney Foster MD [address] [facility] , [address] [facility] D/B/A: [facility]y [facility] In Internal Medicine [facility] Saunders PCP - General Internal Medicine 03/10/25 documented as of this encounter
--- OUTSIDE RECORDS SUMMARY | 2025-03-11 11:28 | XMS_ITS | Clinical Summary ---
Author Organization [facility] Address [address] [place] [phone] Phone Care Team Providers Care Primary Teacher Name Role Phone Cydney Foster MD Primary Care Provider [phone] Allergies No known active allergies Medications cetirizine (ZyrTEC) 10 mg tablet TAKE 1 TABLET BY MOUTH DAILY NEEDED FOR ALLERGY SYMPTOMS 02/15/2025 Active multivit with calcium,iron,mi n (MULTIPLE VITAMIN, WOMENS ORAL) Take by mouth. Active magnesium oxide (MAG-OX) 400 mg magnesium tablet Take 1 tablet (400 mg total) by mouth 1 (one) time each day. Active Encounters Date Type Department Care Team Description 03/10/2025 10:00 AM EDT Consult Orthopedic Surgery - [address] [place] [address] Alessandra Le PA Subacromial bursitis of right shoulder joint (Primary Dx); Pain in right shoulder; Right rotator cuff tendinitis from Last 3 Months Surgical History Surgery Date Site/Laterality Comments CHOLECYSTECTOMY PROCEDURE: [place] CHOLECYSTECTOMY BARIATRIC SURGERY N/A PROCEDURE: [place] LAPS GSTRC RSTRICTIV PX LONGITUDINAL GASTRECTOMY MULTIPLE [...] Mass Index 31.18 03/10/2025 10:14 AM EDT Plan of Treatment Upcoming Encounters Date Type Department Care Team (Late st Contact Info) Description 03/30/2025 5:30 PM EDT Evaluation [facility] Out[facility] - [place] [address] [facility] [address] [facility] [address] [place] [phone] Radha Garcia, SELAM 06/09/2025 10:00 AM EDT Office Visit Orthopedic Surgery - [place] [address] [facility] [address] [place] [phone] Alessandra Le PA [address] [facility] [address] [place] [address] Health Maintenance Due Date Last Done Comments Breast Cancer Screening 1983 Hepatitis B Vaccines (1 of 3 - 19+ 3-dose series) 2002 Cervical Cancer Screening: Pap Smear 2004 Pneumococcal Vaccine: Pediatrics (0 to 5 Years) and At-Risk Patients (6 to 64 Years) (2 of 2 - PCV) 03/30/2014 03/30/2013 Depression Screening 10/21/2022 HIV Screening 10/21/2022 Hepatitis C Screening 10/21/2022 Social Influencers of Health Screening 10/21/2022 COVID-19 Vaccine ( - season) 2024 Influenza Vaccine (Season Ended) 2025 08/25/2019, 12/11/2017, 09/17/2015, Additional history exists DTaP,Tdap,and Td Vaccines (2 - Td or Tdap) 02/05/2033 02/05/2023 HIB Vaccines Aged Out No longer eligi [...] to complete this topic RSV Immunization Patients Under 20 months Aged Out No longer eligible based on patient's age to complete this topic Varicella Vaccines Aged Out No longer eligible based on patient's age to complete this topic Insurance [facility] MEDICAID - [place] Care Teams Primary Teacher Relationship Specialty Start Date End Date Cydney Foster MD [address] [place] [address] , [address] [facility] D/B/A: [facility]y Metzat[facility] In Internal Medicine [place], [place] PCP - General Internal Medicine 03/10/25
[2025-03-11 11:32] VITALS: BP 112/68; PULSE 68; TEMP 36.5; O2SAT 99; BMI 31.7
== END 2025-03-11 11:47 | disposition home or self-care (01) ==
LOC: HO.HBS 10:03
PROVIDERS: PCP Internal Medicine; Visit Provider Physician Assistant Surgical
DX: E66.9 Obesity, unspecified (principal); Z68.31 Body mass index [BMI] 31.0-31.9, adult; E66.811 Obesity, class 1; Z98.84 Bariatric surgery status
CPT/HCPCS: 99214; G2211

== ENCOUNTER 2025-03-11 10:02 | Outpatient (REF) | payer OTHER, SELFPAY ==
[2025-03-11 17:39] LABS: Iron 67 mcg/dL (30-160); Percent Iron Saturation 27 % (15-50); Total Iron Binding Capacity 249 mcg/dL (228-428); Unsaturated Iron Binding 182 ug/dL
[2025-03-11 17:56] LABS: Thyroid Stimulating Hormone 0.96 uIU/mL (0.32-4.0); Vitamin D 25-OH Total 28.9 ng/mL (>30)
[2025-03-11 18:09] LABS: Folate 12.5 ng/mL (> or = 4.0); Vitamin B12 442 pg/mL (200-900)
--- OUTSIDE RECORDS SUMMARY | 2025-03-11 18:49 | XMS_ITS | Encounter Summary ---
Author Organization [facility] Address [address] [place] [address] Care Team Providers Care Cpo Name Role Phone Cydney Foster MD Primary Care Provider [phone] Reason for Referral * Consultation (Routine) - Pending Review Specialty Diagnoses / Procedures Referred By Contkodi interiano Referred To Contact Physical Therapy Diagnoses Subacromial bursitis of right shoulder joint Alessandra Le PA 175 [facility] [address] [place] [address] Phone: tel: fax: [facility] 175 [facility] [address] [place] [address] Phone: tel: fax: Referral ID Status Reason Start Date Expiration Date Visits Requested Visits Authorized [id number] Pending Review Specialty Services Required 03/10/2025 03/10/2026 1 1 Reason for Visit * Reason Comments Consult Intermittent pain th at comes with swelling and limited mobility * Consultation (Routine) - Authorized Specialty Diagnoses / Procedures Referred By Contact Referred To Contact Orthopaedics / Orthopaedic Surgery Diagnoses Pain in right shoulder Kira Lemons PA [address] [place] [address] Phone: tel: Orthopedic Surgery - [place] 160 175 [facility] [address] [place] [address] Phone: tel: fax: Referral ID Status Reason Start Date Expiration Date Visits Requested Visits Authorized [id number] Authorized Specialty Services Required 01/29/2025 01/29/2026 1 1 Encounter Details Date Type Department Care Team ([facility] st Contact Info) Description 03/10/2025 10:00 AM EDT Consult Orthopedic Surgery - [place] [address] [facility] [address] [place] [address] Alessandra Le PA [address] [facility] [address] [place] [address] Subacromial bursitis of right shoulder joint (Primary [...] note reviewed HPI: Yulia Ross is a [id number] 39 y.o. female presenting for right shoulder [...] Procedure Laterality Date BARIATRIC SURGERY N/A PROCEDURE: MT LAPS GSTRC RSTRICTIV PX LONGITUDINAL GASTRECTOMY CHOLECYSTECTOMY PROCEDURE: [place] CHOLECYSTECTOMY MULTIPLE TOOTH EXTRACTIONS N/A PROCEDURE: HISTORICAL [...] Info) Description 03/30/2025 5:30 PM EDT Evaluation [facility] Outpatient Rehabilitation - [place] [address] [place] [phone] Radha Garcia PT 06/09/2025 10:00 AM EDT Office Visit Orthopedic Surgery - [place] [address] [place] [phone] Alessandra Le PA [address] [place] [address] Scheduled Referrals Name Type Priority Associated Diagnoses [...] 03/10/2025 documented in this encounter Care Teams Cpo Relationship Specialty Start Date End Date Cydney Foster MD [address] [facility] , [address] [facility] Physician Associ D/B/A: [facility] [place] PCP - General Internal Medicine 03/10/25 documented as of this encounter
--- OUTSIDE RECORDS SUMMARY | 2025-03-11 18:49 | XMS_ITS | Encounter Summary ---
Author Organization [employer] Address 75 [facility] 7t [place] [address] Care Team Providers Care Dual Rate Supervisor Name Role Phone Unavailable Primary Care Provider Unavailabl e Encounter Details Date Type Department Care Team (Latest Contact Info) Description 07/27/2019 Abstract [facility] CONVERSIONS Dental, Provider, DDS [...]
--- OUTSIDE RECORDS SUMMARY | 2025-03-11 18:49 | XMS_ITS | Encounter Summary ---
Author Organization [employer] Address 75 [facility] 7t [place] [address] Care Team Providers Care Student Records Coordinator Name Role Phone Unavailable Primary Care Provider Unavailabl e Encounter Details Date Type Department Care Team (Latest Contact Info) Description 12/07/2020 Abstract [facility] CONVERSIONS Dental, Provider, DDS Social History Tobacco [...]
--- OUTSIDE RECORDS SUMMARY | 2025-03-11 18:49 | XMS_ITS | Encounter Summary ---
Author Organization [employer] Address 75 [facility] 7t [place] [address] Care Team Providers Care Network Mgr Name Role Phone Unavailable Primary Care Provider Unavailabl e Encounter Details Date Type Department Care Team (Latest Contact Info) Description 08/25/2019 Abstract [facility] CONVERSIONS Dental, Provider, DDS Social History Tobacco [...]
--- OUTSIDE RECORDS SUMMARY | 2025-03-11 18:49 | XMS_ITS | Data Portability ---
Author Organization [place] - [facility], [address] Address [address] [place] [address] Assessment No assessment recorded. Plan of Treatment [...] 3 OC- Physical completed ANEESH RAMIREZ - [facility] 04/23/2023 17:08:58 Imaging Results None recorded. [...] SNOMED-CT Code Diagnosis ICD10 Code Diagnosis Note [id number] [place] [address] [facility] [address] [place] [address] 04/23/2023 15:39:01 04/23/2023 17:49:20 History and physical examination, pre-employment [id number] Z02.1 Health Concerns Section Related Observation LastModified [...]
--- OUTSIDE RECORDS SUMMARY | 2025-03-11 18:49 | XMS_ITS | Clinical Summary ---
Author Organization [facility] Address [address] [place] [address] Phone Care Team Providers Care Bond Underwriter Name Role Phone Cydney Foster MD Primary Care Provider [phone] Allergies No known active allergies Medications cetirizine [...] 10:00 AM EDT Consult Orthopedic Surgery - [address] [place] [address] Alessandra Le PA Subacromial bursitis of right shoulder joint (Primary Dx); Pain in right shoulder; Right rotator cuff tendinitis from Last 3 Months Surgical History Surgery Date Site/Laterality Comments CHOLECYSTECTOMY PROCEDURE: [place] CHOLECYSTECTOMY BARIATRIC SURGERY N/A PROCEDURE: [place] LAPS GSTRC RSTRICTIV PX LONGITUDINAL GASTRECTOMY MULTIPLE [...] 03/30/2025 5:30 PM EDT Evaluation [facility] Outpatient Rehabilitation - [place] 175 [facility] [address] [place] [phone] Radha Garcia, SELAM 06/09/2025 10:00 AM EDT Office Visit Orthopedic Surgery - [place] 175 [facility] [address] [place] [phone] Alessandra Le PA 175 [facility] [address] [place] [address] Health Maintenance Due Date Last Done Comments [...] patient's age to complete this topic Insurance [facility] MEDICAID - [place] Care Teams Bond Underwriter Relationship Specialty Start Date End Date Cydney Foster MD [address] [place] [address] , [address] [facility] Physician Associ D/B/A: [facility] Internal Medicine [place], [place] PCP - General Internal Medicine 03/10/25
--- OUTSIDE RECORDS SUMMARY | 2025-03-11 18:49 | XMS_ITS | Clinical Summary ---
Author Organization [employer] Address [address] [place] [address] 7t [place] [address] Care Team Providers Care Flame Channeler Name Role Phone Unavailable Primary Care Provider [...] Date of Phone Billing Address Personal/Family Self [place], [place]
[2025-03-15 02:34] LABS: Zinc 94 mcg/dL (60-130)
[2025-03-15 23:23] LABS: Vitamin A 47 mcg/dL (38-98)
[2025-03-18 18:03] LABS: Vitamin B1 21 nmol/L (8-30)
== END 2025-03-11 10:03 | disposition home or self-care (01) ==
LOC: HO.LAB 10:02
PROVIDERS: PCP Internal Medicine; Visit Provider Physician Assistant Surgical
DX: Z98.84 Bariatric surgery status (principal); R79.89 Other specified abnormal findings of blood chemistry; D64.9 Anemia, unspecified
CPT/HCPCS: 36415; 82306; 82607; 82746; 83540; 84425; 84443; 84590; 84630; 99212

== ENCOUNTER 2025-03-17 13:33 | Outpatient (AMB) | payer OTHER, SELFPAY ==
[2025-03-17 13:45] VITALS: BP 108/70; PULSE 84; RESP 18; TEMP 37.3; O2SAT 99; BMI 31.4
--- NOTE | 2025-03-17 13:45 | MHC.OFFWIV ---
Intake Vital Signs 03/17/25 13:45 Height 5 ft 1 in Weight 166 lb BMI 31.4 BP 108/70 Blood Pressure Location Lt brachial Position Sitting Respiration 18 Pulse 84 Pulse Source Pulse Oximeter Temp 99.2 F Temp Source Oral Pulse Oximetry (%) 99 Oxygen Delivery Method Room Air Intake Visit Reasons: EP Back pain Intake Note: Pt is here today for a walk in visit. Pt c/o lower back pain R side that goes down her leg. Pt is in tears due to pain. Pt states that the pain started yesterday. Patient Tobacco Use Status: Former Tobacco user Allergies oseltamivir [From TAMIFLU] Allergy (Intermediate, Verified 03/17/25 13:48) DROWSINESS/NAUSEA, rash, psychosis lithium Adverse Reaction (Intermediate, Verified 03/17/25 13:48) weight gain HPI HPI Comments History of Present Illness Details Patient is a 39yo F who presents to office with back pain Ongoing since the weekend Thinks it occured when walking down the stairs and bent over and hit rail on lower back Worse with movements and walking + Bilateral lower back No radiation into legs No urine/bowel incontinence. No hematuria Used Biofreeze without complete relief No medicine taken Pain level is 10/10 with bending over PFSH Medical History (Updated 03/17/25 @ 14:12 by Kira Mccabe PA-C) Obesity (BMI 30.0-34.9) Psychosis Hypovitaminosis D Breast lump on left side at 3 o'clock position Physical exam Overweight (BMI 25.0-29.9) Intestinal malabsorption following gastrectomy Malabsorption due to intolerance, not elsewhere classified Anemia Back pain GERD (gastroesophageal reflux disease) Morbid obesity Surgical History History of surgical procedure on mouth History of colonoscopy Hx of cholecystectomy S/P laparoscopic sleeve gastrectomy Family History Father No problems noted. Mother Hypertension Sister No problems noted. Sister Hypoglycemia Brother No problems noted. Brother No problems noted. Son No problems noted. Son No problems noted. Paternal Aunt Breast cancer Colon cancer Paternal Grandfather No problems noted. Social History Household Members: Spouse and Family Household Members Other:: , youngest son, 2 dogs Housing: House Do you presently have visiting nurse or other home services: No Unable to assess alcohol history related to: Refusing to respond Alcohol intake: former Patient Tobacco Use Status: Former Tobacco user Tobacco use type: Cigarette e-Cigarette/Vaping Use: Never Used Second Hand Smoke Exposure: No service: No Current occupational status: employed Current occupational exposures/hazards: No Sexual orientation: Straight/Heterosexual Cognitive needs: No Hearing needs: No Vision needs: No Female Reproductive History Menstrual Age of Menarche: 7 Review of Systems Const Denies chills and Denies fever(s) Card Denies chest pain Resp Denies cough GI Denies abdominal pain Denies hematuria, Denies difficulty voiding and Denies urinary incontinence Musc Reports back pain, Denies numbness, Denies radiating pain into limb and Denies tingling Skin/Breast Denies erythema and Denies rash Neuro Denies numbness and Denies tingling Physical Exam Vital Signs: Last Vital Signs Temp 99.2 F 03/17/25 13:45 Pulse 84 03/17/25 13:45 Resp 18 03/17/25 13:45 BP 108/70 03/17/25 13:45 Pulse Ox 99 03/17/25 13:45 Oxygen Delivery Method Room Air 03/17/25 13:45 BMI result Body Mass Index 31.4 General: Non-toxic, NAD. Speaking full sentences. Skin: Warm dry throughout. No posterior back or flank ecchymosis or vesicular lesions Eye: EOMI Respiratory: CTA bilaterally. No wheezes, rales or rhonchi Cardiac: RRR. No murmur MSK: +midline lumbar ttp. + bilateral lumbar paravertebral muscles. No sciatic ttp bilaterally. Able to move from sitting to standing position slowly. Gait stable without lump. + full flexion forward at hip swith pain. Neurology: Alert. No aphasia or facial droop. Gait without abnormality Psych: Good mood and affect Assessment & Plan Assessment & Plan (1) Back pain: Code(s): M54.9 - Dorsalgia, unspecified Qualifiers: Back pain laterality: bilateral Back pain location: low back pain Chronicity: acute Sciatica presence: without sciatica Qualified Code(s): M54.50 - Low back pain, unspecified Plan: Patient seen and evaluated. She hit her lower back on a railing so xray will be completed to f/u FX Xray: I viewed no fx or malalignment Most likely this is msk related.No neuro symptoms or pain radiation into extremities Cld compress x 2 days, then switch to warm compress and muscle relaxant; lethargy, no alcohol or driving under influence. Note for work given Patient gave verbal understanding and had no additional questions or concerns at time of discharge All questions answered Orders: Orders XR lumbar spine 2-3V Today M54.9 - Dorsalgia, unspecified Medications: New methocarbamol 750 mg PO TID 14 tabs 0RF Coding Level of Care Code Est Pt Level 3 (76967) Diagnoses Acute bilateral low back pain without sciatica M54.50 Back pain laterality: bilateral Back pain location: low back pain Chronicity: acute Sciatica presence: without sciatica
--- OUTSIDE RECORDS SUMMARY | 2025-03-17 14:51 | XMS_ITS | Encounter Summary ---
Author Organization [employer] Address 75 [facility] 7t [place] [address] Care Team Providers Care Foundry Laborer Coreroom Name Role Phone Unavailable Primary Care Provider Unavailabl e Encounter Details Date Type Department Care Team (Latest Contact Info) Description 08/25/2019 Abstract [facility] CONVERSIONS Dental, Provider, DDS Social [...]
--- OUTSIDE RECORDS SUMMARY | 2025-03-17 14:51 | XMS_ITS | Clinical Summary ---
Author Organization [employer] Address [address] [place] [address] 7t [place] [address] Care Team Providers Care Tooth Clerk Name Role Phone Unavailable Primary Care Provider [...] Date of Phone Billing Address Personal/Family Self [place], [place]
--- OUTSIDE RECORDS SUMMARY | 2025-03-17 14:51 | XMS_ITS | Clinical Summary ---
Author Organization [facility] Address [address] [place] [phone] Phone Care Team Providers Care Spudder Name Role Phone Cydney Foster MD Primary Care Provider [phone] Allergies No known active allergies Medications cetirizine [...] 10:00 AM EDT Consult Orthopedic Surgery - [address] [place] [address] Alessandra Le PA Subacromial bursitis of right shoulder joint (Primary Dx); Pain in right shoulder; Right rotator cuff tendinitis from Last 3 Months Surgical History Surgery Date Site/Laterality Comments CHOLECYSTECTOMY PROCEDURE: [place] CHOLECYSTECTOMY BARIATRIC SURGERY N/A PROCEDURE: [place] LAPS GSTRC RSTRICTIV PX LONGITUDINAL GASTRECTOMY MULTIPLE [...] Info) Description 03/30/2025 5:30 PM EDT Evaluation [facility] Outpatient Rehabilitation - [place] 175 [facility] [address] [place] [phone] Radha Garcia, SELAM 06/09/2025 10:00 AM EDT Office Visit Orthopedic Surgery - [place] 175 [facility] [address] [place] [phone] Alessandra Le PA 175 [facility] [address] [place] [address] Health Maintenance Due Date Last Done Comments [...] patient's age to complete this topic Insurance [facility] MEDICAID - [place] Care Teams Spudder Relationship Specialty Start Date End Date Cydney Foster MD [address] [place] [address] , [address] [facility] Physician Associ D/B/A: [facility] Internal Medicine [place], [place] PCP - General Internal Medicine 03/10/25
--- OUTSIDE RECORDS SUMMARY | 2025-03-17 14:51 | XMS_ITS | Data Portability ---
Author Organization [place] - [facility], [address] Address [address] [place] [address] Assessment No assessment recorded. Plan of Treatment [...] 3 OC- Physical completed ANEESH RAMIREZ - [facility] 04/23/2023 17:08:58 Imaging Results None recorded. [...] SNOMED-CT Code Diagnosis ICD10 Code Diagnosis Note [id number] [place] [address] [facility] [address] [place] [address] 04/23/2023 15:39:01 04/23/2023 17:49:20 History and physical examination, pre-employment [id number] Z02.1 Health Concerns Section Related Observation LastModified [...]
--- OUTSIDE RECORDS SUMMARY | 2025-03-17 14:51 | XMS_ITS | Encounter Summary ---
Author Organization [employer] Address 75 [facility] 7t [place] [address] Care Team Providers Care Whistle Punk Name Role Phone Unavailable Primary Care Provider Unavailabl e Encounter Details Date Type Department Care Team (Latest Contact Info) Description 07/27/2019 Abstract [facility] CONVERSIONS Dental, Provider, DDS Social History Tobacco [...]
--- OUTSIDE RECORDS SUMMARY | 2025-03-17 14:51 | XMS_ITS | Encounter Summary ---
Author Organization [employer] Address 75 [facility] 7t [place] [address] Care Team Providers Care Surg Rn Name Role Phone Unavailable Primary Care Provider Unavailabl e Encounter Details Date Type Department Care Team (Latest Contact Info) Description 12/07/2020 Abstract [facility] CONVERSIONS Dental, Provider, DDS Social History [...]
== END 2025-03-17 14:50 | disposition home or self-care (01) ==
PROVIDERS: PCP Internal Medicine; Visit Provider Physician Assistant
DX: M54.50 Low back pain, unspecified (principal)

== ENCOUNTER 2025-03-17 13:33 | Outpatient (REF) | payer OTHER, SELFPAY ==
--- NOTE | ~2025-03-17 | XR_ITS ---
EXAMINATION: XR LUMBOSACRAL SPINE CLINICAL INFORMATION: M54.9 - Dorsalgia, unspecified COMPARISON: May 29, 2019. TECHNIQUE: Three views of the lumbosacral spine. FINDINGS: 20% volume loss wedge-shaped compression deformity likely old at T11. No acute cortical disruption or gross malalignment. No lytic or blastic lesions. Vascular clips in the left upper quadrant abdomen. XR/XR lumbar spine 2-3V IMPRESSION: No acute fracture or listhesis. Electronically signed by: Puneet Yip MD 03/17/2025 02:47 PM EDT
--- OUTSIDE RECORDS SUMMARY | 2025-03-17 15:22 | XMS_ITS | Clinical Summary ---
Author Organization [employer] Address [address] [place] [address] 7t [place] [address] Care Team Providers Care Safety Deposit Supervisor Name Role Phone Unavailable Primary Care [...] Date of Phone Billing Address Personal/Family Self [place], [place]
--- OUTSIDE RECORDS SUMMARY | 2025-03-17 15:22 | XMS_ITS | Encounter Summary ---
Author Organization [employer] Address 75 [facility] 7t [place] [address] Care Team Providers Care Admissions Director Name Role Phone Unavailable Primary Care Provider Unavailabl e Encounter Details Date Type Department Care Team (Latest Contact Info) Description 12/07/2020 Abstract [facility] CONVERSIONS Dental, Provider, DDS Social [...]
--- OUTSIDE RECORDS SUMMARY | 2025-03-17 15:22 | XMS_ITS | Clinical Summary ---
Author Organization [facility] Address [address] [place] [address] Phone Care Team Providers Care Serology Teacher Name Role Phone Cydney Foster MD Primary Care Provider Allergies No known active allergies Medications cetirizine [...] 10:00 AM EDT Consult Orthopedic Surgery - [address] [place] [address] Alessandra Le PA Subacromial bursitis of right shoulder joint (Primary Dx); Pain in right shoulder; Right rotator cuff tendinitis from Last 3 Months Surgical History Surgery Date Site/Laterality Comments CHOLECYSTECTOMY PROCEDURE: [place] CHOLECYSTECTOMY BARIATRIC SURGERY N/A PROCEDURE: [place] LAPS GSTRC RSTRICTIV PX LONGITUDINAL GASTRECTOMY MULTIPLE [...] Info) Description 03/30/2025 5:30 PM EDT Evaluation [facility] Outpatient Rehabilitation - [place] 175 [facility] [address] [place] [phone] Radha Garcia, SELAM 06/09/2025 10:00 AM EDT Office Visit Orthopedic Surgery - [place] 175 [facility] [address] [place] [phone] Alessandra Le PA 175 [facility] [address] [place] [address] Health Maintenance Due Date Last Done Comments [...] patient's age to complete this topic Insurance [facility] MEDICAID - [place] Care Teams Serology Teacher Relationship Specialty Start Date End Date Cydney Foster MD [address] [place] [address] , [address] [facility] Physician Associ D/B/A: [facility]y Met[facility]at[facility] In Internal Medicine [place], [place] PCP - General Internal Medicine 03/10/25
--- OUTSIDE RECORDS SUMMARY | 2025-03-17 15:22 | XMS_ITS | Encounter Summary ---
Author Organization [employer] Address 75 [facility] 7t [place] [address] Care Team Providers Care Rack Pusher Name Role Phone Unavailable Primary Care Provider Unavailabl e Encounter Details Date Type Department Care Team (Latest Contact Info) Description 07/27/2019 Abstract [facility] CONVERSIONS Dental, Provider, DDS Social History [...]
--- OUTSIDE RECORDS SUMMARY | 2025-03-17 15:22 | XMS_ITS | Encounter Summary ---
Author Organization [employer] Address 75 [facility] [address]t [place] [address] Care Team Providers Care Call Center Supervisor Name Role Phone Unavailable Primary Care Provider Unavailabl e Encounter Details Date Type Department Care Team (Latest Contact Info) Description 08/25/2019 Abstract [facility] CONVERSIONS Dental, Provider, DDS Social History [...]
== END 2025-03-17 13:34 | disposition home or self-care (01) ==
LOC: HO.HMGCX 13:33
PROVIDERS: PCP Internal Medicine; Visit Provider Physician Assistant
DX: M54.50 Low back pain, unspecified (principal)
CPT/HCPCS: 72100; 99212

== ENCOUNTER → 2025-03-17 14:12 | Outpatient (BNV) | payer OTHER, SELFPAY | PROVIDERS: PCP Internal Medicine; Visit Provider Radiology Diagnostic Radiology | DX: M54.9 Dorsalgia, unspecified (principal) | CPT/HCPCS: 72100 ==

== ENCOUNTER 2025-06-10 20:25 | Inpatient (IN) | payer SELFPAY ==
[2025-06-10 20:58] VITALS: BP 132/82; PULSE 102; O2SAT 98; BMI 28.3
--- NOTE | 2025-06-10 21:02 | ED.PSYCH ---
HPI - Psych General Stated Complaint: sect 12, upset, scratches on R wrist Time Seen by Provider: 06/10/25 20:56 Related Data Home Medications ?Medication ?Instructions ?Recorded ?Confirmed magnesium oxide 400 mg PO DAILY 02/16/25 03/11/25 Previous Rx's ?Medication ?Instructions ?Recorded cetirizine 10 mg tablet (All Day 10 mg PO DAILY PRN allergy 12/11/24 Allergy (cetirizine)) symptoms #90 tabs sumatriptan succinate 50 mg tablet See Rx Instructions PO .COMPLEX 12/11/24 #20 tabs tirzepatide (weight loss) 2.5 2.5 mg (0.5 mL) subcut QWEEK #2 mL 03/11/25 mg/0.5 mL subcutaneous pen injector (Zepbound) methocarbamol 750 mg tablet 750 mg PO TID #14 tabs 03/17/25 cholecalciferol (vitamin D3) 25 25 mcg PO DAILY #90 caps 03/23/25 mcg (1,000 unit) capsule Allergies Allergy/AdvReac Type Severity Reaction Status Date / Time oseltamivir (From TAMIFLU) Allergy Intermediate DROWSINESS/NAUSEA, Verified 06/10/25 20:59 rash, psychosis lithium AdvReac Intermediate weight gain Verified 06/10/25 20:59 [facility] Past Medical History Medical History (Updated 03/17/25 @ 14:12 by Kira Mccabe PA-C) Obesity (BMI 30.0-34.9) Psychosis Hypovitaminosis D Breast lump on left side at 3 o'clock position Physical exam Overweight (BMI 25.0-29.9) Intestinal malabsorption following gastrectomy Malabsorption due to intolerance, not elsewhere classified Anemia Back pain GERD (gastroesophageal reflux disease) Morbid obesity Surgical History History of surgical procedure on mouth History of colonoscopy Hx of cholecystectomy S/P laparoscopic sleeve gastrectomy Family History Family History Father No problems noted. Mother Hypertension Sister No problems noted. Sister Hypoglycemia Brother No problems noted. Brother No problems noted. Son No problems noted. Son No problems noted. Paternal Aunt Breast cancer Colon cancer Paternal Grandfather No problems noted. Social History Social History Household Members: Spouse and Family Household Members Other:: , youngest son, 2 dogs Housing: House Do you presently have visiting nurse or other home services: No Unable to assess alcohol history related to: Refusing to respond Alcohol intake: former Patient Tobacco Use Status: Former Tobacco user Tobacco use type: Cigarette e-Cigarette/Vaping Use: Never Used Second Hand Smoke Exposure: No service: No Current occupational status: employed Current occupational exposures/hazards: No Sexual orientation: Straight/Heterosexual Cognitive needs: No Hearing needs: No Vision needs: No Discharge Plan Discharge Prescriptions: No Action cholecalciferol (vitamin D3) 25 mcg (1,000 unit) capsule 25 mcg PO DAILY Qty: 90 3RF sumatriptan succinate 50 mg tablet See Rx Instructions PO .COMPLEX Qty: 20 0RF Rx Instructions: take 1 tab at onset of headache; if no relief may repeat 1 tab after at least 2 hrs; max = 3 tabs/24 hr PO cetirizine [All Day Allergy (cetirizine)] 10 mg tablet 10 mg PO DAILY PRN (Reason: allergy symptoms) Qty: 90 0RF Zepbound 2.5 mg/0.5 mL pen injector 2.5 mg subcut QWEEK Qty: 2 0RF Rx Instructions: for 4 weeks magnesium oxide 400 mg magnesium tablet 400 mg PO DAILY methocarbamol 750 mg tablet 750 mg PO TID Qty: 14 0RF Print Language: Lithuanian
[2025-06-10 21:25] LABS: MANUAL DIFF FLAG NO
[2025-06-10 21:28] LABS: Hematocrit 35.7 % (37.0-47.0); Hemoglobin 12.8 g/dl (12.0-16.0); Imm Gran Abs Auto 0.02 X10*3/uL (0.00-0.03); Imm Gran Pct Auto 0.2 % (0.0-0.4); Lymphocytes Absolute Auto 2.6 X10*3/uL (1.2-4.9); Mean Corpuscular HGB Conc 35.9 g/dl (31.0-35.0); Mean Corpuscular Hemoglobin 30.6 pg (27.0-33.0); Mean Corpuscular Volume 85.4 fL (80.0-98.0); NRBC Abs Auto 0.000 X10*3/uL (0.0-0.012); NRBC Pct Auto 0.0 /100WBC (0.0-0.2); Platelet Count 258 X10*3/uL (160-400); Red Blood Count 4.18 X10*6/uL (4.20-5.50); White Blood Count 8.5 X10*3/uL (4.8-10.8)
--- NOTE | 2025-06-10 21:30 | PC.NURSE ---
police offer handed this nurse sect. 12 sheet
--- NOTE | 2025-06-10 21:30 | MHC.EDTECH ---
pt came from main ED with underwear wrapped around her neck supporting her breasts. pt willingly removed this from her neck as it is a significant ligature risk. rn aware.
--- OUTSIDE RECORDS SUMMARY | 2025-06-10 21:38 | XMS_ITS | Encounter Summary ---
Author Organization [employer] Address [address] [facility] [address] [place] [address] Care Team Providers Care Petrophysicist Name Role Phone Unavailable Primary Care Provider Unavailabl e Encounter Details Date Type Department Care Team (Latest Contact Info) Description 12/07/2020 Abstract [facility] Dental, Provider, DDS Social History [...]
--- OUTSIDE RECORDS SUMMARY | 2025-06-10 21:38 | XMS_ITS | Clinical Summary ---
Author Organization [facility] Address [address] [place] [address] Phone Care Team Providers Care Hearing Aid Repairer Name Role Phone Cydney Foster MD Primary Care Provider [phone] Allergies No known active allergies Medications cetirizine (ZyrTEC) 10 mg tablet TAKE 1 TABLET BY MOUTH DAILY NEEDED FOR ALLERGY SYMPTOMS 02/15/2025 Active multivit with calcium,iron,mi n (MULTIPLE VITAMIN, WOMENS ORAL) Take by mouth. Active magnesium oxide (MAG-OX) 400 mg magnesium tablet Take 1 tablet (400 mg total) by mouth 1 (one) time each day. Active Surgical History Surgery Date Site/Laterality Comments CHOLECYSTECTOMY PROCEDURE: IN CHOLECYSTECTOMY BARIATRIC SURGERY N/A PROCEDURE: IN LAPS GSTRC RSTRICTIV PX LONGITUDINAL GASTRECTOMY MULTIPLE [...] Sex Female 8:53 AM EST Gender Identity Female 06/02/2025 10:24 AM EDT Sexual Orientation Straight 06/02/2025 10 :24 AM EDT Obstetrics History Last Filed Vital Signs Vital [...] 03/10/2025 10:14 AM EDT Plan of Treatment Health Maintenance Due Date Last Done Comments Breast Cancer Screening 1983 Hepatitis B Vaccines (1 of 3 - 19+ 3-dose series) 2002 Cervical Cancer Screening: Pap Smear 2004 Pneumococcal Vaccine: Pediatrics (0 to 5 Years) and At-Risk Patients (6 to 49 Years) (2 of 2 - PCV) 03/30/2014 03/30/2013 HIV Screening 10/21/2022 Hepatitis C Screening 10/21/2022 Social Influencers of Health Screening 10/21/2022 COVID-19 Vaccine ( - season) 2024 Depression Screening 11/18/2024 Influenza Vaccine (#1) 2025 9, 12/11/2017, 09/17/2015, Additional history exists DTaP,Tdap,and Td [...] patient's age to complete this topic Insurance MEDICAID - [place] Care Teams Hearing Aid Repairer Relationship Specialty Start Date End Date Cydney Foster MD [address] [facility] , [address] [facility]A: [facility] [place] PCP - General Internal Medicine 03/10/25
[2025-06-10 21:44] LABS: Acetaminophen LAB < 3 mcg/mL (<30); Alanine Aminotransferase 14 U/L (0-31); Albumin Level 4.3 g/dL (3.5-5.0); Alkaline Phosphatase 64 U/L (39-117); Anion Gap 11 (12-20); Aspartate Amino Transferase 22 U/L (5-31); Blood Urea Nitrogen 6 mg/dL (9-16); Calcium 9.0 mg/dL (8.4-10.2); Carbon Dioxide 22 mmol/L (22-29); Chloride 110 mmol/L (96-108); Creatinine Clr Calc Pharmacy 115.2; Estimated Glomerular Filt Rate > 60; Potassium 3.4 mmol/L (3.3-5.1); Salicylate < 5.0 mg/dL (15-30); Sodium 140 mmol/L (135-145); Total Protein 7.0 g/dL (6.5-8.0)
[2025-06-10 22:10] VITALS: BP 112/77; PULSE 75; RESP 18; TEMP 37.1; O2SAT 96
--- NOTE | 2025-06-10 22:24 | MHC.EDTECH ---
pt rolling around on the floor naked. when approached to have the pt put on clothes, pt stated well i like the cold floor. pt covered with a blanket.
--- NOTE | 2025-06-10 23:21 | ED.PSYCH ---
HPI - Psych General Chief Complaint: Psychiatric Symptoms Stated Complaint: sect 12, upset, scratches on R wrist Time Seen by Provider: 06/10/25 20:56 History of Present Illness ED Provider: Anthony Mora MD HPI Narrative: 39-year-old female brought in by home by . Stopped prescribed psych meds 6 months ago. Altered and disoriented per . At triage denied SI HI. Previously documented PTSD, bipolar, thyroid disorder. PATIENT DENIES SI OR HI TO ME. SHE DENIES ANY BEHAVIORAL HEALTH HISTORY. Related Data Previous Rx's ?Medication ?Instructions ?Recorded cholecalciferol (vitamin D3) 25 25 mcg PO DAILY #90 caps 03/23/25 mcg (1,000 unit) capsule divalproex 500 mg tablet,extended 500 mg PO BEDTIME 30 days #30 tabs 06/17/25 release 24 hr olanzapine 5 mg tablet 5 mg PO BEDTIME 30 days #30 tabs 06/17/25 Allergies Allergy/AdvReac Type Severity Reaction Status Date / Time oseltamivir (From TAMIFLU) Allergy Intermediate DROWSINESS/NAUSEA, Verified 06/10/25 20:59 rash, psychosis lithium AdvReac Intermediate weight gain Verified 06/10/25 20:59 [facility] Past Medical History Medical History (Updated 06/14/25 @ 14:01 by Madeilne Wilson RN) Obesity (BMI 30.0-34.9) Psychosis Hypovitaminosis D Breast lump on left side at 3 o'clock position Physical exam Overweight (BMI 25.0-29.9) Intestinal malabsorption following gastrectomy Malabsorption due to intolerance, not elsewhere classified Anemia Back pain GERD (gastroesophageal reflux disease) Morbid obesity Surgical History History of surgical procedure on mouth History of colonoscopy Hx of cholecystectomy S/P laparoscopic sleeve gastrectomy Family History Family History Father No problems noted. Mother Hypertension Sister No problems noted. Sister Hypoglycemia Brother No problems noted. Brother No problems noted. Son No problems noted. Son No problems noted. Paternal Aunt Breast cancer Colon cancer Paternal Grandfather No problems noted. Social History Social History Household Members: Spouse and Children Household Members Other:: 2 Housing: Apartment Do you presently have visiting nurse or other home services: No Unable to assess alcohol history related to: Refusing to respond Alcohol intake: former Patient Tobacco Use Status: Former Tobacco user Tobacco use type: Cigarette Smoked in Last 30 Days: No e-Cigarette/Vaping Use: Never Used Patient Interested in Nicotine Replacement: No Patient Given Instructions on How to Stop Smoking: No Second Hand Smoke Exposure: No Use of substances other than those prescribed or required for medical reasons: No Currently Displaying Signs/Symptoms of Drug Intoxication Withdrawal: No Have you been hit, kicked, punched, or otherwise hurt by someone within the past year? If so, by whom?: No Do you feel safe in your current relationship?: Yes Is there a partner from a previous relationship who is making you feel unsafe now?: No Are you made to feel afraid or neglected: No Spiritual Healthcare Practices: No Orthodox Healthcare Practices: Pentacostal Cultural Healthcare Practices: No Advance Directives: No Advance Directives Information Provided: No Do you have thoughts of harming others: None Do you have a plan to hurt others: No Plan Recently lost weight without trying: No Nutrition Risks: No Nutritional Risk Patient : No : No Poor oral hygiene: No service: No Current occupational status: employed Current occupational exposures/hazards: No Sexual orientation: Straight/Heterosexual Cognitive needs: No Hearing needs: No Vision needs: No Physical Exam Exam: Exam: EXAM: Gen: Alert, awake, well appearing, well hydrated. WELL-KEMPT Head: Atraumatic Eyes: Anicteric, Normal conjunctiva. ENT: Moist mucosa, no pallor. ? Neck: Supple. Skin: ?No observable rash or bruising on exposed or examined skin Respiratory: Breathing comfortably, No distress.Clear to auscultation bilaterally, symmetric chest expansion, No wheeze, rales, ronchi. Cardiovascular: Regular rate and rhythm. No murmurs or rub. Well perfused periphery, warm extremities. No edema. ? Abdominal: No focal tenderness. Soft, no objective distension. No palpable masses or obvious organomegaly. ?No guarding, no rebound tenderness or other peritoneal findings. : No flank tenderness. Neuro: Alert. Gross movement of all extremities intact. ?Cranial nerve 2-12 grossly intact Psych: Calm. Cooperative. NO SI OR HI. NO OVERT PSYCHOSIS DURING MY BRIEF INTERVIEW. STAFF REPORTED THAT SHE WAS RELIGIOUSLY PREOCCUPIED EXPOSING HERSELF, ACTING BIZARRELY THROUGHOUT THE NIGHT MSK: No grossly visible deformity. Vital signs: See flowsheet Vital Signs: Vital Signs: Last Vital Signs Temp 97.4 F 06/17/25 07:30 Pulse 65 06/17/25 07:30 Resp 20 06/17/25 07:30 BP 118/64 06/17/25 07:30 Pulse Ox 98 06/17/25 07:30 O2 Del Method Room Air 06/17/25 07:30 BMI result Body Mass Index 28.3 Course Course Course Narrative: Time: 08:32 Date: 06/12/25 Provider: Mignon Case, DO Patient in physician observation for psychiatric evaluation.? No acute events reported overnight. No current complaints. VS stable.? Patient is in bed search status. Will continue to monitor. urine appears contaminated would wait on micro Reevaluation(s) Reevaluation #1: ESTIVEN 06/13/25 735am Patient in physician observation for psychiatric evaluation.? No acute events reported overnight. No current complaints. VS stable.? Patient is in bed search status. Will continue to monitor. Reevaluation #2: DR. Mederos's progress note 06/14/2025 10:48. VSS, no issue reported by nursing overnight, care team input is appreciated, patient meet criteria for inpatient treatment, patient is under section 12, expected to leave to today. Time: 10:50 Reevaluation #3: end physician observation 1339 admitted inpatient estiven Medications Administered Generic Name Dose Route Start Last Admin Trade Name Kyler PRN Reason Stop Dose Admin Acetaminophen 650 mg 06/14/25 14:19 06/15/25 09:44 Acetaminophen 325 Mg Tablet PO 650 mg Q6H PRN Administration Headache/Pain, Scale 1-10 Divalproex Sodium 500 mg 06/14/25 21:00 06/16/25 21:46 Divalproex Sodium Er 500 Mg Tab.Er.24h PO 500 mg BEDTIME BETO Administration Olanzapine 5 mg 06/16/25 21:00 06/16/25 21:47 Olanzapine 5 Mg Tablet PO 5 mg BEDTIME BETO Administration Vitamin D 25 mcg 06/12/25 09:00 06/17/25 08:54 Cholecalciferol (Vitamin D3) 25 Mcg Tablet PO 25 mcg DAILY BETO Administration Discontinued Medications Generic Name Dose Route Start Last Admin Trade Name Freq PRN Reason Stop Dose Admin Lorazepam 1 mg 06/10/25 23:02 06/11/25 04:31 Lorazepam 1 Mg Tablet PO 1 mg ONCE PRN Administration Anxiety Nicotine 21 mg 06/15/25 09:00 06/15/25 09:34 Nicotine 21 Mg Patch.Td24 TRANSDERMA Not Given DAILY BETO Olanzapine 10 mg 06/14/25 21:00 06/15/25 21:03 Olanzapine 10 Mg Tablet PO 5 mg BEDTIME BETO Administration Quetiapine Fumarate 50 mg 06/10/25 23:03 06/11/25 04:31 Quetiapine Fumarate 50 Mg Tablet PO 50 mg ONCE PRN Administration Anxiety Medical Decision Making Medical Decision Making MDM Narrative: Medical Decision Makin-YEAR-OLD FEMALE HISTORY ABOVE BIZARRE BEHAVIOR. WE WILL NEED FULL ASSESSMENT BY CARE TEAM. SPOUSE REPORTED NONADHERENT WITH PRESCRIBED SEGMENTS FOR AT LEAST 6 MONTHS WITH ERRATIC BEHAVIOR. LAB WORK AND PHYSICAL EXAMINATION NOT SUGGESTIVE OF ACUTE MEDICAL EMERGENCY. DEFER TO CARE TEAM FOR DISPOSITION. NO ACUTE PSYCHOSIS SIGNED OUT PENDING CARE TEAM EVALUATION Preliminary Favored Differential Diagnosis: ACUTE DECOMPENSATED PSYCHIATRIC OR BEHAVIORAL HEALTH DISORDER, THYROID DISORDER, ELECTROLYTE DERANGEMENT, SUBSTANCE USE DISORDER among additional considered etiologies Testing Interpreted Independently: Not Applicable Radiology or Lab testing Results Reviewed: Not Applicable Consults: Not Applicable Independent Historians/External Chart Reviews: Not Applicable Social Determinants of Health Impacting MDM/Planning: Not Applicable Lab Data 06/10/25 21:19 06/15/25 07:48 Labs: Lab Results 06/10/25 06/11/25 06/14/25 Range/Units 21:19 20:04 08:02 WBC 8.5 (4.8-10.8) X10*3/uL RBC 4.18 L (4.20-5.50) X10*6/uL Hgb 12.8 (12.0-16.0) g/dl Hct 35.7 L (37.0-47.0) % MCV 85.4 (80.0-98.0) fL MCH 30.6 (27.0-33.0) pg MCHC 35.9 H (31.0-35.0) g/dl RDW 13.4 (11.0-16.0) % Plt Count 258 (160-400) X10*3/uL MPV 9.6 (9.4-12.3) fL Immature Gran % (Auto) 0.2 (0.0-0.4) % Neut % (Auto) 60.3 (45-73) % Lymph % (Auto) 30.2 (20-40) % [place] % (Auto) 7.5 (2-11) % Eos % (Auto) 1.4 (0-4) % Baso % (Auto) 0.4 (0-2) % Lymph # (Auto) 2.6 (1.2-4.9) X10*3/uL [place] # (Auto) 0.6 (0.1-1.2) X10*3/uL Eos # (Auto) 0.1 (0.0-0.4) X10*3/uL Baso # (Auto) 0.0 (0.0-0.2) X10*3/uL Abs Immat Gran (auto) 0.02 (0.00-0.03) X10*3/uL Absolute Neuts (auto) 5.1 (2.0-8.3) x10*3/uL Absolute Nucleated RBC 0.000 (0.0-0.012) X10*3/uL Nucleated RBC % (auto) 0.0 (0.0-0.2) /100WBC Sodium 140 (135-145) mmol/L Potassium 3.4 D (3.3-5.1) mmol/L Chloride 110 H (96-108) mmol/L Carbon Dioxide 22 (22-29) mmol/L Anion Gap 11 L (12-20) BUN 6 L (9-16) mg/dL Creatinine 0.66 (0.5-1.4) mg/dL Estim Creat Clear Calc 115.2 Estimated GFR > 60 Random Glucose 80 (60-115) mg/dL Calcium 9.0 (8.4-10.2) mg/dL Total Bilirubin 0.5 (0.0-1.0) mg/dL AST 22 (5-31) U/L ALT 14 (0-31) U/L Alkaline Phosphatase 64 (39-117) U/L Total Protein 7.0 (6.5-8.0) g/dL Albumin 4.3 (3.5-5.0) g/dL Urine Color Yellow Urine Appearance Cloudy Urine pH 6.0 (5.0-9.0) Ur Specific Agency 1.025 (1.005-1.025) Urine Protein 30 (1+) H (Neg-Trace) mg/dL Urine Glucose (UA) Negative (Negative) mg/dL Urine Ketones Trace (Negative) mg/dL Urine Blood Trace H (Negative) Urine Nitrite Negative (Negative) Ur Leukocyte Esterase Large (3+) H (Negative) Urine RBC 0-2 (0-2) /HPF Urine WBC 0-5 (0-5) /HPF Ur Squamous Epith Cells >20 (0-2) /HPF Urine Bacteria 4+ (None Seen) Hyaline Casts 0-2 (0-2) /LPF Urine Test NEGATIVE (NEGATIVE) Salicylates < 5.0 L (15-30) mg/dL Urine Opiates Screen Not Detected (Not Detect) Ur Buprenorphine Scrn Not Detected (Not Detect) ng/mL Ur Oxycodone Screen Not Detected (Not Detect) ng/mL Urine Methadone Screen Not Detected (Not Detect) ng/mL Urine Fentanyl Screen Not Detected (Not Detect) Acetaminophen < 3 (<30) mcg/mL Ur Barbiturates Screen Not Detected (Not Detect) Ur Phencyclidine Scrn Not Detected (Not Detect) Ur Amphetamines Screen Not Detected (Not Detect) U Benzodiazepines Scrn Not Detected (Not Detect) Urine Cocaine Screen Not Detected (Not Detect) U Marijuana (THC) Screen Not Detected (Not Detect) Ethyl Alcohol < 10 mg/dL Discharge Plan Discharge Clinical Impression: Psychiatric care Patient Disposition: Admitted As Inpatient Interventions: Admission Worksheet (ED) Last Done: 06/14/25 13:39 Discharge Date/Time: 06/14/25 14:01
--- NOTE | 2025-06-11 04:09 | PC.NURSE ---
pt observed repeatedly striking left knee with hand. stopped after a few seconds. then pt proceeded to get on all fours in bed while pressing face down onto mattress and audibly clearing throat. upon walking to room, this nurse and tech she is okay and would like some food/water. food provided, pt then re-assumed sitting marylin cross position in bed with face against mattress
--- NOTE | 2025-06-11 04:29 | PC.NURSE ---
pt took sandwich and crackers and crumbled them into fine crumbs and crushed the bread and stuck into water cup. did this while crouching/lying on top of her table. accepted meds ordered by
--- NOTE | 2025-06-11 05:06 | PC.NURSE ---
periodically starts to sing then stops.
--- NOTE | 2025-06-11 06:14 | PC.NURSE ---
pt awake, restless most of night since arrival. appears to be asleep since about 0535, nonlabored respirations
[2025-06-11 06:15] VITALS: RESP 14
--- NOTE | 2025-06-11 12:32 | MHC.CARE ---
Pt meets the criteria for IPLOC. Section 12 in chart. Provider in agreement.
--- NOTE | 2025-06-11 16:04 | MHC.EDTECH ---
Attempted to obtain vital signs, patient declined at this time.
--- NOTE | 2025-06-11 19:30 | PHA.MEDREC ---
Addendum entered by Alexey Borrego [facility] 06/11/25 20:02: MED REC CHECKED BY [facility] Original Note: Pharmacy Consult ? Medication Reconciliation Pharmacy reviewed med rec done by nursing. Claims matches what is confirmed.
[2025-06-11 20:12] LABS: Appearance Urine Cloudy; Glucose Urine UA Negative (Negative); PH 6.0 (5.0-9.0); Specific Gravity - Urine 1.025 (1.005-1.025); UMIC TRIGGER UACC YES
[2025-06-11 20:23] LABS: Cannabinoid Screen Urine Not Detected (Not Detect)
[2025-06-11 20:27] LABS: UACC Culture Trigger YES
[2025-06-11 20:36] VITALS: BP 114/72; PULSE 75; RESP 18; TEMP 36.9; O2SAT 96
[2025-06-12 06:25] VITALS: BP 109/73; PULSE 98; RESP 16; TEMP 37.1; O2SAT 97
--- NOTE | 2025-06-12 06:31 | PC.NURSE ---
pt calm and cooperative slept well throughout the night. pt did not display any symptoms or behaviors of concern.
--- NOTE | 2025-06-12 08:41 | PC.NURSE ---
Assumed care of patient at 0645, patient appears to be in no apparent distress this am, resting in bed. [facility] care [facility]
--- NOTE | 2025-06-12 09:14 | PC.NURSE ---
Pt declined morning medication
--- NOTE | 2025-06-12 15:41 | PC.NURSE ---
Pt has been calm and cooperative all day, listening to music with headphones, resting in common area and bedroom
[2025-06-12 17:52] VITALS: BP 96/69; PULSE 91; RESP 16; TEMP 37.1; O2SAT 100
--- NOTE | 2025-06-12 19:11 | PC.NURSE ---
took over care from Kali Gabriel, is resting in this time, calm and cooperative.
--- NOTE | 2025-06-12 23:15 | PC.NURSE ---
pt was given a shower this evening.
[2025-06-13 06:22] VITALS: BP 110/59; PULSE 75; RESP 16; TEMP 36.7; O2SAT 97
--- NOTE | 2025-06-13 06:59 | PC.NURSE ---
Assumed care of patient at 0645, patient appears to be in no apparent distress this am, eating breakfast, offering no complaints to this RN. Continue plan of care for IPLOC
--- NOTE | 2025-06-13 08:07 | PC.NURSE ---
Pt band not scanning this am
[2025-06-13 14:00] VITALS: BP 97/69; PULSE 86; RESP 14; TEMP 36.7; O2SAT 100
--- NOTE | 2025-06-13 16:31 | PC.NURSE ---
pt calm and cooperative, ambulating around BH pod with steady gait, listening to music with pod headphones
[2025-06-13 21:39] VITALS: BP 108/71; PULSE 89; RESP 18; TEMP 37; O2SAT 98
--- NOTE | 2025-06-14 03:31 | PC.NURSE ---
Assumed care of pt from Ghazal LEROY at 0300. Pt resting in bed with occasional singing, POD headphones with patient. No apparent distress at this time. Safety checks in place.
[2025-06-14 06:45] VITALS: RESP 14
--- NOTE | 2025-06-14 07:27 | ECG_ITS ---
Test Reason : check qt Blood Pressure : */* mmHG Vent. Rate : 66 BPM Atrial Rate : 66 BPM P-R Int : 150 ms QRS Dur : 82 ms QT Int : 388 ms P-R-T Axes : 34 35 33 degrees QTcB Int : 406 ms Normal sinus rhythm Normal ECG When compared with ECG of 09-Dec-2024 14:30, No significant change was found Referred By: Anthony Mora Electronically Signed By: JUSTIN LUONG MD
[2025-06-14 08:11] LABS: UPreg QC Valid YES
--- NOTE | 2025-06-14 08:55 | PC.NURSE ---
assumed care of patient at 0645, patient is awake and alert, calm and cooperative at this time. medicated per JAN, utilizing pod headphones for comfort.
[2025-06-14 10:44] VITALS: BP 110/64; PULSE 78; RESP 14; TEMP 36.9; O2SAT 99
--- NOTE | 2025-06-14 13:39 | PC.NURSE ---
Report given to Jennifer LEROY, questions answered. Awaiting transport.
--- NOTE | 2025-06-14 14:10 | P.HPPS_ITS ---
HPI Date of Service: 06/14/25 Chief Complaint: Crisis Sources of Information: patient interviewed, chart reviewed and crisis/core team assessment reviewed HPI Subjective Notes: Armstrong Warning and Conditional Voluntary Narrative: Patient is a 39-year-old female with history of bipolar disorder and PTSD who presented to [facility] via ambulance due to disorganized behavior secondary to medication noncompliance. Per crisis report, patient stopped prescribed psychiatric medication 6 months ago and is becoming increasingly disoriented. Patient reports her and her got into an argument. Patient denies SI/HI/AH/VH. Patient denies having any psychiatric concerns and presents with poor insight. In ER, Patient was observed standing nude on her night stand, stuffing crushed up food into water and putting it into socks and linens. Patient was in the shower for over an hour, flooding the floor and tangling underwear in her hair in a disorganized manner. History of multiple inpatient psychiatric hospitalizations. History of 2 suicide attempts via hanging over 13 years ago. Denies any self-injurious behavior. Denies any substance use. Collateral obtained from patient's , Femi, who stated patient has been self dialoguing and laughing to self at home. Patient destroyed the bathroom including ripping the toilet out of the ground and was spinning around in the over flowing bath tub. Patient has been put on leave from her job for locking herself in the bathroom and acting erratic. During admission assessment, patient presents alert and oriented x3. Calm and cooperative. Guarded. Patient reports she recalls getting into an argument with her prior to coming to the hospital she believes her got scared because I raised my voice ; as to why she is now hospitalized. When discussing events prior to admission patient minimizes and denies behaviors. Discussed starting on Depakote and Zyprexa; risks/benefits reviewed; patient agreed to trial. Past Psychiatric History: IPLOC: History of multiple inpatient psychiatric hospitalizations currently does not have outpatient psychiatric prescriber. Was in therapy before lost insurance Medical Evaluation Reviewed: Yes [facility] Medical History (Updated 06/14/25 @ 14:01 by Madeline Wilson RN) Obesity (BMI 30.0-34.9) Psychosis Hypovitaminosis D Breast lump on left side at 3 o'clock position Physical exam Overweight (BMI 25.0-29.9) Intestinal malabsorption following gastrectomy Malabsorption due to intolerance, not elsewhere classified Anemia Back pain GERD (gastroesophageal reflux disease) Morbid obesity Surgical History History of surgical procedure on mouth History of colonoscopy Hx of cholecystectomy S/P laparoscopic sleeve gastrectomy Family History: denies Social History: lives with and 20 y/o son. 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 Substance History: denies Trauma History: yes, multiple childhood/adolescent traumatic events Diagnostics Vital Signs (24Hr): Vital Signs - 24 hr 06/13/25 21:39 06/14/25 06:45 06/14/25 10:44 Temperature 98.6 F 98.4 F Pulse Rate 89 78 Respiratory Rate 18 14 14 Blood Pressure 108/71 110/64 Pulse Oximetry 98 99 Oxygen Delivery Method Room Air Room Air BMI result Body Mass Index 28.3 Labs 06/10/25 21:19 06/10/25 21:19 Labs: Laboratory Results - last 48 hr 06/14/25 08:02 Urine Test NEGATIVE Meds/Allergies Allergies Allergies Allergy/AdvReac Type Severity Reaction Status Date / Time oseltamivir (From TAMIFLU) Allergy Intermediate DROWSINESS/NAUSEA, Verified 06/10/25 20:59 rash, psychosis lithium AdvReac Intermediate weight gain Verified 06/10/25 20:59 Mental Status Exam Mental Status Exam Narrative: Pt is alert and oriented; behavior is cooperative and calm, guarded; dressed in casual attire; mood is described as sad , tearful; eye contact appropriate; Speech is normal rate, volume and not pressured; thought process is organized; Thought content is on tx; denies SI/HI/VH/AH. Assessment & Plan Assessment & Plan (1) Bipolar 1 disorder: Status: Acute Code(s): F31.9 - Bipolar disorder, unspecified (2) PTSD (post-traumatic stress disorder): Status: Acute Code(s): F43.10 - Post-traumatic stress disorder, unspecified Plan Patient is a 39-year-old female with history of bipolar disorder and PTSD who presented to [facility] [place] due to disorganized behavior secondary to medication noncompliance. Plan: CV 15 minute safety checks Start: Depakote ER 500mg PO bedtime Zyprexa 10mg PO bedtime obtain collateral referral to outpatient psychiatric providers encourage groups discharge planning Patient educated on: diagnosis and medication risk/benefits Reason for continued inpatient stay Substantial Risk for: med/psych decompensation Statement Statement: I have reviewed the history and physical and performed a pertinent examination on my patient. No changes have occurred unless specified. If the History and Physical was not performed prior to admission, the Hospitalist's service will be consulted for completing the admission physical. Time Spent With Patient Time: Total time managing care of this patient today _60___ minutes.
[2025-06-14 14:22] VITALS: BP 101/61; PULSE 78; RESP 18; TEMP 36.4; O2SAT 98
[2025-06-14 14:23] VITALS: BMI 27.6
--- NOTE | 2025-06-14 17:25 | PC.ADMIT ---
Nursing admission note: 39 year old female, DX: Unspecified psychosis. Referred for treatment by CARE team. Signed conditional voluntary for admission, followed by three day notice. Patient was brought in by ambulance from home with . Per crisis report patient stopped prescribed medication 6 months ago, had become increasingly disoriented and altered in mental status. Per report patient had been acting bizarre with poor insight. Patient had been observed to stand naked on her nightstand, crushing up food into water and put it into socks and linens. Patient was in the shower for over an hour flooding the floor and tangling underwear in her hair. Patient engaged easily for admission assessment. A+O x3, poor insight into admission. Calm and cooperative during admission assessment. Full range of affect, tearful when discussing recent loss of step father. Patient denies anxiety or depression at this time. Denies SI/HI plan or intent, agrees to engage staff if thoughts occur. Denies perceptual disturbances, denies A/V hallucinations, denies suspiciousness or paranoia. Thoughts are disorganized. Speech is not rapid or pressured. Denies sleep or appetite disturbances. Denies substance use, TOX screen negative. States she has been off medications, has not attended follow up appointments due to loss of insurance. Reports financial stress due to being out of work, worried about paying bills. Patient states she did not rip the toilet off the wall at home (as suggested in crisis report) however jumped off it and into the shower at home to avoid touching the floor. States the toilet at home was in need of repair as the bolts were loosely attached. Medical history includes HX of anemia, GERD, gastric sleeve 2020. Placed on 15 minute safety checks. See nursing assessment./crisis evaluation for further details.
[2025-06-14 19:27] VITALS: BP 108/60; PULSE 79; RESP 16; TEMP 36.4; O2SAT 99
[2025-06-15 07:27] VITALS: BP 104/52; PULSE 60; RESP 16; TEMP 36.7; O2SAT 99
[2025-06-15 08:14] LABS: Hemoglobin A1C 99.8451 umol/L; Total Hemoglobin (HGBA1C) 3444.1200 umol/L
[2025-06-15 08:21] LABS: Alanine Aminotransferase 16 U/L (0-31); Albumin Level 4.0 g/dL (3.5-5.0); Alkaline Phosphatase 60 U/L (39-117); Anion Gap 10 (12-20); Aspartate Amino Transferase 20 U/L (5-31); Blood Urea Nitrogen 10 mg/dL (9-16); Calcium 8.9 mg/dL (8.4-10.2); Carbon Dioxide 30 mmol/L (22-29); Chloride 109 mmol/L (96-108); Cholesterol 152 mg/dL (<200); Creatinine Clr Calc Pharmacy 106.3; Estimated Glomerular Filt Rate > 60; HDL Cholesterol 68 mg/dL (>40); Potassium 4.1 mmol/L (3.3-5.1); Sodium 145 mmol/L (135-145); Total Protein 6.5 g/dL (6.5-8.0); Triglycerides 66 mg/dL (<150)
--- NOTE | 2025-06-15 08:49 | P.PNPSI_ITS ---
Subjective Subjective Date of Service: 06/15/25 Reason For Visit: Crisis Subjective Notes: 3 Day Interim History: Patient reports feeling okay today; reports feeling tired from medication last night. Continues to deny reported events in crisis evaluation. denies SI/HI/VH/AH. Continue current tx plan. Medication Compliance: Yes Side effects from medications: No Mental Status Exam Mental Status Exam Narrative: Pt is alert and oriented; behavior is cooperative and calm; dressed in casual attire; mood is described as tired ; eye contact appropriate; Speech is normal rate, volume and not pressured; thought process is organized; Thought content is on discharge; denies SI/HI/VH/AH. Diagnostics Vital Signs (24Hr): Vital Signs - 24 hr 06/14/25 10:44 06/14/25 14:22 06/14/25 19:27 Temperature 98.4 F 97.6 F 97.5 F Pulse Rate 78 78 79 Respiratory Rate 14 18 16 Blood Pressure 110/64 101/61 108/60 Pulse Oximetry 99 98 99 Oxygen Delivery Method Room Air Room Air Room Air 06/15/25 07:27 Temperature 98.1 F Pulse Rate 60 Respiratory Rate 16 Blood Pressure 104/52 L Pulse Oximetry 99 Oxygen Delivery Method Room Air BMI result Body Mass Index 27.6 Labs 06/10/25 21:19 06/15/25 07:48 Labs: Laboratory Results - last 48 hr 06/14/25 06/15/25 08:02 07:48 Sodium 145 Potassium 4.1 D Chloride 109 H Carbon Dioxide 30 H Anion Gap 10 L BUN 10 Creatinine 0.70 Estim Creat Clear Calc 106.3 Estimated GFR > 60 Random Glucose 84 Estimat Average Glucose 91 Hemoglobin A1c % 4.8 Calcium 8.9 Total Bilirubin 0.4 AST 20 ALT 16 Alkaline Phosphatase 60 Total Protein 6.5 Albumin 4.0 Triglycerides 66 Cholesterol 152 LDL Cholesterol, Calc 71 HDL Cholesterol 68 Urine Test NEGATIVE Medications Medications Current Medications Acetaminophen (Acetaminophen 325 Mg Tablet) 650 mg PO Q6H PRN PRN Reason: Headache/Pain, Scale 1-10 Al Hydroxide/Mg Hydroxide (Magnesium Hydrox/Alum Hydrox 30 Ml Oral.Susp) 30 ml PO Q6H PRN PRN Reason: Heartburn/Nausea Divalproex Sodium (Divalproex Sodium Er 500 Mg Tab.Er.24h) 500 mg PO BEDTIME BETO Last Admin: 06/14/25 22:17 Dose: 500 mg Hydroxyzine HCl (Hydroxyzine Hcl 25 Mg Tablet) 25 mg PO Q6H PRN PRN Reason: mild anxiety Loratadine (Loratadine 10 Mg Tablet) 10 mg PO DAILY PRN PRN Reason: allergy symptoms Magnesium Hydroxide (Milk Of Magnesia 30 Ml Oral.Susp) 30 ml PO DAILY PRN PRN Reason: Constipation Nicotine (Nicotine 21 Mg Patch.Td24) 21 mg TRANSDERMA DAILY BETO Nicotine Polacrilex (Nicotine Polacrilex 2 Mg Gum) 4 mg BUCCAL Q2H PRN PRN Reason: Nicotine Cravings Olanzapine (Olanzapine 10 Mg Tablet) 10 mg PO BEDTIME BETO Last Admin: 06/14/25 22:18 Dose: 10 mg Olanzapine (Olanzapine 5 Mg Tablet) 5 mg PO Q4H PRN PRN Reason: agitation Trazodone HCl (Trazodone Hcl 50 Mg Tablet) 50 mg PO BEDTIME MRX1 PRN PRN Reason: Insomnia Vitamin D (Cholecalciferol (Vitamin D3) 25 Mcg Tablet) 25 mcg PO DAILY [facility] Last Admin: 06/14/25 07:56 Dose: 25 mcg Allergies Allergies Allergy/AdvReac Type Severity Reaction Status Date / Time oseltamivir (From TAMIFLU) Allergy Intermediate DROWSINESS/NAUSEA, Verified 06/10/25 20:59 rash, psychosis lithium AdvReac Intermediate weight gain Verified 06/10/25 20:59 Assessment & Plan Assessment & Plan (1) Bipolar 1 disorder: Status: Acute Code(s): F31.9 - Bipolar disorder, unspecified (2) PTSD (post-traumatic stress disorder): Status: Acute Code(s): F43.10 - Post-traumatic stress disorder, unspecified Plan Patient is a 39-year-old female with history of bipolar disorder and PTSD who presented to [facility] [place] [facility] via ambulance due to disorganized behavior secondary to medication noncompliance. Plan: CV 15 minute safety checks Start: Depakote ER 500mg PO bedtime Zyprexa 10mg PO bedtime obtain collateral referral to outpatient psychiatric providers encourage groups discharge planning 06/15: Patient reports feeling okay today; reports feeling tired from medication last night. Continues to deny reported events in crisis evaluation. denies SI/HI/VH/AH. Continue current tx plan. Patient educated on: diagnosis and medication risk/benefits Reason for continued inpatient stay Substantial Risk for: med/psych decompensation Time Spent With Patient Time: Total time managing care of this patient today _20___ minutes.
[2025-06-15 23:49] VITALS: BP 123/58; PULSE 97; RESP 16; TEMP 36.6; O2SAT 98
[2025-06-16 09:00] VITALS: BP 107/57; PULSE 72; RESP 16; TEMP 36.4; O2SAT 98
--- NOTE | 2025-06-16 09:33 | HO.PSYCHPN ---
Subjective Subjective Date of Service: 06/16/25 Reason For Visit: Crisis Subjective Notes: 3 Day Interim History: Patient found lying in bed. She notes that she is feeling good. She has been sleeping well on Zyprexa and feel more sedated current dose; she took 5 mg instead of 10 mg of Zyprexa last night. She currently denies anxiety or depression. She denies SI/HI/AH/VH. Medication Compliance: Yes Side effects from medications: Yes Attending Groups: No Review of Systems Acute medical concerns: No Mental Status Exam Mental Status Exam Narrative: Appearance: Casually dressed, adequate hygiene Behavior: Calm and cooperative throughout the interview. Eye contact is appropriate, and there are no signs of psychomotor agitation or retardation Speech: Normal volume and prosody Thought process: Logical and goal-directed Thought content: Future oriented no self-harming thoughts Mood: Calm Affect: Constricted SI:denies HI:denies VH/AH:none Delusions: None Insight/judgment: Fair mood insight and judgment Memory/cog: Alert, oriented x 4. grossly intact to conversational testing Diagnostics Vital Signs (24Hr): Vital Signs - 24 hr 06/15/25 23:49 Temperature 98 F Pulse Rate 97 Respiratory Rate 16 Blood Pressure 123/58 L Pulse Oximetry 98 Oxygen Delivery Method Room Air BMI result Body Mass Index 27.6 Labs 06/10/25 21:19 06/15/25 07:48 Labs: Laboratory Results - last 48 hr 06/15/25 07:48 Sodium 145 Potassium 4.1 D Chloride 109 H Carbon Dioxide 30 H Anion Gap 10 L BUN 10 Creatinine 0.70 Estim Creat Clear Calc 106.3 Estimated GFR > 60 Random Glucose 84 Estimat Average Glucose 91 Hemoglobin A1c % 4.8 Calcium 8.9 Total Bilirubin 0.4 AST 20 ALT 16 Alkaline Phosphatase 60 Total Protein 6.5 Albumin 4.0 Triglycerides 66 Cholesterol 152 LDL Cholesterol, Calc 71 HDL Cholesterol 68 Medications Medications Current Medications Acetaminophen (Acetaminophen 325 Mg Tablet) 650 mg PO Q6H PRN PRN Reason: Headache/Pain, Scale 1-10 Last Admin: 06/15/25 09:44 Dose: 650 mg Al Hydroxide/Mg Hydroxide (Magnesium Hydrox/Alum Hydrox 30 Ml Oral.Susp) 30 ml PO Q6H PRN PRN Reason: Heartburn/Nausea Divalproex Sodium (Divalproex Sodium Er 500 Mg Tab.Er.24h) 500 mg PO BEDTIME BETO Last Admin: 06/15/25 20:59 Dose: 500 mg Hydroxyzine HCl (Hydroxyzine Hcl 25 Mg Tablet) 25 mg PO Q6H PRN PRN Reason: mild anxiety Loratadine (Loratadine 10 Mg Tablet) 10 mg PO DAILY PRN PRN Reason: allergy symptoms Magnesium Hydroxide (Milk Of Magnesia 30 Ml Oral.Susp) 30 ml PO DAILY PRN PRN Reason: Constipation Nicotine Polacrilex (Nicotine Polacrilex 2 Mg Gum) 4 mg BUCCAL Q2H PRN PRN Reason: Nicotine Cravings Olanzapine (Olanzapine 10 Mg Tablet) 10 mg PO BEDTIME [facility] Last Admin: 06/15/25 21:03 Dose: 5 mg Olanzapine (Olanzapine 5 Mg Tablet) 5 mg PO Q4H PRN PRN Reason: agitation Trazodone HCl (Trazodone Hcl 50 Mg Tablet) 50 mg PO BEDTIME MRX1 PRN PRN Reason: Insomnia Vitamin D (Cholecalciferol (Vitamin D3) 25 Mcg Tablet) 25 mcg PO DAILY [facility] Last Admin: 06/15/25 09:32 Dose: 25 mcg Allergies Allergies Allergy/AdvReac Type Severity Reaction Status Date / Time oseltamivir (From TAMIFLU) Allergy Intermediate DROWSINESS/NAUSEA, Verified 06/10/25 20:59 rash, psychosis lithium AdvReac Intermediate weight gain Verified 06/10/25 20:59 Assessment & Plan Assessment & Plan (1) Bipolar 1 disorder: Status: Acute Code(s): F31.9 - Bipolar disorder, unspecified (2) PTSD (post-traumatic stress disorder): Status: Acute Code(s): F43.10 - Post-traumatic stress disorder, unspecified Plan Patient is a 39-year-old female with history of bipolar disorder and PTSD who presented to [facility] via ambulance due to disorganized behavior secondary to medication noncompliance. Plan: CV 15 minute safety checks Start: Depakote ER 500mg PO bedtime Zyprexa 10mg PO bedtime obtain collateral referral to outpatient psychiatric providers encourage groups discharge planning 06/15: Patient reports feeling okay today; reports feeling tired from medication last night. Continues to deny reported events in crisis evaluation. denies SI/HI/VH/AH. Continue current tx plan. 06/16: Patient found lying in bed. She notes that she is feeling good. She has been sleeping well on Zyprexa and feel more sedated current dose; she took 5 mg instead of 10 mg of Zyprexa last night. She currently denies anxiety or depression. She denies SI/HI/AH/VH. Zyprexa decreased to 5 mg at bedtime. Patient educated on: medication risk/benefits and therapeutic strategies Reason for continued inpatient stay Substantial Risk for: rapid decompensation Time Spent With Patient Time: Total time managing care of this patient today ____ minutes.
[2025-06-16 20:00] VITALS: BP 122/62; PULSE 93; RESP 16; TEMP 36.8; O2SAT 100
[2025-06-17 07:30] VITALS: BP 118/64; PULSE 65; RESP 20; TEMP 36.3; O2SAT 98
--- NOTE | 2025-06-17 10:07 | P.DS_ITS ---
DS: Providers Provider Date of Service: 06/17/25 Date of admission: 06/14/25 11:55 Date of discharge: 06/17/25 Primary care physician: Cydney Foster MD Admitting clinician: Laurel Page Attending physician on admission: Tyrell Rowley Attending physician on discharge: Tyrell Rowley Discharging clinician: Laurel Page DS: Diagnosis Discharge Diagnosis (1) Bipolar 1 disorder: Status: Acute (2) PTSD (post-traumatic stress disorder): Status: Acute DS: Medications Discharge Medications Home Medications: Previous Rx's ?Medication ?Instructions ?Recorded cetirizine 10 mg tablet (All Day 10 mg PO DAILY PRN al lergy 12/11/24 Allergy (cetirizine)) symptoms #90 tabs cholecalciferol (vitamin D3) 25 25 mcg PO DAILY #90 ca ps 03/23/25 mcg (1,000 unit) capsule Mental Status Exam Mental Status Exam Narrative: Pt is alert and oriented; behavior is cooperative and calm; dressed in casual attire; mood is described as good ; eye contact appropriate; Speech is normal rate, volume and not pressured; thought process is organized; Thought content is on discharge; denies SI/HI/VH/AH. Data Data Completed and Pending Completed studies during hospitalization [Text1]: 06/10/25 06/11/25 06/14/25 21:19 20:04 08:02 WBC 8.5 RBC 4.18 L Hgb 12.8 Hct 35.7 L MCV 85.4 MCH 30.6 MCHC 35.9 H RDW 13.4 Plt Count 258 MPV 9.6 Immature Gran % (Auto) 0.2 Neut % (Auto) 60.3 Lymph % (Auto) 30.2 [place] % (Auto) 7.5 Eos % (Auto) 1.4 Baso % (Auto) 0.4 Lymph # (Auto) 2.6 [place] # (Auto) 0.6 Eos # (Auto) 0.1 Baso # (Auto) 0.0 Abs Immat Gran (auto) 0.02 Absolute Neuts (auto) 5.1 Absolute Nucleated RBC 0.000 Nucleated RBC % (auto) 0.0 Sodium 140 Potassium 3.4 D Chloride 110 H Carbon Dioxide 22 Anion Gap 11 L BUN 6 L Creatinine 0.66 Estim Creat Clear Calc 115.2 Estimated GFR > 60 Random Glucose 80 Estimat Average Glucose Hemoglobin A1c % Calcium 9.0 Total Bilirubin 0.5 AST 22 ALT 14 Alkaline Phosphatase 64 Total Protein 7.0 Albumin 4.3 Triglycerides Cholesterol LDL Cholesterol, Calc HDL Cholesterol Urine Color Yellow Urine Appearance Cloudy Urine pH 6.0 Ur Specific [place] 1.025 Urine Protein 30 (1+) H Urine Glucose (UA) Negative Urine Ketones Trace Urine Blood Trace H Urine Nitrite Negative Ur Leukocyte Esterase Large (3+) H Urine RBC 0-2 Urine WBC 0-5 Ur Squamous Epith Cells >20 Urine Bacteria 4+ Hyaline Casts 0-2 Urine Test NEGATIVE Salicylates < 5.0 L Urine Opiates Screen Not Detected Ur Buprenorphine Scrn Not Detected Ur Oxycodone Screen Not Detected Urine Methadone Screen Not Detected Urine Fentanyl Screen Not Detected Acetaminophen < 3 Ur Barbiturates Screen Not Detected Ur Phencyclidine Scrn Not Detected Ur Amphetamines Screen Not Detected U Benzodiazepines Scrn Not Detected Urine Cocaine Screen Not Detected U Marijuana (THC) Screen Not Detected Ethyl Alcohol < 10 06/15/25 07:48 WBC RBC Hgb Hct MCV MCH MCHC RDW Plt Count MPV Immature Gran % (Auto) Neut % (Auto) Lymph % (Auto) [place] % (Auto) Eos % (Auto) Baso % (Auto) Lymph # (Auto) [place] # (Auto) Eos # (Auto) Baso # (Auto) Abs Immat Gran (auto) Absolute Neuts (auto) Absolute Nucleated RBC Nucleated RBC % (auto) Sodium 145 Potassium 4.1 D Chloride 109 H Carbon Dioxide 30 H Anion Gap 10 L BUN 10 Creatinine 0.70 Estim Creat Clear Calc 106.3 Estimated GFR > 60 Random Glucose 84 Estimat Average Glucose 91 Hemoglobin A1c % 4.8 Calcium 8.9 Total Bilirubin 0.4 AST 20 ALT 16 Alkaline Phosphatase 60 Total Protein 6.5 Albumin 4.0 Triglycerides 66 Cholesterol 152 LDL Cholesterol, Calc 71 HDL Cholesterol 68 Urine Color Urine Appearance Urine pH Ur Specific [place] Urine Protein Urine Glucose (UA) Urine Ketones Urine Blood Urine Nitrite Ur Leukocyte Esterase Urine RBC Urine WBC Ur Squamous Epith Cells Urine Bacteria Hyaline Casts Urine Test Salicylates Urine Opiates Screen Ur Buprenorphine Scrn Ur Oxycodone Screen Urine Methadone Screen Urine Fentanyl Screen Acetaminophen Ur Barbiturates Screen Ur Phencyclidine Scrn Ur Amphetamines Screen U Benzodiazepines Scrn Urine Cocaine Screen U Marijuana (THC) Screen Ethyl Alcohol 06/11/25 Unknown Urine clean catch - Clean Catch Midstream Urine Culture - Final Strep agalactiae (Grp B) DS: Summary Hospital Course Hospital Course: Patient is a 39-year-old female with history of bipolar disorder and PTSD who presented to [facility] via ambulance due to disorganized behavior secondary to medication noncompliance. Per crisis report, patient stopped prescribed psychiatric medication 6 months ago and is becoming increasingly disoriented. Patient reports her and her got into an argument. Patient denies SI/HI/AH/VH. Patient denies having any psychiatric concerns and presents with poor insight. In ER, Patient was observed standing nude on her night stand, stuffing crushed up food into water and putting it into socks and linens. Patient was in the shower for over an hour, flooding the floor and tangling underwear in her hair in a disorganized manner. History of multiple inpatient psychiatric hospitalizations. History of 2 suicide attempts via hanging over 13 years ago. Denies any self-injurious behavior. Denies any substance use. Collateral obtained from patient's , Femi, who stated patient has been self dialoguing and laughing to self at home. Patient destroyed the bathroom including ripping the toilet out of the ground and was spinning around in the over flowing bath tub. Patient has been put on leave from her job for locking herself in the bathroom and acting erratic. During admission assessment, patient presents alert and oriented x3. Calm and cooperative. Guarded. Patient reports she recalls getting into an argument with her prior to coming to the hospital she believes her got scared because I raised my voice ; as to why she is now hospitalized. When discussing events prior to admission patient minimizes and denies behaviors. Discussed starting on Depakote and Zyprexa; risks/benefits reviewed; patient agreed to trial. Plan: CV 15 minute safety checks Start: Depakote ER 500mg PO bedtime Zyprexa 10mg PO bedtime obtain collateral referral to outpatient psychiatric providers encourage groups discharge planning Patient reports feeling okay today; reports feeling tired from medication last night. Continues to deny reported events in crisis evaluation. denies SI/HI/VH/AH. Continue current tx plan. Patient found lying in bed. She notes that she is feeling good. She has been sleeping well on Zyprexa and feel more sedated current dose; she took 5 mg instead of 10 mg of Zyprexa last night. She currently denies anxiety or depression. She denies SI/HI/AH/VH. Zyprexa decreased to 5 mg at bedtime. Patient reports feeling good and feeling ready for discharge. denies SI/HI/VH/AH. Valproic acid level 26.4 on 06/17/25. Pt reports she plans on following up with outpatient providers. Status at Discharge Cognitive/behavioral status at discharge: Patient has insight and demonstrates good judgment in terms of wanting to pursue treatment. Patient has a safety plan that includes presenting to the closest ER or calling 911 if feeling unsafe. Functional status at discharge: independent ambulation Overall status at discharge: patient is back to baseline Time Spent with Patient Time attestation: Total time managing care of this patient today _20___ minutes. Time spent: Less than 30 minutes Discharge Plan Discharge Anticipated Discharge Date/Time: 06/17/25 10:08 Patient Disposition: Home, Self-Care Discharge Diagnosis: Bipolar d/o, PTSD Referrals: [facility] Walk in Clinic [Other] - 1 Week Referral Note: Walk in hours are Saturday-Saturday 8am-8pm Cydney Juárez MD [Primary Care Provider, Internal Medicine] Referral Note: 06-17-25 Your primary care provider was notified of your discharge and will be contacting you directly with the date and time of your follow up appt. Discharge Medications: New olanzapine 5 mg Tablet 5 mg PO BEDTIME 30 Days Qty: 30 0RF divalproex 500 mg Tablet Extended Release 24 Hr 500 mg PO BEDTIME 30 Days Qty: 30 0RF Continued cholecalciferol (vitamin D3) 25 mcg (1,000 unit) capsule 25 mcg PO DAILY Qty: 90 3RF Discontinued cetirizine [All Day Allergy (cetirizine)] 10 mg tablet 10 mg PO DAILY PRN (Reason: allergy symptoms) Qty: 90 0RF Discharge Orders: Discharge Order (Routine); Ordered 06/17/25 Ordered By: Laurel Page Diet: Regular diet Activity on Discharge: As tolerated Stand Alone Forms: Patient Portal Discharge page, Community Support Print Language: Ivorian Care Plan Goals: Maintain mood and safe behaviors Take medications as prescribed Practice coping skills Continue with outpatient providers and reach out to them as needed Health Concerns: Mood stability and behaviors Plan of Treatment: Follow up with your PCP, psychiatric provider and other outpatient providers regarding above concerns Take medications as prescribed Assessment: Patient has insight and demonstrates good judgment in terms of wanting to pursue treatment. Patient has a safety plan that includes presenting to the closest ER or calling 911 if feeling unsafe. Discharge Date/Time: 06/17/25 11:12
[2025-06-17 10:58] LABS: Ammonia 36 umol/L (13-55)
[2025-06-17 11:08] LABS: Alanine Aminotransferase 21 U/L (0-31); Albumin Level 3.9 g/dL (3.5-5.0); Alkaline Phosphatase 68 U/L (39-117); Aspartate Amino Transferase 37 U/L (5-31); Total Protein 6.5 g/dL (6.5-8.0)
== END 2025-06-17 11:12 | disposition home or self-care (01) | DRG 885 ==
LOC: HO.ED 06-13 22:56 → HO.PADLT16 06-14 12:25
PROVIDERS: Admitting Provider Registered Nurse; Emergency Provider Emergency Medicine; PCP Internal Medicine; Responsible Provider Registered Nurse; Visit Provider Psychiatry & Neurology Psychiatry
DX: F31.9 Bipolar disorder, unspecified (principal); F43.10 Post-traumatic stress disorder, unspecified; Z91.148 Patient's other noncompliance with medication regimen for other reason; Z98.84 Bariatric surgery status; Z79.899 Other long term (current) drug therapy
CPT/HCPCS: 36415; 80053; 80061; 80076; 80143; 80164; 80179; 80307; 81001; 81025; 82140; 83036; 85025; 87086; 87147; 93005; 99285; S9485

== ENCOUNTER → 2025-06-14 07:27 | Outpatient (BNV) | payer SELFPAY | PROVIDERS: Admitting Provider Registered Nurse; Emergency Provider Emergency Medicine; PCP Internal Medicine; Visit Provider Internal Medicine Cardiovascular Disease | DX: Z13.6 Encounter for screening for cardiovascular disorders (principal) | CPT/HCPCS: 93010 ==

== ENCOUNTER → 2025-06-14 11:55 | Outpatient (BNV) | payer OTHER, SELFPAY | PROVIDERS: Admitting Provider Registered Nurse; Emergency Provider Emergency Medicine; PCP Internal Medicine; Visit Provider Registered Nurse | DX: F31.9 Bipolar disorder, unspecified (principal); F43.10 Post-traumatic stress disorder, unspecified | CPT/HCPCS: 90792 ==

== ENCOUNTER 2025-06-20 16:20 | Emergency (ER) | payer OTHER, SELFPAY ==
[2025-06-20 16:26] VITALS: BP 132/71; PULSE 97; RESP 16; TEMP 36.6; O2SAT 98; BMI 31.0
--- NOTE | 2025-06-20 16:26 | ED.LOWEXIN ---
HPI - Extremity Injury (Lower) General Stated Complaint: left foot wound Source: patient Mode of arrival: ambulatory Limitations: no limitations History of Present Illness ED Provider: Maria Guadalupe Mukherjee NP HPI Narrative: Patient is a 40-year-old female who presents emergency department for evaluation. She is getting her floors redone at her home, was sweeping last night, there was a rusted nail on the floor that she did not see, and the bottom of her foot scraped across it just below the 5th toe. Initially had some bleeding but this is since resolved. Was advised that she should have a tetanus vaccine forthis. Denies pain, redness, swelling, pus-like discharge. Related Data Previous Rx's ?Medication ?Instructions ?Recorded cholecalciferol (vitamin D3) 25 25 mcg PO DAILY #90 caps 03/23/25 mcg (1,000 unit) capsule divalproex 500 mg tablet,extended 500 mg PO BEDTIME 30 days #30 tabs 06/17/25 release 24 hr olanzapine 5 mg tablet 5 mg PO BEDTIME 30 days #30 tabs 06/17/25 Allergies Allergy/AdvReac Type Severity Reaction Status Date / Time oseltamivir (From TAMIFLU) Allergy Intermediate DROWSINESS/NAUSEA, Verified 06/20/25 16:28 rash, psychosis pork derived (porcine) Allergy Diarrhea Verified 06/20/25 16:28 lithium AdvReac Intermediate weight gain Verified 06/20/25 16:28 Review of Systems Review of Systems: Yes all other systems are reviewed and are negative PMFSH Past Medical History Attestation statement: The following information was validated with the patient. Source: old records reviewed Medical History Obesity (BMI 30.0-34.9) Psychosis Hypovitaminosis D Breast lump on left side at 3 o'clock position Physical exam Overweight (BMI 25.0-29.9) Intestinal malabsorption following gastrectomy Malabsorption due to intolerance, not elsewhere classified Anemia Back pain GERD (gastroesophageal reflux disease) Morbid obesity Surgical History History of surgical procedure on mouth History of colonoscopy Hx of cholecystectomy S/P laparoscopic sleeve gastrectomy Family History Family History Father No problems noted. Mother Hypertension Sister No problems noted. Sister Hypoglycemia Brother No problems noted. Brother No problems noted. Son No problems noted. Son No problems noted. Paternal Aunt Breast cancer Colon cancer Paternal Grandfather No problems noted. Social History Social History Household Members: Spouse and Children Household Members Other:: 2 Housing: Apartment Do you presently have visiting nurse or other home services: No Unable to assess alcohol history related to: Refusing to respond Alcohol intake: former Patient Tobacco Use Status: Former Tobacco user Tobacco use type: Cigarette e-Cigarette/Vaping Use: Never Used Second Hand Smoke Exposure: No service: No Current occupational status: employed Current occupational exposures/hazards: No Sexual orientation: Straight/Heterosexual Cognitive needs: No Hearing needs: No Vision needs: No Physical Exam Vital Signs: Appearance: Alert.?Oriented to person, place and time. No acute distress.?Normal affect. CVS: Heart sounds normal. Normal heart rate and rhythm.? Pulses normal.?? Respiratory: No respiratory distress.? Lung sounds clear to auscultation bilaterally?? Skin: Skin warm and dry.? Normal skin color.? Extremities: No lower extremity edema.? No calf ttp. Plantar aspect of left foot at the base of the 5th digit with a 0.25 cm puncture wound superficial abrasion below it. No active bleeding. No erythema, warmth, pus-like drainage. Neuro: Moves all extremities spontaneously. Sensation intact bilaterally. Ambulates with normal steady gait. Medical Decision Making Medical Decision Making MDM Narrative: Patient is a 40-year-old female who presents emergency department for evaluation of a puncture wound to the left foot sustained from a autumn nail as per HPI, on examination there is a small puncture wound with superficial abrasion, scabbing has already started. Area was cleansed with normal saline, topical bacitracin ointment applied in addition to a bandage. No evidence of cellulitis. Ambulatory with steady gait. Do not have concern for acute osseous abnormality. No retained foreign body. Tetanus vaccine was updated today. Discharged home with strict return precautions monitoring for signs of infection. All questions answered Differential Diagnosis Differential Diagnoses: The differential diagnosis associated with the presentation includes External Record Review External record reviewed: Outpatient record Prescription Management I considered prescription management with: Antibiotic (Topical) Discharge Plan Discharge Clinical Impression: Puncture wound of foot Patient Disposition: Home, Self-Care Instructions: Puncture Wound in the Foot (ED) Additional Instructions: Clean twice a day with warm water and mild non scented soap. Apply topical antibiotic ointment with a bandage. Monitor for signs of infection including redness, swelling, pain, pus-like discharge. Your tetanus vaccine was updated today. Prescriptions: No Action cholecalciferol (vitamin D3) 25 mcg (1,000 unit) capsule 25 mcg PO DAILY Qty: 90 3RF olanzapine 5 mg Tablet 5 mg PO BEDTIME 30 Days Qty: 30 0RF divalproex 500 mg Tablet Extended Release 24 Hr 500 mg PO BEDTIME 30 Days Qty: 30 0RF Referrals: Cydney Juárez MD [Primary Care Provider, Internal Medicine] Stand Alone Forms: Work/School Release Print Language: New Zealander
--- OUTSIDE RECORDS SUMMARY | 2025-06-20 16:39 | XMS_ITS | Clinical Summary ---
Author Organization [facility] Address [address] [place] [address] Phone Care Team Providers Care Glue Clamp Operator Name Role Phone Cydney Foster MD Primary Care Provider [phone] Allergies No known active allergies Medications cetirizine [...] History Surgery Date Site/Laterality Comments CHOLECYSTECTOMY PROCEDURE: [place] CHOLECYSTECTOMY BARIATRIC SURGERY N/A PROCEDURE: [place] LAPS GSTRC RSTRICTIV PX LONGITUDINAL GASTRECTOMY MULTIPLE [...] topic Insurance MEDICAID - [place] Care Teams Glue Clamp Operator Relationship Specialty Start Date End Date Cydney Foster MD 2 [facility] , [address] [facility] Physician Associ D/B/A: [facility] [place] PCP - General Internal Medicine 03/10/25
--- OUTSIDE RECORDS SUMMARY | 2025-06-20 16:39 | XMS_ITS | Encounter Summary ---
Author Organization [employer] Address [address] [facility] [address] [place] [address] Care Team Providers Care Hadoop Administrator Name Role Phone Unavailable Primary Care Provider Unavailabl e Encounter Details Date Type Department Care Team (Latest Contact Info) Description 12/07/2020 Abstract [facility] CONVERSIONS Dental, Provider, DDS Social History [...]
[2025-06-20] MEDS: Diphth,Pertus(ACell),Tet Adult 0.5 ML SYRINGE IM (16:44)
[2025-06-20 16:54] VITALS: BP 132/71; PULSE 97; RESP 16; TEMP 36.6; O2SAT 98
== END 2025-06-20 16:55 | disposition home or self-care (01) ==
PROVIDERS: Emergency Provider Emergency Medicine; PCP Internal Medicine
DX: S91.332A Puncture wound without foreign body, left foot, initial encounter (principal); X58.XXXA Exposure to other specified factors, initial encounter; Y93.E9 Activity, other interior property and clothing maintenance; Y92.89 Other specified places as the place of occurrence of the external cause; Y99.9 Unspecified external cause status
CPT/HCPCS: 90471; 90715; 99282; 99284

== ENCOUNTER 2025-06-28 10:47 | Outpatient (AMB) | payer OTHER, SELFPAY ==
[2025-06-28 10:58] VITALS: BP 100/70; PULSE 80; RESP 18; O2SAT 96; BMI 31.4
--- NOTE | 2025-06-28 10:58 | A.OFFPC_ITS ---
Vital Signs 06/28/25 10:58 Height 5 ft 1 in Weight 166 lb BMI 31.4 BP 100/70 Blood Pressure Location Lt brachial Position Sitting Respiration 18 Pulse 80 Pulse Source Pulse Oximeter Temp Source Temporal Artery Scan Pulse Oximetry (%) 96 Oxygen Delivery Method Room Air Intake Visit Reasons: follow up Section Hand Helper Required: Yes Accompanied by: Self / Same As Patient Allergies oseltamivir (From TAMIFLU) Allergy (Intermediate, Verified 06/28/25 13:04) DROWSINESS/NAUSEA, rash, psychosis pork derived (porcine) Allergy (Verified 06/28/25 13:04) Diarrhea lithium Adverse Reaction (Intermediate, Verified 06/28/25 13:04) weight gain Medication List - Last Reconciled 06/28/25 by Cydney Foster MD cholecalciferol (vitamin D3) 25 mcg PO DAILY divalproex ER 500 mg PO BEDTIME 30 days olanzapine 5 mg PO BEDTIME 30 days Tobacco use date assessed: 06/28/25 Dental Screening Dental Screen Date: 06/28/25 Did you have a dental visit in the last 12 months?: Yes Did you have a dental problem in the last 6 months where you did not have access to dental care?: No Was dental information given to patient?: Patient has dentist HPI HPI Comments History of Present Illness Details The patient is a 40-year-old female presenting with management of bipolar disorder, migraine, and allergic rhinitis. She also has low vitamin-D on supplements. The patient has a history of bipolar disorder and is currently non-compliant with medications, including Divalproex and Olanzapine. She was hospitalized on June 10 and discharged on June 17, with the hospitalization involving psychiatric care. During her stay, she underwent various laboratory tests, all of which returned normal results. The patient also reports experiencing migraines, characterized by a strong headache and pressure on the left side of her head. She notes that these headaches are different from previous migraines, as they do not cause light sensitivity or severe pain. Additionally, the patient has symptoms of allergic rhinitis, for which she has been using [id number] oral treatments. She reports taking antihistamines every four hours to manage her symptoms. [facility] Medical History Psychiatric care Obesity (BMI 30.0-34.9) Psychosis Hypovitaminosis D Breast lump on left side at 3 o'clock position Physical exam Overweight (BMI 25.0-29.9) Intestinal malabsorption following gastrectomy Malabsorption due to intolerance, not elsewhere classified Anemia Back pain GERD (gastroesophageal reflux disease) Morbid obesity Surgical History History of surgical procedure on mouth History of colonoscopy Hx of cholecystectomy S/P laparoscopic sleeve gastrectomy Family History Father No problems noted. Mother Hypertension Sister No problems noted. Sister Hypoglycemia Brother No problems noted. Brother No problems noted. Son No problems noted. Son No problems noted. Paternal Aunt Breast cancer Colon cancer Paternal Grandfather No problems noted. Social History Household Members: Spouse and Children Household Members Other:: 2 Housing: Apartment Do you presently have visiting nurse or other home services: No Unable to assess alcohol history related to: Refusing to respond Alcohol intake: former Patient Tobacco Use Status: Former Tobacco user Tobacco use type: Cigarette e-Cigarette/Vaping Use: Never Used Second Hand Smoke Exposure: No service: No Current occupational status: employed Current occupational exposures/hazards: No Sexual orientation: Straight/Heterosexual Cognitive needs: No Hearing needs: No Vision needs: No Female Reproductive History Menstrual Age of Menarche: 7 Questionnaire PHQ-9 Over the last 2 weeks, how often have you been bothered by any of the following problems? 1. Little interest or pleasure in doing things: not at all 2. Feeling down, depressed, or hopeless: not at all 3. Trouble falling or staying asleep, or sleeping too much: not at all 4. Feeling tired or having little energy: not at all 5. Poor appetite or overeating: more than half the days 6. Feeling bad about yourself - or that you are a failure or have let yourself or your family down: not at all 7. Trouble concentrating on things, such as reading the newspaper or watching television: not at all 8. Moving or speaking so slowly that other people could have noticed. Or the opposite - being so fidgety or restless that you have been moving around a lot more than usual: not at all 9. Thoughts that you would be better off or of hurting yourself in some way: not at all Total score: 2 Depression Screening Interpretation: Positive Depression Screening Follow-up: Existing condition and Follow-up Visit Requested Depression Screening Done: Yes 47906 - PHQ-9 Billing: Yes Source: Developed by Drs. Rogelio Villatoro, Cassidy Serrano, Guido Doss and colleagues, with an educational bob from [employer]. Thrive Questionnaire Date Thrive assessed: 06/28/25 I am a: Patient What is your living situation today?: I have a place to live, but I am worried about losing it in the future Within the past 12 months, did the food you bought not last and you didn't have the money to get more?: Sometimes True Within the past 12 months, did you worry whether your food would run out before you got money to buy more?: Sometimes True Do you have trouble paying for medicines?: Yes Do you have trouble getting transportation to medical appointments?: No Do you have trouble paying your heating and electricity bill?: No Do you have trouble taking care of your child, family member or friend?: No Do you have trouble with day-to-day activities such as bathing, preparing meals, shopping, managing finances, etc.?: No Are you currently unemployed and looking for a job?: No Are you interested in more education?: No Currently or been in a relationship where the following occur: No concerns reported THRIVE Score: 3 AUDIT C Alcohol Use Questionnaire (AUDIT-C) 1. How often do you have a drink containing alcohol?: Never 3. How often do you have six or more drinks on one occasion?: Never Total Score: 0 Score Reviewed/Action Taken: No LUIZ-7 AMB Questionnaire LUIZ-7 Date LUIZ - 7 assessed: 06/28/25 Feeling nervous, anxious, or on edge: 0 = Not at all Not being able to stop or control worryin = Not at all Worrying too much about different things: 0 = Not at all Trouble relaxin = Not at all Being so restless that it is hard to sit still: 0 = Not at all Becoming easily annoyed or irritable: 0 = Not at all Feeling afraid as if something awful might happen: 0 = Not at all Total LUIZ-7 score (0-4 normal; 5-9 mild; 10-14 moderate; 15-21 severe): 0 Source: Developed by Drs. Rogelio Villatoro, Cassidy Serrano, Guido Doss and colleagues, with an educational bob from [employer]. LUIZ-7 Assessment Billing LUIZ-7 Assessment Tool: LUIZ-7 Assessment 31826 Review of Systems Const All systems reviewed & are unremarkable except as noted in HPI and below Card Denies chest pain at rest, Denies chest pain with activity, Denies edema, Denies irregular heart rhythm, Denies claudication, Denies dyspnea, Denies dyspnea on exertion, Denies orthopnea, Denies paroxysmal nocturnal dyspnea and Denies slow heart rate Resp Denies cough, Denies dyspnea and Denies dyspnea on exertion GI Denies abdominal pain, Denies change in bowel habits, Denies excessive flatus, Denies nausea and Denies vomiting Physical exam (Primary Care) Vital Signs: Last Vital Signs Pulse 80 06/28/25 10:58 Resp 18 06/28/25 10:58 BP 100/70 06/28/25 10:58 Pulse Ox 96 06/28/25 10:58 Oxygen Delivery Method Room Air 06/28/25 10:58 BMI result Body Mass Index 31.4 Tobacco/Smoking Status: Tobacco use Status Tobacco use date assessed 06/28/25 06/28/25 11:02 Patient Tobacco Use Status Former Tobacco user 06/28/25 10:58 Tobacco use type Cigarette 06/28/25 10:58 e-Cigarette/Vaping Use Never Used 06/28/25 10:58 PHQ-9: PHQ-9 Score PHQ-9: Total score 2 06/28/25 13:09 Depression Screening Interpretation: Positive Depression Screening Follow-up: Existing condition and Follow-up Visit Requested Thrive Assessment: Date of Thrive Assessment Date Thrive assessed 06/28/25 06/28/25 11:02 Currently or been in a relationship where the following occur: No concerns reported Resp Effort & Inspection: normal respiratory effort Auscultation: clear to auscultation bilaterally Cardio Jugular venous distension: no JVD Rate: regular rate Rhythm: regular rhythm Heart sounds: S1 normal heart sound present and S2 normal heart sound present Extrem General: Yes full ROM Coding Level of Care Code Est Pt Level 4 (53631) Complex EM visit Add On G2211 Diagnoses Bipolar I disorder with mixed features F31.9 Hypovitaminosis D E55.9 Seasonal allergies J30.2 Persistent headaches R51.9 Additional Codes LUIZ-7 Assessment Billing - LUIZ-7 Assessment Tool: LUIZ-7 Assessment 34921 ([id number]) PHQ-9 - 85773 - PHQ-9 Billing: Yes ([id number]) Time Spent (min) 23 Assessment & Plan Assessment & Plan (1) Bipolar I disorder with mixed features: Code(s): F31.9 - Bipolar disorder, unspecified Category: Medical (2) Hypovitaminosis D: Code(s): E55.9 - Vitamin D deficiency, unspecified Category: Medical (3) Seasonal allergies: Code(s): J30.2 - Other seasonal allergic rhinitis Category: Medical (4) Persistent headaches: Code(s): R51.9 - Headache, unspecified Category: Medical Plan The management plan for the patient includes addressing her bipolar disorder, migraine, and allergic rhinitis. For bipolar disorder, it is crucial to improve medication adherence, p articularly with Divalproex and Olanzapine, to stabilize mood and prevent further psychiatric hospitalizations. Regular follow-up with a psychiatrist is recommended to monitor her condition and adjust medications as necessary. For migraine management, the patient should continue monitoring her symptoms and seek medical advice if the headaches worsen or change in character. Consideration of prophylactic treatment may be warranted if migraines become more frequent or severe. For allergic rhinitis, the patient should continue using antihistamines as needed and consider consulting an radiation therapy technologist if symptoms persist or worsen. Patient was informed and verbally consented to the use of an ambient scribe for clinic note documentation during this visit. Medications: New cetirizine (All Day Allergy (cetirizine)) 10 mg PO DAILY PRN 90 tabs 0RF allergy symptoms 90 days Discontinued divalproex ER Discontinued Reason: Patient Refused 500 mg PO BEDTIME 30 days 30 tabs 0RF olanzapine Discontinued Reason: Patient Refused 5 mg PO BEDTIME 30 days 30 tabs 0RF
--- OUTSIDE RECORDS SUMMARY | 2025-06-28 11:30 | XMS_ITS | Clinical Summary ---
Author Organization [facility] Address [address] [place] [address] Phone Care Team Providers Care Rn Clinical Research Name Role Phone Cydney Foster MD Primary Care Provider [phone] Allergies No known active allergies Medications cetirizine [...] topic Insurance [place] - [place] Care Teams Rn Clinical Research Relationship Specialty Start Date End Date Cydney Foster MD 2 [facility] , [address] [facility] Physician Associ D/B/A: [facility] [place] PCP - General Internal Medicine 03/10/25
== END 2025-06-28 13:17 | disposition home or self-care (01) ==
LOC: HO.HMCH 10:48
PROVIDERS: PCP Internal Medicine; Visit Provider Internal Medicine
DX: F31.9 Bipolar disorder, unspecified (principal); E55.9 Vitamin D deficiency, unspecified; J30.2 Other seasonal allergic rhinitis; R51.9 Headache, unspecified

== ENCOUNTER → 2025-06-28 10:47 | Outpatient (BNVA) | payer OTHER, SELFPAY | PROVIDERS: PCP Internal Medicine; Visit Provider Internal Medicine | DX: K21.9 Gastro-esophageal reflux disease without esophagitis (principal); F31.9 Bipolar disorder, unspecified; G43.909 Migraine, unspecified, not intractable, without status migrainosus; E55.9 Vitamin D deficiency, unspecified; J30.2 Other seasonal allergic rhinitis; Z91.148 Patient's other noncompliance with medication regimen for other reason | CPT/HCPCS: 96127; 99212 ==

== ENCOUNTER 2025-07-20 13:38 | Outpatient (AMB) | payer OTHER, SELFPAY ==
[2025-07-20 13:59] VITALS: BP 102/62; PULSE 67; TEMP 36.7; O2SAT 98; BMI 31.4
--- NOTE | 2025-07-20 13:59 | MHC.OFFWIV ---
Intake Vital Signs 07/20/25 13:59 Height 5 ft 1 in Weight 166 lb BMI 31.4 BP 102/62 Blood Pressure Location Lt brachial Position Sitting Pulse 67 Pulse Source Pulse Oximeter Temp 98.1 F Temp Source Oral Pulse Oximetry (%) 98 Oxygen Delivery Method Room Air Intake Visit Reasons: EP-neck stiffness, phlegm, bleeding moles Intake Note: pt presents with cervical spine stiffness, spitting up phlegm with blood, irritated moles under both breasts Patient Tobacco Use Status: Former Tobacco user Allergies oseltamivir (From TAMIFLU) Allergy (Intermediate, Verified 07/20/25 14:12) DROWSINESS/NAUSEA, rash, psychosis pork derived (porcine) Allergy (Verified 07/20/25 14:12) Diarrhea lithium Adverse Reaction (Intermediate, Verified 07/20/25 14:12) weight gain Do you need a note to return to daycare/school/sports/work: Yes HPI HPI Comments History of Present Illness Details History of Present Illness - The patient is a 40-year-old female presenting with neck stiffness and enlarging, bleeding moles under the breasts. 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 - Relief was achieved with Flexeril and ibuprofen, though some stiffness remains. Her neighbor gave her a flexeril. - Regular gym attendance was interrupted, potentially contributing to the muscle spasm. - Moles under the breast have been present since , recently enlarging and bleeding. - Awaiting mole removal due to insurance issues, seeking dermatology referral. Physical Exam General: Cooperative, healthy appearing, comfortable, no acute distress and well developed Orientation: Patient oriented x3 Limitations: No limitations Head: Normal to inspection Ears: Hearing grossly normal bilaterally Nose: Normal External nose present Face and sinus: Normal facial exam Eyes: Appearance normal, both eyes and all related structures Neck: Normal visual inspection and Yes full ROM, TTP bilateral trapezius Respiratory: Normal respiratory effort and able to speak in complete sentences. Skin: No rashes or lesions noted, 2 raised 0.5cm moles under each breast, no bleeding noted. no warmth or signs of infection noted. no surrounding skin changes. Neuro: Patient oriented x3 Extremities: Normal to inspection Back/spine: no TTP cervical, thoracic or lumbar spine. [facility] Medical History Psychiatric care Obesity (BMI 30.0-34.9) Psychosis Hypovitaminosis D Breast lump on left side at 3 o'clock position Physical exam Overweight (BMI 25.0-29.9) Intestinal malabsorption following gastrectomy Malabsorption due to intolerance, not elsewhere classified Anemia Back pain GERD (gastroesophageal reflux disease) Morbid obesity Surgical History History of surgical procedure on mouth History of colonoscopy Hx of cholecystectomy S/P laparoscopic sleeve gastrectomy Family History Father No problems noted. Mother Hypertension Sister No problems noted. Sister Hypoglycemia Brother No problems noted. Brother No problems noted. Son No problems noted. Son No problems noted. Paternal Aunt Breast cancer Colon cancer Paternal Grandfather No problems noted. Social History Household Members: Spouse and Children Household Members Other:: 2 Housing: Apartment Do you presently have visiting nurse or other home services: No Unable to assess alcohol history related to: Refusing to respond Alcohol intake: former Patient Tobacco Use Status: Former Tobacco user Tobacco use type: Cigarette e-Cigarette/Vaping Use: Never Used Second Hand Smoke Exposure: No service: No Current occupational status: employed Current occupational exposures/hazards: No Sexual orientation: Straight/Heterosexual Cognitive needs: No Hearing needs: No Vision needs: No Female Reproductive History Menstrual Age of Menarche: 7 Review of Systems Const All systems reviewed & are unremarkable except as noted in HPI and below Physical Exam Vital Signs: Last Vital Signs Temp 98.1 F 07/20/25 13:59 Pulse 67 07/20/25 13:59 BP 102/62 07/20/25 13:59 Pulse Ox 98 07/20/25 13:59 Oxygen Delivery Method Room Air 07/20/25 13:59 BMI result Body Mass Index 31.4 Assessment & Plan Assessment & Plan (1) Cervical paraspinal muscle spasm: Code(s): M62.838 - Other muscle spasm Plan: Plan Patient was informed and verbally consented to the use of an ambient scribe for clinic note documentation during this visit. 1. Cervical Muscle Spasm - Continue Flexeril 10 mg as needed for muscle relaxation. - Use ibuprofen 600 mg every six hours for pain management. - Apply heat to the affected area to alleviate stiffness. - Resume regular gym activities gradually to prevent recurrence. (2) Bleeding skin mole: Code(s): D22.9 - Melanocytic nevi, unspecified; R23.3 - Spontaneous ecchymoses Plan: 2. Enlarging Moles Under The Breast - Referral to dermatology for evaluation and potential removal of moles. - Monitor for any changes in size or bleeding until dermatology appointment. Orders: Referrals Dermatology Referral D22.9 - Melanocytic nevi, unspecified, R23.3 - Spontaneous ecchymoses Medications: New cyclobenzaprine 10 mg (2 x 5 mg) PO Q8H PRN 20 tabs 0RF Muscle Spasm Coding Level of Care Code Est Pt Level 4 (45157) Diagnoses Cervical paraspinal muscle spasm M62.838 Bleeding skin mole D22.9; R23.3
--- OUTSIDE RECORDS SUMMARY | 2025-07-20 14:57 | XMS_ITS | Clinical Summary ---
Author Organization [facility] Address [address] [place] [address] Phone Care Team Providers Care Wildlife Manager Name Role Phone Cydney Foster MD Primary Care Provider [phone] Allergies No known active allergies Medications cetirizine [...] Care Team (Late st Contact Info) Description 10/18/2025 10:15 AM EST Office Visit Orthopedic Surgery - [place] [id number] [phone] Fabian Vega, DPM [address] [address] Health Maintenance Due Date Last Done Comments Breast Cancer Screening 1983 Hepatitis B Vaccines (1 of 3 - 19+ 3-dose series) 2002 Cervical Cancer Screening: Pap Smear 2004 Pneumococcal Vaccine: Pediatrics (0 to 5 Years) and At-Risk Patients (6 to 49 Years) (2 of 2 - PCV) 03/30/2014 03/30/2013 HIV Screening 10/21/2022 Hepatitis C Screening 10/21/2022 Social Influencers of Health Screening 10/21/2022 Depression Screening 11/18/2024 COVID-19 Vaccine (1 - season) 2025 Influenza Vaccine (#1) 2025 9, 12/11/2017, 09/17/2015, [...] topic Insurance MEDICAID - [place] Care Teams Wildlife Manager Relationship Specialty Start Date End Date Cydney Foster MD [address] [facility] , [address] [facility] Physician Associ D/B/A: [facility] OSCAR Saunders PCP - General Internal Medicine 03/10/25
--- OUTSIDE RECORDS SUMMARY | 2025-07-20 14:57 | XMS_ITS | Encounter Summary ---
Author Organization [employer] Address [address] [facility] 7t [place] [address] Care Team Providers Care Fluorescent Solution Mixer Name Role Phone Unavailable Primary Care Provider [...]
--- OUTSIDE RECORDS SUMMARY | 2025-07-20 14:57 | XMS_ITS | Encounter Summary ---
Author Organization [employer] Address 75 [facility] 7t [place] [address] Care Team Providers Care Kinesiology Internship Name Role Phone Unavailable Primary Care Provider Unavailabl e Encounter Details Date Type Department Care Team (Latest Contact Info) Description 07/27/2019 Abstract [facility] CONVERSIONS Dental, Provider, DDS Social History [...]
--- OUTSIDE RECORDS SUMMARY | 2025-07-20 14:57 | XMS_ITS | Clinical Summary ---
Author Organization [employer] Address [address] [place] [address] 7t [place] [address] Care Team Providers Care Brim Cutter Name Role Phone Unavailable Primary Care Provider [...] 1983 Lipid Panel 1983 SDOH Screening 1983 Disability Screening 1983 Alcohol/Substance Use Screening 1995 Family Planning (PISQ) 1998 HPV Vaccines (1 - 3-dose series) 1998 Hepatitis C Screening 2001 Hepatitis B Vaccines (1 of 3 - 19+ 3-dose series) 2002 Pap Smear 2004 Cervical Cancer Screening 2013 HPV/Cotest 2013 Pneumococcal Vaccine: Pediatrics (0 to 5 Years) and At-Risk Patients (6 to 49) Years (2 of 2 - PCV) 03/30/2014 03/30/2013 Mammogram 2023 COVID-19 Vaccine (1 - season) 2024 Dental Oral Exam 03/04/2025 09/02/2024, 01/09/2023 Dental Prophylaxis 03/04/2025 09/02/2024, 1 , 01/09/2023 Influenza Vaccine (#1) 2025 9, 12/11/2017, 09/17/2015, Additional history exists Tobacco Screening 09/02/2025 09/02/2024 DTaP/Tdap/Td Vaccines (2 [...] Most Recently Relevant to Health Maintenance Insurance [facility] ST[facility] ADULT DENTAL - HSN PARTIAL (MEDICAID)
--- OUTSIDE RECORDS SUMMARY | 2025-07-20 14:57 | XMS_ITS | Encounter Summary ---
Author Organization [employer] Address 75 [facility] 7t [place] [address] Care Team Providers Care Tire Buster Name Role Phone Unavailable Primary Care Provider Unavailabl e Encounter Details Date Type Department Care Team (Latest Contact Info) Description 08/25/2019 Abstract [facility] CONVERSIONS Dental, Provider, DDS Social [...]
== END 2025-07-20 14:34 | disposition home or self-care (01) ==
PROVIDERS: PCP Internal Medicine; Visit Provider Physician Assistant
DX: M62.838 Other muscle spasm (principal); D22.9 Melanocytic nevi, unspecified; R23.3 Spontaneous ecchymoses

== ENCOUNTER → 2025-07-20 13:38 | Outpatient (BNVA) | payer OTHER, SELFPAY | PROVIDERS: PCP Internal Medicine; Visit Provider Physician Assistant | DX: M54.2 Cervicalgia (principal); M62.838 Other muscle spasm; D22.9 Melanocytic nevi, unspecified; R23.3 Spontaneous ecchymoses | CPT/HCPCS: 99212 ==

== ENCOUNTER 2025-07-26 10:07 | Outpatient (AMB) | payer OTHER, SELFPAY ==
--- NOTE | 2025-07-26 09:39 | A.OFFVIS_ITS ---
VS Expanded 07/26/25 09:53 Height 5 ft 1 in Weight 166 lb 9.6 oz BMI 31.5 Body Fat % 27.2 Body Fat Mass 45.2 Fat Free Mass 121.2 Visceral Fat Rating 6.0 Body Water % 52.1 Body Water Mass 86.6 Muscle Mass/Score 115.0 Basal Metabolic Rate/Score 1,618 Intake Visit Reasons: (TV) PO LSG 01/26/20 Allergies oseltamivir (From TAMIFLU) Allergy (Intermediate, Verified 07/20/25 14:12) DROWSINESS/NAUSEA, rash, psychosis pork derived (porcine) Allergy (Verified 07/20/25 14:12) Diarrhea lithium Adverse Reaction (Intermediate, Verified 07/20/25 14:12) weight gain Medication List - Last Reconciled 07/26/25 by ASHLEY Mulligan cetirizine (All Day Allergy (cetirizine)) 10 mg PO DAILY PRN 90 days cholecalciferol (vitamin D3) 25 mcg PO DAILY cyclobenzaprine 10 mg (2 x 5 mg) PO Q8H PRN HPI Comments Details: This?is a?40?yo female who is s/p LSG 01/26/2020. Weight is stable from last OV in February 2025. No complaints of nausea, emesis, abdominal pain or reflux, or constipation. At last visit Zepbound was ordered, however pt did not qualify. She is taking some natural supplements and feels they help with sugar cravings. Present meal plan includes: 2 shakes and 1 meal; she is making each shake with 20g protein in 26oz water or some plain yogurt, will add ligia and flaxseed meal of mostly protein, occasionally veg takes Celebrate MVI -at last visit recommended one additional shake with 20g protein or can have a tajik yogurt or protein bar instead. Exercise routine includes: goes to gym 5x/week, has been working with a rehab trainer Pt continues to have excess skin of abdomen that is very bothersome. Has been using clotrimazole cream on pannus and compression garments every day to prevent rashes. The extra skin bothers her at work when she is very active walking/moving often. She has had to purchase a compressive garment to help hold excess skin in place during movement, otherwise she is very uncomfortable with activites of daily living. Also has to wear compressive arm sleeves to prevent friction of skin rubbing at work. The skin fold causes a lot of itching and discomfort. [facility] Medical History Psychiatric care Obesity (BMI 30.0-34.9) Psychosis Hypovitaminosis D Breast lump on left side at 3 o'clock position Physical exam Overweight (BMI 25.0-29.9) Intestinal malabsorption following gastrectomy Malabsorption due to intolerance, not elsewhere classified Anemia Back pain GERD (gastroesophageal reflux disease) Morbid obesity Surgical History History of surgical procedure on mouth History of colonoscopy Hx of cholecystectomy S/P laparoscopic sleeve gastrectomy Family History Father No problems noted. Mother Hypertension Sister No problems noted. Sister Hypoglycemia Brother No problems noted. Brother No problems noted. Son No problems noted. Son No problems noted. Paternal Aunt Breast cancer Colon cancer Paternal Grandfather No problems noted. Social History Household Members: Spouse and Children Household Members Other:: 2 Housing: Apartment Do you presently have visiting nurse or other home services: No Unable to assess alcohol history related to: Refusing to respond Alcohol intake: former Patient Tobacco Use Status: Former Tobacco user Tobacco use type: Cigarette e-Cigarette/Vaping Use: Never Used Second Hand Smoke Exposure: No service: No Current occupational status: employed Current occupational exposures/hazards: No Sexual orientation: Straight/Heterosexual Cognitive needs: No Hearing needs: No Vision needs: No Female Reproductive History Menstrual Age of Menarche: 7 Physical Exam Vital Signs: BMI result Body Mass Index 31.5 Telehealth Telehealth Telehealth Platform: Telephone Location of provider rendering services: other Location of patient: other Patient Identification confirmed using: Name, : Yes Telehealth method: voice only Patient verbally consented to treatment: Yes Patient verbally consented to billing insurance company: Yes Patient informed of any privacy concerns related to visit: Yes Minutes spent on Phone/Video with Pt.: 18 Assessment & Plan Assessment & Plan (1) Obesity: Code(s): E66.9 - Obesity, unspecified Category: Medical (2) Excess skin: Code(s): L98.7 - Excessive and redundant skin and subcutaneous tissue Category: Medical (3) S/P laparoscopic sleeve gastrectomy: Code(s): Z98.84 - Bariatric surgery status Category: Surgical Plan Pt interested in skin removal surgery with a different provider due to our BMI requirements. She does not want to lose much more weight despite understanding that she is still considered obese. She does have healthy body fat %. She is likely still low in protein intake. I strongly encouraged her to download Violin Memory luc and follow a meal plan. RTC for in person in October or November.
[2025-07-26 09:53] VITALS: BMI 31.5
--- OUTSIDE RECORDS SUMMARY | 2025-07-26 11:55 | XMS_ITS | Encounter Summary ---
Author Organization [employer] Address [address] [facility] 7t [place] [address] Care Team Providers Care Fur Comber Name Role Phone Unavailable Primary Care Provider Unavailabl e Encounter Details Date Type Department Care Team (Latest Contact Info) Description 08/25/2019 Abstract [facility] CONVERSIONS Dental, Provider, DDS Social History [...]
--- OUTSIDE RECORDS SUMMARY | 2025-07-26 11:55 | XMS_ITS | Encounter Summary ---
Author Organization [employer] Address 75 [facility] 7t [place] [address] Care Team Providers Care Automotive Engineering Technician Name Role Phone Unavailable Primary Care Provider Unavailabl e Encounter Details Date Type Department Care Team (Latest Contact Info) Description 12/07/[address] [facility] CONVERSIONS Dental, Provider, DDS Social [...]
--- OUTSIDE RECORDS SUMMARY | 2025-07-26 11:55 | XMS_ITS | Clinical Summary ---
Author Organization [facility] Address [address] [place] [address] Phone Care Team Providers Care Nuisance Animal Damage Control Agent Name Role Phone Cydney Foster MD Primary Care Provider [phone] Allergies No known active allergies Medications cetirizine [...] History Surgery Date Site/Laterality Comments CHOLECYSTECTOMY PROCEDURE: [place] CHOLECYSTECTOMY BARIATRIC SURGERY N/A PROCEDURE: [place] LAPS GSTRC RSTRICTIV PX LONGITUDINAL GASTRECTOMY MULTIPLE [...] AM EST Office Visit Orthopedic Surgery - [place] [address] [phone] Fabian Vega, DPM [address] [address] Health Maintenance Due Date Last [...] topic Insurance MEDICAID - [place] Care Teams Nuisance Animal Damage Control Agent Relationship Specialty Start Date End Date Cydney Foster MD [address] [facility] , [address] [facility] Physician Associ D/B/A: [facility] OSCAR Saunders PCP - General Internal Medicine 03/10/25
--- OUTSIDE RECORDS SUMMARY | 2025-07-26 11:55 | XMS_ITS | Patient Health Record ---
Author Organization [facility] Address [address] [place] [address] Care Team Providers Care Conveyor Line Battery Charger Name Role Phone Sonu Neff Jr Reason For Referral No Information Plan Of Treatment No Information
--- OUTSIDE RECORDS SUMMARY | 2025-07-26 11:55 | XMS_ITS | Clinical Summary ---
Author Organization [employer] Address [address] [place] [address] 7t [place] [address] Care Team Providers Care Fish Hatchery Man Name Role Phone Unavailable Primary Care Provider [...] 2 - PCV) 03/30/2014 03/30/2013 Mammogram 2023 Dental Oral Exam 03/04/2025 09/02/2024, 01/09/2023 Dental Prophylaxis 03/04/2025 09/02/2024, 1 , 01/09/2023 COVID-19 Vaccine ( season) 2025 Influenza Vaccine (#1) 2025 9, [...] Most Recently Relevant to Health Maintenance [facility] ST[facility] ADULT DENTAL - HSN PARTIAL (MEDICAID)
--- OUTSIDE RECORDS SUMMARY | 2025-07-26 11:55 | XMS_ITS | Encounter Summary ---
Author Organization [employer] Address 75 [facility] 7t [place] [address] Care Team Providers Care Manager Market Development Name Role Phone Unavailable Primary Care Provider Unavailabl e Encounter Details Date Type Department Care Team (Latest Contact Info) Description 07/27/2019 Abstract [facility] CONVERSIONS Dental, Provider, DDS Social History [...]
== END 2025-07-26 10:37 | disposition home or self-care (01) ==
LOC: HO.HBS 10:07
PROVIDERS: PCP Internal Medicine; Visit Provider Physician Assistant Surgical
DX: E66.9 Obesity, unspecified (principal); L98.7 Excessive and redundant skin and subcutaneous tissue; Z98.84 Bariatric surgery status
CPT/HCPCS: 99214

== ENCOUNTER 2025-09-02 10:02 | Outpatient (REF) | payer OTHER, SELFPAY ==
--- NOTE | ~2025-09-02 | MM_ITS ---
EXAMINATION: MM DIAGNOSTIC DIGITAL BREAST TOMOSYNTHESIS, BILATERAL Limited left breast ultrasound. CLINICAL INFORMATION: 6 month follow-up for complicated cyst in the left breast on ultrasound. COMPARISON: Mammography: Comparison is made with relevant prior exams. TECHNIQUE: Digital breast mammography with tomosynthesis is performed in both the craniocaudal and mediolateral oblique views along with computer-aided detection (CAD). FINDINGS: The breasts are heterogeneously dense, which may obscure small masses. Right marker clip. There are no significant masses, abnormal calcifications, or other abnormalities. Targeted color Doppler ultrasound in the left breast at 11:00 3 cm from the nipple and from 10-1 o'clock demonstrates normal fibroglandular breast tissue. There is no sonographic abnormal finding. Results are provided to the patient at time of visit by the technologist. MM/MM tomosynthesis diagnostic BI IMPRESSION: No mammographic evidence of malignancy. ASSESSMENT: BI-RADS Category 1: Negative RECOMMENDATION: 1 year F/U This patient's information was entered into a reminder system with a target due date for their next mammogram. Electronically signed by: Angela Hewitt DO 09/02/2025 11:53 AM EDT
--- OUTSIDE RECORDS SUMMARY | 2025-09-02 11:58 | XMS_ITS | Patient Health Record ---
Author Organization [facility] Address [address] [place] [address] Care Team Providers Care Program Arranger Name Role Phone Sonu Neff Jr Reason For Referral No Information Plan Of Treatment No Information
--- OUTSIDE RECORDS SUMMARY | 2025-09-02 11:58 | XMS_ITS | Encounter Summary ---
Author Organization [employer] Address [address] [facility] 7t [place] [address] Care Team Providers Care Spotter Name Role Phone Unavailable Primary Care Provider Unavailabl e Encounter Details Date Type Department Care Team (Latest Contact Info) Description 08/25/2019 Abstract [facility] CONVERSIONS Dental, Provider, DDS Social History Tobacco [...]
--- OUTSIDE RECORDS SUMMARY | 2025-09-02 11:58 | XMS_ITS | Encounter Summary ---
Author Organization [employer] Address [address] [facility] 7t [place] [address] Care Team Providers Care Infection Control Preventionist Name Role Phone Unavailable Primary Care Provider Unavailabl e Encounter Details Date Type Department Care Team (Latest Contact Info) Description 12/07/2020 Abstract [facility] CON[facility] Dental, Provider, DDS Social [...]
--- OUTSIDE RECORDS SUMMARY | 2025-09-02 11:59 | XMS_ITS | Encounter Summary ---
Author Organization [employer] Address [address] [facility] 7t [place] [address] Care Team Providers Care Teletypesetter Name Role Phone Unavailable Primary Care Provider Unavailabl e Encounter Details Date Type Department Care Team (Latest Contact Info) Description 07/27/2019 Abstract [facility] CONVERSIONS Dental, Provider, DDS Social [...]
--- OUTSIDE RECORDS SUMMARY | 2025-09-02 11:59 | XMS_ITS | Clinical Summary ---
Author Organization [facility] Address [address] [place] [address] Phone Care Team Providers Care Cooking Casing And Drying Supervisor Name Role Phone Cydney Foster MD Primary Care Provider [phone] Allergies No known active allergies Medications cetirizine [...] History Surgery Date Site/Laterality Comments CHOLECYSTECTOMY PROCEDURE: OR CHOLECYSTECTOMY BARIATRIC SURGERY N/A PROCEDURE: [place] LAPS GSTRC RSTRICTIV PX LONGITUDINAL GASTRECTOMY MULTIPLE [...] AM EST Office Visit Orthopedic Surgery - [place] [address] [phone] Fabian Vega, DPM [address] [phone] Health Maintenance Due Date Last Done Comments Breast Cancer Screening 1983 Hepatitis B Vaccines (1 of 3 - 19+ 3-dose series) 2002 Cervical Cancer Screening: Pap Smear 2004 HPV Vaccines (1 - 3-dose SCDM series) 2010 Pneumococcal Vaccine: Pediatrics (0 to 5 Years) and At-Risk Patients (6 to 49 Years) (2 of 2 - PCV) 03/30/2014 03/30/2013 HIV Screening 10/21/2022 Hepatitis C Screening 10/21/2022 Social Influencers of Health Screening 10/21/2022 Depression Screening 11/18/2024 COVID-19 Vaccine ( - season) 2025 Influenza Vaccine (#1) 2025 9, 12/11/2017, 09/17/2015, Additional history exists DTaP,Tdap,and Td Vaccines (2 - Td or Tdap) 02/05/2033 02/05/2023 RSV Immunization Adult Patients (1 - 1-dose 75+ series) 2058 HIB [...] topic Insurance [place] - [place] Care Teams Cooking Casing And Drying Supervisor Relationship Specialty Start Date End Date Cydney Foster MD [address] [place] [address] , [facility] [address] [facility] Physician Associ D/B/A: [facility] [place] PCP - General Internal Medicine 03/10/25
--- OUTSIDE RECORDS SUMMARY | 2025-09-02 11:59 | XMS_ITS | Clinical Summary ---
Author Organization [employer] Address [address] [place] [address] 7t [place] [address] Care Team Providers Care Burner Technician Name Role Phone Unavailable Primary Care [...] Most Recently Relevant to Health Maintenance Insurance [facility] STAND ADULT DENTAL - HSN PARTIAL (MEDICAID)
--- OUTSIDE RECORDS SUMMARY | 2025-09-02 11:59 | XMS_ITS | Data Portability ---
Author Organization [place] - [facility] , [address] Address [address] [place] [address] Assessment No assessment recorded. Plan of Treatment [...] Name and Address Organization Details Recorded Time OC- Physical completed ANEESH RAMIREZ - [facility] 04/23/2023 17:08:58 Imaging Results None recorded. [...] Diagnosis SNOMED-CT Code Diagnosis ICD10 Code Diagnosis IMO Codes Diagnosis Note [id number] [place] [id number] [place] [address] 04/23/2023 15:39:01 04/23/2023 17:49:20 History and physical examination, pre-employment [id number] Z02.1 Health Concerns Section Related Observation LastModified by Organization Detai ls LastModified Time None Recorded Concern Status LastModified by Organization Details LastModified Time None Recorded Advance Directives Directive None Recorded Payers Insurance Date Sequence Insurance Name Policy Number Policy Hinton Covered Member ID Hinton Member ID Guarantor Name 04/23/2023 OC-ESCREEN [facility] [address] Yulia Banda OBGyn Episode No OBEpisode recorded.
== END 2025-09-02 10:03 | disposition home or self-care (01) ==
LOC: HO.MAMMO 10:02
PROVIDERS: Visit Provider Internal Medicine
DX: R92.2 Inconclusive mammogram (principal)
CPT/HCPCS: 76642; 77062; 77066

== ENCOUNTER → 2025-09-02 11:30 | Outpatient (BNV) | payer OTHER, SELFPAY | PROVIDERS: Visit Provider Internal Medicine | DX: N60.02 Solitary cyst of left breast (principal) | CPT/HCPCS: 76642; 77062; 77066 ==

== ENCOUNTER 2025-09-06 09:27 | Inpatient (IN) | payer OTHER, SELFPAY ==
--- NOTE | ~2025-09-06 | CT_ITS ---
EXAMINATION: CT HEAD WITHOUT IV CONTRAST HISTORY: s/p fall post restraint, pt hit her head. TECHNIQUE: Unenhanced helical CT of the head was performed per standard departmental protocol. Coronal and sagittal reformats of the head were also evaluated. One or more of the following techniques was used for dose reduction: Automated exposure control, adjustment of the mA and/or kV according to patient size, use of iterative reconstruction technique. DLP: 833 mGy-cm COMPARISON: Previous head CT most recent November 2024 and brain MRI November 2024 FINDINGS: Limited exam due to motion artifact at the vertex. BRAIN: The brain parenchyma is unremarkable. There is normal meneses/white differentiation. The ventricular system is normal in size and configuration. There is no mass effect or midline shift. No intra- or extra-axial fluid collections are identified. SINUSES: Mild inflammatory change in the right maxillary sinus. The visualized paranasal sinuses are otherwise clear. The mastoid air cells and middle ear cavities are well pneumatized. ORBITS: The visualized orbits are unremarkable. BONES/SOFT TISSUES: The extracranial soft tissues are unremarkable. The calvarium is intact. No suspicious lytic or sclerotic lesions. CT/CT head/brain wo IV con IMPRESSION: Limited exam due to motion artifact. No acute intracranial abnormality. Electronically signed by: Laura Cruz MD 09/07/2025 12:57 PM EDT
--- NOTE | ~2025-09-06 | CT_ITS ---
EXAMINATION: CT CERVICAL SPINE WITHOUT AND WITH CONTRAST CLINICAL INFORMATION: Fall COMPARISON: None available. TECHNIQUE: Axial images through the cervical spine without IV contrast. Sagittal and coronal reconstructions on the technologist work station were performed. This CT examination was performed using dose optimization techniques as appropriate, variously including the following: *Automated exposure control *Adjustment of mA and/or kV according to patient size (this includes techniques or standardized protocols for targeted exams where dose is matched to indication/reason for exam; i.e. extremities or head) *Use of iterative reconstruction technique Patient dose 3 6 8 mgy/cm FINDINGS: The patient's head is turned and tilted to the right. Bone alignment is otherwise normal. No fracture or dislocation. Mild degenerative spondylosis at C4-5 C5-6 and C6-7. Disc spaces are normal. Prevertebral soft tissues are normal. There is shotty cervical lymphadenopathy. The thyroid gland is normal. Visualized lung apices are clear. There is inflammatory change in the right maxillary sinus. CT/CT cervical spine wo/w IV con IMPRESSION: Limited exam due to patient positioning. No fracture or dislocation. Fleischner guidelines were followed. Electronically signed by: Laura Cruz MD 09/07/2025 12:55 PM EDT
[2025-09-06 09:44] VITALS: BP 140/90; PULSE 72; O2SAT 99; BMI 30.1
--- NOTE | 2025-09-06 09:50 | MHC.CARE ---
Pt seen for crisis assessment by [facility] co-response team in community, patient was deemed to meet inpatient level of care and will be a bed search. [facility] to fax assessment when completed.
--- NOTE | 2025-09-06 09:56 | MHC.EDTECH ---
Patient arrived to pod with only her clothes, sunglasses, and small misc tools (bhavani wrench, washers). Patient states she uses dentures (top only) but does not have them with her.
[2025-09-06 10:14] LABS: Appearance Urine Clear; Glucose Urine UA Negative (Negative); PH 5.5 (5.0-9.0); Specific Gravity - Urine 1.015 (1.005-1.025)
[2025-09-06 10:15] LABS: UPreg QC Valid YES
--- NOTE | 2025-09-06 10:16 | ED.PSYCH ---
HPI - Psych General Chief Complaint: Psychiatric Symptoms Stated Complaint: SEC 12,HPD ON BOARD,RESTRAINED,MANIC,OFF MEDS Time Seen by Provider: 09/06/25 09:32 Source: patient, EMS, RN notes reviewed and old records reviewed Mode of arrival: EMS History of Present Illness ED Provider: Martha Peterson PA-C HPI Narrative: 40-year-old female with a past medical history anemia, GERD, bipolar, PTSD, presenting to the ED via EMS with PD due to disorganized behavior, jennifer, and medication noncompliance. Patient states she is not currently taking any medication. Per EMS patient locked herself in bathroom for long periods of time and has not slept in over a week. Denies SI/HI or auditory/visual hallucinations. Poor historian, repetitively repeating I am hungry. Denies any EtOH or illicit substance use. Related Data Previous Rx's ?Medication ?Instructions ?Recorded cholecalciferol (vitamin D3) 25 25 mcg PO DAILY #90 caps 03/23/25 mcg (1,000 unit) capsule cetirizine 10 mg tablet (All Day 10 mg PO DAILY PRN allergy 06/28/25 Allergy (cetirizine)) symptoms 90 days #90 tabs cyclobenzaprine 5 mg tablet 10 mg (2 x 5 mg) PO Q8H PRN Muscle 07/20/25 Spasm #20 tabs Allergies Allergy/AdvReac Type Severity Reaction Status Date / Time oseltamivir (From TAMIFLU) Allergy Intermediate DROWSINESS/NAUSEA, Verified 09/06/25 09:52 rash, psychosis pork derived (porcine) Allergy Diarrhea Verified 09/06/25 09:52 lithium AdvReac Intermediate weight gain Verified 09/06/25 09:52 Review of Systems Review of Systems: Yes all other systems are reviewed and are negative Constitutional: Constitutional: Reports as per HPI [facility] Past Medical History Attestation statement: The following information was validated with the patient. Source: old records reviewed Medical History Psychiatric care Obesity (BMI 30.0-34.9) Psychosis Hypovitaminosis D Breast lump on left side at 3 o'clock position Physical exam Overweight (BMI 25.0-29.9) Intestinal malabsorption following gastrectomy Malabsorption due to intolerance, not elsewhere classified Anemia Back pain GERD (gastroesophageal reflux disease) Morbid obesity Surgical History History of surgical procedure on mouth History of colonoscopy Hx of cholecystectomy S/P laparoscopic sleeve gastrectomy Family History Family History Father No problems noted. Mother Hypertension Sister No problems noted. Sister Hypoglycemia Brother No problems noted. Brother No problems noted. Son No problems noted. Son No problems noted. Paternal Aunt Breast cancer Colon cancer Paternal Grandfather No problems noted. Social History Social History Household Members: Family Household Members Other:: 2 Housing: Apartment Do you presently have visiting nurse or other home services: No Alcohol intake: former Patient Tobacco Use Status: Never used Tobacco Tobacco use type: Cigarette e-Cigarette/Vaping Use: Never Used Second Hand Smoke Exposure: No Currently Displaying Signs/Symptoms of Drug Intoxication Withdrawal: No Spiritual Healthcare Practices: none Advance Directives: No Advance Directives Information Provided: Yes Do you have thoughts of harming others: None Do you have a plan to hurt others: No Plan Recently lost weight without trying: No Nutrition Risks: No Nutritional Risk Patient : No : No Poor oral hygiene: No service: No Current occupational status: employed Current occupational exposures/hazards: No Sexual orientation: Straight/Heterosexual Cognitive needs: No Hearing needs: No Vision needs: No Physical Exam Vital Signs: Vital Signs: Last Vital Signs Temp 98 F 09/08/25 20:00 Pulse 76 09/08/25 20:00 Resp 15 09/08/25 20:00 BP 118/67 09/08/25 20:00 Pulse Ox 98 09/08/25 20:00 O2 Del Method Room Air 09/08/25 20:00 BMI result Body Mass Index 30.1 Const: General: cooperative, healthy appearing and no acute distress Orientation/consciousness: patient oriented x3 HEENT: Head: Yes normal to inspection and Yes atraumatic Ears: hearing grossly normal bilaterally General nose exam: Normal external nose present Face and sinus: Yes normal facial exam Eyes: General: appearance normal, both eyes and all related structures EOM: EOMs intact bilaterally Neck: Neck: Yes normal visual inspection and Yes no meningeal signs Resp: Effort & Inspection: normal respiratory effort and no respiratory distress Auscultation: clear to auscultation bilaterally Cardio: Rate: regular rate Heart sounds: S1 normal heart sound present and S2 normal heart sound present Skin: Rashes: no rashes Wounds: no wounds Neuro: General: patient oriented x3, tone normal, no meningeal signs and CN's II-XI intact bilaterally Cranial nerves: Yes CN's II-XII intact bilaterally Gait exam (Neuro): Normal gait present Extrem: General: Yes normal to inspection Psych: Appearance: grossly normal Speech and movement: Restless speech present Attitude: Guarded attititude/behavior present Thought content: suicidality and no homicidality Insight: Poor insight present (Psych) Course Course Course Narrative: -1140--labs reassuring. UA negative. Tox screen negative. Patient medically cleared for CARE team eval. Physician observation initiated Reevaluation(s) Reevaluation #1: 09/06/25 1400 ESTIVEN admitted inpatient physician observation ended Medications Administered Generic Name Dose Route Start Last Admin Trade Name Freq PRN Reason Stop Dose Admin Divalproex Sodium 500 mg 09/07/25 21:00 09/08/25 21:29 Divalproex Sodium Er 500 Mg Tab.Er.24h PO 500 mg BEDTIME BETO Administration [place] Carbonate 450 mg 09/07/25 21:00 09/08/25 21:33 [place] Carbonate Er 450 Mg Tablet.Er PO Not Given BEDTIME BETO Lorazepam 1 mg 09/07/25 15:51 09/08/25 21:29 Lorazepam 1 Mg Tablet PO 1 mg Q4H PRN Administration anxiety, jennifer, agitation Olanzapine 10 mg 09/07/25 21:00 09/08/25 21:29 Olanzapine 10 Mg Tablet PO 10 mg BID BETO Administration Discontinued Medications Generic Name Dose Route Start Last Admin Trade Name Freq PRN Reason Stop Dose Admin Diazepam 10 mg 09/07/25 09:25 09/07/25 09:40 Diazepam 10 Mg/2 Ml Cartridge IM 09/07/25 09:26 10 mg STAT STA Administration Olanzapine 20 mg 09/07/25 09:38 09/07/25 09:40 Olanzapine 10 Mg Vial IM 09/07/25 09:39 20 mg STAT STA Administration Medical Decision Making Medical Decision Making MDM Narrative: 40-year-old female with a past medical history anemia, GERD, bipolar, PTSD, presenting to the ED via EMS with PD due to disorganized behavior, jennifer, and medication noncompliance. On exam vital signs stable, NAD, nontoxic appearing, physical exam as noted above. Concern for jennifer and medication noncompliance. Rule out metabolic abnormalities/substance use. Plan: Labs, tox screen, CARE team consult Please refer to course for remaining clinical decision making, interpretation of labs/imaging results, and discussions with consultants and/or family members. Differential Diagnosis Differential Diagnoses: The differential diagnosis associated with the presentation includes As above Admission/Observation Consideration of admission/observation: Escalation of care including admission/observation considered Consult Healthcare Provider Management of the patient was discussed with: Behavioral Health Provider Lab Data MDM Lab Attestation statement: I reviewed the patient's lab results. 09/06/25 10:24 09/06/25 10:24 Labs: Lab Results 09/06/25 09/06/25 09/06/25 Range/Units 10:05 10:22 10:24 WBC 6.4 (4.8-10.8) X10*3/uL RBC 4.08 L (4.20-5.50) X10*6/uL Hgb 12.3 (12.0-16.0) g/dl Hct 36.4 L (37.0-47.0) % MCV 89.2 (80.0-98.0) fL MCH 30.1 (27.0-33.0) pg MCHC 33.8 (31.0-35.0) g/dl RDW 13.1 (11.0-16.0) % Plt Count 251 (160-400) X10*3/uL MPV 9.6 (9.4-12.3) fL Immature Gran % (Auto) 0.2 (0.0-0.4) % Neut % (Auto) 54.2 (45-73) % Lymph % (Auto) 35.6 (20-40) % [place] % (Auto) 8.1 (2-11) % Eos % (Auto) 1.4 (0-4) % Baso % (Auto) 0.5 (0-2) % Lymph # (Auto) 2.3 (1.2-4.9) X10*3/uL [place] # (Auto) 0.5 (0.1-1.2) X10*3/uL Eos # (Auto) 0.1 (0.0-0.4) X10*3/uL Baso # (Auto) 0.0 (0.0-0.2) X10*3/uL Abs Immat Gran (auto) 0.01 (0.00-0.03) X10*3/uL Absolute Neuts (auto) 3.5 (2.0-8.3) x10*3/uL Absolute Nucleated RBC 0.000 (0.0-0.012) X10*3/uL Nucleated RBC % (auto) 0.0 (0.0-0.2) /100WBC Sodium 140 (135-145) mmol/L Potassium 3.3 (3.3-5.1) mmol/L Chloride 108 (96-108) mmol/L Carbon Dioxide 24 (22-29) mmol/L Anion Gap 11 L (12-20) BUN 7 L (9-16) mg/dL Creatinine 0.64 (0.5-1.4) mg/dL Estim Creat Clear Calc 112.5 Estimated GFR > 60 Random Glucose 84 (60-115) mg/dL Calcium 9.0 (8.4-10.2) mg/dL Total Bilirubin 0.6 (0.0-1.0) mg/dL AST 22 (5-31) U/L ALT 22 (0-31) U/L Alkaline Phosphatase 56 (39-117) U/L Total Protein 7.0 (6.5-8.0) g/dL Albumin 4.4 (3.5-5.0) g/dL Hold Red Top See Note Hold Yellow Top See Note Urine Color Yellow Urine Appearance Clear Urine pH 5.5 (5.0-9.0) Ur Specific [place] 1.015 (1.005-1.025) Urine Protein Negative (Neg-Trace) mg/dL Urine Glucose (UA) Negative (Negative) mg/dL Urine Ketones Negative (Negative) mg/dL Urine Blood Negative (Negative) Urine Nitrite Negative (Negative) Ur Leukocyte Esterase Negative (Negative) Urine RBC 0-2 (0-2) /HPF Urine WBC 0-5 (0-5) /HPF Ur Squamous Epith Cells 0-2 (0-2) /HPF Urine Bacteria None Seen (None Seen) Hyaline Casts 3-5 (0-2) /LPF Urine Test NEGATIVE (NEGATIVE) Urine Opiates Screen Not Detected (Not Detect) Ur Buprenorphine Scrn Not Detected (Not Detect) ng/mL Ur Oxycodone Screen Not Detected (Not Detect) ng/mL Urine Methadone Screen Not Detected (Not Detect) ng/mL Urine Fentanyl Screen Not Detected (Not Detect) Ur Barbiturates Screen Not Detected (Not Detect) Ur Phencyclidine Scrn Not Detected (Not Detect) Ur Amphetamines Screen Not Detected (Not Detect) U Benzodiazepines Scrn Not Detected (Not Detect) Urine Cocaine Screen Not Detected (Not Detect) U Marijuana (THC) Screen Not Detected (Not Detect) Ethyl Alcohol 10 mg/dL Independent Historian Clinical information obtained from an independent historian. History obtained from or confirmed by: EMS External Record Review External record reviewed: Inpatient record, Office record, Outpatient record, Prior outpatient labs, Prior outpatient radiology, Primary care record and Outside ED record Tests considered The following testing was considered but not selected: As above Prescription Management I considered prescription management with: Other Chronic Conditions Patient?s care impacted by: Other (Bipolar, PTSD) Social Determinants Patient?s care significantly limited by Social Determinants of Health including: Problems related to primary support group and Other Social Determinant of Health Discharge Plan Discharge Clinical Impression: Bipolar 1 disorder, History of medication noncompliance Patient Disposition: Admitted As Inpatient Interventions: Admission Worksheet (ED) Last Done: 09/06/25 14:12 Discharge Date/Time: 09/06/25 14:38
[2025-09-06 10:23] LABS: Cannabinoid Screen Urine Not Detected (Not Detect)
[2025-09-06 10:29] LABS: MANUAL DIFF FLAG NO
[2025-09-06 10:31] LABS: Hematocrit 36.4 % (37.0-47.0); Hemoglobin 12.3 g/dl (12.0-16.0); Imm Gran Abs Auto 0.01 X10*3/uL (0.00-0.03); Imm Gran Pct Auto 0.2 % (0.0-0.4); Lymphocytes Absolute Auto 2.3 X10*3/uL (1.2-4.9); Mean Corpuscular HGB Conc 33.8 g/dl (31.0-35.0); Mean Corpuscular Hemoglobin 30.1 pg (27.0-33.0); Mean Corpuscular Volume 89.2 fL (80.0-98.0); NRBC Abs Auto 0.000 X10*3/uL (0.0-0.012); NRBC Pct Auto 0.0 /100WBC (0.0-0.2); Platelet Count 251 X10*3/uL (160-400); Red Blood Count 4.08 X10*6/uL (4.20-5.50); White Blood Count 6.4 X10*3/uL (4.8-10.8)
[2025-09-06 10:46] LABS: Alanine Aminotransferase 22 U/L (0-31); Albumin Level 4.4 g/dL (3.5-5.0); Alkaline Phosphatase 56 U/L (39-117); Anion Gap 11 (12-20); Aspartate Amino Transferase 22 U/L (5-31); Blood Urea Nitrogen 7 mg/dL (9-16); Calcium 9.0 mg/dL (8.4-10.2); Carbon Dioxide 24 mmol/L (22-29); Chloride 108 mmol/L (96-108); Creatinine Clr Calc Pharmacy 112.5; Estimated Glomerular Filt Rate > 60; Potassium 3.3 mmol/L (3.3-5.1); Sodium 140 mmol/L (135-145); Total Protein 7.0 g/dL (6.5-8.0)
--- NOTE | 2025-09-06 12:24 | ECG_ITS ---
Test Reason : QTC CHECK Blood Pressure : */* mmHG Vent. Rate : 65 BPM Atrial Rate : 65 BPM P-R Int : 140 ms QRS Dur : 78 ms QT Int : 382 ms P-R-T Axes : 33 50 45 degrees QTcB Int : 397 ms Normal sinus rhythm Normal ECG When compared with ECG of 14-Jun-2025 12:29, No significant change was found Referred By: Saida Stinson Electronically Signed By: JUSTIN LUONG MD
--- NOTE | 2025-09-06 12:37 | PC.NURSE ---
Pt arrives to the POD via EMS in 4pt restraints. She is assisted off the stretcher and is calm and cooperative with a change attendant, labs and obtaining urine. She denies SI/HI/AVH she has very poor focus and is unable to have a focused conversation. She makes multiple phone calls but does not appear to be getting in touch with anyone. she takes a shower with all of her hospital clothes and socks on.
--- OUTSIDE RECORDS SUMMARY | 2025-09-06 12:49 | XMS_ITS | Clinical Summary ---
Author Organization [employer] Address [address] [place] [address] [address] [place] [address] Care Team Providers Care Gang Vibrator Operator Name Role Phone Unavailable Primary Care [...] Most Recently Relevant to Health Maintenance [facility] - HSN PARTIAL (MEDICAID)
--- OUTSIDE RECORDS SUMMARY | 2025-09-06 12:49 | XMS_ITS | Encounter Summary ---
Author Organization [employer] Address [address] 7[address] [place] [address] Care Team Providers Care Animal Husbandry Professor Name Role Phone Unavailable Primary Care Provider Unavailabl e Encounter Details Date Type Department Care Team (Latest Contact Info) Description 08/25/2019 Abstract [facility] CONVERSIONS Dental, Provider, DDS Social History [...]
--- OUTSIDE RECORDS SUMMARY | 2025-09-06 12:49 | XMS_ITS | Clinical Summary ---
Author Organization [facility] Address [address] [place] [address] Phone Care Team Providers Care Asbestos Worker Name Role Phone Cydney Foster MD Primary Care Provider [phone] Allergies No known active allergies Medications cetirizine [...] History Surgery Date Site/Laterality Comments CHOLECYSTECTOMY PROCEDURE: CA CHOLECYSTECTOMY BARIATRIC SURGERY N/A PROCEDURE: CA LAPS GSTRC RSTRICTIV PX LONGITUDINAL GASTRECTOMY MULTIPLE [...] AM EST Office Visit Orthopedic Surgery - [place] [id number] [phone] Fabian Vega, DPM [address] [phone] Health Maintenance Due Date Last [...] topic Insurance MEDICAID - [place] Care Teams Asbestos Worker Relationship Specialty Start Date End Date Cydney Foster MD [address] [place] [address] , [facility] [address] [facility] D/B/A: [facility] [place] PCP - General Internal Medicine 03/10/25
--- OUTSIDE RECORDS SUMMARY | 2025-09-06 12:49 | XMS_ITS | Encounter Summary ---
Author Organization [employer] Address [address] [facility] 7[address] [place] [address] Care Team Providers Care Ripshear Operator Name Role Phone Unavailable Primary Care Provider Unavailabl e Encounter Details Date Type Department Care Team (Latest Contact Info) Description 12/07/2020 Abstract [facility] CONVERSIONS Dental, Provider, DDS Social [...]
--- OUTSIDE RECORDS SUMMARY | 2025-09-06 12:49 | XMS_ITS | Patient Health Record ---
Author Organization [facility] Address [address] [place] [address] Care Team Providers Care Hot Dipper Name Role Phone Sonu Neff Jr Reason For Referral No Information Plan Of Treatment No Information
--- OUTSIDE RECORDS SUMMARY | 2025-09-06 12:50 | XMS_ITS | Encounter Summary ---
Author Organization [employer] Address [address] [facility] [address]t [place] [address] Care Team Providers Care [place] Applier Name Role Phone Unavailable Primary Care Provider Unavailabl e Encounter Details Date Type Department Care Team (Latest Contact Info) Description 07/27/[address] [facility] CONVERSIONS Dental, Provider, DDS Social History [...]
[2025-09-06 16:00] VITALS: BP 107/56; PULSE 76; RESP 16; TEMP 36.5; O2SAT 99; BMI 32.2
--- NOTE | 2025-09-06 18:22 | PC.ADMIT ---
Yulia arrived via wheelchair from [facility] at 1440. Yulia was cooperative with skin and safety check. Skin check is unremarkable. [facility] evaluated her in the home after called. Per [facility] report, she has not been sleeping, not taking medications and locking herself in the bathroom for prolonged periods of time and not responding to family. According to Yulia, my and I were having an argument and he got scared and called. He doesn't understand all the words in Syriac and Telugu and he got scared. She denies any depression, anxiety, taking ANY medications. I don't put any of that poison in my body , she denies any medical issues. She refuses flu vaccine. She doesn't drink, smoke or use any illicit substances. Her urine toxicology report was negative for everything. She wanted to sign in and then sign a 3 day notice. However, she didn't respond to Bharath Ramos NP when approached, so she remains on a 12b currently. She was shown information booklet and welcome materials, but she handed them back to this nurse. I don't need these . She was oriented to room and routine. She signed an LUISITO for her . Yulia is on 5 minute safety checks for behaviors at home, ie unscrewing faucets and electrical outlets. While in the pod, she showered for an extended period of time with her clothing on.
[2025-09-07 08:00] VITALS: BP 133/82; PULSE 84; RESP 16; TEMP 36.8; O2SAT 99
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
[2025-09-07 08:44] LABS: Cholesterol 187 mg/dL (<200); HDL Cholesterol 99 mg/dL (>40); Magnesium 2.2 mg/dL (1.6-2.6); Triglycerides 57 mg/dL (<150)
[2025-09-07 09:00] LABS: Free T4 (Free Thyroxine) 1.08 ng/dL (0.71-1.85); Thyroid Stimulating Hormone 1.05 uIU/mL (0.32-4.0)
[2025-09-07 09:13] LABS: Folate 13.4 ng/mL (> or = 4.0); Vitamin B12 371 pg/mL (200-900)
[2025-09-07] MEDS: diazePAM 10 MG/2 ML CARTRIDGE IM (09:40)
[2025-09-07] MEDS: OLANZapine 10 MG VIAL 20 MG IM (09:40)
[2025-09-07 09:52] VITALS: BP 105/67; PULSE 67; RESP 18; O2SAT 98
[2025-09-07 10:00] VITALS: BP 105/67; PULSE 67; RESP 17; O2SAT 99
[2025-09-07 10:28] VITALS: BP 99/55; PULSE 67; RESP 18; TEMP 36.5; O2SAT 99
--- NOTE | 2025-09-07 10:37 | PC.NURSE ---
Addendum entered by Estefani Evangelista RN 09/07/25 11:20: Pt hit floor not wall Original Note: Pt received IM medication (olanzepine 20mg, diazepam 10mg) at 0941 and was encouraged to stay in her room and lay down. Patient declined and was difficult to redirect on 1:1, continued pacing hallway. RN got first set of vital signs on her at 0947. After, she was standing talking with the RN when she became increasingly sedated, closing her eyes and hanging her head. She then fell backwards and hit her head against the wall. She popped right back up despite encouragement to stay flat. No evidence of blood on back of head. Brought to her room. VS prior to fall, 99/61, HR 65. S/p fall 105/67, HR 67. Awaiting VS & neuro frequency from provider per post fall protocol. Yamileth Martinez HY[employer]OELECT[employer] PRODUCTION TECHNICIAN notified for STAT consult. CT scan ordered.
[2025-09-07 10:50] VITALS: BP 86/50; PULSE 62; RESP 14; O2SAT 99
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
--- NOTE | 2025-09-07 16:54 | HO.BHRESTREX ---
Behavioral Restraint Exam Behavioral Health Restraint Exam Type of Restraint: Medication Reason for Restraint: Substantial Risk and Substantial Risk of Harm to Others Medical Concerns for Restraint: Yes; Please note any concerns or recommendations (after pt received medication, she declined advise to remain in bed and fell on the unit, hitting her head. CAT of Head and CSpine were negative.) Behavioral Assessment / Plan: No further behavioral concerns, continue current plan.
[2025-09-08 08:00] VITALS: BP 118/67; PULSE 69; TEMP 36.8; O2SAT 99
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
[2025-09-08 20:00] VITALS: BP 118/67; PULSE 76; RESP 15; TEMP 36.6; O2SAT 98
[2025-09-09 07:00] VITALS: BMI 31.9
[2025-09-09 08:00] VITALS: BP 108/70; PULSE 62; RESP 18; TEMP 36.8; O2SAT 100
[2025-09-09] MEDS: Lidocaine 4 % Patch ADH..PATCH 2 PATCH TRANSDERMA (12:50)
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
[2025-09-09 20:00] VITALS: BP 123/71; PULSE 77; RESP 16; TEMP 36.1; O2SAT 99
[2025-09-10 07:58] VITALS: BP 105/61; PULSE 90; RESP 16; TEMP 35.9; O2SAT 99
[2025-09-10] MEDS: Lidocaine 4 % Patch ADH..PATCH 2 PATCH TRANSDERMA (09:13)
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
[2025-09-10 20:00] VITALS: BP 127/79; PULSE 70; TEMP 36.1; O2SAT 99
[2025-09-11 08:00] VITALS: BP 124/82; PULSE 84; RESP 18; TEMP 36.5; O2SAT 100
[2025-09-11] MEDS: Lidocaine 4 % Patch ADH..PATCH 2 PATCH TRANSDERMA (08:43)
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
[2025-09-11 20:00] VITALS: BP 132/81; PULSE 93; TEMP 36.1; O2SAT 100
[2025-09-12 08:00] VITALS: BP 106/70; PULSE 66; RESP 17; TEMP 36.9; O2SAT 100
[2025-09-12] MEDS: Lidocaine 4 % Patch ADH..PATCH 2 PATCH TRANSDERMA (08:53)
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
[2025-09-12 20:00] VITALS: BP 112/72; PULSE 76; RESP 16; TEMP 36.5; O2SAT 100
[2025-09-12] MEDS: Magnesium Hydrox/Alum Hydrox 30 ML ORAL.SUSP PO (20:34)
[2025-09-12] MEDS: Lidocaine 4 % Patch ADH..PATCH 1 PATCH TRANSDERMA (21:45)
[2025-09-13 08:00] VITALS: BP 140/63; PULSE 76; RESP 18; TEMP 36.5; O2SAT 98
[2025-09-13] MEDS: Lidocaine 4 % Patch ADH..PATCH 1 PATCH TRANSDERMA (09:04)
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
== END 2025-09-13 11:30 | disposition home or self-care (01) | DRG 753 ==
LOC: HO.ED 10:43 → HO.PM5 13:05
PROVIDERS: Admitting Provider Clinical Nurse Specialist Psychiatric/Mental Health, Adult; Emergency Provider Emergency Medicine; PCP Internal Medicine; Visit Provider Clinical Nurse Specialist Psychiatric/Mental Health, Adult
DX: F31.9 Bipolar disorder, unspecified (principal); D64.9 Anemia, unspecified; W19.XXXA Unspecified fall, initial encounter; M54.9 Dorsalgia, unspecified; G89.29 Other chronic pain; F43.10 Post-traumatic stress disorder, unspecified; K21.9 Gastro-esophageal reflux disease without esophagitis; Z79.899 Other long term (current) drug therapy
CPT/HCPCS: 36415; 70450; 72127; 80053; 80061; 80307; 81001; 81025; 82607; 82746; 83036; 83735; 84439; 84443; 85025; 93005; 99285; J2359; J3360

== ENCOUNTER → 2025-09-06 12:24 | Outpatient (BNV) | payer OTHER, SELFPAY | PROVIDERS: Admitting Provider Clinical Nurse Specialist Psychiatric/Mental Health, Adult; Emergency Provider Emergency Medicine; PCP Internal Medicine; Visit Provider Internal Medicine Cardiovascular Disease | DX: Z13.6 Encounter for screening for cardiovascular disorders (principal) | CPT/HCPCS: 93010 ==

== ENCOUNTER 2025-09-06 13:04 | Outpatient (BNV) | payer OTHER, SELFPAY | END 2025-09-07 12:18 | PROVIDERS: Admitting Provider Clinical Nurse Specialist Psychiatric/Mental Health, Adult; Emergency Provider Emergency Medicine; PCP Internal Medicine; Visit Provider Radiology Diagnostic Radiology | DX: Z04.3 Encounter for examination and observation following other accident (principal) | CPT/HCPCS: 70450; 72127 ==

== ENCOUNTER → 2025-09-06 13:04 | Outpatient (BNV) | payer OTHER, SELFPAY | PROVIDERS: Admitting Provider Clinical Nurse Specialist Psychiatric/Mental Health, Adult; Emergency Provider Emergency Medicine; PCP Internal Medicine; Visit Provider Nurse Practitioner Family | DX: K21.9 Gastro-esophageal reflux disease without esophagitis (principal) | CPT/HCPCS: 99221 ==

== ENCOUNTER → 2025-09-06 13:04 | Outpatient (BNV) | payer OTHER, SELFPAY | PROVIDERS: Admitting Provider Clinical Nurse Specialist Psychiatric/Mental Health, Adult; Emergency Provider Emergency Medicine; PCP Internal Medicine; Visit Provider Clinical Nurse Specialist Psychiatric/Mental Health, Adult | DX: F31.9 Bipolar disorder, unspecified (principal); F43.10 Post-traumatic stress disorder, unspecified; K21.9 Gastro-esophageal reflux disease without esophagitis | CPT/HCPCS: 90792; 99232 ==

== ENCOUNTER 2025-09-17 10:08 | Outpatient (AMB) | payer OTHER, SELFPAY ==
[2025-09-17 10:16] VITALS: BP 110/78; PULSE 79; O2SAT 97; BMI 32.3
--- NOTE | 2025-09-17 10:16 | A.OFFPC_ITS ---
Vital Signs 09/17/25 10:16 Height 5 ft 1 in Weight 171 lb BMI 32.3 BP 110/78 Blood Pressure Location Lt brachial Position Sitting Pulse 79 Pulse Source Pulse Oximeter Pulse Oximetry (%) 97 Oxygen Delivery Method Room Air Intake Visit Reasons: [facility]13 Psychosis Interpreter For [employer] Required: No Accompanied by: Self / Same As Patient Allergies oseltamivir (From TAMIFLU) Allergy (Intermediate, Verified 09/17/25 10:18) DROWSINESS/NAUSEA, rash, psychosis pork derived (porcine) Allergy (Verified 09/17/25 10:18) Diarrhea lithium Adverse Reaction (Intermediate, Verified 09/17/25 10:18) weight gain Tobacco use date assessed: 09/17/25 Dental Screening Dental Screen Date: 09/17/25 Did you have a dental visit in the last 12 months?: Yes Did you have a dental problem in the last 6 months where you did not have access to dental care?: No Was dental information given to patient?: Patient has dentist HPI HPI Comments 2 History of Present Illness Details 40-year-old female presents for HDF. Jaxson bah medical history of GERD and bipolar disorder with psychosis. She was recently admitted [place] [facility] [place] [place] for evaluation and management of psychosis after her family called police due to disorganized and agitated behaviors, along with medication noncompliance since her last discharge in May. Patient reports taking medications intermittently due to concerns about weight gain; she has a history of bariatric surgery in 2019 and has not had follow-up care since discharge. She was admitted via Section XII. Workup during hospitalization included CT brain and C-spine, both negative. She was discharged on the following medications: Trazodone 50 mg tablet Lamotrigine 25 mg tablet Divalproex 500 mg XR 24 hr tablet Vraylar 3 mg capsule Patient is currently waiting to be scheduled with an outpatient psychiatrist and therapist. Today Denies SA or SI. [facility] Medical History Psychiatric care Obesity (BMI 30.0-34.9) Psychosis Hypovitaminosis D Breast lump on left side at 3 o'clock position Physical exam Overweight (BMI 25.0-29.9) Intestinal malabsorption following gastrectomy Malabsorption due to intolerance, not elsewhere classified Anemia Back pain GERD (gastroesophageal reflux disease) Morbid obesity Surgical History History of surgical procedure on mouth History of colonoscopy Hx of cholecystectomy S/P laparoscopic sleeve gastrectomy Family History Father No problems noted. Mother Hypertension Sister No problems noted. Sister Hypoglycemia Brother No problems noted. Brother No problems noted. Son No problems noted. Son No problems noted. Paternal Aunt Breast cancer Colon cancer Paternal Grandfather No problems noted. Social History Household Members: Family Household Members Other:: 2 Housing: Apartment Do you presently have visiting nurse or other home services: No Alcohol intake: former Patient Tobacco Use Status: Never used Tobacco Tobacco use type: Cigarette e-Cigarette/Vaping Use: Never Used Second Hand Smoke Exposure: No service: No Current occupational status: employed Current occupational exposures/hazards: No Sexual orientation: Straight/Heterosexual Cognitive needs: No Hearing needs: No Vision needs: No Female Reproductive History Menstrual Age of Menarche: 7 Questionnaire Thrive Questionnaire Date Thrive assessed: 02/16/25 I am a: Patient What is your living situation today?: I have a place to live, but I am worried about losing it in the future Within the past 12 months, did the food you bought not last and you didn't have the money to get more?: Sometimes True Within the past 12 months, did you worry whether your food would run out before you got money to buy more?: Sometimes True Do you have trouble paying for medicines?: Yes Do you have trouble getting transportation to medical appointments?: No Do you have trouble paying your heating and electricity bill?: No Do you have trouble taking care of your child, family member or friend?: No Do you have trouble with day-to-day activities such as bathing, preparing meals, shopping, managing finances, etc.?: No Are you currently unemployed and looking for a job?: No Are you interested in more education?: No Currently or been in a relationship where the following occur: No concerns reported THRIVE Score: 3 AUDIT C Alcohol Use Questionnaire (AUDIT-C) 1. How often do you have a drink containing alcohol?: Never 3. How often do you have six or more drinks on one occasion?: Never Total Score: 0 Score Reviewed/Action Taken: No LUIZ-7 AMB Questionnaire LUIZ-7 Date LUIZ - 7 assessed: 06/28/25 Source: Developed by Drs. Rogelio Villatoro, Cassidy Serrano, Guido Doss and colleagues, with an educational bob from [employer]. Review of Systems Const All systems reviewed & are unremarkable except as noted in HPI and below Physical exam (Primary Care) Vital Signs: Last Vital Signs Pulse 79 09/17/25 10:16 BP 110/78 09/17/25 10:16 Pulse Ox 97 09/17/25 10:16 Oxygen Delivery Method Room Air 09/17/25 10:16 BMI result Body Mass Index 32.3 Tobacco/Smoking Status: Tobacco use Status Tobacco use date assessed 09/17/25 09/17/25 10:26 Patient Tobacco Use Status Never used Tobacco 09/17/25 10:26 Tobacco use type Cigarette 09/17/25 10:26 e-Cigarette/Vaping Use Never Used 09/17/25 10:26 Thrive Assessment: Date of Thrive Assessment Date Thrive assessed 02/16/25 09/17/25 10:26 Currently or been in a relationship where the following occur: No concerns reported Const General: cooperative and no acute distress Nutritional Appearance: well nourished Orientation/consciousness: patient oriented x3 Neuro General: patient oriented x3, gait normal and moves all extremities Psych Appearance: grossly normal Speech and movement: Normal speech and movement present Affect: normal affect Attitude: cooperative Thought content: suicidality, no homicidality and no delusions Coding Level of Care Code Est Pt Level 4 (03361) Diagnoses Bipolar 1 disorder F31.9 Time Spent (min) 20 Assessment & Plan Assessment & Plan (1) Bipolar 1 disorder: Code(s): F31.9 - Bipolar disorder, unspecified Category: Medical Plan: Follow up with Pysch Review adherence strategies and address weight concerns with psychiatrist. Reinforce medication adherence; review side effects including weight gain.
--- OUTSIDE RECORDS SUMMARY | 2025-09-17 11:25 | XMS_ITS | Encounter Summary ---
Author Organization [employer] Address [address] [place] [address] Care Team Providers Care Jig Operator Name Role Phone Unavailable Primary Care Provider Unavailabl e Encounter Details Date Type Department Care Team (Latest Contact Info) Description 07/27/2019 Abstract [facility] CONVERSIONS Dental, Provider, DDS [...]
--- OUTSIDE RECORDS SUMMARY | 2025-09-17 11:25 | XMS_ITS | Encounter Summary ---
Author Organization [employer] Address [address] [place] [address] Care Team Providers Care Packager And Strapper Name Role Phone Unavailable Primary Care Provider Unavailabl e Encounter Details Date Type Department Care Team (Latest Contact Info) Description 12/07/2020 Abstract [facility] CONVERSIONS Dental, Provider, DDS Social History [...]
--- OUTSIDE RECORDS SUMMARY | 2025-09-17 11:25 | XMS_ITS | Encounter Summary ---
Author Organization [employer] Address [address] [place] [address] Care Team Providers Care Windows Application Administrator Name Role Phone Unavailable Primary Care Provider Unavailabl e Encounter Details Date Type Department Care Team (Latest Contact Info) Description 08/25/2019 Abstract [facility] CONVERSIONS Dental, Provider, DDS Social [...]
--- OUTSIDE RECORDS SUMMARY | 2025-09-17 11:25 | XMS_ITS | Data Portability ---
Author Organization [place] - [facility] , [address] [place] [address] Assessment No assessment recorded. Plan of Treatment [...] Time OC- Physical completed ANEESH RAMIREZ - [facility] 04/23/2023 17:08:58 Imaging Results None recorded. [...] ICD10 Code Diagnosis IMO Codes Diagnosis Note [id number] [place] [id number] [place] [address] 04/23/2023 15:39:01 04/23/2023 17:49:20 History and physical examination, pre-employment [id number] Z02.1 Health Concerns Section Related Observation LastModified by Organization Detai ls LastModified Time None Recorded Concern Status LastModified by Organization Details LastModified Time None Recorded Advance Directives Directive None Recorded Payers Insurance Date Sequence Insurance Name Policy Number Policy Hinton Covered Member ID Hinton Member ID Guarantor Name 04/23/2023 OC-ESCREEN [facility] [address] Yulia Banda OBGyn Episode No OBEpisode recorded.
--- OUTSIDE RECORDS SUMMARY | 2025-09-17 11:25 | XMS_ITS | Patient Health Record ---
Author Organization [facility] Address [address] [place] [address] Care Team Providers Care Managed Services Consultant Name Role Phone Sonu Neff Jr Reason For Referral No Information Plan Of Treatment No Information
--- OUTSIDE RECORDS SUMMARY | 2025-09-17 11:25 | XMS_ITS | Clinical Summary ---
Author Organization [employer] Address [address] [place] [address] [address] [place] [address] Care Team Providers Care Inspector Floor Name Role Phone Unavailable Primary Care Provider [...] Most Recently Relevant to Health Maintenance Insurance [facility] MED[facility] STAND ADULT DENTAL - HSN PARTIAL (MEDICAID)
== END 2025-09-17 10:51 | disposition home or self-care (01) ==
LOC: HO.HMCH 10:09
PROVIDERS: PCP Internal Medicine; Visit Provider Nurse Practitioner Family
DX: F31.9 Bipolar disorder, unspecified (principal)

== ENCOUNTER → 2025-09-17 10:08 | Outpatient (BNVA) | payer OTHER, SELFPAY | PROVIDERS: PCP Internal Medicine; Visit Provider Nurse Practitioner Family | DX: K21.9 Gastro-esophageal reflux disease without esophagitis (principal); F31.9 Bipolar disorder, unspecified; Z79.899 Other long term (current) drug therapy | CPT/HCPCS: 99212 ==

== ENCOUNTER 2025-09-26 16:57 | Emergency (ER) | payer OTHER, SELFPAY ==
--- NOTE | ~2025-09-26 | XR_ITS ---
CLINICAL HISTORY: left shoulder pain. heard pop 4 view left shoulder Comparison: None provided Findings: Bones intact. No dislocations. No significant arthritic change. No erosions. No radiopaque foreign body. IMPRESSION: 1. No acute findings This document has been electronically signed by: Bess Roberto MD on 09/26/2025 18:30:33
[2025-09-26 17:00] VITALS: BP 100/64; PULSE 81; RESP 18; TEMP 36.7; O2SAT 98; BMI 32.1
--- NOTE | 2025-09-26 17:02 | ED.GENADULT ---
HPI - General Adult General Chief complaint: Extremity Injury, Upper Stated complaint: left shoulder pain Time Seen by Provider: 09/26/25 18:00 Source: patient Mode of arrival: ambulatory Limitations: no limitations History of Present Illness ED Provider: Abisai Lemus HPI narrative: 40 yold female GERD, BIpolar, Right shoulder tendinopathy, PTSD presents to the ED for left shoulder pain that is worse on movement. Patient states she was getting out of the bed and picking up her kids while pusing up off with left hand from the bed she heard a pop in left shoulder and has had pain ever since. Related Data Previous Rx's ?Medication ?Instructions ?Recorded cholecalciferol (vitamin D3) 25 25 mcg PO DAILY #90 caps 03/23/25 mcg (1,000 unit) capsule cetirizine 10 mg tablet (All Day 10 mg PO DAILY PRN allergy 06/28/25 Allergy (cetirizine)) symptoms 90 days #90 tabs cyclobenzaprine 5 mg tablet 10 mg (2 x 5 mg) PO Q8H PRN Muscle 07/20/25 Spasm #20 tabs acetaminophen 325 mg tablet 650 mg (2 x 325 mg) PO Q6H PRN 09/13/25 Headache/Pain, Scale 1-10 #0 tabs calcium carbonate (Antacid Ext Str 2.5 tab PO Q6H PRN Heartburn #0 09/13/25 (calcium carb)) tabs cariprazine 3 mg capsule (Vraylar) 3 mg PO DAILY #30 caps 09/13/25 divalproex 500 mg tablet,extended 500 mg PO BEDTIME #30 tabs 09/13/25 release 24 hr lamotrigine 25 mg tablet 25 mg PO BID #60 tabs 09/13/25 lidocaine 4 % topical patch 1 patch transdermal BID #6 ea 09/13/25 (Lidocaine Pain Relief) olanzapine 5 mg tablet 5 mg PO BID #60 tabs 09/13/25 trazodone 50 mg tablet 50 mg PO BEDTIME MRX1 PRN Insomnia 09/13/25 #60 tabs ketorolac 10 mg tablet 10 mg PO Q6H PRN pain #20 tabs 09/26/25 Allergies Allergy/AdvReac Type Severity Reaction Status Date / Time oseltamivir (From TAMIFLU) Allergy Intermediate DROWSINESS/NAUSEA, Verified 09/26/25 17:01 rash, psychosis pork derived (porcine) Allergy Diarrhea Verified 09/26/25 17:01 lithium AdvReac Intermediate weight gain Verified 09/26/25 17:01 Review of Systems Review of Systems: Left shoulder pain Yes all other systems are reviewed and are negative [facility] Past Medical History Medical History Psychiatric care Obesity (BMI 30.0-34.9) Psychosis Hypovitaminosis D Breast lump on left side at 3 o'clock position Physical exam Overweight (BMI 25.0-29.9) Intestinal malabsorption following gastrectomy Malabsorption due to intolerance, not elsewhere classified Anemia Back pain GERD (gastroesophageal reflux disease) Morbid obesity Surgical History History of surgical procedure on mouth History of colonoscopy Hx of cholecystectomy S/P laparoscopic sleeve gastrectomy Family History Family History Father No problems noted. Mother Hypertension Sister No problems noted. Sister Hypoglycemia Brother No problems noted. Brother No problems noted. Son No problems noted. Son No problems noted. Paternal Aunt Breast cancer Colon cancer Paternal Grandfather No problems noted. Social History Social History Household Members: Family Household Members Other:: 2 Housing: Apartment Do you presently have visiting nurse or other home services: No Alcohol intake: former Patient Tobacco Use Status: Never used Tobacco Tobacco use type: Cigarette Smoked in Last 30 Days: No e-Cigarette/Vaping Use: Never Used Second Hand Smoke Exposure: No Use of substances other than those prescribed or required for medical reasons: No Advance Directives: No Advance Directives Information Provided: Yes Do you have a plan to hurt others: No Plan Patient : No service: No Current occupational status: employed Current occupational exposures/hazards: No Sexual orientation: Straight/Heterosexual Cognitive needs: No Hearing needs: No Vision needs: No Physical Exam ED Vital Signs: Vital Signs - 24 hr 09/26/25 17:00 09/26/25 17:19 09/26/25 18:26 Temperature 98.1 F 97.9 F 98.2 F Pulse Rate 81 78 69 Respiratory Rate 18 14 18 Blood Pressure 100/64 118/89 94/65 Pulse Oximetry 98 98 100 Oxygen Delivery Method Room Air Room Air Room Air 09/26/25 19:46 Temperature 98.0 F Pulse Rate 75 Respiratory Rate 18 Blood Pressure 103/53 L Pulse Oximetry 99 Oxygen Delivery Method Room Air BMI result Body Mass Index 32.1 Const General: cooperative, healthy appearing, comfortable, no acute distress, well developed, alert, awake and Physically active [facility] Head: Yes normal to inspection, Yes No palpable skull fracture present, Yes normocephalic and Yes atraumatic Eyes General: appearance normal, both eyes and all related structures Neck Neck: Yes normal visual inspection, Yes full ROM, Yes no lymphadenopathy, Yes no meningeal signs, Yes trachea midline, Yes supple, No anterior neck swelling and No tender Chest Chest palpation & inspection: normal inspection of the chest and normal palpation of entire chest wall Resp Effort & Inspection: normal respiratory effort and able to speak in complete sentences Auscultation: clear to auscultation bilaterally Cardio Jugular venous distension: no JVD Heart sounds: S1 normal heart sound present and S2 normal heart sound present GI Inspection: Yes normal to inspection Palpation (GI): Soft to palpation, not firm, nontender, no guarding and not rigid General: Yes no CVA tenderness Back/Spine/Pelvis Back: no CVA tenderness and No back tenderness Skin General skin exam: no rashes or lesions noted, elasticity normal and turgor normal Neuro General: gait normal, tone normal, moves all extremities, Normal light touch and pain sensation, no meningeal signs, no focal motor deficits, CN's II-XI intact bilaterally and normal sensation to monofilament Extrem General: Yes normal to inspection, Yes full ROM and Yes capillary refill normal Shoulder/upper arm images:  1. positive for anterior shoulder pain on movement and is tenderness on palpation. negative for swelling, redness, ecchymosis, deformitity, rash, lacerations, or pus discharge. rest of extremities is normal. motor, neuro, and vascular exam is intact. Psych Appearance: grossly normal, well kempt and not disheveled Course Course Course Narrative: RME: 40 yold female presents to the ED for the left shoulder pain. patient states she was getting up from the bed and pushed up from the bed with her left hand and immediatley heard a pop in left shoulder and ever since has had pain and limited ROM of shoulder. patient states no neck or chest pain. Xray ordered. Medications Administered Discontinued Medications Generic Name Dose Route Start Last Admin Trade Name Kyler PRN Reason Stop Dose Admin Ketorolac Tromethamine 30 mg 09/26/25 18:47 09/26/25 19:39 Ketorolac Tromethamine 30 Mg/Ml Vial IM 09/26/25 18:48 30 mg ONCE ONE Administration Medical Decision Making Medical Decision Making MDM Narrative: 40-year-old female presents to the ED for left shoulder pain after hitting a pop or trying to get off the bed and lift up kids. Patient denies any referred chest pain, shortness of breath or neck pain. X-ray shoulder came back normal. Not suspecting NH no need for EKG or cardiac labs/evaluation. Not suspecting any NH, DVT, compartment syndrome, aortic dissection, arterial occlusion, stroke, carotid dissection, or any other life threatening etiology.. Patient explained worrisome signs and informed to return to the ED immediately Differential Diagnosis Differential Diagnoses: The differential diagnosis associated with the presentation includes (Dislocation, fracture sprain) Admission/Observation Consideration of admission/observation: Escalation of care including admission/observation considered Independent Interpretation I performed an independent interpretation of an: Plain X-Ray Radiology Impression Discussion of test interpretation with radiology: I have reviewed the radiologist's reading. Independent Historian Clinical information obtained from an independent historian. History obtained from or confirmed by: Other (Patient) Prescription Management I considered prescription management with: Pain Medication Discharge Plan Discharge Clinical Impression: Rotator cuff insufficiency of left shoulder, Left shoulder pain Patient Disposition: Home, Self-Care Instructions: Rotator Cuff Injury (ED), Shoulder Pain (ED), Warm Compress or Soak (ED), Rotator Cuff Injury Exercises (DC) Additional Instructions: Recommend follow-up with PCP for physical therapy and possible MRI. Return to the ED immediately for any swelling upper extremity, neck pain, chest pain, shortness of breath, bluish black discoloration, redness, fever, numbness/tingling, or any other concerning symptoms. Do not take any other NSAIDs while taking ketorolac. Ordering Physician: Abisai Lemus Date of Service: 09/26/25 Procedure(s): XR shoulder LT min 2V Accession Number(s): [id number] cc: Abisai Lemus; Cydney Juárez MD~ Reason for Exam: left shoulder pain. heard pop CLINICAL HISTORY: left shoulder pain. heard pop 4 view left shoulder Comparison: None provided Findings: Bones intact. No dislocations. No significant arthritic change. No erosions. No radiopaque foreign body. IMPRESSION: 1. No acute findings This document has been electronically signed by: Bess Roberto MD on 09/26/2025 18:30:33 Prescriptions: New ketorolac 10 mg tablet 10 mg PO Q6H PRN (Reason: pain) Qty: 20 0RF Rx Instructions: Received 30mg IM Toradol in the ED No Action cholecalciferol (vitamin D3) 25 mcg (1,000 unit) capsule 25 mcg PO DAILY Qty: 90 3RF acetaminophen 325 mg Tablet 650 mg PO Q6H PRN (Reason: Headache/Pain, Scale 1-10) Qty: 0 0RF lidocaine [Lidocaine Pain Relief] 4 % Adhesive Patch,Medicated 1 patch transdermal BID Qty: 6 0RF Protocol: Apply to: Apply to: bilateral shoulders trazodone 50 mg Tablet 50 mg PO BEDTIME MRX1 PRN (Reason: Insomnia) Qty: 60 0RF olanzapine 5 mg Tablet 5 mg PO BID Qty: 60 0RF Antacid Ext Str (calcium carb) 300 mg (750 mg) Tablet,Chewable 2.5 tab PO Q6H PRN (Reason: Heartburn) Qty: 0 0RF lamotrigine 25 mg Tablet 25 mg PO BID Qty: 60 0RF divalproex 500 mg Tablet Extended Release 24 Hr 500 mg PO BEDTIME Qty: 30 0RF Vraylar 3 mg Capsule 3 mg PO DAILY Qty: 30 0RF cetirizine [All Day Allergy (cetirizine)] 10 mg tablet 10 mg PO DAILY PRN (Reason: allergy symptoms) 90 Days Qty: 90 0RF cyclobenzaprine 5 mg tablet 10 mg PO Q8H PRN (Reason: Muscle Spasm) Qty: 20 0RF Referrals: [facility] [Provider Group, Orthopedics] - 2 days Referral Note: [place] pain. MRI needed Clinical Impression: Rotator cuff insufficiency of left shoulder; Left shoulder pain Cydney Juárez MD [Primary Care Provider, Internal Medicine] - 2 days Referral Note: SHoulder pain. May need mRI Clinical Impression: Rotator cuff insufficiency of left shoulder; Left shoulder pain Stand Alone Forms: Work/School Release Interventions: ED Discharge Assessment Last Done: 09/26/25 19:46 Discharge Date/Time: 09/26/25 19:47 Print Language: Yakut
[2025-09-26 17:19] VITALS: BP 118/89; PULSE 78; RESP 14; TEMP 36.6; O2SAT 98
--- OUTSIDE RECORDS SUMMARY | 2025-09-26 17:58 | XMS_ITS | Clinical Summary ---
Author Organization [employer] Address [address] [place] [address] 7t [place] [address] Care Team Providers Care Bobbin Trucker Name Role Phone Unavailable Primary Care Provider [...] Most Recently Relevant to Health Maintenance Insurance [facility] MEDICAID STAND ADULT DENTAL - HSN PARTIAL (MEDICAID)
--- OUTSIDE RECORDS SUMMARY | 2025-09-26 17:58 | XMS_ITS | Encounter Summary ---
Author Organization [employer] Address [address] [facility] 7t [place] [address] Care Team Providers Care Supervisor Al[employer]ation Name Role Phone Unavailable Primary Care Provider Unavailabl e Encounter Details Date Type Department Care Team (Latest Contact Info) Description 12/07/2020 Abstract [facility] CONVERSIONS Dental, Provider, DDS Social History [...]
--- OUTSIDE RECORDS SUMMARY | 2025-09-26 17:58 | XMS_ITS | Encounter Summary ---
Author Organization [employer] Address [address] [facility] 7t [place] [address] Care Team Providers Care Compensation Advisor Name Role Phone Unavailable Primary Care Provider Unavailabl e Encounter Details Date Type Department Care Team (Latest Contact Info) Description 07/27/2019 Abstract [facility] CONVERSIONS Dental, Provider, DDS Social History Tobacco [...]
--- OUTSIDE RECORDS SUMMARY | 2025-09-26 17:58 | XMS_ITS | Data Portability ---
Author Organization [place] - [facility] , [id number] Address [address] [place] [address] Assessment No assessment recorded. Plan of Treatment [...] Time OC- Physical completed ANEESH RAMIREZ - [facility] 04/23/2023 17:08:58 Imaging Results None recorded. [...] ICD10 Code Diagnosis IMO Codes Diagnosis Note [id number] [place] [id number] [place] [address] 04/23/2023 15:39:01 04/23/2023 17:49:20 History and physical examination, pre-employment [id number] Z02.1 Health Concerns Section Related Observation LastModified by Organization Detai ls LastModified Time None Recorded Concern Status LastModified by Organization Details LastModified Time None Recorded Advance Directives Directive None Recorded Payers Insurance Date Sequence Insurance Name Policy Number Policy Hinton Covered Member ID Hinton Member ID Guarantor Name 04/23/2023 OC-ESCREEN [facility] [address] Yulia Banda OBGyn Episode No OBEpisode recorded.
--- OUTSIDE RECORDS SUMMARY | 2025-09-26 17:58 | XMS_ITS | Encounter Summary ---
Author Organization [employer] Address [address] [facility] 7t [place] [address] Care Team Providers Care Terra Cotta Roofer Helper Name Role Phone Unavailable Primary Care Provider Unavailabl e Encounter Details Date Type Department Care Team (Latest Contact Info) Description 08/25/2019 Abstract [facility] CONVERSIONS Dental, Provider, DDS Social [...]
--- OUTSIDE RECORDS SUMMARY | 2025-09-26 17:58 | XMS_ITS | Clinical Summary ---
Author Organization [facility] Address [address] [place] [address] Phone Care Team Providers Care Transformer Builder Name Role Phone Cydney Foster MD Primary Care Provider [phone] Allergies No known active allergies Medications cetirizine [...] AM EST Office Visit Orthopedic Surgery - [place] [address] [phone] Fabian Vega, DPM [address] [phone] Health Maintenance Due Date Last [...] topic Insurance MEDICAID - [place] Care Teams Transformer Builder Relationship Specialty Start Date End Date Cydney Foster MD [address] [place] [address] , [facility] [address] [facility] Physician Associ D/B/A: [facility] In Internal Medicine Nick[place] PCP - General Internal Medicine 03/10/25
--- OUTSIDE RECORDS SUMMARY | 2025-09-26 17:58 | XMS_ITS | Patient Health Record ---
Author Organization [facility] Address [address] [place] [address] Care Team Providers Care Bindery Supervisor Name Role Phone Sonu Neff Jr Reason For Referral No Information Plan Of Treatment No Information
[2025-09-26 18:26] VITALS: BP 94/65; PULSE 69; RESP 18; TEMP 36.8; O2SAT 100
[2025-09-26 19:46] VITALS: BP 103/53; PULSE 75; RESP 18; TEMP 36.7; O2SAT 99
== END 2025-09-26 19:47 | disposition home or self-care (01) ==
PROVIDERS: Emergency Provider Emergency Medicine; PCP Internal Medicine
DX: M25.512 Pain in left shoulder (principal); M75.102 Unspecified rotator cuff tear or rupture of left shoulder, not specified as traumatic
CPT/HCPCS: 73030; 96372; 99284; J1885

== ENCOUNTER 2025-11-03 10:32 | Outpatient (AMB) | payer OTHER, SELFPAY ==
--- NOTE | 2025-11-03 10:46 | MHC.OFFVIS ---
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 The patient states for the last several years she has had a ?popping sensation? in both of her shoulders. She denies any mireya dislocations. She denies any constant pain. She continues to go to the gym to exercise. Allergies oseltamivir (From TAMIFLU) Allergy (Intermediate, Verified 11/03/25 10:51) DROWSINESS/NAUSEA, rash, psychosis pork derived (porcine) Allergy (Verified 11/03/25 10:51) Diarrhea lithium Adverse Reaction (Intermediate, Verified 11/03/25 10:51) weight gain Medication List - Last Reconciled 11/03/25 by Joni Navarrete MD acetaminophen 650 mg (2 x 325 mg) PO Q6H PRN calcium carbonate (Antacid Ext Str (calcium carb)) 2.5 tabs PO Q6H PRN cetirizine (All Day Allergy (cetirizine)) 10 mg PO DAILY PRN 90 days cholecalciferol (vitamin D3) 25 mcg PO DAILY lidocaine 4% (Lidocaine Pain Relief) 1 patch See Protocol transdermal BID olanzapine 5 mg PO BID PFSH Medical History Psychiatric care Obesity (BMI 30.0-34.9) Psychosis Hypovitaminosis D Breast lump on left side at 3 o'clock position Physical exam Overweight (BMI 25.0-29.9) Intestinal malabsorption following gastrectomy Malabsorption due to intolerance, not elsewhere classified Anemia Back pain GERD (gastroesophageal reflux disease) Morbid obesity Surgical History History of surgical procedure on mouth History of colonoscopy Hx of cholecystectomy S/P laparoscopic sleeve gastrectomy Family History Father No problems noted. Mother Hypertension Sister No problems noted. Sister Hypoglycemia Brother No problems noted. Brother No problems noted. Son No problems noted. Son No problems noted. Paternal Aunt Breast cancer Colon cancer Paternal Grandfather No problems noted. Social History Household Members: Family Household Members Other:: 2 Housing: Apartment Do you presently have visiting nurse or other home services: No Alcohol intake: former Patient Tobacco Use Status: Never used Tobacco Tobacco use type: Cigarette e-Cigarette/Vaping Use: Never Used Second Hand Smoke Exposure: No service: No Current occupational status: employed Current occupational exposures/hazards: No Sexual orientation: Straight/Heterosexual Cognitive needs: No Hearing needs: No Vision needs: No Female Reproductive History Menstrual Age of Menarche: 7 Physical Exam Vital Signs: BMI result Body Mass Index 33.8 Extrem Other: Left shoulder examination shows full range of motion when compared to her right shoulder, 5/5 strength with supraspinatus testing, positive impingement signs, positive apprehension test Results Reviewed Results Reviewed: X-rays of the patient's left shoulder show moderate to severe acromioclavicular joint narrowing, a type 2 acromion, no acute bony abnormalities Assessment & Plan Assessment & Plan (1) Left shoulder pain: Code(s): M25.512 - Pain in left shoulder Category: Medical Plan Yulia presents with left shoulder pain due to impingement syndrome and possible instability. I had a lengthy discussion with the patient regarding the treatment options. At this point the patient's symptoms are tolerable to her. She will continue with her activity modifications. The patient also complains of bilateral foot bunion deformities. Thus, I will refer her to our podiatry department. She will follow up as scheduled. She will follow up with me on an as-needed basis should her shoulder symptoms worsen in any way. Feel free to call me at any time should questions regarding her orthopedic management arise. I spent 22 minutes in reviewing the patient's records and imaging studies, seeing the patient and documenting in the medical record. Orders: Referrals Podiatry Referral M21.611 - Bunion of right foot, M21.612 - Bunion of left foot Coding Level of Care Code New Pt Level 3 (82832) Add On Problem Visit Only Diagnoses Left shoulder pain M25.512
[2025-11-03 10:50] VITALS: BMI 33.8
--- OUTSIDE RECORDS SUMMARY | 2025-11-03 13:10 | XMS_ITS | Encounter Summary ---
Author Organization [employer] Address [address] [facility] 7t [place] [address] Care Team Providers Care Project Management Manager Name Role Phone Unavailable Primary Care Provider Unavailabl e Encounter Details Date Type Department Care Team (Latest Contact Info) Description 12/07/2020 Abstract [facility] CONVERSIONS Dental, Provider, DDS Social History Tobacco [...]
--- OUTSIDE RECORDS SUMMARY | 2025-11-03 13:10 | XMS_ITS | Encounter Summary ---
Author Organization [employer] Address [address] [facility] 7t [place] [address] Care Team Providers Care Bilingual Manager Name Role Phone Unavailable Primary Care Provider Unavailabl e Encounter Details Date Type Department Care Team (Latest Contact Info) Description 08/25/2019 Abstract [facility] CONVERSIONS Dental, Provider, [...]
--- OUTSIDE RECORDS SUMMARY | 2025-11-03 13:10 | XMS_ITS | Clinical Summary ---
Author Organization [facility] Address [address] [place] [address] Phone Care Team Providers Care Transformer Maker Name Role Phone Cydney Foster MD Primary Care Provider [phone] Allergies No known active allergies Medications cetirizine [...] History Surgery Date Site/Laterality Comments CHOLECYSTECTOMY PROCEDURE: [place] CHOLECYSTECTOMY BARIATRIC SURGERY N/A PROCEDURE: [place] LAPS GSTRC RSTRICTIV PX LONGITUDINAL GASTRECTOMY MULTIPLE [...] Orientation Straight 06/02/2025 10 :24 AM EDT Last Filed Vital Signs Vital [...] 10/21/2022 Depression Screening 11/18/2024 COVID-19 Vaccine ( season) 2025 Influenza Vaccine [...] patient's age to complete this topic Insurance [facility] [employer] MEDICAID - [place] Care Teams Transformer Maker Relationship Specialty Start Date End Date Cydney Foster MD [address] [place] [address] , [address] [facility] Physician Associ D/B/A: Nicky Metzatibrady In Internal Medicine Nicky [place] PCP - General Internal Medicine 03/10/25
--- OUTSIDE RECORDS SUMMARY | 2025-11-03 13:10 | XMS_ITS | Patient Health Record ---
Author Organization [facility] Address [address] [place] [address] Care Team Providers Care Refund Specialist Name Role Phone Sonu Neff Jr Reason For Referral No Information Plan Of Treatment No Information
--- OUTSIDE RECORDS SUMMARY | 2025-11-03 13:11 | XMS_ITS | Encounter Summary ---
Author Organization [employer] Address [address] [facility] 7t [place] [address] Care Team Providers Care Patient Admitting Representative Name Role Phone Unavailable Primary Care Provider Unavailabl e Encounter Details Date Type Department Care Team (Latest Contact Info) Description 07/27/2019 Abstract [facility] CONVERSIONS Dental, Provider, DDS Social History [...]
--- OUTSIDE RECORDS SUMMARY | 2025-11-03 13:11 | XMS_ITS | Clinical Summary ---
Author Organization [employer] Address [address] [place] [address] [address] [place] [address] Care Team Providers Care Home Care Attendant Name Role Phone Unavailable Primary Care [...] 09/02/2024, 1 , 01/09/2023 COVID-19 Vaccine ( - season) 2025 Influenza [...] Most Recently Relevant to Health Maintenance [facility] STAND ADULT DENTAL - HSN PARTIAL (MEDICAID)
== END 2025-11-03 11:13 | disposition home or self-care (01) ==
LOC: HO.HOS 10:33
PROVIDERS: PCP Internal Medicine; Visit Provider Orthopaedic Surgery
DX: M25.512 Pain in left shoulder (principal)
CPT/HCPCS: 99203

== ENCOUNTER → 2025-11-03 10:32 | Outpatient (BNVA) | payer OTHER, SELFPAY | PROVIDERS: PCP Internal Medicine; Visit Provider Orthopaedic Surgery | DX: M25.512 Pain in left shoulder (principal); M75.42 Impingement syndrome of left shoulder; M21.611 Bunion of right foot; M21.612 Bunion of left foot | CPT/HCPCS: 99202 ==

== ENCOUNTER 2025-11-05 21:01 | Emergency (ER) | payer OTHER, SELFPAY ==
--- NOTE | 2025-11-05 | ECG_ITS ---
Test Reason : DIZZINESS Blood Pressure : */* mmHG Vent. Rate : 59 BPM Atrial Rate : 59 BPM P-R Int : 138 ms QRS Dur : 78 ms QT Int : 414 ms P-R-T Axes : 40 32 48 degrees QTcB Int : 409 ms Sinus bradycardia Otherwise normal ECG When compared with ECG of 06-Sep-2025 15:03, No significant change was found Referred By: Generic ED Physician Electronically Signed By: Pawan Gutiérrez
--- NOTE | ~2025-11-05 | CT_ITS ---
CLINICAL HISTORY: dizziness CT Head WO Contrast COMPARISON: CT/REG/SR - CT HEAD WITHOUT IV CONTRAST - 09/07/25 12:18 EDT FINDINGS: No acute intracranial hemorrhage. No evidence of acute infarction. No mass-effect or midline shift. No hydrocephalus. Mucosal thickening in the right maxillary sinus. The mastoid air cells are clear. The visible orbits are normal. No acute fracture. Unremarkable soft tissues. IMPRESSION: No acute intracranial findings. This document has been electronically signed by: Edson Asif MD on 11/05/2025 23:53:51
[2025-11-05 21:19] VITALS: BP 122/56; PULSE 65; RESP 16; TEMP 36.6; O2SAT 100; BMI 33.9
[2025-11-05 21:44] LABS: MANUAL DIFF FLAG NO
[2025-11-05 21:45] LABS: Hematocrit 36.0 % (37.0-47.0); Hemoglobin 12.3 g/dl (12.0-16.0); Imm Gran Abs Auto 0.01 X10*3/uL (0.00-0.03); Imm Gran Pct Auto 0.2 % (0.0-0.4); Lymphocytes Absolute Auto 2.4 X10*3/uL (1.2-4.9); Mean Corpuscular HGB Conc 34.2 g/dl (31.0-35.0); Mean Corpuscular Hemoglobin 30.6 pg (27.0-33.0); Mean Corpuscular Volume 89.6 fL (80.0-98.0); NRBC Abs Auto 0.000 X10*3/uL (0.0-0.012); NRBC Pct Auto 0.0 /100WBC (0.0-0.2); Platelet Count 280 X10*3/uL (160-400); Red Blood Count 4.02 X10*6/uL (4.20-5.50); White Blood Count 5.8 X10*3/uL (4.8-10.8)
--- OUTSIDE RECORDS SUMMARY | 2025-11-05 21:54 | XMS_ITS | Data Portability ---
Author Organization [place] - [facility] , [address] Address [address] [place] [address] Assessment No assessment recorded. Plan of Treatment [...] Organization Details Recorded Time OC- Physical completed ANEEHS RAMIREZ - [employer] [facility] 04/23/2023 17:08:58 Imaging Results None recorded. [...] ICD10 Code Diagnosis IMO Codes Diagnosis Note [id number] [place] [address] [place] [address] 04/23/2023 15:39:01 04/23/2023 17:49:20 History and physical examination, pre-employment [id number] Z02.1 Health Concerns Section Related Observation LastModified by Organization Detai ls LastModified Time None Recorded Concern Status LastModified by Organization Details LastModified Time None Recorded Advance Directives Directive None Recorded Payers Insurance Date Sequence Insurance Name Policy Number Policy Hinton Covered Member ID Hinton Member ID Guarantor Name 04/23/2023 OC-ESCREEN [facility] Yulia Banda OBGyn Episode No OBEpisode recorded.
--- OUTSIDE RECORDS SUMMARY | 2025-11-05 21:54 | XMS_ITS | Encounter Summary ---
Author Organization [employer] Address [address] [facility] 7t [place] [address] Care Team Providers Care It Operations Analyst Name Role Phone Unavailable Primary Care Provider Unavailabl e Encounter Details Date Type Department Care Team (Latest Contact Info) Description 12/07/2020 Abstract [facility] [...]
--- OUTSIDE RECORDS SUMMARY | 2025-11-05 21:54 | XMS_ITS | Clinical Summary ---
Author Organization [employer] Address [address] [place] [address] 7t [place] [address] Care Team Providers Care New Business Clerk Name Role Phone Unavailable Primary Care [...] Most Recently Relevant to Health Maintenance [facility] ST[facility] ADULT DENTAL - HSN PARTIAL (MEDICAID)
--- OUTSIDE RECORDS SUMMARY | 2025-11-05 21:54 | XMS_ITS | Encounter Summary ---
Author Organization [employer] Address [address] [facility] 7t [place] [address] Care Team Providers Care Reliner Name Role Phone Unavailable Primary Care Provider Unavailabl e Encounter Details Date Type Department Care Team (Latest Contact Info) Description 07/27/2019 Abstract [facility] CONVERSIONS Dental, Provider, DDS Social History [...]
--- OUTSIDE RECORDS SUMMARY | 2025-11-05 21:54 | XMS_ITS | Encounter Summary ---
Author Organization [employer] Address [address] [facility] 7t [place] [address] Care Team Providers Care Fitness And Wellness Director Name Role Phone Unavailable Primary Care Provider Unavailabl e Encounter Details Date Type Department Care Team (Latest Contact Info) Description 08/25/2019 Abstract [facility] CONVERSIONS Dental, Provider, DDS Social History [...]
--- OUTSIDE RECORDS SUMMARY | 2025-11-05 21:54 | XMS_ITS | Patient Health Record ---
Author Organization [facility] Address [address] [place] [address] Care Team Providers Care Insulation Batting Machine Operator Name Role Phone Sonu Neff Jr [phone] Reason For Referral No Information Plan Of Treatment No Information
--- OUTSIDE RECORDS SUMMARY | 2025-11-05 21:54 | XMS_ITS | Clinical Summary ---
Author Organization [facility] Address [address] [place] [address] Phone Care Team Providers Care Ski Lift Attendant Name Role Phone Cydney Foster MD Primary Care Provider [phone] Allergies No known active allergies Medications cetirizine [...] History Surgery Date Site/Laterality Comments CHOLECYSTECTOMY PROCEDURE: [place] CHOLECYSTECTOMY BARIATRIC SURGERY N/A PROCEDURE: [place] LAPS GSTRC RSTRICTIV PX LONGITUDINAL GASTRECTOMY MULTIPLE [...] patient's age to complete this topic Insurance [facility] [employer] PLAN MEDICAID - [place] Care Teams Ski Lift Attendant Relationship Specialty Start Date End Date Cydney Foster MD [address] [place] [address] , [address] [facility] D/B/A: [facility] [place] PCP - General Internal Medicine 03/10/25
[2025-11-05 21:59] LABS: Alanine Aminotransferase 17 U/L (0-31); Albumin Level 4.7 g/dL (3.5-5.0); Alkaline Phosphatase 66 U/L (39-117); Anion Gap 10 (12-20); Aspartate Amino Transferase 19 U/L (5-31); Blood Urea Nitrogen 13 mg/dL (9-16); Calcium 9.6 mg/dL (8.4-10.2); Carbon Dioxide 27 mmol/L (22-29); Chloride 109 mmol/L (96-108); Creatinine Clr Calc Pharmacy 81.3; Estimated Glomerular Filt Rate > 60; Lipase 41 U/L (8-78); Magnesium 2.0 mg/dL (1.6-2.6); Potassium 3.9 mmol/L (3.3-5.1); Sodium 142 mmol/L (135-145); Total Protein 7.6 g/dL (6.5-8.0)
--- NOTE | 2025-11-05 22:52 | ED.DIZZY ---
HPI - Dizziness General Chief Complaint: Dizziness Stated Complaint: dizzy, face feels numb Time Seen by Provider: 11/05/25 21:59 History of Present Illness HPI Narrative: Patient is a 40-year-old female presents today with having numbness to bilateral side of the face lung with some headache some dizziness that started at approximately 21:00 lasted for about an hour. There is no chest pain. [place] weak some generalized malaise. Did not have any arm or leg weakness. Feels a little slower at that time. Did not actually pass out. There was no facial droop noted. There is no diaphoresis. There is no chest pain. No history of diabetes, hypertension, high cholesterol, smoking, mi. no travel history. Only medication patient is on is olanzapine. No coughing or congestion or upper respiratory symptoms. No diaphoresis. Related Data Previous Rx's ?Medication ?Instructions ?Recorded cholecalciferol (vitamin D3) 25 25 mcg PO DAILY #90 caps 03/23/25 mcg (1,000 unit) capsule cetirizine 10 mg tablet (All Day 10 mg PO DAILY PRN allergy 06/28/25 Allergy (cetirizine)) symptoms 90 days #90 tabs acetaminophen 325 mg tablet 650 mg (2 x 325 mg) PO Q6H PRN 09/13/25 Headache/Pain, Scale 1-10 #0 tabs calcium carbonate (Antacid Ext Str 2.5 tab PO Q6H PRN Heartburn #0 09/13/25 (calcium carb)) tabs lidocaine 4 % topical patch 1 patch transdermal BID #6 ea 09/13/25 (Lidocaine Pain Relief) olanzapine 5 mg tablet 5 mg PO BID #60 tabs 09/13/25 Allergies Allergy/AdvReac Type Severity Reaction Status Date / Time oseltamivir (From TAMIFLU) Allergy Intermediate DROWSINESS/NAUSEA, Verified 11/05/25 21:20 rash, psychosis pork derived (porcine) Allergy Diarrhea Verified 11/05/25 21:20 lithium AdvReac Intermediate weight gain Verified 11/05/25 21:20 Review of Systems Review of Systems: Positive generalized malaise Yes all other systems are reviewed and are negative [facility] Past Medical History Attestation statement: The following information was validated with the patient. Medical History Psychiatric care Obesity (BMI 30.0-34.9) Psychosis Hypovitaminosis D Breast lump on left side at 3 o'clock position Physical exam Overweight (BMI 25.0-29.9) Intestinal malabsorption following gastrectomy Malabsorption due to intolerance, not elsewhere classified Anemia Back pain GERD (gastroesophageal reflux disease) Morbid obesity Surgical History History of surgical procedure on mouth History of colonoscopy Hx of cholecystectomy S/P laparoscopic sleeve gastrectomy Family History Family History Father No problems noted. Mother Hypertension Sister No problems noted. Sister Hypoglycemia Brother No problems noted. Brother No problems noted. Son No problems noted. Son No problems noted. Paternal Aunt Breast cancer Colon cancer Paternal Grandfather No problems noted. Social History Social History Household Members: Family Household Members Other:: 2 Housing: Apartment Do you presently have visiting nurse or other home services: No Alcohol intake: former Patient Tobacco Use Status: Never used Tobacco Tobacco use type: Cigarette e-Cigarette/Vaping Use: Never Used Second Hand Smoke Exposure: No Advance Directives: No Advance Directives Information Provided: No Do you have a plan to hurt others: No Plan service: No Current occupational status: employed Current occupational exposures/hazards: No Sexual orientation: Straight/Heterosexual Cognitive needs: No Hearing needs: No Vision needs: No Physical Exam Exam: Exam: Appearance: Alert. Oriented X3. No acute distress. Eyes: Pupils equal, round and reactive to light. ENT: Pharynx normal. Neck: Normal inspection. Neck supple. No lymph nodes noted. No crepitus CVS: Normal heart rate and rhythm. Pulses normal. Normal S1 and S2 Respiratory: No respiratory distress. Breath sounds normal. No Wheezing. No rales Abdomen: Soft and nontender. No rigidity. No distention. good BS x4 Skin: Skin warm and dry. Normal skin color. Normal skin turgor. Extremities: No lower extremity edema. Neurovascular intact to all extremities. No Lacerations. No Rash Neuro: Oriented X 3. No motor deficit. No sensory deficit. Moving all extermities. No slurred speech Vital Signs: Vital Signs: Last Vital Signs Temp 97.9 F 11/05/25 21:19 Pulse 62 11/05/25 23:34 Resp 16 11/05/25 21:19 BP 91/55 L 11/05/25 23:34 Pulse Ox 100 11/05/25 21:19 O2 Del Method Room Air 11/05/25 21:19 BMI result Body Mass Index 33.9 Medications Administered Discontinued Medications Generic Name Dose Route Start Last Admin Trade Name Harshilq PRN Reason Stop Dose Admin Sodium Chloride 1,000 mls @ 999 mls/hr 11/05/25 23:00 11/05/25 23:43 Ns IV 11/06/25 00:00 999 mls/hr .Q1H1M BETO Administration Medical Decision Making Medical Decision Making [facility] Narrative: Positive dizziness numbness to both side of her face. Associated with some mild headache. There is no focal weakness. Patient denies any double vision denies any change in speech denies any difficulty with gait patient is from home has a history of something similar has no cardiac issue has no sudden deaths in the family. No chest pain. No history of blood clot no leg swelling no travel history. test was negative. Patient's urine showed no signs of infection. Hemoglobin is 12.3 approximately baseline. Electrolytes are unremarkable. Troponin is negative. COVID flu RSV. My interpretation patient's EKG showed a sinus rhythm heart rate is 60 PA QRS QTC normal no acute ST segment elevation. My interpretation patient's CT head was grossly negative no evidence of bleeding no evidence of fracture. Radiology's review of the CT head was the same. Differential Diagnosis Differential Diagnoses: The differential diagnosis associated with the presentation includes Admission/Observation Consideration of admission/observation: Escalation of care including admission/observation considered Lab Data [facility] Lab Attestation statement: I reviewed the patient's lab results. 11/05/25 21:39 11/05/25 21:39 Labs: Lab Results 11/05/25 11/05/25 Range/Units 21:39 23:42 WBC 5.8 (4.8-10.8) X10*3/uL RBC 4.02 L (4.20-5.50) X10*6/uL Hgb 12.3 (12.0-16.0) g/dl Hct 36.0 L (37.0-47.0) % MCV 89.6 (80.0-98.0) fL MCH 30.6 (27.0-33.0) pg MCHC 34.2 (31.0-35.0) g/dl RDW 13.1 (11.0-16.0) % Plt Count 280 (160-400) X10*3/uL MPV 9.0 L (9.4-12.3) fL Immature Gran % (Auto) 0.2 (0.0-0.4) % Neut % (Auto) 48.4 (45-73) % Lymph % (Auto) 40.5 H (20-40) % [place] % (Auto) 7.7 (2-11) % Eos % (Auto) 2.7 (0-4) % Baso % (Auto) 0.5 (0-2) % Lymph # (Auto) 2.4 (1.2-4.9) X10*3/uL [place] # (Auto) 0.5 (0.1-1.2) X10*3/uL Eos # (Auto) 0.2 (0.0-0.4) X10*3/uL Baso # (Auto) 0.0 (0.0-0.2) X10*3/uL Abs Immat Gran (auto) 0.01 (0.00-0.03) X10*3/uL Absolute Neuts (auto) 2.8 (2.0-8.3) x10*3/uL Absolute Nucleated RBC 0.000 (0.0-0.012) X10*3/uL Nucleated RBC % (auto) 0.0 (0.0-0.2) /100WBC Sodium 142 (135-145) mmol/L Potassium 3.9 (3.3-5.1) mmol/L Chloride 109 H (96-108) mmol/L Carbon Dioxide 27 (22-29) mmol/L Anion Gap 10 L (12-20) BUN 13 (9-16) mg/dL Creatinine 0.87 (0.5-1.4) mg/dL Estim Creat Clear Calc 81.3 Estimated GFR > 60 Random Glucose 84 (60-115) mg/dL Calcium 9.6 D (8.4-10.2) mg/dL Magnesium 2.0 (1.6-2.6) mg/dL Total Bilirubin 0.2 (0.0-1.0) mg/dL AST 19 (5-31) U/L ALT 17 (0-31) U/L Alkaline Phosphatase 66 (39-117) U/L Troponin I High Sens < 2.7 (<3.5-17.0) ng/L Total Protein 7.6 (6.5-8.0) g/dL Albumin 4.7 (3.5-5.0) g/dL Lipase 41 (8-78) U/L Urine Color Yellow Urine Appearance Clear Urine pH 6.5 (5.0-9.0) Ur Specific [place] 1.020 (1.005-1.025) Urine Protein Negative (Neg-Trace) mg/dL Urine Glucose (UA) Negative (Negative) mg/dL Urine Ketones Negative (Negative) mg/dL Urine Blood Negative (Negative) Urine Nitrite Negative (Negative) Ur Leukocyte Esterase Negative (Negative) Urine RBC 0-2 (0-2) /HPF Urine WBC 0-5 (0-5) /HPF Ur Squamous Epith Cells 0-2 (0-2) /HPF Urine Bacteria None Seen (None Seen) Hyaline Casts 0-2 (0-2) /LPF Urine Test NEGATIVE (NEGATIVE) Influenza Type A (PCR) NEGATIVE (Negative) Influenza Type B (PCR) NEGATIVE (Negative) RSV RNA Qual (PCR) NEGATIVE (Negative) SARS-CoV-2 RNA (RT-PCR) NEGATIVE (Negative) Independent Interpretation I performed an independent interpretation of an: EKG (Sinus heart rate is 60 PA QRS QTC normal no acute ST segment elevation) and CT Scan (CT head negative for bleed) Radiology Impression Discussion of test interpretation with radiology: I have reviewed the radiologist's reading. Independent Historian Clinical information obtained from an independent historian. History obtained from or confirmed by: Spouse External Record Review External record reviewed: Inpatient record Chronic Conditions Bipolar, depression Social Determinants Patient?s care significantly limited by Social Determinants of Health including: Problems related to primary support group Discharge Plan Discharge Clinical Impression: Dizziness Patient Disposition: Home, Self-Care Instructions: Dizziness (ED) Prescriptions: No Action cholecalciferol (vitamin D3) 25 mcg (1,000 unit) capsule 25 mcg PO DAILY Qty: 90 3RF acetaminophen 325 mg Tablet 650 mg PO Q6H PRN (Reason: Headache/Pain, Scale 1-10) Qty: 0 0RF lidocaine [Lidocaine Pain Relief] 4 % Adhesive Patch,Medicated 1 patch transdermal BID Qty: 6 0RF Protocol: Apply to: Apply to: bilateral shoulders olanzapine 5 mg Tablet 5 mg PO BID Qty: 60 0RF Antacid Ext Str (calcium carb) 300 mg (750 mg) Tablet,Chewable 2.5 tab PO Q6H PRN (Reason: Heartburn) Qty: 0 0RF cetirizine [All Day Allergy (cetirizine)] 10 mg tablet 10 mg PO DAILY PRN (Reason: allergy symptoms) 90 Days Qty: 90 0RF Referrals: Cydney Juárez MD [Primary Care Provider, Internal Medicine] - 11/09/25 Print Language: Occitan
[2025-11-05 23:33] LABS: Troponin-I High Sensitivity < 2.7 ng/L (<3.5-17.0)
[2025-11-05 23:34] VITALS: BP 91/55; PULSE 62
[2025-11-05 23:48] LABS: Appearance Urine Clear; Glucose Urine UA Negative (Negative); PH 6.5 (5.0-9.0); Specific Gravity - Urine 1.020 (1.005-1.025)
[2025-11-05 23:49] LABS: UPreg QC Valid YES
[2025-11-06 00:23] LABS: Resp Syncy Virus RNA Qual PCR NEGATIVE (Negative); SARS COV2 PCR INHOUSE NEGATIVE (Negative)
[2025-11-06 01:05] VITALS: BP 92/54; PULSE 70; RESP 16; TEMP 36.6; O2SAT 98
== END 2025-11-06 01:05 | disposition home or self-care (01) ==
PROVIDERS: Emergency Provider Emergency Medicine Emergency Medical Services; PCP Internal Medicine
DX: R42 Dizziness and giddiness (principal); R51.9 Headache, unspecified; Z79.899 Other long term (current) drug therapy
CPT/HCPCS: 36415; 70450; 80053; 81001; 81025; 83690; 83735; 84484; 85025; 87637; 93005; 96360; 99284

== ENCOUNTER → 2025-11-05 21:30 | Outpatient (BNV) | payer OTHER, SELFPAY | PROVIDERS: Emergency Provider Emergency Medicine Emergency Medical Services; PCP Internal Medicine; Visit Provider Internal Medicine Cardiovascular Disease | DX: R00.1 Bradycardia, unspecified (principal) | CPT/HCPCS: 93010 ==

== ENCOUNTER → 2025-11-05 22:50 | Outpatient (BNV) | payer OTHER, SELFPAY | PROVIDERS: Emergency Provider Emergency Medicine Emergency Medical Services; PCP Internal Medicine; Visit Provider Radiology Diagnostic Radiology | DX: R42 Dizziness and giddiness (principal) | CPT/HCPCS: 70450 ==

== ENCOUNTER 2025-11-08 11:23 | Outpatient (AMB) | payer OTHER, SELFPAY ==
--- NOTE | 2025-11-08 11:28 | A.OFFVIS_ITS ---
VS Expanded 11/08/25 11:40 BP 103/58 L Blood Pressure Location Rt brachial Blood Pressure Position Sitting Pulse 79 Pulse Source Pulse Oximeter Temp 98.0 F Temperature Source Temporal Artery Scan Pulse Oximetry 98 Oxygen Delivery Method Room Air Height 5 ft 1 in Weight 182 lb 3.2 oz BMI 34.4 Body Fat % 28.6 Body Fat Mass 52.0 Fat Free Mass 130.0 Visceral Fat Rating 0 Body Water % 51.0 Body Water Mass 92.8 Muscle Mass/Score 123.4 Basal Metabolic Rate/Score 1,740 Intake Visit Reasons: OV PO LSG 01/26/20 Allergies oseltamivir (From TAMIFLU) Allergy (Intermediate, Verified 11/08/25 11:41) DROWSINESS/NAUSEA, rash, psychosis pork derived (porcine) Allergy (Verified 11/08/25 11:41) Diarrhea lithium Adverse Reaction (Intermediate, Verified 11/08/25 11:41) weight gain Medication List - Last Reconciled 11/08/25 by ASHLEY Mulligan acetaminophen 650 mg (2 x 325 mg) PO Q6H PRN calcium carbonate (Antacid Ext Str (calcium carb)) 2.5 tabs PO Q6H PRN cetirizine (All Day Allergy (cetirizine)) 10 mg PO DAILY PRN 90 days cholecalciferol (vitamin D3) 25 mcg PO DAILY lidocaine 4% (Lidocaine Pain Relief) 1 patch See Protocol transdermal BID olanzapine 5 mg PO BID HPI Comments Details: This is a 40 yo female who is s/p LSG 01/26/2020. Weight gain of 15.6lb since last OV in Jul. No complaints of nausea, emesis, abdominal pain or reflux, or constipation. At previous visit Zepbound was ordered, however pt did not qualify. She was started on a new psych med which resulted in weight gain. She has a diagnosis of bipolar disorder and was hospitalized for this in August. Present meal plan includes: 2 shakes and 1 meal; she is making each shake with 20g protein ([employer]) in 26oz water or some plain yogurt, will add ligia and flaxseed meal of mostly protein, occasionally veg takes Celebrate MVI -at last visit I gave her [employer] luc info but she has not used Exercise routine includes: goes to gym 5x/week, has been working with a program trainer Pt continues to have excess skin of abdomen that is very bothersome. Has been using clotrimazole cream on pannus and compression garments every day to prevent rashes. The extra skin bothers her at work when she is very active walking/moving often. She has had to purchase a compressive garment to help hold excess skin in place during movement, otherwise she is very uncomfortable with activites of daily living. Also has to wear compressive arm sleeves to prevent friction of skin rubbing at work. The skin fold causes a lot of itching and discomfort. [facility] Medical History Psychiatric care Obesity (BMI 30.0-34.9) Psychosis Hypovitaminosis D Breast lump on left side at 3 o'clock position Physical exam Overweight (BMI 25.0-29.9) Intestinal malabsorption following gastrectomy Malabsorption due to intolerance, not elsewhere classified Anemia Back pain GERD (gastroesophageal reflux disease) Morbid obesity Surgical History History of surgical procedure on mouth History of colonoscopy Hx of cholecystectomy S/P laparoscopic sleeve gastrectomy Family History Father No problems noted. Mother Hypertension Sister No problems noted. Sister Hypoglycemia Brother No problems noted. Brother No problems noted. Son No problems noted. Son No problems noted. Paternal Aunt Breast cancer Colon cancer Paternal Grandfather No problems noted. Social History Household Members: Family Household Members Other:: 2 Housing: Apartment Do you presently have visiting nurse or other home services: No Alcohol intake: former Patient Tobacco Use Status: Never used Tobacco Tobacco use type: Cigarette e-Cigarette/Vaping Use: Never Used Second Hand Smoke Exposure: No service: No Current occupational status: employed Current occupational exposures/hazards: No Sexual orientation: Straight/Heterosexual Cognitive needs: No Hearing needs: No Vision needs: No Female Reproductive History Menstrual Age of Menarche: 7 Physical Exam Vital Signs: Last Vital Signs Temp 98.0 F 11/08/25 11:40 Pulse 79 11/08/25 11:40 BP 103/58 L 11/08/25 11:40 Pulse Ox 98 11/08/25 11:40 Oxygen Delivery Method Room Air 11/08/25 11:40 BMI result Body Mass Index 34.4 Assessment & Plan Assessment & Plan (1) S/P laparoscopic sleeve gastrectomy: Code(s): Z98.84 - Bariatric surgery status Category: Medical (2) Bipolar 1 disorder: Code(s): F31.9 - Bipolar disorder, unspecified Category: Medical (3) Obesity: Code(s): E66.9 - Obesity, unspecified Category: Medical Plan Pt was previously denied for GLP1, however she has bipolar disorder with recent hospitalization for this and would not be a safe candidate for phentermine. Will submit for approval of Zepbound. She understands the need to communicate with me weekly. She wants to use [employer] protein powder (30g per scoop) and can use 2 scoops a day but make sure it is spread out over the morning and afternoon. RTC 3-4mo. Medications: New tirzepatide (weight loss) (Zepbound) for 4 weeks 2.5 mg (0.5 mL) subcut QWEEK 2 mL 0RF
[2025-11-08 11:40] VITALS: BP 103/58; PULSE 79; TEMP 36.7; O2SAT 98; BMI 34.4
--- OUTSIDE RECORDS SUMMARY | 2025-11-08 14:34 | XMS_ITS | Encounter Summary ---
Author Organization [employer] Address [address] [facility] 7t [place] [address] Care Team Providers Care Retirement Sales Consultant Name Role Phone Unavailable Primary Care Provider Unavailabl e Encounter Details Date Type Department Care Team (Latest Contact Info) Description 12/07/[address] [facility] CONVERSIONS Dental, Provider, DDS Social History [...]
--- OUTSIDE RECORDS SUMMARY | 2025-11-08 14:34 | XMS_ITS | Encounter Summary ---
Author Organization [employer] Address [address] [facility] 7t [place] [address] Care Team Providers Care Tier Truck Driver Name Role Phone Unavailable Primary Care Provider Unavailabl e Encounter Details Date Type Department Care Team (Latest Contact Info) Description 08/25/2019 Abstract [facility] CONVERSIONS Dental, Provider, DDS Social [...]
--- OUTSIDE RECORDS SUMMARY | 2025-11-08 14:34 | XMS_ITS | Patient Health Record ---
Author Organization [facility] Address [address] [place] [address] Care Team Providers Care Sample Mounter Name Role Phone Sonu Neff Jr Reason For Referral No Information Plan Of Treatment No Information
--- OUTSIDE RECORDS SUMMARY | 2025-11-08 14:35 | XMS_ITS | Encounter Summary ---
Author Organization [employer] Address [address] [facility] [address]t [place] [address] Care Team Providers Care Drawing In Machine Tender Name Role Phone Unavailable Primary Care Provider Unavailabl e Encounter Details Date Type Department Care Team (Latest Contact Info) Description 07/27/2019 Abstract [facility] CONVERSIONS Dental, Provider, DDS Social History Tobacco [...]
--- OUTSIDE RECORDS SUMMARY | 2025-11-08 14:35 | XMS_ITS | Clinical Summary ---
Author Organization [employer] Address [address] [place] [address] [address] [place] [address] Care Team Providers Care Post Framer Name Role Phone Unavailable Primary Care Provider [...] Most Recently Relevant to Health Maintenance [facility] ADULT DENT[facility] - HSN PARTIAL (MEDICAID)
--- OUTSIDE RECORDS SUMMARY | 2025-11-08 14:35 | XMS_ITS | Clinical Summary ---
Author Organization [facility] Address [address] [place] [address] Phone Care Team Providers Care Tip Finisher Name Role Phone Cydney Foster MD Primary Care Provider [phone] Allergies No known active allergies Medications cetirizine [...] History Surgery Date Site/Laterality Comments CHOLECYSTECTOMY PROCEDURE: [place] CHOLECYSTECTOMY BARIATRIC SURGERY N/A PROCEDURE: [place] LAPS GSTRC RSTRICTIV PX LONGITUDINAL GASTRECTOMY MULTIPLE [...] patient's age to complete this topic Insurance [facility] [employer] PLAN MEDICAID - [place] Care Teams Tip Finisher Relationship Specialty Start Date End Date Cydney Foster MD [address] [place] [address] , [address] [facility] Physician Associ D/B/A: [facility] In Internal [facility] PCP - General Internal Medicine 03/10/25
--- OUTSIDE RECORDS SUMMARY | 2025-11-08 14:35 | XMS_ITS | Clinical Summary ---
Author Organization [facility] Address [address] [place] [address] Care Team Providers Care Retail Management Keyholder Name Role Phone Unavailable Primary Care Provider Unavailabl e Social History Tobacco Use Types Packs/Day Years Used Date Smoking Tobacco: Never Assessed Comments Unknown Sex and Gender Information Value Date Recorded Sex Assigned at Not on file Legal Sex Female 10:47 PM EST Gender Identity Not on file Sexual Orientation Not on file Plan of Treatment Not on file
== END 2025-11-08 12:14 | disposition home or self-care (01) ==
LOC: HO.HBS 11:24
PROVIDERS: PCP Internal Medicine; Visit Provider Physician Assistant Surgical
DX: E66.811 Obesity, class 1 (principal); Z68.34 Body mass index [BMI] 34.0-34.9, adult; Z98.84 Bariatric surgery status; Z90.3 Acquired absence of stomach [part of]; F31.9 Bipolar disorder, unspecified
CPT/HCPCS: 99214

== ENCOUNTER → 2025-11-08 11:23 | Outpatient (BNVA) | payer OTHER, SELFPAY | PROVIDERS: PCP Internal Medicine; Visit Provider Physician Assistant Surgical | DX: E66.9 Obesity, unspecified (principal); F31.9 Bipolar disorder, unspecified; Z98.84 Bariatric surgery status; Z68.34 Body mass index [BMI] 34.0-34.9, adult | CPT/HCPCS: 99212 ==